=== PATIENT | female | born 1940 | race Caucasian/White ===

== ENCOUNTER 2016-08-12 11:37 | Inpatient (IN) | payer MEDICARE ==
[2016-08-12] MEDS ORDERED: SODIUM CHLORIDE 0.9% 1,000 ML IV STA ×2 (11:52→13:10)
--- NOTE | 2016-08-12 12:14 | ED ---
General Adult HPI - General Stated complaint: Upper Abd pain Time Seen by Provider: 08/12/16 11:52 Source: patient, RN notes reviewed Mode of arrival: EMS Limitations: no limitations - History of Present Illness Initial comments: 76-year-old female presents to the emergency department with a chief complaint of epigastric discomfort. Patient developed this epigastric discomfort this morning. Patient states it hurts she touches the upper part of her belly. Patient states that she took her and asked that medicine because she was on the past that this was her acid reflux but it did not help. Patient states that she then developed some left arm heaviness. Patient states during this time she did have an episode of slurred speech but that has since resolved. Patient states that she hasn't had a fever or chills. Patient states when she is having epigastric pain she has some nausea there has not been any sweating. Patient states that she was concerned due to the pain that the fact that her typical medications and help in this new left arm heaviness so she thought that she should be evaluated. Patient denies any back pain with this. Patient states she hasn't had a fever chills she denies any diarrhea. Patient denies any actual vomiting.Patient denies any recent fever, chills, shortness of breath , chest pain, back pain, vomiting, numbness or tingling, dysuria or hematuria, constipation or diarrhea, headaches or visual changes, or any other current symptoms. - Related Data Home Medications Medication Instructions Recorded Confirmed Enalapril [Vasotec] 20 mg PO BID 11/18/13 08/12/16 Simvastatin [Zocor] 40 mg PO HS 11/18/13 08/12/16 glyBURIDE/METFORMIN HCL 2 tab PO BID 11/18/13 08/12/16 [Glucovance 5-500 mg Tablet] traMADol HCl [Ultram] 50 mg PO TID PRN 11/18/13 08/12/16 Cholecalciferol [Vitamin D3] 4,000 unit PO SA 08/12/16 08/12/16 Gabapentin [Neurontin] 100 mg PO HS 08/12/16 08/12/16 Insulin Glargine [Lantus] 42 unit SQ HS 08/12/16 08/12/16 Isosorbide Mononitrate ER [Imdur] 30 mg PO DAILY 08/12/16 08/12/16 LORazepam [Ativan] 0.5 mg PO DAILY PRN 08/12/16 08/12/16 Nitrofurantoin Macrocrystal 50 mg PO HS 08/12/16 08/12/16 [Macrodantin] Pantoprazole [Protonix] 40 mg PO DAILY 08/12/16 08/12/16 amLODIPine [Norvasc] 5 mg PO DAILY 08/12/16 08/12/16 Allergies Allergy/AdvReac Type Severity Reaction Status Date / Time latex Allergy Rash/Hives Verified 08/12/16 12:08 Review of Systems ROS Statement: Those systems with pertinent positive or pertinent negative responses have been documented in the HPI. ROS Other: All systems not noted in ROS Statement are negative. Past Medical History Past Medical History: Diabetes Mellitus, Hypertension Additional Past Medical History / Comment(s): high cholesterol History of Any Multi-Drug Resistant Organisms: None Reported Past Surgical History: Cholecystectomy, Tonsillectomy, Tubal Ligation Past Psychological History: Anxiety, Depression Smoking Status: Former smoker Past Alcohol Use History: None Reported Past Drug Use History: None Reported General Exam - General Exam Comments Initial Comments: General: The patient is awake and alert, in no distress, and does not appear acutely ill. Eye: Pupils are equal, round and reactive to light, extra-ocular movements are intact; there is normal conjunctiva bilaterally. No signs of icterus. Ears, nose, mouth and throat: There are moist mucous membranes and no oral lesions. Neck: The neck is supple, there is no tenderness. Cardiovascular: There is a regular rate and rhythm. No murmur, rub or gallop is appreciated. Respiratory: Lungs are clear to auscultation, respirations are non-labored, breath sounds are equal. No wheezes, stridor, rales, or rhonchi. Gastrointestinal: Soft, non-distended, epigastric tender abdomen without masses or organomegaly noted. There is no rebound or guarding present. No CVA tenderness. Bowel sounds are unremarkable. Back: There is no tenderness to palpation in the midline. There is no obvious deformity. No rashes noted. Musculoskeletal: Normal ROM, no tenderness, There is no pedal edema. There is no calf tenderness or swelling. Sensation intact. Pulses equal bilaterally 2+. Neurological: CN II-XII intact, There are no obvious motor or sensory deficits. Coordination appears grossly intact. Speech is normal. Skin: Skin is warm and dry and no rashes or lesions are noted. Psychiatric: Cooperative, appropriate mood & affect, normal judgment. Limitations: no limitations Course Vital Signs 08/12/16 08/12/16 08/12/16 11:52 12:05 13:02 Temperature 97.3 F L 98.8 F 99.3 F Pulse Rate 67 68 76 Respiratory 18 24 20 Rate Blood Pressure 157/91 176/77 168/81 O2 Sat by Pulse 99 98 98 Oximetry EKG Findings - EKG Comments: EKG Findings:: Normal sinus rhythm, T-wave inversion in V3 V4 V5 and V6, ventricular rate 64, LA interval 154 Medical Decision Making - Medical Decision Making 76-year-old female presents to the emergency department with a chief complaint of epigastric abdominal pain. As the patient does appear to have acute pancreatitis along with a mild acute kidney injury. Similar patient for IV hydration. At this time this is discussed with patient who is in agreement the plan. All questions have been answered. They will admit the patient. - Lab Data Result diagrams: 08/12/16 11:52 08/12/16 11:52 Lab Results 08/12/16 08/12/16 08/12/16 Range/Units 11:52 11:52 11:52 WBC 9.9 (3.8-10.6) k/uL RBC 5.73 H (3.80-5.40) m/uL Hgb 11.9 (11.4-16.0) gm/dL Hct 38.5 (34.0-46.0) % MCV 67.2 L (80.0-100.0) fL MCH 20.8 L (25.0-35.0) pg MCHC 30.9 L (31.0-37.0) g/dL RDW 14.8 (11.5-15.5) % Plt Count 223 (150-450) k/uL Neutrophils % 60 % Lymphocytes % 30 % Monocytes % 4 % Eosinophils % 3 % Basophils % 1 % Neutrophils # 5.9 (1.3-7.7) k/uL Lymphocytes # 2.9 (1.0-4.8) k/uL Monocytes # 0.4 (0-1.0) k/uL Eosinophils # 0.3 (0-0.7) k/uL Basophils # 0.1 (0-0.2) k/uL Hypochromasia Slight Microcytosis Marked PT (9.0-12.0) sec INR (<1.1) APTT (22.0-30.0) sec Sodium 136 L (137-145) mmol/L Potassium 5.1 (3.5-5.1) mmol/L Chloride 101 (98-107) mmol/L Carbon Dioxide 19 L (22-30) mmol/L Anion Gap 16 mmol/L BUN 20 H (7-17) mg/dL Creatinine 1.24 H (0.52-1.04) mg/dL Est GFR (MDRD) Af Amer 51 (>60 ml/min/1.73 sqM) Est GFR (MDRD) Non-Af 42 (>60 ml/min/1.73 sqM) Glucose 228 H (74-99) mg/dL Calcium 10.0 (8.4-10.2) mg/dL Magnesium 1.3 L (1.6-2.3) mg/dL Total Bilirubin 0.7 (0.2-1.3) mg/dL AST 32 (14-36) U/L ALT 31 (9-52) U/L Alkaline Phosphatase 102 (38-126) U/L Total Creatine Kinase 73 (30-135) U/L CK-MB (CK-2) 1.3 (0.0-2.4) ng/mL CK-MB (CK-2) Rel Index 1.8 Troponin I 0.014 (0.000-0.034) ng/mL Total Protein 7.8 (6.3-8.2) g/dL Albumin 4.2 (3.5-5.0) g/dL Amylase 222 H (30-110) U/L Lipase 2767 H (23-300) U/L Urine Color Urine Appearance (Clear) Urine pH (5.0-8.0) Ur Specific [place] (1.001-1.035) Urine Protein (Negative) Urine Glucose (UA) (Negative) Urine Ketones (Negative) Urine Blood (Negative) Urine Nitrate (Negative) Urine Bilirubin (Negative) Urine Urobilinogen (<2.0) mg/dL Ur Leukocyte Esterase (Negative) 08/12/16 08/12/16 Range/Units 11:52 12:40 WBC (3.8-10.6) k/uL RBC (3.80-5.40) m/uL Hgb (11.4-16.0) gm/dL Hct (34.0-46.0) % MCV (80.0-100.0) fL MCH (25.0-35.0) pg MCHC (31.0-37.0) g/dL RDW (11.5-15.5) % Plt Count (150-450) k/uL Neutrophils % % Lymphocytes % % Monocytes % % Eosinophils % % Basophils % % Neutrophils # (1.3-7.7) k/uL Lymphocytes # (1.0-4.8) k/uL Monocytes # (0-1.0) k/uL Eosinophils # (0-0.7) k/uL Basophils # (0-0.2) k/uL Hypochromasia Microcytosis PT 11.8 (9.0-12.0) sec INR 1.2 (<1.1) APTT 21.9 L (22.0-30.0) sec Sodium (137-145) mmol/L Potassium (3.5-5.1) mmol/L Chloride (98-107) mmol/L Carbon Dioxide (22-30) mmol/L Anion Gap mmol/L BUN (7-17) mg/dL Creatinine (0.52-1.04) mg/dL Est GFR (MDRD) Af Amer (>60 ml/min/1.73 sqM) Est GFR (MDRD) Non-Af (>60 ml/min/1.73 sqM) Glucose (74-99) mg/dL Calcium (8.4-10.2) mg/dL Magnesium (1.6-2.3) mg/dL Total Bilirubin (0.2-1.3) mg/dL AST (14-36) U/L ALT (9-52) U/L Alkaline Phosphatase (38-126) U/L Total Creatine Kinase (30-135) U/L CK-MB (CK-2) (0.0-2.4) ng/mL CK-MB (CK-2) Rel Index Troponin I (0.000-0.034) ng/mL Total Protein (6.3-8.2) g/dL Albumin (3.5-5.0) g/dL Amylase (30-110) U/L Lipase (23-300) U/L Urine Color Yellow Urine Appearance Clear (Clear) Urine pH 6.0 (5.0-8.0) Ur Specific [place] 1.012 (1.001-1.035) Urine Protein Trace H (Negative) Urine Glucose (UA) Trace H (Negative) Urine Ketones Negative (Negative) Urine Blood Negative (Negative) Urine Nitrate Negative (Negative) Urine Bilirubin Negative (Negative) Urine Urobilinogen <2.0 (<2.0) mg/dL Ur Leukocyte Esterase Negative (Negative) - Radiology Data Radiology results: report reviewed, image reviewed Disposition Clinical Impression: Hyponatremia, MARISOL (acute kidney injury), Acute pancreatitis Disposition: ADMITTED IP TO THIS [facility] Condition: Stable Referrals: Carlos Hall MD [Primary Care Provider] - 1-2 days Time of Disposition: 13:13 Decision Date: 08/12/16 Decision Time: 13:13
[2016-08-12 12:19] LABS: Basophils # (A) 0.1 k/uL (0-0.2); Basophils % (A) 1 %; CH 21.1; CHCM 31.7; Eosinophils # (A) 0.3 k/uL (0-0.7); Eosinophils % (A) 3 %; HCT 38.5 % (34.0-46.0); HDW 3.08; HGB 11.9 gm/dL (11.4-16.0); Hypochromasia Slight; Luc # (Auto) 0.25; Luc % (Auto) 3; Lymphocytes # (A) 2.9 k/uL (1.0-4.8); Lymphocytes % (A) 30 %; MCH 20.8 pg (25.0-35.0); MCHC 30.9 g/dL (31.0-37.0); MCV 67.2 fL (80.0-100.0); Mean Platelet Volume 7.6; Microcytosis Marked; Monocytes # (A) 0.4 k/uL (0-1.0); Monocytes % (A) 4 %; Neutrophils # (A) 5.9 k/uL (1.3-7.7); Neutrophils % (A) 60 %; RBC 5.73 m/uL (3.80-5.40); RDW 14.8 % (11.5-15.5); WBC 9.9 k/uL (3.8-10.6); WBC (Perox) 9.87
--- NOTE | 2016-08-12 12:31 | CT ---
EXAMINATION TYPE: CT brain wo con DATE OF EXAM: 08/12/2016 12:25 PM COMPARISON: NONE HISTORY: 76-year-old female with pain and complains of episode of slurred speech earlier today. TECHNIQUE: Examination was done in axial plane without intravenous contrast. Coronal and sagittal reconstructio ns performed. CT DLP: 578.9 mGycm Automated exposure control for dose reduction was used. FINDINGS: There is no evidence of acute intracranial hemorrhage, acute ischemic changes, mass, mass-effect, or extra-axial fluid collection. There is no effacement of cerebral sulci or basal subarachnoid cister ns. There is no hydrocephalus. There is no midline shift. Hurst-white matter distinction is preserv ed. There is mild to moderate generalized supratentorial volume loss with moderate confluent white matter hypodensities in both cerebral hemispheres. Paranasal sinuses and mastoid air cells are well pneumatized. Orbits and globes are intact. IMPRESSION: No acute intracranial abnormality seen. Mild to moderate atrophy and moderate confluent changes of ch ronic small vessel ischemic disease.
[2016-08-12 12:34] LABS: INR 1.2 (<1.1); Prothrombin Time 11.8 sec (9.0-12.0)
[2016-08-12 12:36] LABS: Partial Thromboplastin Time 21.9 sec (22.0-30.0)
[2016-08-12 12:45] LABS: Magnesium 1.3 mg/dL (1.6-2.3); Potassium 5.1 mmol/L (3.5-5.1); Total Bilirubin 0.7 mg/dL (0.2-1.3); Total Protein 7.8 g/dL (6.3-8.2)
--- NOTE | 2016-08-12 12:47 | XR ---
EXAMINATION TYPE: XR chest 2V DATE OF EXAM: 08/12/2016 12:32 PM COMPARISON: 08/05/2012 HISTORY: 76-year-old female with chest pain and chest pressure TECHNIQUE: Frontal and lateral views FINDINGS: Heart is upper limits of normal in size with mild elongation of the thoracic aorta. Mild interstitial prominence and some stable scarring at the left base. No pleural effusion. IMPRESSION: Borderline heart size and mild interstitial prominence; correlate to exclude mild CHF. Otherwise, no acute process seen.
[2016-08-12 12:58] LABS: Appearance,Urine Clear (Clear); Bilirubin,Urine Negative (Negative); Glucose,Urine (UA) Trace (Negative); Ketones,Urine Negative (Negative); Leukocyte Esterase,Urine Negative (Negative); Nitrite,Urine Negative (Negative); Protein,Urine Trace (Negative); Specific Gravity,Urine 1.012 (1.001-1.035); UA Billing (MACRO vs. MICRO) CHEM; Urobilinogen,Urine <2.0 mg/dL (<2.0)
[2016-08-12 12:59] LABS: Creatine Kinase MB 1.3 ng/mL (0.0-2.4); Troponin I 0.014 ng/mL (0.000-0.034)
[2016-08-12] MEDS ORDERED: NALOXONE 0.4 MG/ML 1 ML VIAL IV PRN (13:19)
[2016-08-12] MEDS ORDERED: ACETAMINOPHEN TAB 325 MG TAB PO PRN (13:19)
[2016-08-12] MEDS ORDERED: ONDANSETRON 4 MG/2 ML VIAL IVP PRN (13:19)
[2016-08-12] MEDS ORDERED: HYDROcodone/APAP 5-325MG 1 EACH TAB PO PRN (13:19)
[2016-08-12] MEDS ORDERED: LORazepam 0.5 MG TAB PO PRN (13:20)
[2016-08-12] MEDS: SODIUM CHLORIDE 0.9% 1,000 ML IV SCH (14:51)
[2016-08-12] MEDS: HYDROmorphone 1 MG/ML 1 ML SYRINGE IV PRN (15:00)
[2016-08-12 16:22] LABS: Glucose,Whole Blood 160 mg/dL (75-99)
[2016-08-12] MEDS ORDERED: RX INFO: IV CONTRAST WAS GIVEN 1 EACH MISC MISCELLANE PRN (16:42)
[2016-08-12] MEDS ORDERED: IOHEXOL 350 MG/ML 25 ML BOTTLE (ORAL USE) PO PRN (16:42)
[2016-08-12] MEDS: INSULIN LISPRO (humaLOG) 300 UNIT/3 ML VIAL SQ SCH ×2 (16:55→20:59)
[2016-08-12] MEDS ORDERED: glipiZIDE 10 MG TAB PO SCH (17:30)
--- NOTE | 2016-08-12 18:01 | CT ---
EXAMINATION TYPE: CT abdomen wo con DATE OF EXAM: 08/12/2016 5:42 PM COMPARISON: 04/01/2013 HISTORY: Patient complains of epigastric pain. CT DLP: 666 mGycm Automated exposure control for dose reduction was used. TECHNIQUE: Helical acquisition of images was performed from the lung bases through the top of iliac crest to include entire abdomen. CONTRAST: Performed with Oral Contrast and without IV contrast. FINDINGS: The heart is enlarged. There is no pleural effusion. There is no pericardial effusion. Abdominal aort a is atheromatous. There are clips from cholecystectomy. Liver shows no focal defect. Spleen appears normal. There is no evidence of a pancreatic mass. There is no adrenal mass. Kidneys have normal size and contour. There is no hydronephrosis. There is no retroperitoneal adenopathy. I see no intestinal wall thickening. There is no sign of a bowel obstruction. There is no ascites. There is spurring in the lumbar spine. IMPRESSION: CARDIOMEGALY. ATHEROSCLEROTIC VASCULAR DISEASE. SPONDYLOTIC CHANGES IN THE LUMBAR SPINE. NO SIGN OF A CUTE ABDOMEN AND PELVIS. MINIMAL SCARRING OR SUBSEGMENTAL ATELECTASIS AT THE LUNG BASES. THERE IS PRO BABLY A SMALL HIATAL HERNIA. There is no adverse change compared to old CT scan.
[2016-08-12 19:41] LABS: Hemoglobin A1C 9.7 % (4.2-6.1)
[2016-08-12 19:47] LABS: Creatine Kinase MB 1.4 ng/mL (0.0-2.4); Troponin I 0.019 ng/mL (0.000-0.034)
[2016-08-12 20:55] LABS: Glucose,Whole Blood 140 mg/dL (75-99)
[2016-08-12] MEDS: traMADol 50 MG TAB PO PRN (20:57)
[2016-08-12] MEDS: TEMAZEPAM 15 MG CAP PO PRN (20:58)
[2016-08-12] MEDS: ATORVASTATIN 20 MG TAB PO SCH (20:58)
[2016-08-12] MEDS: GABAPENTIN 100 MG CAP PO SCH (20:58)
[2016-08-12] MEDS: HEPARIN SODIUM,PORCINE 5,000 UNIT/ML 1 ML VIAL SQ SCH (20:59)
[2016-08-12] MEDS: INSULIN GLARGINE 100 UNIT/ML 10 ML VIAL SQ SCH (20:59)
[2016-08-12] MEDS ORDERED: NITROFURANTOIN MACROCRYSTAL 50 MG CAP PO SCH (21:00)
[2016-08-12] MEDS: LISINOPRIL 20 MG TAB PO SCH (21:00)
--- NOTE | 2016-08-12 22:37 | HP ---
DATE OF ADMISSION: CHIEF COMPLAINT: Abdominal pain. HISTORY OF PRESENT ILLNESS: This 76-year-old woman with a past history of diabetes, GERD, hypertension, hyperlipidemia, history of vasospastic angina, history of sinus problems, history of cholecystectomy, tonsillectomy, anxiety, depression, being followed by Dr. Carlos Hall in the outpatient setting, was complaining of epigastric pain since this morning. The abdomen is painful to touch, according to her. The patient had some nausea, too. Patient thought that it was acid reflux, and she came to [facility] and was admitted for further evaluation and treatment. Some left arm heaviness also was noted. There is no history of any fever, rigor, or chills. No history of any headache, loss of consciousness, seizures. The patient came to [facility] and was found to have amylase of 222 and lipase 276, indicative of acute pancreatitis. The patient had a cholecystectomy previously. PAST MEDICAL HISTORY: 1. History of diabetes mellitus. 2. History of GERD. 3. Hypertension. 4. Hyperlipidemia. 5. History of cholecystectomy. 6. History of tonsillectomy. 7. Atrial fibrillation. 8. Anxiety. 9. Depression. Home medications are: 1. Macrodantin 50 mg p.o. at bedtime. 2. Vitamin D3 4000 p.o. Thursday. 3. Protonix 40 mg daily. 4. Imdur 30 mg p.o. daily. 5. Ultram 50 mg t.i.d. p.r.n. 6. Norvasc 5 mg p.o. daily. 7. Glucovance 5/500 two tablets p.o. b.i.d. 8. Vasotec 20 mg p.o. b.i.d. 9. Zocor 40 mg at bedtime. 10. Neurontin 300 mg p.o. at bedtime. 11. Ativan 0.5 mg daily p.r.n. 12. Lantus 42 units subcutaneously at bedtime. ALLERGIES: LATEX. FAMILY HISTORY: History of cancer in the family. SOCIAL HISTORY: Previous history of smoking. No current smoking or alcohol intake. REVIEW OF SYSTEMS: ENT: No diminished hearing. No diminished vision. CARDIOVASCULAR: No angina, palpitations. RESPIRATORY: No cough, hemoptysis. GI: As mentioned earlier. : No dysuria. NERVOUS SYSTEM: No numbness or weakness. ALLERGY/IMMUNOLOGY: No asthma, hayfever. MUSCULOSKELETAL: As mentioned earlier. HEMATOLOGY/ONCOLOGY: No history of anemia. ENDOCRINE: Diabetes mellitus. CONSTITUTIONAL: As mentioned earlier. DERMATOLOGY: Negative. RHEUMATOLOGY: Negative. PSYCHIATRY: As mentioned earlier. PHYSICAL EXAMINATION: Patient is alert and oriented x3. Pulse 68, blood pressure 150/84, respiration 20, temperature 97.8, pulse ox 98% on 3 L. HEENT: Conjunctivae normal. Oral mucosa moist. NECK: No jugular venous distention. No carotid bruit. No lymph node enlargement. CARDIOVASCULAR SYSTEM: S1, S2 normal. No S3. No S4. RESPIRATORY: Breath sounds diminished at the bases. No rhonchi. No crackles. ABDOMEN: Soft, obese. Mild diffuse tenderness in the epigastrium. No guarding. No rigidity. No mass palpable. No hepatosplenomegaly. No ascites. Bowel sounds present. LEGS: No edema. No swelling. NERVOUS SYSTEM: Higher functions as mentioned earlier. Moves all 4 limbs. No focal motor or sensory deficit. Cranial nerves 2-12 grossly intact LYMPHATICS: No lymph node palpable in neck, axillae or groin. SKIN: No ulcer, rash, bleeding. LABS: WBC 9.3, hemoglobin 11.9. INR 1.2. Sodium 136. Creatinine is 1.24. Glucose is 228. Magnesium is 1.3. Amylase and lipase noted. ASSESSMENT: 1. Abdominal pain with acute pancreatitis. 2. History of cholecystectomy. 3. Increased creatinine with possible mild acute renal failure, prerenal, secondary to dehydration. 4. Diabetes mellitus, type 2. 5. Hypomagnesemia. 6. Hyponatremia. 7. Obesity; body mass index 34.1. 8. Microcytosis. 9. Gastroesophageal reflux disease. 10. Hypertension. 11. Hyperlipidemia. 12. History of vasospastic angina. 13. History of degenerative joint disease. 14. History of urinary tract infections. 15. History of anxiety, depression not otherwise specified. 16. Remote history of nicotine dependence. 17. FULL CODE. RECOMMENDATIONS AND DISCUSSION: In this 76-year-old woman who presented with multiple complex medical issues, we will monitor the patient closely, continue the current medications, continue with symptomatic treatment. I would recommend IV fluids. Will hold the oral antihyper medications at this time. Otherwise, continue to monitor. Accu-Cheks before meals and at bedtime and scale. Resume the home medications. Medication reconciliation done. Pain medications. Guarded prognosis because of multiple complex medical issues. Further recommendations to follow. A copy of this dictation is being forwarded to Dr. Hall, who is the primary physician. HUMBERTO
[2016-08-13] MEDS: SODIUM CHLORIDE 0.9% 1,000 ML IV SCH ×3 (00:07→20:56)
[2016-08-13 00:53] LABS: Creatine Kinase MB 1.1 ng/mL (0.0-2.4); Troponin I 0.02 ng/mL (0.000-0.034)
[2016-08-13] MEDS: HYDROmorphone 1 MG/ML 1 ML SYRINGE IVP PRN ×3 (04:41→18:18)
[2016-08-13 08:01] LABS: Glucose,Whole Blood 169 mg/dL (75-99)
[2016-08-13] MEDS: INSULIN LISPRO (humaLOG) 300 UNIT/3 ML VIAL SQ SCH ×4 (08:36→20:40)
[2016-08-13 08:53] LABS: Basophils % (A) 0 %; CH 20.2; CHCM 29.2; Eosinophils # (A) 0.3 k/uL (0-0.7); Eosinophils % (A) 4 %; HCT 37.9 % (34.0-46.0); HDW 2.86; HGB 11.2 gm/dL (11.4-16.0); Hypochromasia Marked; Luc # (Auto) 0.19; Luc % (Auto) 3; Lymphocytes # (A) 2.6 k/uL (1.0-4.8); Lymphocytes % (A) 38 %; MCH 20.5 pg (25.0-35.0); MCHC 29.5 g/dL (31.0-37.0); MCV 69.6 fL (80.0-100.0); Mean Platelet Volume 6.2; Microcytosis Moderate; Monocytes # (A) 0.3 k/uL (0-1.0); Monocytes % (A) 5 %; Neutrophils # (A) 3.3 k/uL (1.3-7.7); Neutrophils % (A) 50 %; RBC 5.44 m/uL (3.80-5.40); RDW 14.3 % (11.5-15.5); WBC 6.7 k/uL (3.8-10.6); WBC (Perox) 7.15
[2016-08-13] MEDS ORDERED: PANTOPRAZOLE 40 MG TABLET PO SCH (09:00)
[2016-08-13 09:18] LABS: Calcium 9.2 mg/dL (8.4-10.2); Total Bilirubin 0.7 mg/dL (0.2-1.3)
[2016-08-13 09:21] LABS: Creatine Kinase 51 U/L (30-135)
[2016-08-13 09:33] LABS: Troponin I <0.012 ng/mL (0.000-0.034)
[2016-08-13] MEDS: ISOSORBIDE MONONITRATE ER 30 MG TAB.ER.24H PO SCH (10:07)
[2016-08-13] MEDS: amLODIPine 5 MG TAB PO SCH (10:07)
[2016-08-13] MEDS: HEPARIN SODIUM,PORCINE 5,000 UNIT/ML 1 ML VIAL SQ SCH ×2 (10:07→20:39)
[2016-08-13] MEDS: LISINOPRIL 20 MG TAB PO SCH ×2 (10:07→20:38)
[2016-08-13 11:19] VITALS: BMI 34.0
[2016-08-13 12:08] LABS: Glucose,Whole Blood 148 mg/dL (75-99)
[2016-08-13] MEDS: PANTOPRAZOLE 40 MG/10 ML VIAL IVP SCH ×2 (13:46→20:39)
[2016-08-13 17:28] LABS: Glucose,Whole Blood 156 mg/dL (75-99)
[2016-08-13] MEDS: TIMOLOL 0.5% OPHTH DROPS 5 ML BTL BOTH EYES SCH (18:06)
[2016-08-13] MEDS: HYDROmorphone 1 MG/ML 1 ML SYRINGE IV PRN (18:17)
[2016-08-13] MEDS: ATORVASTATIN 20 MG TAB PO SCH (20:38)
[2016-08-13] MEDS: GABAPENTIN 100 MG CAP PO SCH (20:38)
[2016-08-13] MEDS: INSULIN GLARGINE 100 UNIT/ML 10 ML VIAL SQ SCH (20:39)
[2016-08-13] MEDS: ALPRAZolam 0.25 MG TAB PO PRN (20:42)
[2016-08-13] MEDS: TEMAZEPAM 15 MG CAP PO PRN (20:42)
[2016-08-13 21:00] LABS: Glucose,Whole Blood 314 mg/dL (75-99)
[2016-08-13 21:00] LABS: Glucose,Whole Blood 236 mg/dL (75-99)
--- NOTE | 2016-08-13 21:46 | PN ---
DATE OF SERVICE: 08/13/2016 This 76-year-old woman who was admitted with abdominal pain with acute pancreatitis also had a history of cholecystectomy previously. No chest pain or palpitations. No fever. amylase and lipase. Still has some abdominal pain. The CT scan of the abdomen showed atherosclerotic changes but no significant abnormalities of the pancreas. Hiatal hernia was also noted. On exam, alert and oriented x3. Pulse 70, blood pressure 135/77, respiration 20, temperature 98.7, pulse ox 96% on room air. HEENT: Conjunctivae normal. NECK: No jugular venous distention. CARDIOVASCULAR SYSTEM: S1, S2 muffled. RESPIRATORY SYSTEM: Breath sounds diminished at the bases. A few scattered rhonchi. No crackles. ABDOMEN: Soft. Mild diffuse discomfort. No guarding. No rigidity. No mass palpable. LEGS: No edema. No swelling. NERVOUS SYSTEM: Higher functions as mentioned earlier. Moves all 4 limbs. No focal motor or sensory deficit. LYMPHATICS: No lymph node palpable in neck, axillae or groin. SKIN: No ulcer, rash, bleeding. LABS AT THIS TIME: Hemoglobin is 11.2. Otherwise, glucose is 182. Creatinine 1.14. Amylase 139. Lipase is 1026. ASSESSMENT: 1. Abdominal pain with acute pancreatitis. 2. History of cholecystectomy. 3. Increased creatinine with possible mild acute renal failure, prerenal secondary to dehydration. 4. Diabetes mellitus, type 2. 5. Hypomagnesemia. 6. Hyponatremia. 7. Obesity with a body mass index of 34.1. 8. Microcytosis. 9. History of gastroesophageal reflux disease. 10. Hypertension, essential. 11. Hyperlipidemia. 12. History of vasospastic angina. 13. History of degenerative joint disease. 14. History of urinary tract infection. 15. History of anxiety and depression not otherwise specified. 16. Remote history of nicotine dependence. 17. FULL CODE. RECOMMENDATIONS AND DISCUSSION: In this 76-year-old woman who presented with multiple complex medical issues, we will monitor the patient closely, continue the current medication, continue symptomatic treatment. I will initiate the diet. Closely monitor. Will also obtain a gastroenterology consultation. Otherwise, guarded prognosis because of multiple complex medical issues. Further recommendations to follow. See orders for further details. MTDD
[2016-08-14 07:40] LABS: Glucose,Whole Blood 110 mg/dL (75-99)
[2016-08-14] MEDS: INSULIN LISPRO (humaLOG) 300 UNIT/3 ML VIAL SQ SCH ×4 (08:03→21:31)
[2016-08-14] MEDS: amLODIPine 5 MG TAB PO SCH (08:08)
[2016-08-14] MEDS: ISOSORBIDE MONONITRATE ER 30 MG TAB.ER.24H PO SCH (08:08)
[2016-08-14] MEDS: PANTOPRAZOLE 40 MG/10 ML VIAL IVP SCH ×2 (08:08→21:22)
[2016-08-14] MEDS: LISINOPRIL 20 MG TAB PO SCH (08:08)
[2016-08-14] MEDS: TIMOLOL 0.5% OPHTH DROPS 5 ML BTL BOTH EYES SCH (08:08)
[2016-08-14] MEDS: HEPARIN SODIUM,PORCINE 5,000 UNIT/ML 1 ML VIAL SQ SCH ×2 (08:08→21:31)
[2016-08-14] MEDS: SODIUM CHLORIDE 0.9% 1,000 ML IV SCH ×3 (08:08→21:08)
[2016-08-14 09:37] LABS: Basophils % (A) 0 %; CH 20.5; CHCM 30.2; Eosinophils # (A) 0.3 k/uL (0-0.7); Eosinophils % (A) 4 %; HCT 34.2 % (34.0-46.0); HDW 2.97; HGB 10.3 gm/dL (11.4-16.0); Hypochromasia Marked; Luc # (Auto) 0.15; Luc % (Auto) 2; Lymphocytes # (A) 2.2 k/uL (1.0-4.8); Lymphocytes % (A) 35 %; MCH 20.7 pg (25.0-35.0); MCHC 30.1 g/dL (31.0-37.0); MCV 68.6 fL (80.0-100.0); Mean Platelet Volume 6.9; Microcytosis Marked; Monocytes # (A) 0.4 k/uL (0-1.0); Monocytes % (A) 6 %; Neutrophils # (A) 3.4 k/uL (1.3-7.7); Neutrophils % (A) 53 %; RBC 4.99 m/uL (3.80-5.40); RDW 14.6 % (11.5-15.5); WBC 6.5 k/uL (3.8-10.6); WBC (Perox) 7.04
[2016-08-14 09:52] LABS: ALT 27 U/L (9-52); AST 37 U/L (14-36); Alkaline Phosphatase 66 U/L (38-126); Amylase 88 U/L (30-110); Anion Gap 12 mmol/L; Blood Urea Nitrogen 12 mg/dL (7-17); Calcium 8.7 mg/dL (8.4-10.2); Carbon Dioxide 20 mmol/L (22-30); Chloride 107 mmol/L (98-107); Glucose 189 mg/dL (74-99); Non-African American GFR(MDRD) 50 (>60 ml/min/1.73 sqM); Potassium 4.5 mmol/L (3.5-5.1); Sodium 139 mmol/L (137-145); Total Bilirubin 0.7 mg/dL (0.2-1.3); Total Protein 6.3 g/dL (6.3-8.2)
--- NOTE | 2016-08-14 11:00 | P.CONS ---
History of Present Illness - Reason for Consult Consult date: 08/14/16 Pancreatitis Requesting physician: Rubén Moreno - History of Present Illness 76-year-old female patient Dr. Hall with a past medical history of acalculus cholecystectomy, chronic kidney disease, diabetes mellitus, GERD, hypertension, hyperlipidemia, anxiety, depression. Patient presents with severe midepigastric abdominal pain elevated BUN/creatinine. Abdominal pain started Thursday with elevated admission pancreatic enzymes consistent with acute pancreatitis. Lipase 1026. Amylase 139. LFTs within normal limits. Triglycerides 199. Calcium 9.2. No history of pancreatitis. No history of fever, chills, hematemesis, hematochezia, melena, peptic ulcer disease, alcoholism, or known pancreatic disorders. She was in [place] 6 months ago and was evaluated for midepigastric pain at that time she was taking NSAIDs for arthritic discomfort. She was prescribed a PPI therapy without EGD. She discontinued NSAIDs 3 months ago per recommendation of her shop tailor for concern of worsening kidney function. No history of EGD. Presently she feels better. Lipase improved 425. Amylase 88. Hemoglobin 11.9 admission currently 10.3. MCV 68. Platelet 216. She is tolerating clear liquid diet. CT abdomen reported no focal liver defect. Spleen appeared normal with no evidence of pancreatic mass. Review of Systems Constitutional: Denies fever, chills, sweats, weight gain, or loss. HEENT: Negative for migraines, blurred vision or loss, earaches, drainage, tinnitus, oral mucosal lesions, dysphagia, or odynophagia. CARDIAC: Hyperlipidemia. Hypertension. Negative for chest pain, arrhythmias, or palpitation. RESPIRATORY: Negative for shortness of breath, hemoptysis, cough, or sputum production. GI: See HPI for pertinent findings. : Negative for hematuria, urgency, frequency, polyuria, or dysuria. GYNc: Denies possibility of . Negative vaginal discharge. MUSCULOSKELETAL: Negative for muscle aches, swelling, arthritis, and arthralgias. NEUROLOGIC: Negative for stroke or TIA. ENDOCRINE: Diabetes mellitus.. SKIN: Negative for rash or itching. 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 History of Any Multi-Drug Resistant Organisms: None Reported Past Surgical History: Cholecystectomy, Tonsillectomy, Tubal Ligation Additional Past Surgical History / Comment(s): 10/2009 cardiac cath-normal, bilateral cataract removal, colonoscopy. Past Anesthesia/Blood Transfusion Reactions: No Reported Reaction Additional Past Anesthesia/Blood Transfusion Reaction / Comm: Pt has clausterphobia. Past Psychological History: Anxiety, Depression Additional Psychological History / Comment(s): Pt resides alone. She is independent. Smoking Status: Former smoker Past Alcohol Use History: Rare Additional Past Alcohol Use History / Comment(s): Pt states she started smoking in 1955 and quit in 1988. Past Drug Use History: None Reported - Past Family History Father Family Medical History: Cancer Additional Family Medical History / Comment(s): Father at the age of 81 yrs of lung cancer. He was a smoker. Mother Family Medical History: Cancer Additional Family Medical History / Comment(s): Mother had cervical cancer. She at the age of 53 from her lupus. Medications and Allergies Home Medications Medication Instructions Recorded Confirmed Type Enalapril [Vasotec] 20 mg PO BID 11/18/13 08/12/16 History Simvastatin [Zocor] 40 mg PO HS 11/18/13 08/12/16 History glyBURIDE/METFORMIN HCL 2 tab PO BID 11/18/13 08/12/16 History [Glucovance 5-500 mg Tablet] traMADol HCl [Ultram] 50 mg PO TID PRN 11/18/13 08/12/16 History Cholecalciferol [Vitamin D3] 4,000 unit PO SA 08/12/16 08/12/16 History Gabapentin [Neurontin] 100 mg PO 08/12/16 08/12/16 History Insulin Glargine [Lantus] 42 unit SQ HS 08/12/16 08/12/16 History Isosorbide Mononitrate ER [Imdur] 30 mg PO DAILY 08/12/16 08/12/16 History LORazepam [Ativan] 0.5 mg PO DAILY PRN 08/12/16 08/12/16 History Nitrofurantoin Macrocrystal 50 mg PO HS 08/12/16 08/12/16 History [Macrodantin] Pantoprazole [Protonix] 40 mg PO DAILY 08/12/16 08/12/16 History amLODIPine [Norvasc] 5 mg PO DAILY 08/12/16 08/12/16 History Allergies Allergy/AdvReac Type Severity Reaction Status Date / Time latex Allergy Rash/Hives Verified 08/12/16 12:08 Physical Exam Vitals: Vital Signs Temp Pulse Resp BP BP Pulse Ox 08/14/16 07:00 97.7 F 63 20 152/70 96 08/13/16 23:00 98.7 F 65 18 130/63 94 L 08/13/16 15:00 98.5 F 72 20 129/62 95 Intake and Output 08/13/16 08/14/16 08/14/16 22:59 06:59 14:59 Intake Total 480 Balance 480 Intake: Oral 480 Other: # Voids 2 2 General appearance: The patient is alert, oriented, in no acute distress. HET: Head is normocephalic and atraumatic. Pupils are equal and reactive. Oropharynx is clear without lesions. Neck: Supple without lymphadenopathy. Trachea midline. Heart: S1 S2. Regular rate and rhythm. Lungs: No crackles or wheezes are heard. Abdomen: Soft, mild midepigastric tenderness, nondistended with bowel sounds. No peritoneal signs. No palpable organomegaly or masses. Extremities: Normal skin color and turgor. No cyanosis, rash, ulceration, clubbing, or edema. Radial and pedal pulses are 2/4 bilaterally. Neurological: No focal deficits. Strength and sensation are grossly intact. Results CBC & Chem 7: 08/14/16 08:49 08/14/16 08:49 Labs: Abnormal Lab Results - Last 24 Hours (Table) 08/13/16 08/13/16 08/13/16 Range/Units 11:48 17:22 20:10 Hgb (11.4-16.0) gm/dL MCV (80.0-100.0) fL MCH (25.0-35.0) pg MCHC (31.0-37.0) g/dL Carbon Dioxide (22-30) mmol/L Creatinine (0.52-1.04) mg/dL Glucose (74-99) mg/dL POC Glucose (mg/dL) 148 H 156 H 314 H (75-99) mg/dL AST (14-36) U/L Albumin (3.5-5.0) g/dL Lipase (23-300) U/L 08/13/16 08/14/16 08/14/16 Range/Units 20:12 07:12 08:49 Hgb 10.3 L (11.4-16.0) gm/dL MCV 68.6 L (80.0-100.0) fL MCH 20.7 L (25.0-35.0) pg MCHC 30.1 L (31.0-37.0) g/dL Carbon Dioxide (22-30) mmol/L Creatinine (0.52-1.04) mg/dL Glucose (74-99) mg/dL POC Glucose (mg/dL) 236 H 110 H (75-99) mg/dL AST (14-36) U/L Albumin (3.5-5.0) g/dL Lipase (23-300) U/L 08/14/16 Range/Units 08:49 Hgb (11.4-16.0) gm/dL MCV (80.0-100.0) fL MCH (25.0-35.0) pg MCHC (31.0-37.0) g/dL Carbon Dioxide 20 L (22-30) mmol/L Creatinine 1.06 H (0.52-1.04) mg/dL Glucose 189 H (74-99) mg/dL POC Glucose (mg/dL) (75-99) mg/dL AST 37 H (14-36) U/L Albumin 3.2 L (3.5-5.0) g/dL Lipase 425 H (23-300) U/L CT scan - abdomen: report reviewed (Reviewed by Dr. Ballesteros) Assessment and Plan (1) Acute pancreatitis Narrative/Plan: 76-year-old female presents with first episode of acute pancreatitis with normal liver function test possible autoimmune possible idiopathic. Peptic ulcer disease cannot be entirely excluded with history of epigastric pain for 6 months duration with remote NSAID usage without improvement using PPI therapy. Status: Acute (2) Diabetes mellitus Status: Chronic Plan: 1. Advance diet as tolerated. Nothing by mouth after midnight. 2. Will proceed with EGD evaluation tomorrow to rule out peptic ulcer disease and evaluation of persistent epigastric pain of 6 months duration. 3. Continue GI prophylaxis. No aspirin or NSAIDs. 4. Will obtain MONIQUE screen and IgG subclass 4 serology. The mule rider has discussed the risks, benefits and alternative therapies for the above-mentioned procedure and for both sedation/analgesia as well as necessary blood product administration, if indicated, as they pertain to this patient. The patient has indicated understanding and acceptance of the risks and procedures discussed. Thank you for this kind referral and the opportunity to participate in the care of your patient. This consultation was discussed with Dr. Ballesteros. The impression and plan of care have been directed as dictated.
[2016-08-14 12:32] LABS: Glucose,Whole Blood 140 mg/dL (75-99)
[2016-08-14] MEDS: HYDROmorphone 1 MG/ML 1 ML SYRINGE IVP PRN ×3 (12:37→23:05)
--- NOTE | 2016-08-14 14:33 | PN ---
Patient is admitted secondary to pancreatitis and patient has a possibility of idiopathic pancreatitis. ( ) testing was by ordered by Gastroenterology. Patient is going for upper GI endoscopy. Patient has hiatal hernia and acid reflux symptoms at this point of time. Will advance the diet today and patient will go for upper GI endoscopy tomorrow. Possibility of discharge tomorrow if she is able to tolerate diet well. Lipase has come down as symptoms of pancreatitis did improve significantly. REVIEW OF SYSTEMS: GASTROINTESTINAL: As described in HPI. CARDIOVASCULAR: No chest pain, no orthopnea, no PND, no palpitations. PULMONARY: Denied any shortness of breath. No cough or hemoptysis. NEUROLOGIC: No headaches, no weakness, no numbness. Medications were reviewed. On physical exam, vital signs, temperature 97.7, pulse of 63, respiratory rate of 20, blood pressure 152/70. Saturating at 96% on room air. ABDOMINAL EXAMINATION: Very minimal epigastric abdominal tenderness was appreciated. GENERAL: The patient is alert and oriented x3, not in any acute distress. Well developed, well nourished. HEENT: Pupils are round and equally reacting to light. EOMI. No scleral icterus. No conjunctival pallor. Normocephalic, atraumatic. No pharyngeal erythema. No thyromegaly. CARDIOVASCULAR: S1 and S2 present. No murmurs, rubs, or gallops. PULMONARY: Chest is clear to auscultation, no wheezing or crackles. MUSCULOSKELETAL: No joint swelling or deformity. EXTREMITIES: No cyanosis, clubbing, or pedal edema. NEUROLOGICAL: Gross neurological examination did not reveal any focal deficits. SKIN: No rashes. LABORATORY DATA: CBC, CMP are abnormal for mildly elevated creatinine of 1.06 which improved. BUN improved. ASSESSMENT AND PLAN: 1. Acute pancreatitis, idiopathic in nature. 2. Gastritis with hiatal hernia. 3. Acute renal failure, prerenal azotemia, which improved. 4. Type 2 diabetes mellitus. 5. Hypomagnesemia. 6. Obesity. 7. Hypertension. 8. Hyperlipidemia. 9. Depression. PLAN: Continue to advance the diet, n.p.o. today. Continue with upper GI endoscopy tomorrow. Continue with IV fluids. Possibility of discharge tomorrow.
[2016-08-14] MEDS: DOCUSATE 100 MG CAP PO SCH ×2 (14:59→21:18)
[2016-08-14] MEDS: ALPRAZolam 0.25 MG TAB PO PRN (16:14)
[2016-08-14] MEDS ORDERED: metFORMIN 500 MG TAB PO SCH (17:30)
[2016-08-14 17:32] LABS: Glucose,Whole Blood 155 mg/dL (75-99)
[2016-08-14] MEDS ORDERED: LACTATED RINGERS 1,000 ML IV SCH (19:45)
[2016-08-14] MEDS: HYDROmorphone 1 MG/ML 1 ML SYRINGE IV PRN (20:00)
[2016-08-14] MEDS: GABAPENTIN 100 MG CAP PO SCH (21:18)
[2016-08-14] MEDS: ATORVASTATIN 20 MG TAB PO SCH (21:18)
[2016-08-14 21:22] LABS: Glucose,Whole Blood 152 mg/dL (75-99)
[2016-08-14] MEDS: TEMAZEPAM 15 MG CAP PO PRN (21:32)
[2016-08-14] MEDS: INSULIN GLARGINE 100 UNIT/ML 10 ML VIAL SQ SCH (21:35)
[2016-08-15 04:49] LABS: ANA w/Reflex to Titer POSITIVE (NEGATIVE)
[2016-08-15] MEDS: SODIUM CHLORIDE 0.9% 1,000 ML IV SCH (06:42)
[2016-08-15 08:00] LABS: Glucose,Whole Blood 75 mg/dL (75-99)
[2016-08-15 08:19] VITALS: PULSE 64; RESP 19
[2016-08-15] MEDS ORDERED: PROPOFOL 10 MG/ML 20 ML VIAL IV ONE (08:21)
[2016-08-15] MEDS ORDERED: IV FLUID CONTINUATION 1,000 ML IV ONE (08:23)
--- NOTE | 2016-08-15 08:36 | P.PCN ---
Date of Procedure: 08/15/16 Procedure(s) Performed: BRIEF HISTORY: Patient is a 76-year-old, pleasant, white female, admitted to the hospital with epigastric pain and acute pancreatitis. The patient has been on NSAIDs and has been having intermittent epigastric pain for the last 6 months duration and hence possibly peptic ulcer disease is being considered as a possible etiology of steatohepatitis and hence she is scheduled for an upper endoscopy to evaluate further. PROCEDURE PERFORMED: Esophagogastroduodenoscopy with biopsy. PREOPERATIVE DIAGNOSIS: Acute pancreatitis rule out peptic ulcer disease. IV sedation per anesthesia. PROCEDURE: After informed consent was obtained, the patient was brought into the endoscopy unit. IV conscious sedation was administered by Anesthesia under continuous monitoring. Initially the Olympus GIF-140 video endoscope was inserted into the mouth. Esophagus intubated without any difficulty. It was gradually advanced into the stomach and duodenum and carefully examined. The bulb and the second part of the duodenum appeared normal. The scope at this time was withdrawn to the stomach, adequately insufflated with air, and upon careful examination, mucosa of the antrum, had scattered erosions and biopsies were done from this area. The body, cardia and the fundus appeared normal. The scope was then withdrawn into the esophagus. The GE junction was located at 40 cm from the incisors. There was circumferential erythema and one superficial erosion at the GE junction consistent with LA grade A reflux esophagitis. Rest of the esophagus appeared normal and the patient tolerated the procedure well. IMPRESSION: 1. Scattered antral erosions. 2. LA grade A reflux esophagitis. RECOMMENDATIONS: The findings of this examination were discussed with the patient as well as a family. She was advised to follow with the biopsy results. She will continue with H2 blockers and follow antireflux measures.
[2016-08-15] MEDS ORDERED: LISINOPRIL 20 MG TAB PO SCH (09:00)
[2016-08-15] MEDS: TIMOLOL 0.5% OPHTH DROPS 5 ML BTL BOTH EYES SCH (09:30)
[2016-08-15] MEDS: amLODIPine 5 MG TAB PO SCH (09:31)
[2016-08-15] MEDS: ISOSORBIDE MONONITRATE ER 30 MG TAB.ER.24H PO SCH (09:31)
[2016-08-15] MEDS: DOCUSATE 100 MG CAP PO SCH (09:31)
[2016-08-15] MEDS: INSULIN LISPRO (humaLOG) 300 UNIT/3 ML VIAL SQ SCH ×3 (09:32→17:59)
[2016-08-15] MEDS: HEPARIN SODIUM,PORCINE 5,000 UNIT/ML 1 ML VIAL SQ SCH (09:32)
[2016-08-15] MEDS: PANTOPRAZOLE 40 MG/10 ML VIAL IVP SCH (09:32)
[2016-08-15 10:04] LABS: Basophils % (A) 1 %; CH 20.6; CHCM 30.5; Eosinophils # (A) 0.3 k/uL (0-0.7); Eosinophils % (A) 4 %; HCT 35.7 % (34.0-46.0); HDW 2.99; Hypochromasia Marked; Luc # (Auto) 0.19; Luc % (Auto) 3; Lymphocytes # (A) 2.6 k/uL (1.0-4.8); Lymphocytes % (A) 36 %; MCHC 30.8 g/dL (31.0-37.0); MCV 68.2 fL (80.0-100.0); Mean Platelet Volume 6.7; Microcytosis Marked; Monocytes # (A) 0.4 k/uL (0-1.0); Monocytes % (A) 6 %; Neutrophils # (A) 3.8 k/uL (1.3-7.7); Neutrophils % (A) 52 %; RBC 5.23 m/uL (3.80-5.40); RDW 14.7 % (11.5-15.5); WBC 7.3 k/uL (3.8-10.6); WBC (Perox) 7.87
[2016-08-15 10:17] LABS: Potassium 3.8 mmol/L (3.5-5.1); Total Bilirubin 0.7 mg/dL (0.2-1.3); Total Protein 6.7 g/dL (6.3-8.2)
[2016-08-15 12:18] LABS: Glucose,Whole Blood 191 mg/dL (75-99)
[2016-08-15 14:51] LABS: IgG Subclass 3 42.6 mg/dL (11.0-85.0); IgG Subclass 4 21.2 mg/dL (3.0-175.0)
[2016-08-15] MEDS: traMADol 50 MG TAB PO PRN (15:54)
[2016-08-15 16:05] VITALS: BP 167/73; TEMP 99.4
[2016-08-15 17:38] LABS: Glucose,Whole Blood 208 mg/dL (75-99)
--- NOTE | 2016-08-15 19:44 | DS ---
DATE OF ADMISSION: 08/12/2016 DATE OF DISCHARGE: 08/15/2016 Patient is admitted secondary to pancreatitis, idiopathic pancreatitis. Patient is being discharged today, I am cutting down her Enalapril and increasing her amlodipine and patient is also found to have severe esophagitis on upper GI endoscopy. Patient is clinically doing well. Will be discharged today. Will be discharged in stable medical condition to home. Patient will follow with Dr. Plasencia on August 28, at 12:00 p.m.; Dr. Carlos Hall on 19 of August and patient will continue her diabetic, cardiac and low fat diet. Activity as tolerated. Spent greater than 35 minutes in total discharge process. Patient was seen and examined on the day of discharge. Vital signs stable. PHYSICAL EXAMINATION: GENERAL: The patient is alert and oriented x3, not in any acute distress. Well developed, well nourished. HEENT: Pupils are round and equally reacting to light. EOMI. No scleral icterus. No conjunctival pallor. Normocephalic, atraumatic. No pharyngeal erythema. No thyromegaly. CARDIOVASCULAR: S1 and S2 present. No murmurs, rubs, or gallops. PULMONARY: Chest is clear to auscultation, no wheezing or crackles. ABDOMEN: Soft, nontender, nondistended, normoactive bowel sounds. No palpable organomegaly. MUSCULOSKELETAL: No joint swelling or deformity. EXTREMITIES: No cyanosis, clubbing, or pedal edema. NEUROLOGICAL: Gross neurological examination did not reveal any focal deficits. SKIN: No rashes. FINAL DIAGNOSIS(ES): 1. Acute pancreatitis idiopathic in nature. 2. Moderate to severe esophagitis, gastritis and hiatal hernia. 3. Acute renal failure, prerenal azotemia, which improved. 4. Type 2 diabetes mellitus. 5. Obesity. 6. Hypertension. 7. Hyperlipidemia. 8. Depression. Please refer to my depart summary for further list of discharge medications.
[2016-08-16] MEDS ORDERED: CHOLECALCIFEROL 1,000 UNIT TAB PO SCH (12:00)
== END 2016-08-15 18:11 | disposition home or self-care (01) | DRG 439 ==
LOC: EC 11:37 → 4MS4W 14:04
PROVIDERS: ADMIT Internal Medicine; ATTEND Internal Medicine
PROC: 0DB68ZX Excision of Stomach, Via Natural or Artificial Opening Endoscopic, Diagnostic (ICD-10-PCS; principal; 2016-08-15 11:50)
DX: K85.90 Acute pancreatitis without necrosis or infection, unspecified (principal); N17.9 Acute kidney failure, unspecified; E86.0 Dehydration; E83.42 Hypomagnesemia; E11.9 Type 2 diabetes mellitus without complications; E87.1 Hypo-osmolality and hyponatremia; K29.70 Gastritis, unspecified, without bleeding; K44.9 Diaphragmatic hernia without obstruction or gangrene; I10 Essential (primary) hypertension; R71.8 Other abnormality of red blood cells; M47.819 Spondylosis without myelopathy or radiculopathy, site unspecified; F40.240 Claustrophobia; E78.5 Hyperlipidemia, unspecified; F41.9 Anxiety disorder, unspecified; E78.00 Pure hypercholesterolemia, unspecified; K21.0 Gastro-esophageal reflux disease with esophagitis; F32.9 Major depressive disorder, single episode, unspecified; Z90.49 Acquired absence of other specified parts of digestive tract; Z87.440 Personal history of urinary (tract) infections; Z87.891 Personal history of nicotine dependence; Z79.4 Long term (current) use of insulin; Z80.49 Family history of malignant neoplasm of other genital organs; Z80.1 Family history of malignant neoplasm of trachea, bronchus and lung; Z91.040 Latex allergy status; Z79.2 Long term (current) use of antibiotics; Z79.1 Long term (current) use of non-steroidal anti-inflammatories (NSAID); Z79.891 Long term (current) use of opiate analgesic; Z79.899 Other long term (current) drug therapy; Z98.42 Cataract extraction status, left eye; Z98.41 Cataract extraction status, right eye; Z98.51 Tubal ligation status; Z71.3 Dietary counseling and surveillance; Z86.79 Personal history of other diseases of the circulatory system; Z83.2 Family history of diseases of the blood and blood-forming organs and certain disorders involving the immune mechanism
CPT/HCPCS: 36415; 43239; 70450; 71020; 74150; 80053; 80061; 81003; 82150; 82550; 82553; 82787; 83036; 83690; 83735; 83880; 84484; 85025; 85610; 85730; 86038; 86039; 88305; 88342; 93005; 96360; 99285

== ENCOUNTER 2016-09-01 08:16 | Inpatient (IN) | payer MEDICARE ==
[2016-09-01] MEDS ORDERED: HYDROmorphone 1 MG/ML 1 ML SYRINGE IVP STA ×2 (09:00→10:42)
[2016-09-01] MEDS ORDERED: SODIUM CHLORIDE 0.9% 500 ML IV STA (09:00)
[2016-09-01] MEDS ORDERED: SODIUM CHLORIDE 0.9% 1,000 ML IV STA (09:00)
[2016-09-01] MEDS ORDERED: ONDANSETRON 4 MG/2 ML VIAL IVP STA (09:00)
--- NOTE | 2016-09-01 09:03 | ED ---
General Adult HPI <AxelMaurilio styles - Last Filed: 09/01/16 10:55> - General Source: patient, RN notes reviewed Mode of arrival: ambulatory Limitations: no limitations <Eugenio Rangel - Last Filed: 09/01/16 10:56> - General Chief complaint: Abdominal Pain Stated complaint: pancreatitis Time Seen by Provider: 09/01/16 08:49 - History of Present Illness Initial comments: Patient 76-year-old female, with a significant past medical history for hypertension, who presents emergency room today with a chief complaint of increased abdominal pain that started yesterday. She does admit to pain located in epigastric area. Currently rates it a 03/01. Denies any radiation. Does admit to some back ache yesterday. States his symptoms are consistent with pancreatitis that she was diagnosed with a few weeks ago. Patient denies any other complaints associated symptoms. Patient admits to history of cholecystectomy. States she has not been drinker. Patient denies any recent fever, chills, shortness of breath, chest pain, nausea or vomiting, numbness or tingling, dysuria or hematuria, constipation or diarrhea, headaches or visual changes, or any other complaints. (Eugenio Rangel) - Related Data Home Medications Medication Instructions Recorded Confirmed Simvastatin [Zocor] 40 mg PO HS 11/18/13 09/01/16 glyBURIDE/METFORMIN HCL 2 tab PO BID 11/18/13 09/01/16 [Glucovance 5-500 mg Tablet] traMADol HCl [Ultram] 50 mg PO BID PRN 11/18/13 09/01/16 Cholecalciferol [Vitamin D3] 5,000 unit PO SA 08/12/16 09/01/16 Gabapentin [Neurontin] 100 mg PO HS 08/12/16 09/01/16 Insulin Glargine [Lantus] 42 unit SQ HS 08/12/16 09/01/16 Isosorbide Mononitrate ER [Imdur] 30 mg PO DAILY 08/12/16 09/01/16 LORazepam [Ativan] 0.5 mg PO HS PRN 08/12/16 09/01/16 Nitrofurantoin Macrocrystal 50 mg PO HS 08/12/16 09/01/16 [Macrodantin] Pantoprazole [Protonix] 40 mg PO DAILY 08/12/16 09/01/16 Enalapril [Vasotec] 20 mg PO BID 09/01/16 09/01/16 Insulin Aspart [NovoLOG] 5 unit SQ W/BRKFST 09/01/16 09/01/16 Insulin Aspart [NovoLOG] 7 unit SQ W/SUPPER 09/01/16 09/01/16 Timolol [Betimol 0.5% Ophth Soln] 1 drop BOTH EYES DAILY 09/01/16 09/01/16 Triamterene-Hctz 37.5-25Mg 1 cap PO DAILY 09/01/16 09/01/16 [Dyazide 37.5-25 Capsule] amLODIPine [Norvasc] 5 mg PO DAILY 09/01/16 09/01/16 Allergies Allergy/AdvReac Type Severity Reaction Status Date / Time latex Allergy Rash/Hives Verified 09/01/16 09:03 Review of Systems ROS Other: All systems not noted in ROS Statement are negative. <Maurilio Wright - Last Filed: 09/01/16 10:55> ROS Other: All systems not noted in ROS Statement are negative. <Eugenio Rangel - Last Filed: 09/01/16 10:56> ROS Statement: Those systems with pertinent positive or pertinent negative responses have been documented in the HPI. 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 History of Any Multi-Drug Resistant Organisms: None Reported Past Surgical History: Cholecystectomy, Tonsillectomy, Tubal Ligation Additional Past Surgical History / Comment(s): 10/2009 cardiac cath-normal, bilateral cataract removal, colonoscopy. Past Anesthesia/Blood Transfusion Reactions: No Reported Reaction Additional Past Anesthesia/Blood Transfusion Reaction / Comment(s): Pt has clausterphobia. Past Psychological History: Anxiety, Depression Additional Psychological History / Comment(s): Pt resides alone. She is independent. Smoking Status: Former smoker Past Alcohol Use History: Rare Additional Past Alcohol Use History / Comment(s): Pt states she started smoking in 1956 and quit in 1988. Past Drug Use History: None Reported - Past Family History Father Family Medical History: Cancer Additional Family Medical History / Comment(s): Father at the age of 81 yrs of lung cancer. He was a smoker. Mother Family Medical History: Cancer Additional Family Medical History / Comment(s): Mother had cervical cancer. She at the age of 53 from her lupus. <Eugenio Rangel - Last Filed: 09/01/16 10:56> General Exam <Maurilio Wright - Last Filed: 09/01/16 10:55> Limitations: no limitations <Eugenio Rangel - Last Filed: 09/01/16 10:56> - General Exam Comments Initial Comments: General: The patient is awake and alert, in no distress, and does not appear acutely ill. Eye: Pupils are equal, round and reactive to light, extra-ocular movements are intact. No nystagmus. There is normal conjunctiva bilaterally. No signs of icterus. Ears, nose, mouth and throat: There are moist mucous membranes and no oral lesions. Neck: The neck is supple, there is no tenderness or JVD. Cardiovascular: There is a regular rate and rhythm. No murmur, rub or gallop is appreciated. Respiratory: Lungs are clear to auscultation, respirations are non-labored, breath sounds are equal. No wheezes, stridor, rales, or rhonchi. Gastrointestinal: Normal appearance of the abdomen. Normal bowel sounds. Abdomen soft on palpation. Patient does have mild tenderness in both the right and left upper quadrants. Mild tenderness epigastric. No rebound tenderness. No guarding. No CVA tenderness. Musculoskeletal: Normal ROM, no tenderness. Strength 5/5. Sensation intact. Pulses equal bilaterally 2+. Neurological: A&O x 3. CN II-XII intact, There are no obvious motor or sensory deficits. Coordination appears grossly intact. Speech is normal. Skin: Skin is warm and dry and no rashes or lesions are noted. Psychiatric: Cooperative, appropriate mood & affect, normal judgment. (Eugenio Rangel) EKG Findings - EKG Comments: EKG Findings:: EKG performed at 0907: A 12-lead EKG was performed and interpreted by me as showing the following: Rate is 72, and rhythm is normal sinus. There are normal QRS complexes and normal R-wave progression. ST segments have no elevation or depression, and NE segments appear normal. <Eugenio Rangel - Last Filed: 09/01/16 10:56> Medical Decision Making - Lab Data Result diagrams: 09/01/16 09:27 09/01/16 09:27 <Maurilio Wright - Last Filed: 09/01/16 10:55> - Lab Data Result diagrams: 09/01/16 09:27 09/01/16 09:27 <Eugenio Rangel - Last Filed: 09/01/16 10:56> - Medical Decision Making The patient was seen and examined. All diagnostics were reviewed. The case is discussed with the PA and I agree with findings as documented. Case is also discussed with Dr. Mccarthy and he is agreeable to admission. (Maurilio Wright) Patient's labs reviewed and does show evidence for elevated lipase. Patient's BUN and creatinine mildly elevated. Discussed with attending Dr Wright. Results were discussed with the patient. Patient be admitted as she still having increased abdominal pain. Patient aware the plan states understanding and is in agreement. (Eugenio Rangel) - Lab Data Lab Results 09/01/16 09/01/16 09/01/16 Range/Units 09:27 09:27 09:27 WBC 11.2 H (3.8-10.6) k/uL RBC 5.96 H (3.80-5.40) m/uL Hgb 12.0 (11.4-16.0) gm/dL Hct 41.1 (34.0-46.0) % MCV 69.0 L (80.0-100.0) fL MCH 20.2 L (25.0-35.0) pg MCHC 29.2 L (31.0-37.0) g/dL RDW 14.6 (11.5-15.5) % Plt Count 263 (150-450) k/uL Neutrophils % 57 % Lymphocytes % 31 % Monocytes % 5 % Eosinophils % 4 % Basophils % 1 % Neutrophils # 6.4 (1.3-7.7) k/uL Lymphocytes # 3.4 (1.0-4.8) k/uL Monocytes # 0.6 (0-1.0) k/uL Eosinophils # 0.4 (0-0.7) k/uL Basophils # 0.1 (0-0.2) k/uL Hypochromasia Marked Microcytosis Marked PT (9.0-12.0) sec INR (<1.1) APTT (22.0-30.0) sec Sodium 140 (137-145) mmol/L Potassium 4.7 (3.5-5.1) mmol/L Chloride 106 (98-107) mmol/L Carbon Dioxide 16 L (22-30) mmol/L Anion Gap 18 mmol/L BUN 43 H (7-17) mg/dL Creatinine 1.72 H (0.52-1.04) mg/dL Est GFR (MDRD) Af Amer 35 (>60 ml/min/1.73 sqM) Est GFR (MDRD) Non-Af 29 (>60 ml/min/1.73 sqM) Glucose 199 H (74-99) mg/dL Calcium 10.1 (8.4-10.2) mg/dL Total Bilirubin 0.6 (0.2-1.3) mg/dL AST 32 (14-36) U/L ALT 29 (9-52) U/L Alkaline Phosphatase 106 (38-126) U/L Total Creatine Kinase 54 (30-135) U/L CK-MB (CK-2) 2.0 (0.0-2.4) ng/mL CK-MB (CK-2) Rel Index 3.7 Troponin I <0.012 (0.000-0.034) ng/mL Total Protein 8.2 (6.3-8.2) g/dL Albumin 4.5 (3.5-5.0) g/dL Amylase 143 H (30-110) U/L Lipase 854 H (23-300) U/L Urine Color Urine Appearance (Clear) Urine pH (5.0-8.0) Ur Specific [place] (1.001-1.035) Urine Protein (Negative) Urine Glucose (UA) (Negative) Urine Ketones (Negative) Urine Blood (Negative) Urine Nitrate (Negative) Urine Bilirubin (Negative) Urine Urobilinogen (<2.0) mg/dL Ur Leukocyte Esterase (Negative) Urine WBC (0-5) /hpf Ur Squamous Epith Cells (0-4) /hpf Hyaline Casts (0-2) /lpf Urine Mucus (None) /hpf 09/01/16 09/01/16 Range/Units 09:27 09:35 WBC (3.8-10.6) k/uL RBC (3.80-5.40) m/uL Hgb (11.4-16.0) gm/dL Hct (34.0-46.0) % MCV (80.0-100.0) fL MCH (25.0-35.0) pg MCHC (31.0-37.0) g/dL RDW (11.5-15.5) % Plt Count (150-450) k/uL Neutrophils % % Lymphocytes % % Monocytes % % Eosinophils % % Basophils % % Neutrophils # (1.3-7.7) k/uL Lymphocytes # (1.0-4.8) k/uL Monocytes # (0-1.0) k/uL Eosinophils # (0-0.7) k/uL Basophils # (0-0.2) k/uL Hypochromasia Microcytosis PT 11.5 (9.0-12.0) sec INR 1.2 (<1.1) APTT 25.1 (22.0-30.0) sec Sodium (137-145) mmol/L Potassium (3.5-5.1) mmol/L Chloride (98-107) mmol/L Carbon Dioxide (22-30) mmol/L Anion Gap mmol/L BUN (7-17) mg/dL Creatinine (0.52-1.04) mg/dL Est GFR (MDRD) Af Amer (>60 ml/min/1.73 sqM) Est GFR (MDRD) Non-Af (>60 ml/min/1.73 sqM) Glucose (74-99) mg/dL Calcium (8.4-10.2) mg/dL Total Bilirubin (0.2-1.3) mg/dL AST (14-36) U/L ALT (9-52) U/L Alkaline Phosphatase (38-126) U/L Total Creatine Kinase (30-135) U/L CK-MB (CK-2) (0.0-2.4) ng/mL CK-MB (CK-2) Rel Index Troponin I (0.000-0.034) ng/mL Total Protein (6.3-8.2) g/dL Albumin (3.5-5.0) g/dL Amylase (30-110) U/L Lipase (23-300) U/L Urine Color Yellow Urine Appearance Clear (Clear) Urine pH 5.0 (5.0-8.0) Ur Specific [place] 1.016 (1.001-1.035) Urine Protein 1+ H (Negative) Urine Glucose (UA) Negative (Negative) Urine Ketones Negative (Negative) Urine Blood Negative (Negative) Urine Nitrate Negative (Negative) Urine Bilirubin Negative (Negative) Urine Urobilinogen <2.0 (<2.0) mg/dL Ur Leukocyte Esterase Negative (Negative) Urine WBC <1 (0-5) /hpf Ur Squamous Epith Cells 2 (0-4) /hpf Hyaline Casts 5 H (0-2) /lpf Urine Mucus Rare H (None) /hpf Disposition <Maurilio Wright - Last Filed: 09/01/16 10:55> Time of Disposition: 10:40 <Eugenio Rangel - Last Filed: 09/01/16 10:56> Clinical Impression: Acute pancreatitis, Acute renal injury Disposition: ADMITTED IP TO THIS HOSP Condition: Stable Referrals: Carlos Hall MD [Primary Care Provider] - 1-2 days
[2016-09-01 09:43] LABS: Basophils # (A) 0.1 k/uL (0-0.2); Basophils % (A) 1 %; CH 20.4; CHCM 29.8; Eosinophils # (A) 0.4 k/uL (0-0.7); Eosinophils % (A) 4 %; HCT 41.1 % (34.0-46.0); HDW 2.97; Hypochromasia Marked; Luc # (Auto) 0.31; Luc % (Auto) 3; Lymphocytes # (A) 3.4 k/uL (1.0-4.8); Lymphocytes % (A) 31 %; MCH 20.2 pg (25.0-35.0); MCHC 29.2 g/dL (31.0-37.0); Mean Platelet Volume 6.4; Microcytosis Marked; Monocytes # (A) 0.6 k/uL (0-1.0); Monocytes % (A) 5 %; Neutrophils # (A) 6.4 k/uL (1.3-7.7); Neutrophils % (A) 57 %; RBC 5.96 m/uL (3.80-5.40); RDW 14.6 % (11.5-15.5); WBC 11.2 k/uL (3.8-10.6); WBC (Perox) 11.19
--- NOTE | 2016-09-01 09:44 | XR ---
EXAMINATION TYPE: XR KUB DATE OF EXAM: 09/01/2016 9:40 AM COMPARISON: NONE HISTORY: Abdominal pain TECHNIQUE: One view abdominal series FINDINGS: The osseous structures are intact. The bowel gas pattern is nonspecific. Scoliotic curvature of the spine with degenerative change seen. Postsurgical change right upper quadrant. Arthropathy of the hip s. IMPRESSION: 1. Nonspecific abdomen.
[2016-09-01 09:50] LABS: INR 1.2 (<1.1); Partial Thromboplastin Time 25.1 sec (22.0-30.0); Prothrombin Time 11.5 sec (9.0-12.0)
[2016-09-01 09:52] LABS: Appearance,Urine Clear (Clear); Bilirubin,Urine Negative (Negative); Glucose,Urine (UA) Negative (Negative); Ketones,Urine Negative (Negative); Leukocyte Esterase,Urine Negative (Negative); Mucus,Urine Rare /hpf; Nitrite,Urine Negative (Negative); Particle Count 7391; Protein,Urine 1+ (Negative); Specific Gravity,Urine 1.016 (1.001-1.035); Squamous Epithelial Cell,Urine 2 /hpf (0-4); UA Billing (MACRO vs. MICRO) MICRO; Urobilinogen,Urine <2.0 mg/dL (<2.0); WBC,Urine <1 /hpf (0-5)
[2016-09-01 09:57] LABS: Calcium 10.1 mg/dL (8.4-10.2); Potassium 4.7 mmol/L (3.5-5.1); Total Bilirubin 0.6 mg/dL (0.2-1.3); Total Protein 8.2 g/dL (6.3-8.2)
[2016-09-01 10:08] LABS: Creatine Kinase 54 U/L (30-135)
[2016-09-01 10:20] LABS: Troponin I <0.012 ng/mL (0.000-0.034)
[2016-09-01] MEDS ORDERED: HYDROcodone/APAP 5-325MG 1 EACH TAB PO PRN (10:54)
[2016-09-01] MEDS ORDERED: ONDANSETRON 4 MG/2 ML VIAL IVP PRN (10:54)
[2016-09-01] MEDS ORDERED: ACETAMINOPHEN TAB 325 MG TAB PO PRN (10:54)
[2016-09-01] MEDS ORDERED: SODIUM CHLORIDE 0.9% 1,000 ML IV ONE (10:54)
[2016-09-01] MEDS ORDERED: HYDROmorphone 1 MG/ML 1 ML SYRINGE IV PRN (10:54)
[2016-09-01] MEDS ORDERED: NALOXONE 0.4 MG/ML 1 ML VIAL IV PRN (10:54)
[2016-09-01] MEDS ORDERED: traMADol 50 MG TAB PO PRN (10:54)
[2016-09-01 15:40] LABS: Glucose,Whole Blood 109 mg/dL (75-99)
[2016-09-01] MEDS ORDERED: LORazepam 0.5 MG TAB PO PRN (17:04)
--- NOTE | 2016-09-01 17:30 | XR ---
EXAMINATION TYPE: XR chest 1V portable DATE OF EXAM: 09/01/2016 5:25 PM CLINICAL HISTORY: Pneumonia TECHNIQUE: Single AP portable frontal upright view of the chest is obtained. COMPARISON: Prior chest x-ray August 12, 2016 FINDINGS: The cardiac silhouette size is more prominent and enlarged with new central vascular conge stion. No large pleural effusion or pneumothorax is seen. The osseous structures are intact. IMPRESSION: Suspect CHF exacerbation as there is cardiomegaly with new mild to moderate central vascu lar congestion felt present. Clinical correlation advised.
[2016-09-01] MEDS: HYDROmorphone 1 MG/ML 1 ML SYRINGE IVP PRN (19:56)
[2016-09-01] MEDS: GABAPENTIN 100 MG CAP PO SCH (19:58)
[2016-09-01] MEDS: LISINOPRIL 20 MG TAB PO SCH (19:58)
[2016-09-01] MEDS: HEPARIN SODIUM,PORCINE 5,000 UNIT/ML 1 ML VIAL SQ SCH (19:59)
[2016-09-01] MEDS: TEMAZEPAM 15 MG CAP PO PRN (19:59)
[2016-09-01] MEDS: PANTOPRAZOLE 40 MG/10 ML VIAL IVP SCH (20:02)
[2016-09-01 20:30] LABS: Glucose,Whole Blood 112 mg/dL (75-99)
--- NOTE | 2016-09-02 06:44 | HP ---
DATE OF ADMISSION: CHIEF COMPLAINT: Epigastric pain. HISTORY OF PRESENT ILLNESS: This 76-year-old woman with a past medical history of diabetes mellitus, GERD, hypertension, hyperlipidemia, DJD, history of cholecystectomy, cardiac catheterization, anxiety and depression who is being followed by Dr. Hall in the outpatient setting. The patient was recently admitted to [facility] with features of pancreatitis and abdominal pain, which is thought to be idiopathic in nature. Patient was treated symptomatically. Patient improved significantly. CAT scan did not show any acute abnormalities at that time. The patient had history of cholecystitis. The patient went home. The patient was eating well and going by the dietary recommendations, but, however, last night the patient had abdominal pain again in the epigastric area and because of severe pain and pain was about 9 out of 10 in intensity and the patient came to [facility] and admitted for further evaluation and treatment. The amylase and lipase were elevated, found the amylase was 143 and lipase was 854. Recurrence of pancreatitis suspected. There is no history of any fever, rigors or chills. No history of headache, loss of consciousness or seizures. Also, creatinine was found to be 1.7, which is elevation for the baseline, which indicated acute renal failure as well. There is no history of any fever, rigors or chills at this time. PAST MEDICAL HISTORY: History of recent pancreatitis , history of diabetes mellitus, GERD, hypertension, hyperlipidemia, DJD, history of cholecystectomy, cardiac catheterization, anxiety, depression. The patient also had severe reflux esophagitis on the EGD done previously. Medications prior to admission include: 1. Ultram 50 mg b.i.d. p.r.n. 2. Glucovance 2 tablets p.o. b.i.d. 3. Norvasc 5 mg p.o. daily. 4. Dyazide 37.5/25 mg p.o. daily. 5. Timolol 0.5 one drop both eyes daily. 6. Zocor 40 mg q.h.s. 7. Protonix 40 mg p.o. daily. 8. Macrodantin 50 mg p.o. q.h.s. 9. Ativan 0.5 mg q.h.s. 10. Imdur ER 30 mg p.o. daily. 11. Lantus 42 units subcu q.h.s. 12. NovoLog 7 units subcu with supper, 5 units with breakfast. 13. Neurontin 100 mg p.o. q.h.s. 14. Vasotec 20 mg p.o. b.i.d. 15. Vitamin D3, 5000 p.o. Thursday. ALLERGIES: LATEX. FAMILY HISTORY: History of cancer in the family, lung cancer, because of smoking in father. SOCIAL HISTORY: History of occasional alcohol and previous history of smoking. REVIEW OF SYSTEMS: ENT: No diminished hearing or diminished vision. CARDIOVASCULAR: No angina or palpitations. RESPIRATORY: No cough. GI: As mentioned earlier. : No dysuria. NERVOUS SYSTEM: No numbness or weakness. ALLERGY/IMMUNOLOGY: No asthma or hayfever. MUSCULOSKELETAL: As mentioned earlier. HEMATOLOGY/ONCOLOGY: No history of anemia. ENDOCRINE: As mentioned earlier, diabetes mellitus. CONSTITUTIONAL: As mentioned earlier. DERMATOLOGY: Negative. RHEUMATOLOGY: Negative. PSYCHIATRY: As mentioned earlier. PHYSICAL EXAMINATION: The patient is alert and oriented x3. Pulse 74, blood pressure 147/76, respirations 16, temperature 97.5, pulse ox 98% on room air. HEENT: Conjunctivae normal. Oral mucosa moist. NECK: No jugular venous distention. No lymph node enlargement. No thyroid enlargement or carotid bruit. CARDIOVASCULAR: S1 and S2, normal. No S3, no S4. No murmur or rub. RESPIRATORY: Breath sounds diminished at the bases. No rhonchi, no crackles. No bronchial breath sounds and no sounds. ABDOMEN: Soft, obese. Mild diffuse tenderness in the epigastrium up to the umbilicus present. No guarding, no rigidity, no mass palpable. No ascites. Bowel sounds present. LEGS: No edema, no swelling. NERVOUS SYSTEM: Higher function as mentioned earlier. Moves all 4 limbs. No focal motor or sensory deficits. LYMPHATICS: No lymphadenopathy of neck, axillae or groin. SKIN: No ulcers, rashes or bleeding. JOINTS: No active deforming arthropathy. LABS: WBC 11.2, hemoglobin 12, MCV 69. Creatinine is 1.72. Glucose 199. Amylase and lipase as noted. ASSESSMENT: 1. Abdominal pain with acute recurrent pancreatitis. 2. Acute renal failure with acute on chronic renal failure with chronic kidney disease, stage III. 3. Increased WBC. 4. Microcytosis. 5. Diabetes mellitus type 2. 6. Gastroesophageal reflux disease. 7. Hypertension. 8. Hyperlipidemia. 9. History of degenerative joint disease. 10. History of significant reflux esophagitis. 11. History of pancreatitis. 12. History of hiatal hernia. 13. Possible vasospastic angina history. 14. History of sinus problems. 15. History of degenerative joint disease and back pain. 16. History of recurrent urinary tract infection. 17. History of cardiac catheterization normal in 2009. 18. History of cataracts. 19. Anxiety, depression, not otherwise specified. 20. Remote history nicotine dependence. 21. FULL CODE. 22. Obesity with body mass index of 33.6. RECOMMENDATIONS AND DISCUSSION: This 76-year-old woman who presented with multiple complex medical issues, we will monitor the patient closely. I would recommend clear liquids and advance if tolerated and I would also recommend to resume the home medications. Monitor closely. Also recommend a limited ultrasound focusing on the pancreas. We will continue with proton pump inhibitors. Gastroenterology evaluation also will be sought for continued followup. Otherwise, repeat labs also will be arranged. The prognosis is guarded because of multiple complex medical issues. Discussed with the patient and understands. Further recommendations to follow. A copy of dictation forwarded to Dr. Hall who is the primary physician. We also recommend DVT prophylaxis, pain medications and incentive spirometry also. X-ray has been requested. See orders for further details. MTDD
[2016-09-02 07:02] LABS: Basophils % (A) 1 %; CH 20.2; CHCM 29.3; Eosinophils # (A) 0.3 k/uL (0-0.7); Eosinophils % (A) 5 %; HCT 35.8 % (34.0-46.0); HGB 10.6 gm/dL (11.4-16.0); Hypochromasia Marked; Luc # (Auto) 0.21; Luc % (Auto) 3; Lymphocytes # (A) 2.8 k/uL (1.0-4.8); Lymphocytes % (A) 41 %; MCH 20.5 pg (25.0-35.0); MCHC 29.5 g/dL (31.0-37.0); MCV 69.6 fL (80.0-100.0); Mean Platelet Volume 6.2; Microcytosis Moderate; Monocytes # (A) 0.4 k/uL (0-1.0); Monocytes % (A) 6 %; Neutrophils # (A) 3.1 k/uL (1.3-7.7); Neutrophils % (A) 45 %; RBC 5.14 m/uL (3.80-5.40); RDW 14.5 % (11.5-15.5); WBC 6.8 k/uL (3.8-10.6); WBC (Perox) 7.04
[2016-09-02 07:06] LABS: Glucose,Whole Blood 81 mg/dL (75-99)
[2016-09-02 07:07] LABS: Calcium 9.2 mg/dL (8.4-10.2); Potassium 5.1 mmol/L (3.5-5.1); Total Bilirubin 0.6 mg/dL (0.2-1.3); Total Protein 6.6 g/dL (6.3-8.2)
[2016-09-02] MEDS ORDERED: PANTOPRAZOLE 40 MG TABLET PO SCH (09:00)
[2016-09-02] MEDS: ISOSORBIDE MONONITRATE ER 30 MG TAB.ER.24H PO SCH (09:25)
[2016-09-02] MEDS: TRIAMTERENE-HCTZ 37.5-25MG 1 EACH CAP PO SCH (09:25)
[2016-09-02] MEDS: LISINOPRIL 20 MG TAB PO SCH ×2 (09:25→19:58)
[2016-09-02] MEDS: amLODIPine 5 MG TAB PO SCH (09:25)
[2016-09-02] MEDS: HEPARIN SODIUM,PORCINE 5,000 UNIT/ML 1 ML VIAL SQ SCH ×2 (09:26→19:59)
[2016-09-02] MEDS: TIMOLOL 0.5% OPHTH DROPS 5 ML BTL BOTH EYES SCH (09:26)
[2016-09-02] MEDS: PANTOPRAZOLE 40 MG/10 ML VIAL IVP SCH ×2 (09:26→19:59)
[2016-09-02] MEDS: HYDROmorphone 1 MG/ML 1 ML SYRINGE IVP PRN ×2 (09:27→19:59)
[2016-09-02 09:38] VITALS: BMI 33.6
--- NOTE | 2016-09-02 10:26 | P.CONS ---
History of Present Illness - Reason for Consult Consult date: 09/02/16 Pancreatitis Requesting physician: Rubén Moreno - History of Present Illness 76-year-old female patient Dr. Hall with a past medical history of acalculus cholecystectomy, chronic kidney disease, diabetes mellitus, GERD, hypertension, hyperlipidemia, anxiety, depression. Patient presents with severe midepigastric abdominal pain 2 days. She was recently hospitalized last month for acute pancreatitis with Lipase 1026. Amylase 139. LFTs within normal limits. Triglycerides 199. Calcium 9.2. Lipase on this admission is 854 currently 372. Amylase 143. LFTs within normal limits. She underwent EGD evaluation during last hospitalization to rule out peptic ulcer disease with findings of scattered antral erosions with LA grade a reflux esophagitis. IgG subclass 4 within normal limits. MONIQUE screen positive titer 1:160 homogenous nucleolar. Denies fever, chills, hematemesis, hematochezia, melena, peptic ulcer disease, alcoholism, or known pancreatic disorders. 08/12/2016 CT abdomen reported no focal liver defect. Spleen appeared normal with no evidence of pancreatic mass. Abdominal ultrasound this morning is pending. Review of Systems Constitutional: Denies fever, chills, sweats, weight gain, or loss. HEENT: Negative for migraines, blurred vision or loss, earaches, drainage, tinnitus, oral mucosal lesions, dysphagia, or odynophagia. CARDIAC: Hyperlipidemia. Hypertension. Negative for chest pain, arrhythmias, or palpitation. RESPIRATORY: Negative for shortness of breath, hemoptysis, cough, or sputum production. GI: See HPI for pertinent findings. : Negative for hematuria, urgency, frequency, polyuria, or dysuria. GYNc: Denies possibility of . Negative vaginal discharge. MUSCULOSKELETAL: Negative for muscle aches, swelling, arthritis, and arthralgias. NEUROLOGIC: Negative for stroke or TIA. ENDOCRINE: Diabetes mellitus.. SKIN: Negative for rash or itching. PSYCHIATRIC: depression and anxiety All systems: negative (See HPI) Past Medical History Past Medical History: Diabetes Mellitus, GERD/Reflux, Hyperlipidemia, Hypertension, Osteoarthritis (OA) Additional Past Medical History / Comment(s): Pt recently admitted 08/12/16 with idiopathic pancreatitis, esophagitis, gastritis, hiatal hernia. 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 History of Any Multi-Drug Resistant Organisms: None Reported Past Surgical History: Cholecystectomy, Heart Catheterization, Tonsillectomy, Tubal Ligation Additional Past Surgical History / Comment(s): EGD with bx 08/15/16, 10/2009 cardiac cath-normal, bilateral cataract removal, colonoscopy. Past Anesthesia/Blood Transfusion Reactions: No Reported Reaction Additional Past Anesthesia/Blood Transfusion Reaction / Comm: Pt has clausterphobia. Past Psychological History: Anxiety, Depression Additional Psychological History / Comment(s): Pt resides alone. She is independent. Smoking Status: Former smoker Past Alcohol Use History: Rare Additional Past Alcohol Use History / Comment(s): Pt states she started smoking in 1955 and quit in 1988. Past Drug Use History: None Reported - Past Family History Father Family Medical History: Cancer Additional Family Medical History / Comment(s): Father at the age of 81 yrs of lung cancer. He was a smoker. Mother Family Medical History: Cancer Additional Family Medical History / Comment(s): Mother had cervical cancer. She at the age of 53 from her lupus. Medications and Allergies Home Medications Medication Instructions Recorded Confirmed Type Simvastatin [Zocor] 40 mg PO HS 11/18/13 09/01/16 History glyBURIDE/METFORMIN HCL 2 tab PO BID 11/18/13 09/01/16 History [Glucovance 5-500 mg Tablet] traMADol HCl [Ultram] 50 mg PO BID PRN 11/18/13 09/01/16 History Cholecalciferol [Vitamin D3] 5,000 unit PO SA 08/12/16 09/01/16 History Gabapentin [Neurontin] 100 mg PO HS 08/12/16 09/01/16 History Insulin Glargine [Lantus] 42 unit SQ HS 08/12/16 09/01/16 History Isosorbide Mononitrate ER [Imdur] 30 mg PO DAILY 08/12/16 09/01/16 History LORazepam [Ativan] 0.5 mg PO HS PRN 08/12/16 09/01/16 History Nitrofurantoin Macrocrystal 50 mg PO HS 08/12/16 09/01/16 History [Macrodantin] Pantoprazole [Protonix] 40 mg PO DAILY 08/12/16 09/01/16 History Enalapril [Vasotec] 20 mg PO BID 09/01/16 09/01/16 History Insulin Aspart [NovoLOG] 5 unit SQ W/BRKFST 09/01/16 09/01/16 History Insulin Aspart [NovoLOG] 7 unit SQ W/SUPPER 09/01/16 09/01/16 History Timolol [Betimol 0.5% Ophth Soln] 1 drop BOTH EYES DAILY 09/01/16 09/01/16 History Triamterene-Hctz 37.5-25Mg 1 cap PO DAILY 09/01/16 09/01/16 History [Dyazide 37.5-25 Capsule] amLODIPine [Norvasc] 5 mg PO DAILY 09/01/16 09/01/16 History Allergies Allergy/AdvReac Type Severity Reaction Status Date / Time latex Allergy Rash/Hives Verified 09/01/16 09:03 Physical Exam Vitals: Vital Signs Temp Pulse Pulse Resp BP BP Pulse Ox 09/02/16 07:57 97.5 F L 62 18 154/67 95 09/02/16 04:00 97.7 F 65 16 117/64 97 09/02/16 03:52 16 09/01/16 23:37 16 09/01/16 20:00 16 09/01/16 19:44 97.7 F 65 16 160/70 97 09/01/16 14:51 97.5 F L 74 16 147/76 98 09/01/16 14:17 98.1 F 75 16 106/56 99 Intake and Output 09/01/16 09/02/16 09/02/16 22:59 06:59 14:59 Intake Total 433 Balance 433 Intake: Oral 433 Other: Voiding Method Toilet Toilet # Voids 2 2 Weight 83.4 kg 83.4 kg Patient Weight 09/03/16 06:59 Weight 83.4 kg General appearance: The patient is alert, oriented, in no acute distress. HET: Head is normocephalic and atraumatic. Pupils are equal and reactive. Oropharynx is clear without lesions. Neck: Supple without lymphadenopathy. Trachea midline. Heart: S1 S2. Regular rate and rhythm. Lungs: No crackles or wheezes are heard. Abdomen: Soft, mild midepigastric tenderness, nondistended with bowel sounds. No peritoneal signs. No palpable organomegaly or masses. Extremities: Normal skin color and turgor. No cyanosis, rash, ulceration, clubbing, or edema. Radial and pedal pulses are 2/4 bilaterally. Neurological: No focal deficits. Strength and sensation are grossly intact. Results CBC & Chem 7: 09/02/16 06:32 09/02/16 06:32 Labs: Abnormal Lab Results - Last 24 Hours (Table) 09/01/16 09/01/16 09/02/16 Range/Units 15:39 20:27 06:32 Hgb 10.6 L (11.4-16.0) gm/dL MCV 69.6 L (80.0-100.0) fL MCH 20.5 L (25.0-35.0) pg MCHC 29.5 L (31.0-37.0) g/dL Chloride (98-107) mmol/L Carbon Dioxide (22-30) mmol/L BUN (7-17) mg/dL Creatinine (0.52-1.04) mg/dL POC Glucose (mg/dL) 109 H 112 H (75-99) mg/dL Triglycerides (<150) mg/dL HDL Cholesterol (40-60) mg/dL Lipase (23-300) U/L 09/02/16 Range/Units 06:32 Hgb (11.4-16.0) gm/dL MCV (80.0-100.0) fL MCH (25.0-35.0) pg MCHC (31.0-37.0) g/dL Chloride 110 H (98-107) mmol/L Carbon Dioxide 21 L (22-30) mmol/L BUN 30 H (7-17) mg/dL Creatinine 1.37 H (0.52-1.04) mg/dL POC Glucose (mg/dL) (75-99) mg/dL Triglycerides 198 H (<150) mg/dL HDL Cholesterol 32 L (40-60) mg/dL Lipase 372 H (23-300) U/L US - abdomen: pending Assessment and Plan (1) Acute pancreatitis Narrative/Plan: Etiology of acute pancreatitis is unclear. This is her second episode in 1 month. Possible autoimmune hepatitis. Status: Acute (2) Positive MONIQUE (antinuclear antibody) Status: Acute (3) Diabetes mellitus Status: Chronic Plan: 1. Patient feels better today and her pancreatic enzymes have improved. Will advance to low-fat diabetic diet. 2. Outpatient MRI/MRCP/EUS advised. Patient is claustrophobic and is requesting open MRI if indicated. 3. Abdominal ultrasound completed; report pending. We'll follow with you. Return to GI office in 1 week for reevaluation and discussion of outpatient workup of recurrent pancreatitis. 4. Supportive measures. IV hydration. Thank you for this kind referral and the opportunity to participate in the care of your patient. This consultation was discussed with Dr. Davis. The impression and plan of care have been directed as dictated.
--- NOTE | 2016-09-02 10:37 | US ---
EXAMINATION TYPE: US abdomen limited DATE OF EXAM: 09/02/2016 8:27 AM COMPARISON: CT abdomen dated 12 August 2016 CLINICAL HISTORY: pancreatitis. EXAM MEASUREMENTS: Liver Length: 15.7 cm Gallbladder Wall: Surgically absent cm CBD: 0.3 cm cm Right Kidney: 11.6 x 4.9 x 4.4 cm cm Pancreas: wnl tail partially obscured by bowel gas Liver: Echotexture is heterogeneous Gallbladder: Surgically absent Evidence for sonographic Polo's sign: no, entire abdomen tender CBD: wnl Right Kidney: There is no hydronephrosis. There is no ascites. IMPRESSION: There may be underlying hepatocellular disease, fatty infiltration of the liver. Limitations as described.
[2016-09-02 12:08] LABS: Glucose,Whole Blood 96 mg/dL (75-99)
--- NOTE | 2016-09-02 16:53 | PN ---
DATE OF SERVICE: 09/02/2016 This 76-year-old woman who was admitted with recurrent pancreatitis is being closely monitored. Gastroenterology is following the patient closely and recommended either ERCP or open MRI because of the patient's claustrophobia and MRCP. On exam, alert and oriented x3. Pulse is 62, blood pressure 115/55, respiration 18, temperature 97.9, pulse ox 94% on room air. HEENT: Conjunctivae normal. Oral mucosa moist. NECK: No jugular venous distention. No carotid bruit. No lymph node enlargement. CARDIOVASCULAR: S1, S2 muffled. No S3. No S4. RESPIRATORY SYSTEM: Breath sounds diminished at the bases. No rhonchi. No crackles. ABDOMEN: Soft, nontender. No mass palpable. LEGS: No edema. No swelling. NERVOUS SYSTEM: Higher functions as mentioned earlier. Moves all 4 limbs. No focal motor or sensory deficit. LYMPHATICS: No lymph node palpable in neck, axillae or groin. SKIN: No ulcer, rash, bleeding. Labs at this time show WBC 10.6 and creatinine 1.37. ASSESSMENT: 1. Abdominal pain with acute recurrent pancreatitis 2. Acute on chronic renal failure with chronic kidney disease, stage III. 3. Increased white count. 4. Microcytosis. 5. Diabetes mellitus, type 2. 6. Gastroesophageal reflux disease. 7. Hypertension. 8. Hyperlipidemia. 9. History of degenerative joint disease. 10. History of significant reflux esophagitis. 11. History of pancreatitis. 12. History of hiatal hernia. 13. History of vasospastic angina history. 14. History of sinus problems. 15. History of degenerative joint disease and back pain. 16. History of recurrent urinary tract infection. 17. History of cardiac catheterization which was normal in 2009. 18. History of cataracts. 19. Anxiety and depression not otherwise specified. 20. Remote history of nicotine dependence. 21. Obesity with body mass index of 33.6. 22. Rule out underlying hepatocellular disease. 23. FULL CODE. RECOMMENDATIONS AND DISCUSSION: In this 76-year-old woman who presented with multiple complex medical issues, we will monitor the patient closely, continue the current medication, continue with symptomatic treatment. Otherwise, repeat labs. The amylase and lipase are improving at this time. Ultrasound abdomen which I reviewed just now showed underlying hepatocellular disease. Otherwise, prognosis guarded. Further recommendations to follow.
[2016-09-02 17:30] LABS: Glucose,Whole Blood 137 mg/dL (75-99)
[2016-09-02] MEDS: TEMAZEPAM 15 MG CAP PO PRN (19:59)
[2016-09-02 20:35] LABS: Glucose,Whole Blood 208 mg/dL (75-99)
[2016-09-02] MEDS: GABAPENTIN 100 MG CAP PO SCH (20:52)
[2016-09-03 06:48] LABS: Glucose,Whole Blood 149 mg/dL (75-99)
[2016-09-03 07:45] VITALS: BP 150/70; PULSE 65; RESP 18; TEMP 97.9
[2016-09-03 07:49] LABS: Calcium 10.1 mg/dL (8.4-10.2); Potassium 5.4 mmol/L (3.5-5.1); Total Bilirubin 0.6 mg/dL (0.2-1.3); Total Protein 7.1 g/dL (6.3-8.2)
[2016-09-03 08:05] LABS: Basophils # (A) 0.1 k/uL (0-0.2); Basophils % (A) 1 %; CH 20.3; CHCM 29.4; Eosinophils # (A) 0.3 k/uL (0-0.7); Eosinophils % (A) 4 %; HCT 38.6 % (34.0-46.0); HDW 2.86; HGB 11.4 gm/dL (11.4-16.0); Hypochromasia Marked; Luc # (Auto) 0.25; Luc % (Auto) 3; Lymphocytes # (A) 3.7 k/uL (1.0-4.8); Lymphocytes % (A) 47 %; MCH 20.6 pg (25.0-35.0); MCHC 29.7 g/dL (31.0-37.0); MCV 69.6 fL (80.0-100.0); Mean Platelet Volume 6.8; Microcytosis Moderate; Monocytes # (A) 0.5 k/uL (0-1.0); Monocytes % (A) 6 %; Neutrophils # (A) 3.1 k/uL (1.3-7.7); Neutrophils % (A) 40 %; RBC 5.55 m/uL (3.80-5.40); RDW 14.4 % (11.5-15.5); WBC 7.8 k/uL (3.8-10.6); WBC (Perox) 7.99
[2016-09-03] MEDS: TRIAMTERENE-HCTZ 37.5-25MG 1 EACH CAP PO SCH (09:31)
[2016-09-03] MEDS: LISINOPRIL 20 MG TAB PO SCH (09:31)
[2016-09-03] MEDS: HEPARIN SODIUM,PORCINE 5,000 UNIT/ML 1 ML VIAL SQ SCH (09:31)
[2016-09-03] MEDS: PANTOPRAZOLE 40 MG/10 ML VIAL IVP SCH (09:31)
[2016-09-03] MEDS: amLODIPine 5 MG TAB PO SCH (09:31)
[2016-09-03] MEDS: ISOSORBIDE MONONITRATE ER 30 MG TAB.ER.24H PO SCH (09:31)
[2016-09-03] MEDS: TIMOLOL 0.5% OPHTH DROPS 5 ML BTL BOTH EYES SCH (10:54)
--- NOTE | 2016-09-03 10:56 | P.PN ---
Subjective Principal diagnosis: recurrent pancreatitis Admitted with recurrent pancreatitis unclear etiology. Tolerating low-fat diet. Abdominal pain improved. Afebrile. Lipase 500. Objective - Vital Signs Vital signs: Vital Signs Temp 97.9 F 09/03/16 07:44 Pulse 65 09/03/16 07:44 Resp 18 09/03/16 07:44 BP 150/70 09/03/16 07:44 Pulse Ox 96 09/03/16 07:44 Intake & Output 09/02/16 09/03/16 09/03/16 18:59 06:59 18:59 Intake Total 240 Balance 240 Intake: Oral 240 Other: Voiding Method Toilet - Exam General appearance: The patient is alert, oriented, in no acute distress. HET: Head is normocephalic and atraumatic. Pupils are equal and reactive. Oropharynx is clear without lesions. Neck: Supple without lymphadenopathy. Trachea midline. Heart: S1 S2. Regular rate and rhythm. Lungs: No crackles or wheezes are heard. Abdomen: Soft, very mild midepigastric upper abdomen discomfort, nondistended with bowel sounds. No peritoneal signs. No palpable organomegaly or masses. Extremities: Normal skin color and turgor. No cyanosis, rash, ulceration, clubbing, or edema. Radial and pedal pulses are 2/4 bilaterally. Neurological: No focal deficits. Strength and sensation are grossly intact. - Labs CBC & Chem 7: 09/03/16 06:55 09/03/16 06:55 Assessment and Plan (1) Acute pancreatitis Narrative/Plan: Etiology of acute pancreatitis is unclear. This is her second episode in 1 month. Possible autoimmune hepatitis. Status: Acute (2) Positive MONIQUE (antinuclear antibody) Status: Acute (3) Diabetes mellitus Status: Chronic Plan: 1. Dr. Davis requested patient to follow-up in office in 1 week for reevaluation and discussion of outpatient workup of pancreatitis at tertiary care center; EUS/open MRI secondary to claustrophobia. 2. Agreeable for discharge today. Assessment and plan a care discussed with Dr. Davis.
[2016-09-03 11:55] LABS: Glucose,Whole Blood 152 mg/dL (75-99)
[2016-09-03] MEDS ORDERED: PANTOPRAZOLE 40 MG TABLET PO SCH (17:30)
--- NOTE | 2016-09-04 07:58 | DS ---
DATE OF ADMISSION: 09/03/2016 DATE OF DISCHARGE: 09/03/2016 DATE OF SERVICE: 09/03/2016 FINAL DIAGNOSES: 1. Abdominal pain with acute recurrent pancreatitis. 2. Acute on chronic renal failure with chronic kidney disease, stage III. 3. Increased WBC. 4. Microcytosis. 5. Diabetes mellitus type 2. 6. Gastroesophageal reflux disease. 7. Hypertension. 8. Hyperlipidemia. 9. History of degenerative joint disease. 10. History of significant reflux esophagitis. 11. History of pancreatitis. 12. History of hiatal hernia. 13. History of vasospastic angina history. 14. History of sinus problems. 15. History of degenerative joint disease and back pain. 16. History of recurrent urinary tract infection. 17. History of cardiac catheterization, which was normal in 2009. 18. History of cataracts. 19. Anxiety, depression, not otherwise specified. 20. Remote history of nicotine dependence. 21. Obesity with body mass index of 33.6. 22. Rule out underlying hepatocellular disease. 23. FULL CODE. DISCHARGE DISPOSITION: The patient will be discharged in stable condition with guarded prognosis Discharge cleared by Gastroenterology. HISTORY OF PRESENT ILLNESS: This 76-year-old woman with a past medical history of multiple medical problems being followed by Dr. Hall in the outpatient setting admitted with abdominal pain, recurrent pancreatitis. The patient was treated symptomatically. Patient improved significantly. Creatinine was 1.51 exam. The amylase is normal at 95. Lipase is 500. Dr. Davis saw the recommended MRI. Open MRI will be done and subsequent to that ERCP planned accordingly. On exam, vitals are stable. CARDIOVASCULAR: S1 and S2, muffled. ABDOMEN: Soft. NERVOUS SYSTEM: No focal deficits. DISCHARGE ADVICE: 1. Diet is cardiac. 2. Follow up with Dr. Hall in 2 to 3 days. 3. Follow up with Dr. Davis as recommended. 4. Open MRI is being arranged by Gastroenterology. MEDICATIONS: 1. Vitamin D3, 5000 daily. 2. Neurontin 100 mg q.h.s. 3. Temperance 5 mg q.4 p.r.n. 4. NovoLog 5 units with breakfast and NovoLog 7 units to supper. 5. Lantus 42 units subcu q.h.s. 6. Imdur ER 30 mg p.o. daily. 7. Ativan 0.5 mg q.h.s. p.r.n. 8. Zestril 40 mg p.o. b.i.d. 9. Protonix 40 mg b.i.d. 10. Zocor 40 mg q.h.s. 11. Timolol one drop both eyes. 12. Triamterene, Dyazide, 1 capsule daily. 13. Norvasc 5 mg p.o. daily. 14. Ultram 50 mg p.o. b.i.d. Once again, the patient will be discharged in stable condition with guarded prognosis.
== END 2016-09-03 13:45 | disposition home or self-care (01) | DRG 439 ==
LOC: EC 08:16 → 3OBS 10:55 → OBSVTOIN 09-03 08:12
PROVIDERS: ADMIT Internal Medicine; ATTEND Internal Medicine
DX: K85.90 Acute pancreatitis without necrosis or infection, unspecified (principal); N17.9 Acute kidney failure, unspecified; E11.22 Type 2 diabetes mellitus with diabetic chronic kidney disease; N18.3 Chronic kidney disease, stage 3 (moderate); K86.1 Other chronic pancreatitis; I12.9 Hypertensive chronic kidney disease with stage 1 through stage 4 chronic kidney disease, or unspecified chronic kidney disease; K21.0 Gastro-esophageal reflux disease with esophagitis; F32.9 Major depressive disorder, single episode, unspecified; E78.5 Hyperlipidemia, unspecified; F40.240 Claustrophobia; F41.9 Anxiety disorder, unspecified; E66.9 Obesity, unspecified; Z68.33 Body mass index [BMI] 33.0-33.9, adult; K21.9 Gastro-esophageal reflux disease without esophagitis; M19.90 Unspecified osteoarthritis, unspecified site; K44.9 Diaphragmatic hernia without obstruction or gangrene; Z87.891 Personal history of nicotine dependence; Z87.440 Personal history of urinary (tract) infections; Z79.4 Long term (current) use of insulin; Z79.899 Other long term (current) drug therapy
CPT/HCPCS: 36415; 71010; 74000; 76705; 80053; 80061; 81001; 82150; 82550; 82553; 83690; 84484; 85025; 85610; 85730; 93005; 96361; 96372; 96374; 96375; 96376; 99285

== ENCOUNTER → 2017-03-24 | Outpatient (CLI) | payer MEDICARE ==
--- NOTE | 2017-03-26 07:07 | MM ---
Reason for exam: screening (asymptomatic). Last mammogram was performed 1 year and 1 month ago. History: Patient is postmenopausal. Benign US left guided VAD of the left breast, August 17, 2009. Took estrogen for 10 years beginning at age 54. Physical Findings: A clinical breast exam by your physician is recommended on an annual basis and results should be correlated with mammographic findings. MG 3D Screening Mammo W/Cad Bilateral CC and MLO view(s) were taken. Prior study comparison: February 28, 2016, bilateral MG 3d screening mammo w/cad. November 06, 2014, bilateral MG screening mammo w CAD. October 24, 2013, bilateral MG screening mammo w CAD. There are scattered fibroglandular densities. Previous mammotome biopsy within the left breast. No significant changes when compared with prior studies. ASSESSMENT: Negative, BI-RAD 1 RECOMMENDATION: Routine screening mammogram of both breasts in 1 year.
== END | disposition home or self-care (01) ==
LOC: RADMAMWWP 12:54
PROVIDERS: ATTEND Obstetrics & Gynecology
DX: Z12.31 Encounter for screening mammogram for malignant neoplasm of breast (principal)
CPT/HCPCS: 77063; G0202

== ENCOUNTER → 2017-04-08 | Outpatient (CLI) | payer MEDICARE ==
--- NOTE | 2017-04-08 14:38 | MR ---
EXAMINATION TYPE: MR lumbar spine wo/w con DATE OF EXAM: 04/08/2017 COMPARISON: NONE HISTORY: lumbar radiculopathy CONTRAST: 8.5 mL intravenous Gadavist. TECHNIQUE: Multiplanar, multisequence images of the lumbar spine were acquired. FINDINGS: Cord terminates at the L1 level. Diffuse loss of disc hydration is present. L5-S1: Mild subligamentous disc herniation is present with anterior thecal sac flattening. No spinal canal stenosis present. Neural foramen are patent. There is right facet hypertrophy. Some granulation tissue may be along the left foraminal or cysts. Correlate for prior instrumentation. No obvious yan inectomy is evident. L4-L5: No significant disc bulge or disc herniation. No spinal canal stenosis. No foraminal stenosi s. Facet hypertrophy with posterior lateral thecal sac compression is present.. L3-L4: No significant disc bulge or disc herniation. No spinal canal stenosis. No foraminal stenosi s. Facet hypertrophy is present with posterior lateral thecal sac compression. Ligamentum flavum lax ity is present, greater on the left. No lateral canal stenosis is present. L2-L3: No significant disc bulge or disc herniation. No spinal canal stenosis. No foraminal stenosi s. L1-L2: Mild disc bulging is anterior thecal sac flattening. No AP spinal canal stenosis present. Neur al foramen are patent. T12-L1: No significant disc bulge or disc herniation. No spinal canal stenosis. No foraminal stenos is. No abnormal enhancement. IMPRESSION: 1. Small central subligamentous disc herniation may be present overlying the anterior spinal canal fl attening. 2. Facet hypertrophy L4-L5 S1 has some posterior lateral thecal sac. 3. Disc bulging L1-2 anterior sac flattening.
== END | disposition home or self-care (01) ==
LOC: RADMRIMAIN 13:36
PROVIDERS: ATTEND Psychiatry & Neurology Neurology
DX: M51.16 Intervertebral disc disorders with radiculopathy, lumbar region (principal); M46.97 Unspecified inflammatory spondylopathy, lumbosacral region
CPT/HCPCS: 72158; A9581

== ENCOUNTER 2018-03-06 19:05 | Emergency (ER) | payer MEDICARE ==
[2018-03-06 19:12] VITALS: RESP 16; TEMP 98.8
[2018-03-06] MEDS ORDERED: HYDROcodone/APAP 5-325MG 1 EACH TAB PO STA ×2 (19:45→23:05)
--- NOTE | 2018-03-06 19:55 | ED ---
General Adult HPI - General Chief complaint: Extremity Injury, Upper Stated complaint: RT arm injury Time Seen by Provider: 03/06/18 19:34 Source: patient Mode of arrival: EMS Limitations: no limitations - History of Present Illness Initial comments: Patient is a 78-year-old female who presents with a chief complaint of a mechanical fall at home around 5:30 this afternoon. The patient states that she was watering her lawn and lost her balance when she went to turn the water off. Patient states that she has pain in her right shoulder. She denies loss of consciousness and can recall the entire event. Patient states that she was able to get herself off and go into her kitchen to sit down. Patient denies any other injury. She denies any other symptoms including dizziness, lightheadedness, chest pain, shortness of breath. She states her tetanus is up- to-date. - Related Data Home Medications Medication Instructions Recorded Confirmed Simvastatin [Zocor] 40 mg PO HS 11/18/13 09/01/16 traMADol HCl [Ultram] 50 mg PO BID PRN 11/18/13 09/01/16 Cholecalciferol [Vitamin D3] 5,000 unit PO SA 08/12/16 09/01/16 Gabapentin [Neurontin] 100 mg PO HS 08/12/16 09/01/16 Insulin Glargine [Lantus] 42 unit SQ HS 08/12/16 09/01/16 Isosorbide Mononitrate ER [Imdur] 30 mg PO DAILY 08/12/16 09/01/16 LORazepam [Ativan] 0.5 mg PO HS PRN 08/12/16 09/01/16 Insulin Aspart [NovoLOG 5 unit SQ W/BRKFST 09/01/16 09/01/16 (formulary)] Insulin Aspart [NovoLOG 7 unit SQ W/SUPPER 09/01/16 09/01/16 (formulary)] Timolol [Betimol 0.5% Ophth Soln] 1 drop BOTH EYES DAILY 09/01/16 09/01/16 Triamterene-Hctz 37.5-25Mg 1 cap PO DAILY 09/01/16 09/01/16 [Dyazide 37.5-25 Capsule] amLODIPine [Norvasc] 5 mg PO DAILY 09/01/16 09/01/16 Previous Rx's Medication Instructions Recorded HYDROcodone/APAP 5-325MG [Court[place] 1 each PO Q4HR PRN #20 tab 09/03/16 5-325] Lisinopril [Zestril] 40 mg PO BID #120 tab 09/03/16 Pantoprazole [Protonix] 40 mg PO AC-BID #60 tablet. 09/03/16 HYDROcodone/APAP 5-325MG [[place] 1 - 2 tab PO Q6HR PRN 3 Days #24 03/06/18 5-325] tab Allergies Allergy/AdvReac Type Severity Reaction Status Date / Time latex Allergy Rash/Hives Verified 09/01/16 09:03 Review of Systems ROS Statement: Those systems with pertinent positive or pertinent negative responses have been documented in the HPI. ROS Other: All systems not noted in ROS Statement are negative. Musculoskeletal: Reports: arthralgia Past Medical History Past Medical History: Diabetes Mellitus, GERD/Reflux, Hyperlipidemia, Hypertension, Osteoarthritis (OA) Additional Past Medical History / Comment(s): Pt recently admitted 08/12/16 with idiopathic pancreatitis, esophagitis, gastritis, hiatal hernia. 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 History of Any Multi-Drug Resistant Organisms: None Reported Past Surgical History: Cholecystectomy, Heart Catheterization, Tonsillectomy, Tubal Ligation Additional Past Surgical History / Comment(s): EGD with bx 08/15/16, 10/2009 cardiac cath-normal, bilateral cataract removal, colonoscopy. Past Anesthesia/Blood Transfusion Reactions: No Reported Reaction Additional Past Anesthesia/Blood Transfusion Reaction / Comment(s): Pt has clausterphobia. Past Psychological History: Anxiety, Depression Smoking Status: Former smoker Past Alcohol Use History: Rare Past Drug Use History: None Reported - Past Family History Father Family Medical History: Cancer Additional Family Medical History / Comment(s): Father at the age of 81 yrs of lung cancer. He was a smoker. Mother Family Medical History: Cancer Additional Family Medical History / Comment(s): Mother had cervical cancer. She at the age of 53 from her lupus. General Exam Limitations: no limitations General appearance: alert, in no apparent distress Head exam: Present: atraumatic, normocephalic Eye exam: Present: normal appearance ENT exam: Present: normal exam Neck exam: Present: normal inspection. Absent: tenderness Respiratory exam: Present: normal lung sounds bilaterally. Absent: respiratory distress, wheezes Cardiovascular Exam: Present: regular rate, normal rhythm GI/Abdominal exam: Present: soft. Absent: distended, tenderness Rectal exam: Present: deferred Extremities exam: Present: tenderness (tenderness to palpation of the lateral right soulder. no gross deformity noted, however exam limited 2/2 body habitus. ), normal capillary refill. Absent: full ROM, joint swelling Back exam: Present: normal inspection Neurological exam: Present: alert, oriented X3 Psychiatric exam: Present: normal affect, normal mood Skin exam: Present: warm, dry, intact Course Vital Signs 03/06/18 03/06/18 03/06/18 19:06 20:57 22:24 Temperature 98.8 F Pulse Rate 68 70 69 Respiratory 16 16 16 Rate Blood Pressure 150/69 162/74 137/72 O2 Sat by Pulse 99 99 97 Oximetry Medical Decision Making - Medical Decision Making Patient presents with a chief complaint mechanical fall and right shoulder pain. On initial evaluation, vital signs are stable, patient is no acute distress. Patient received 100 g of fentanyl en route and was given a dose of Courtland in the emergency department. Examination of the upper extremities shows 2 + bilateral pulses, strength and sensation are intact in the radial, ulnar, and median nerve distribution. Patient has tenderness to the right shoulder however there is no gross deformity. Patient refusing c-collar, she will be sent for computed tomography scan of the head and neck without contrast. X- rays of the shoulder, humerus, and elbow will be obtained of the right arm. 10:33 PM X-rays show a fracture of the right humeral neck that is comminuted and displaced. This case was discussed with Dr. Aguilar who states that the patient is appropriate to place an arm sling and discharged with close follow- up to Dr. Polo on Thursday. Patient given a dose of Courtland prior to leaving the emergency department. She was written a prescription for Courtland for pain control. I had a very lengthy discussion with the patient and her daughter regarding the limited use of her right arm and any safety concerns at home. The patient and her daughter state that they're able to take care of the patient at home and we'll get her to follow-up on Thursday. Opiate start talking form was filled out and I discussed the nature of the medication. Patient verbalizes understanding. All questions are answered to the best of my ability at this time, patient stable for discharge. CT scans of the head and neck show no acute process. Disposition Clinical Impression: Fracture of anatomical neck of humerus Disposition: HOME SELF-CARE Condition: Good Instructions: Arm Fracture in Adults (ED) Prescriptions: HYDROcodone/APAP 5-325MG [Courtland 5-325] 1 - 2 tab PO Q6HR PRN 3 Days #24 tab PRN Reason: Pain Is patient prescribed a controlled substance at d/c from ED?: Yes If prescribed controlled substance>3 days was MAPS reviewed?: Prescribed <3 Days Referrals: Carlos Hall MD [Primary Care Provider] - 1-2 days
--- NOTE | 2018-03-06 20:30 | XR ---
EXAMINATION TYPE: XR shoulder complete RT DATE OF EXAM: 03/06/2018 COMPARISON: NONE HISTORY: Pain after a fall TECHNIQUE: 3 views FINDINGS: There is impacted comminuted humeral neck fracture. There is displacement 1.5 cm. There is no dislocation. There is deformity of the clavicle consistent with old healed fracture. IMPRESSION: Acute impacted comminuted humeral neck fracture.
--- NOTE | 2018-03-06 20:31 | XR ---
EXAMINATION TYPE: XR elbow complete RT DATE OF EXAM: 03/06/2018 COMPARISON: NONE HISTORY: Pain after a fall TECHNIQUE: 3 views FINDINGS: There is some spurring on the olecranon process of the ulna. I see no fracture nor dislocat ion. IMPRESSION: Olecranon process spur formation. No definite fracture seen.
--- NOTE | 2018-03-06 20:32 | XR ---
EXAMINATION TYPE: XR humerus RT DATE OF EXAM: 03/06/2018 COMPARISON: NONE HISTORY: Pain after a fall TECHNIQUE: 2 views FINDINGS: There is impacted comminuted humeral neck fracture. There is no dislocation. IMPRESSION: Acute mildly displaced impacted humeral neck fracture.
--- NOTE | 2018-03-06 21:54 | CT ---
EXAMINATION TYPE: CT brain mylene douglass DATE OF EXAM: 03/06/2018 COMPARISON: CT brain 08/12/2016 HISTORY: Headache. Neck pain. Fall. CT DLP: 1568.4 mGycm Automated exposure control for dose reduction was used. TECHNIQUE: CT scan of the head and cervical spine are performed without contrast. FINDINGS: There is cerebral cortical atrophy. There is no mass effect nor midline shift. There is n o sign of intracranial hemorrhage. There is mild hypodensity in the periventricular white matter. The calvarium is intact. There is some right frontal scalp soft tissue swelling. Cervical vertebra have normal alignment. There are hypertrophic large anterior bridging osteophytes f rom C3 to C7. The facet joints are intact. Skull base is intact. IMPRESSION: Cerebral atrophy and chronic small vessel ischemia. No change compared to old exam. There is right frontal scalp soft tissue swelling. Spondylotic changes with large hypertrophic anterior bridging osteophyte formation. No fracture.
[2018-03-06 22:24] VITALS: BP 137/72; PULSE 69
== END 2018-03-06 23:13 | disposition home or self-care (01) ==
LOC: EC 19:05
DX: S42.291A Other displaced fracture of upper end of right humerus, initial encounter for closed fracture (principal); E11.9 Type 2 diabetes mellitus without complications; E78.5 Hyperlipidemia, unspecified; I10 Essential (primary) hypertension; M19.90 Unspecified osteoarthritis, unspecified site; Z95.818 Presence of other cardiac implants and grafts; Z87.891 Personal history of nicotine dependence; Z79.4 Long term (current) use of insulin; Z79.899 Other long term (current) drug therapy; Z91.040 Latex allergy status; Z53.29 Procedure and treatment not carried out because of patient's decision for other reasons; W19.XXXA Unspecified fall, initial encounter; Y93.89 Activity, other specified; Y92.009 Unspecified place in unspecified non-institutional (private) residence as the place of occurrence of the external cause
CPT/HCPCS: 70450; 72125; 99284

== ENCOUNTER 2018-12-06 16:31 | Inpatient (IN) | payer MEDICARE ==
[2018-12-06 17:47] LABS: Basophils % (A) 0 %; Eosinophils # (A) 0.2 k/uL (0-0.7); Eosinophils % (A) 2 %; HCT 40.1 % (34.0-46.0); HGB 12.2 gm/dL (11.4-16.0); Hypochromasia Marked; Lymphocytes # (A) 3.6 k/uL (1.0-4.8); Lymphocytes % (A) 30 %; MCH 19.8 pg (25.0-35.0); MCHC 30.5 g/dL (31.0-37.0); MCV 64.8 fL (80.0-100.0); Mean Platelet Volume 6.7; Microcytosis Marked; Monocytes # (A) 0.7 k/uL (0-1.0); Monocytes % (A) 6 %; Neutrophils # (A) 7.4 k/uL (1.3-7.7); Neutrophils % (A) 61 %; Platelet Count 336 k/uL (150-450); RBC 6.18 m/uL (3.80-5.40); RDW 14.8 % (11.5-15.5)
[2018-12-06 17:50] LABS: Appearance,Urine Clear (Clear); Bacteria,Urine Many /hpf; Bilirubin,Urine Negative (Negative); Blood,Urine Negative (Negative); Color,Urine Yellow; Glucose,Urine (UA) Trace (Negative); Hyaline Casts,Urine 1 /lpf (0-2); Ketones,Urine Negative (Negative); Leukocyte Esterase,Urine Moderate (Negative); Mucus,Urine Rare /hpf; Nitrite,Urine Negative (Negative); PH, Urine 5.5 (5.0-8.0); Protein,Urine Negative (Negative); RBC,Urine 1 /hpf (0-5); Specific Gravity,Urine 1.017 (1.001-1.035); Squamous Epithelial Cell,Urine 4 /hpf (0-4); Urobilinogen,Urine <2.0 mg/dL (<2.0); WBC,Urine 8 /hpf (0-5)
--- NOTE | 2018-12-06 18:11 | XR ---
EXAMINATION TYPE: XR chest 2V DATE OF EXAM: 12/06/2018 COMPARISON: 09/01/2016 HISTORY: Low blood pressure. Dysrhythmia TECHNIQUE: Frontal and lateral views of the chest are obtained. FINDINGS: There is no heart failure nor confluent pneumonic infiltrate. There is some linear density left lower lobe. The other lung alford are fairly clear. There are chest leads. Bony thorax is intac t. IMPRESSION: Minimal scarring or subsegmental atelectasis in the left lower lobe is mostly cleared co mpared to old exam. No heart failure. There is improved inspiration.
[2018-12-06 18:13] LABS: INR 1.1 (<1.2); Partial Thromboplastin Time 23.7 sec (22.0-30.0); Prothrombin Time 11.2 sec (9.0-12.0)
[2018-12-06 18:59] LABS: Albumin 3.9 g/dL (3.5-5.0); Calcium 9.7 mg/dL (8.4-10.2); Magnesium 1.7 mg/dL (1.6-2.3); Total Bilirubin 0.4 mg/dL (0.2-1.3); Total Protein 7.2 g/dL (6.3-8.2)
[2018-12-06] MEDS ORDERED: HEPARIN SODIUM,PORCINE 5,000 UNIT/ML 1 ML VIAL IV ONE (18:59)
[2018-12-06] MEDS ORDERED: HEPARIN SODIUM,PORCINE 5,000 UNIT/ML 1 ML VIAL IV PRN (18:59)
[2018-12-06] MEDS ORDERED: HEPARIN SOD,PORK IN 0.45% NACL 25,000 UNIT in 0.45% NACL 1 250ML.BAG IV SCH (19:00)
--- NOTE | 2018-12-06 19:02 | ED ---
General Adult HPI - General Source: patient, EMS Mode of arrival: EMS Limitations: no limitations <Charis Mejía - Last Filed: 12/06/18 19:37> <Kumar Wheat - Last Filed: 12/06/18 20:20> - General Chief complaint: Recheck/Abnormal Lab/Rx Stated complaint: Recheck Time Seen by Provider: 12/06/18 16:57 - History of Present Illness Initial comments: 78-year-old female patient presents to the emergency department today requesting assistance with placement in an [facility] facility or apartment. Patient states that she lives at home alone, states that her home is too much for her to handle, states she is very depressed and wishes she would . Patient denies any active suicidal ideation. States she would never kill herself, she just wishes she would . Patient states that she does feel well overall. Denies any current physical symptoms or concerns. Patient denies any recent rash, fever, chills, shortness breath, chest pain, abdominal pain, nausea, vomiting, diarrhea, constipation, back pain, numbness, tingling, dizziness, weakness, hematuria, dysuria, urinary urgency, urinary frequency, headache, visual changes, or any other complaints. (Charis Mejía) - Related Data Home Medications Medication Instructions Recorded Confirmed Simvastatin [Zocor] 40 mg PO DAILY 11/18/13 12/06/18 LORazepam [Ativan] 0.5 mg PO HS PRN 08/12/16 12/06/18 Timolol [Betimol 0.5% Ophth Soln] 1 drop BOTH EYES DAILY 09/01/16 12/06/18 Triamterene-Hctz 37.5-25Mg 1 cap PO DAILY 09/01/16 12/06/18 [Dyazide 37.5-25 Capsule] Cyanocobalamin (Vitamin B-12) 1,000 mcg PO DAILY 12/06/18 12/06/18 [Vitamin B-12] Enalapril Maleate [Vasotec] 20 mg PO BID 12/06/18 12/06/18 Gabapentin [Neurontin] 300 mg PO TID 12/06/18 12/06/18 Insulin NPH Hum/Reg Insulin Hm 30 unit SQ HS 12/06/18 12/06/18 [NovoLIN 70-30 100 UNIT/ML VIAL] Insulin NPH Hum/Reg Insulin Hm 35 unit SQ QAM 12/06/18 12/06/18 [NovoLIN 70-30 100 UNIT/ML VIAL] Magnesium 200 mg PO DAILY 12/06/18 12/06/18 Pantoprazole [Protonix] 40 mg PO BID 12/06/18 12/06/18 Pioglitazone HCl [Actos] 15 mg PO DAILY 12/06/18 12/06/18 Sertraline HCl [Zoloft] 50 mg PO DAILY 12/06/18 12/06/18 Spironolactone 25 mg PO DAILY 12/06/18 12/06/18 Allergies Allergy/AdvReac Type Severity Reaction Status Date / Time latex Allergy Rash/Hives Verified 12/06/18 17:06 Review of Systems ROS Other: All systems not noted in ROS Statement are negative. <Charis Mejía - Last Filed: 12/06/18 19:37> ROS Other: All systems not noted in ROS Statement are negative. <Kumar Wheat - Last Filed: 12/06/18 20:20> ROS Statement: Those systems with pertinent positive or pertinent negative responses have been documented in the HPI. Past Medical History Past Medical History: Diabetes Mellitus, GERD/Reflux, Hyperlipidemia, Hypertension, Osteoarthritis (OA) Additional Past Medical History / Comment(s): Pt recently admitted 08/12/16 with idiopathic pancreatitis, esophagitis, gastritis, hiatal hernia. 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 History of Any Multi-Drug Resistant Organisms: None Reported Past Surgical History: Cholecystectomy, Heart Catheterization, Tonsillectomy, Tubal Ligation Additional Past Surgical History / Comment(s): EGD with bx 08/15/16, 10/2009 cardiac cath-normal, bilateral cataract removal, colonoscopy. Past Anesthesia/Blood Transfusion Reactions: No Reported Reaction Additional Past Anesthesia/Blood Transfusion Reaction / Comment(s): Pt has c lausterphobia. Past Psychological History: Anxiety, Depression Smoking Status: Former smoker Past Alcohol Use History: Rare Past Drug Use History: None Reported - Past Family History Father Family Medical History: Cancer Additional Family Medical History / Comment(s): Father at the age of 81 yrs of lung cancer. He was a smoker. Mother Family Medical History: Cancer Additional Family Medical History / Comment(s): Mother had cervical cancer. She at the age of 53 from her lupus. <Charis Mejía - Last Filed: 12/06/18 19:37> General Exam Limitations: no limitations General appearance: alert, in no apparent distress, other (Physical well- developed, well-nourished elderly female patient in no acute distress. Vital signs upon presentation are temperature 98.4F, pulse 94, respirations 18, blood pressure 118/100, pulse ox 96% on room air.) Eye exam: Present: normal appearance, PERRL, EOMI. Absent: scleral icterus, conjunctival injection, periorbital swelling ENT exam: Present: normal exam, normal oropharynx, mucous membranes moist Respiratory exam: Present: normal lung sounds bilaterally. Absent: respiratory distress, wheezes, rales, rhonchi, stridor Cardiovascular Exam: Present: tachycardia, irregular rhythm, normal heart sounds. Absent: systolic murmur, diastolic murmur, rubs, gallop, clicks GI/Abdominal exam: Present: soft, normal bowel sounds. Absent: distended, tenderness, guarding, rebound, rigid Neurological exam: Present: alert, oriented X3, CN II-XII intact Psychiatric exam: Present: normal affect, normal mood Skin exam: Present: warm, dry, intact, normal color. Absent: rash <Charis Mejía - Last Filed: 12/06/18 19:37> Course Vital Signs 12/06/18 12/06/18 16:48 18:47 Temperature 98.4 F Pulse Rate 94 115 H Respiratory 18 16 Rate Blood Pressure 118/100 117/81 O2 Sat by Pulse 96 96 Oximetry EKG Findings - EKG Comments: EKG Findings:: EKG obtained at 1641 shows atrial fibrillation with a ventricular rate of 83, QRS duration 74, QT 346, QTC 406. No evidence of ST elevation or depression. <Charis Mejía - Last Filed: 12/06/18 19:37> Medical Decision Making - Lab Data Result diagrams: 12/06/18 17:40 12/06/18 18:38 - Radiology Data Radiology results: report reviewed, image reviewed <Charis Mejía - Last Filed: 12/06/18 19:37> - Lab Data Result diagrams: 12/06/18 17:40 12/06/18 18:38 <Kumar Wheat - Last Filed: 12/06/18 20:20> - Medical Decision Making 78-year-old female patient presented to the emergency department today for evaluation of depression and hopelessness. Physical examination was relatively unremarkable. Patient was noted to have elevated heart rate upon arrival, EKG was performed and showed atrial fibrillation with a normal ventricular rate. On the cardiac nurse practitioner patient did have evidence for rapid ventricular response with heart rates between 110 and 120. Labs reviewed and did reveal elevated white blood cell count at 12.0, potassium 6.0, BUN 56, creatinine 1.74. Review of previous medical records and EKGs revealed that patient's atrial fibrillation is new onset. We did start IV heparin and Cardizem. Patient does admit to being depressed and hopeless, she denies any active suicidal ideation. We will consult cardiology for further evaluation of the nature of fibrillation. We will consult psychiatry and also social work. I did discuss findings, results, plan with the patient, she is agreeable. (Charis Mejía) Patient reevaluated by myself, Dr. Wheat. Patient resting comfortably in bed. Patient has new onset atrial fibrillation, rate is currently 105. Patient and family is updated on results and plan. Some physician group has been paged, covering for admission for Dr. Burgos. I did reexamine and reevaluate patient. This includes diagnostic interpretation and treatment plan. Case was discussed with Dr. combs, who will admit. (Kumar Wheat) - Lab Data Lab Results 12/06/18 12/06/18 12/06/18 Range/Units 17:40 17:40 17:40 WBC 12.0 H (3.8-10.6) k/uL RBC 6.18 H (3.80-5.40) m/uL Hgb 12.2 (11.4-16.0) gm/dL Hct 40.1 (34.0-46.0) % MCV 64.8 L (80.0-100.0) fL MCH 19.8 L (25.0-35.0) pg MCHC 30.5 L (31.0-37.0) g/dL RDW 14.8 (11.5-15.5) % Plt Count 336 (150-450) k/uL Neutrophils % 61 % Lymphocytes % 30 % Monocytes % 6 % Eosinophils % 2 % Basophils % 0 % Neutrophils # 7.4 (1.3-7.7) k/uL Lymphocytes # 3.6 (1.0-4.8) k/uL Monocytes # 0.7 (0-1.0) k/uL Eosinophils # 0.2 (0-0.7) k/uL Basophils # 0.0 (0-0.2) k/uL Hypochromasia Marked Microcytosis Marked PT 11.2 (9.0-12.0) sec INR 1.1 (<1.2) APTT 23.7 (22.0-30.0) sec Sodium Not Reportable Potassium Not Reportable Chloride Not Reportable Carbon Dioxide Not Reportable Anion Gap Not Reportable BUN Not Reportable Creatinine Not Reportable Est GFR (CKD-EPI)AfAm Not Reportable Est GFR (CKD-EPI)NonAf Not Reportable Glucose Not Reportable Calcium Not Reportable Magnesium Not Reportable Total Bilirubin Not Reportable AST Not Reportable ALT Not Reportable Alkaline Phosphatase Not Reportable Troponin I (0.000-0.034) ng/mL Total Protein Not Reportable Albumin Not Reportable TSH 0.023 L (0.465-4.680) mIU/L Urine Color Urine Appearance (Clear) Urine pH (5.0-8.0) Ur Specific [place] (1.001-1.035) Urine Protein (Negative) Urine Glucose (UA) (Negative) Urine Ketones (Negative) Urine Blood (Negative) Urine Nitrite (Negative) Urine Bilirubin (Negative) Urine Urobilinogen (<2.0) mg/dL Ur Leukocyte Esterase (Negative) Urine RBC (0-5) /hpf Urine WBC (0-5) /hpf Ur Squamous Epith Cells (0-4) /hpf Urine Bacteria (None) /hpf Hyaline Casts (0-2) /lpf Urine Mucus (None) /hpf 12/06/18 12/06/18 12/06/18 Range/Units 17:40 18:38 Unknown WBC (3.8-10.6) k/uL RBC (3.80-5.40) m/uL Hgb (11.4-16.0) gm/dL Hct (34.0-46.0) % MCV (80.0-100.0) fL MCH (25.0-35.0) pg MCHC (31.0-37.0) g/dL RDW (11.5-15.5) % Plt Count (150-450) k/uL Neutrophils % % Lymphocytes % % Monocytes % % Eosinophils % % Basophils % % Neutrophils # (1.3-7.7) k/uL Lymphocytes # (1.0-4.8) k/uL Monocytes # (0-1.0) k/uL Eosinophils # (0-0.7) k/uL Basophils # (0-0.2) k/uL Hypochromasia Microcytosis PT (9.0-12.0) sec INR (<1.2) APTT (22.0-30.0) sec Sodium 137 Potassium 6.0 H Chloride 106 Carbon Dioxide 19 L Anion Gap 12 BUN 56 H Creatinine 1.74 H Est GFR (CKD-EPI)AfAm 32 Est GFR (CKD-EPI)NonAf 28 Glucose 75 Calcium 9.7 Magnesium 1.7 Total Bilirubin 0.4 AST 24 ALT 15 Alkaline Phosphatase 121 Troponin I 0.014 (0.000-0.034) ng/mL Total Protein 7.2 Albumin 3.9 TSH (0.465-4.680) mIU/L Urine Color Yellow Urine Appearance Clear (Clear) Urine pH 5.5 (5.0-8.0) Ur Specific [place] 1.017 (1.001-1.035) Urine Protein Negative (Negative) Urine Glucose (UA) Trace H (Negative) Urine Ketones Negative (Negative) Urine Blood Negative (Negative) Urine Nitrite Negative (Negative) Urine Bilirubin Negative (Negative) Urine Urobilinogen <2.0 (<2.0) mg/dL Ur Leukocyte Esterase Moderate H (Negative) Urine RBC 1 (0-5) /hpf Urine WBC 8 H (0-5) /hpf Ur Squamous Epith Cells 4 (0-4) /hpf Urine Bacteria Many H (None) /hpf Hyaline Casts 1 (0-2) /lpf Urine Mucus Rare H (None) /hpf - Radiology Data Two-view x-ray of the chest is obtained. Report was reviewed in its entirety. Impression by Dr. Heredia shows minimal scarring or subsegmental atelectasis in the left lower lobe is mostly cleared compared to old exam. No heart failu re, there is improved inspection. (Charis Mejía) Disposition Decision to Admit Reason: Admit from [facility] Decision Date: 12/06/18 Decision Time: 19:38 <Charis Mejía - Last Filed: 12/06/18 19:37> <Kumar Wheat - Last Filed: 12/06/18 20:20> Clinical Impression: New onset a-fib, Depression, Hyperkalemia Disposition: ADMITTED IP TO THIS [facility] Condition: Serious Referrals: Carlos Hall MD [Primary Care Provider] - 1-2 days
[2018-12-06] MEDS ORDERED: LORazepam 2 MG/ML INJ IV STA (19:32)
[2018-12-06] MEDS ORDERED: NALOXONE 0.4 MG/ML 1 ML VIAL IV PRN (19:33)
[2018-12-06] MEDS ORDERED: SODIUM POLYSTYRENE SULFONATE 15 GM/60 ML BOTTLE PO STA (19:36)
[2018-12-06] MEDS ORDERED: CALCIUM CHLORIDE 100 MG/ML 10 ML SYRINGE IVP STA (19:36)
[2018-12-06] MEDS: SODIUM CHLORIDE 0.9% 1,000 ML IV SCH (19:57)
[2018-12-06] MEDS: DILTIAZEM 125 MG in SODIUM CHLORIDE 0.9% 100 ML IV SCH (20:14)
[2018-12-06] MEDS ORDERED: LISINOPRIL 20 MG TAB PO SCH (21:00)
[2018-12-06] MEDS ORDERED: INSULN ASP PRT/INSULIN ASPART 100 UNIT/ML 10 ML VIAL SQ SCH (21:00)
[2018-12-06] MEDS ORDERED: DEXTROSE 50% SYRINGE 50 ML IVP STA (21:08)
[2018-12-06] MEDS ORDERED: INSULIN REGULAR 100 UNIT/ML VIAL IV ONE (21:08)
[2018-12-06] MEDS ORDERED: SODIUM BICARB 8.4% 50 ML SYR (1 MEQ/ML) IV STA (21:08)
[2018-12-06 22:09] VITALS: BMI 33.9
[2018-12-06 22:19] LABS: Glucose,Whole Blood 39 mg/dL (75-99)
[2018-12-06] MEDS: INSULIN ASPART (NovoLOG) 100 UNIT/ML VIAL SQ SCH (22:21)
[2018-12-06] MEDS: PANTOPRAZOLE 40 MG TABLET PO SCH (22:31)
[2018-12-06] MEDS: GABAPENTIN 300 MG CAP PO SCH (22:31)
[2018-12-06 22:46] LABS: Glucose,Whole Blood 171 mg/dL (75-99)
[2018-12-06] MEDS: LORazepam 0.5 MG TAB PO PRN (22:59)
--- NOTE | 2018-12-07 00:07 | P.HPIM ---
History of Present Illness H&P Date: 12/06/18 The patient is a 78 yo F with a PMH of DM and HTN who presents to the ED w/ complaints of fatigue and inability to care for herself over the past 1-2 months. The patient reports that she doesn't feel quite like herself over this time frame. She notes feeling tired far more frequently and states that since she lives by herself, she feels she isn't able to manage. She continues to ambulate with a walker though with more difficulty recently. She also reported multiple episodes of hypoglycemia at home, w/ it being 43 earlier today upon arrival of the EMS. She notes no prior history of Afib and denied chest pain, SOB, fever, or chills. Also denied cough, abdominal pain, nausea, vomiting, or sick contacts. She underwent an extensive evaluation in the ED and was noted to have Afib w/ RVR, w/ CXR showing some chronic changes. Laboratory evaluation revealed a K of 6.0, BUN 56, Cr 1.74, WBC 12, and Hgb 12.2, and glucose 75. She was started on a cardizem infusion and is being admitted to the medicine service for further management. Review of Systems Pertinent positives and negatives as discussed in HPI, a complete review of systems was performed and all other systems are negative. Past Medical History Past Medical History: Diabetes Mellitus, GERD/Reflux, Hyperlipidemia, Hypertension, Osteoarthritis (OA) Additional Past Medical History / Comment(s): 08/12/16 with idiopathic pancreatitis, esophagitis, gastritis, hiatal hernia. 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 History of Any Multi-Drug Resistant Organisms: None Reported Past Surgical History: Cholecystectomy, Heart Catheterization, Tonsillectomy, Tubal Ligation Additional Past Surgical History / Comment(s): EGD with bx 08/15/16, 10/2009 cardiac cath-normal, bilateral cataract removal, colonoscopy. Past Anesthesia/Blood Transfusion Reactions: No Reported Reaction Additional Past Anesthesia/Blood Transfusion Reaction / Comment(s): Pt has cl austerphobia. Past Psychological History: Anxiety, Depression Additional Psychological History / Comment(s): Pt resides alone. She is independent. Smoking Status: Former smoker Past Alcohol Use History: Rare Additional Past Alcohol Use History / Comment(s): Pt states she started smoking in 1956 and quit in 1988. Past Drug Use History: None Reported - Past Family History Father Family Medical History: Cancer Additional Family Medical History / Comment(s): Father at the age of 81 yrs of lung cancer. He was a smoker. Mother Family Medical History: Cancer Additional Family Medical History / Comment(s): Mother had cervical cancer. She at the age of 53 from her lupus. Medications and Allergies Home Medications Medication Instructions Recorded Confirmed Type Simvastatin [Zocor] 40 mg PO DAILY 11/18/13 12/06/18 History LORazepam [Ativan] 0.5 mg PO HS PRN 08/12/16 12/06/18 History Timolol [Betimol 0.5% Ophth Soln] 1 drop BOTH EYES DAILY 09/01/16 12/06/18 History Triamterene-Hctz 37.5-25Mg 1 cap PO DAILY 09/01/16 12/06/18 History [Dyazide 37.5-25 Capsule] Cyanocobalamin (Vitamin B-12) 1,000 mcg PO DAILY 12/06/18 12/06/18 History [Vitamin B-12] Enalapril Maleate [Vasotec] 20 mg PO BID 12/06/18 12/06/18 History Gabapentin [Neurontin] 300 mg PO TID 12/06/18 12/06/18 History Insulin NPH Hum/Reg Insulin Hm 30 unit SQ HS 12/06/18 12/06/18 History [NovoLIN 70-30 100 UNIT/ML VIAL] Insulin NPH Hum/Reg Insulin Hm 35 unit SQ QAM 12/06/18 12/06/18 History [NovoLIN 70-30 100 UNIT/ML VIAL] Magnesium 200 mg PO DAILY 12/06/18 12/06/18 History Pantoprazole [Protonix] 40 mg PO BID 12/06/18 12/06/18 History Pioglitazone HCl [Actos] 15 mg PO DAILY 12/06/18 12/06/18 History Sertraline HCl [Zoloft] 50 mg PO DAILY 12/06/18 12/06/18 History Spironolactone 25 mg PO DAILY 12/06/18 12/06/18 History Allergies Allergy/AdvReac Type Severity Reaction Status Date / Time latex Allergy Rash/Hives Verified 12/06/18 17:06 Physical Exam Vitals: Vital Signs Temp Pulse Pulse Resp BP BP Pulse Ox 12/06/18 23:37 103 H 16 12/06/18 23:34 97.9 F 103 H 16 94/58 95 12/06/18 21:54 97.4 F L 111 H 18 119/69 98 12/06/18 20:30 101 H 10 L 105/52 97 12/06/18 20:00 112 H 30 H 103/91 97 12/06/18 19:30 131 H 12 134/81 12/06/18 19:00 105 H 17 117/81 91 L 12/06/18 18:47 115 H 16 117/81 96 12/06/18 17:30 99 37 H 127/91 12/06/18 17:00 98 18 117/82 12/06/18 16:48 98.4 F 94 18 118/100 96 12/06/18 16:38 29 H 84 L Intake and Output 12/06/18 12/06/18 12/07/18 14:59 22:59 06:59 Intake Total 3.167 Balance 3.167 Intake: Intake, IV Titration 3.167 Amount Diltiazem 125 mg In 3.167 Sodium Chloride 0.9% 100 ml @ 5 MG/HR 5 mls/hr IV .Q24H [facility] Rx#:[id number] Other: Voiding Method Bedside Commode Weight 81.647 kg General: non toxic, no distress, appears at stated age, obese Derm: no unusual rashes/lesions no unusual ecchymoses, warm, dry Head: atraumatic, normocephalic, symmetric Eyes: EOMI, no lid lag, anicteric sclera, pupils equal round reactive to light ENT: Nose and ears atraumatic, no thrush, no pharyngeal erythema Neck: No thyromegaly, no cervical lymphadenopathy, trachea midline, supple Mouth: no lip lesion, mucus membranes moist Cardiovascular: S1S2 irregularly irregular, no murmur, positive posterior tibial pulse bilateral, no edema, capillary refill less than 2 seconds Lungs: CTA bilateral, no rhonchi, no rales , no accessory muscle use Abdominal: soft, nontender to palpation, no guarding, no appreciable organomegaly, normal bowel sounds Ext: no gross muscle atrophy, muscle strength 5 out of 5 in all 4 extremities grossly, no contractures, Neuro: CN II-XI grossly intact, light touch intact all 4 extremities, finger to nose within normal limits, Psych: Alert, oriented, appropriate affect Results CBC & Chem 7: 12/06/18 17:40 12/06/18 18:38 Labs: Abnormal Lab Results - Last 24 Hours (Table) 12/06/18 12/06/18 12/06/18 Range/Units 17:40 17:40 18:38 WBC 12.0 H (3.8-10.6) k/uL RBC 6.18 H (3.80-5.40) m/uL MCV 64.8 L (80.0-100.0) fL MCH 19.8 L (25.0-35.0) pg MCHC 30.5 L (31.0-37.0) g/dL Potassium 6.0 H (3.5-5.1) mmol/L Carbon Dioxide 19 L (22-30) mmol/L BUN 56 H (7-17) mg/dL Creatinine 1.74 H (0.52-1.04) mg/dL POC Glucose (mg/dL) (75-99) mg/dL TSH 0.023 L (0.465-4.680) mIU/L Free T4 (0.78-2.19) ng/dL Urine Glucose (UA) (Negative) Ur Leukocyte Esterase (Negative) Urine WBC (0-5) /hpf Urine Bacteria (None) /hpf Urine Mucus (None) /hpf 12/06/18 12/06/18 12/06/18 Range/Units 18:38 22:18 22:35 WBC (3.8-10.6) k/uL RBC (3.80-5.40) m/uL MCV (80.0-100.0) fL MCH (25.0-35.0) pg MCHC (31.0-37.0) g/dL Potassium (3.5-5.1) mmol/L Carbon Dioxide (22-30) mmol/L BUN (7-17) mg/dL Creatinine (0.52-1.04) mg/dL POC Glucose (mg/dL) 39 L 171 H (75-99) mg/dL TSH (0.465-4.680) mIU/L Free T4 3.43 H (0.78-2.19) ng/dL Urine Glucose (UA) (Negative) Ur Leukocyte Esterase (Negative) Urine WBC (0-5) /hpf Urine Bacteria (None) /hpf Urine Mucus (None) /hpf 12/06/18 Range/Units Unknown WBC (3.8-10.6) k/uL RBC (3.80-5.40) m/uL MCV (80.0-100.0) fL MCH (25.0-35.0) pg MCHC (31.0-37.0) g/dL Potassium (3.5-5.1) mmol/L Carbon Dioxide (22-30) mmol/L BUN (7-17) mg/dL Creatinine (0.52-1.04) mg/dL POC Glucose (mg/dL) (75-99) mg/dL TSH (0.465-4.680) mIU/L Free T4 (0.78-2.19) ng/dL Urine Glucose (UA) Trace H (Negative) Ur Leukocyte Esterase Moderate H (Negative) Urine WBC 8 H (0-5) /hpf Urine Bacteria Many H (None) /hpf Urine Mucus Rare H (None) /hpf Thrombosis Risk Factor Assmnt - Choose All That Apply Any of the Below Risk Factors Present?: Yes Each Factor Represents 1 point: Obesity (BMI >25) Each Risk Factor Represents 3 Points: Age 75 years or older Other congenital or acquired thrombophilia - If yes, enter type in comment: No Thrombosis Risk Factor Assessment Total Risk Factor Score: 4 Thrombosis Risk Factor Assessment Level: Moderate Risk Assessment and Plan Plan: Newly diagnosed Afib w/ RVR in setting of hyperthyroidism -C/w Cardizem infusion -Will start Lopressor 50 mg bid. DC home antihypertensives -Cardiac monitoring -C/w Heparin infusion -F/u Echocardiogram. Switch to possible NOAC following Echo. Hyperthyroidism -Check TSH receptor abs -Obtain Thyroid scan. Will consider starting Methimazole vs PTU following scan Hyperkalemia -Will hold Spironolactone and Triamterene-HCTZ -Received Kayexalate in ED. Hold off in Insulin IVP due to hypoglycemia -Monitor for now -C/w Cardiac monitoring DM w/ hypoglycemia -Will decrease home insulin doses to 50% -C/w blood glucose monitoring and sliding scale Leukocytosis -No clear signs of infection -Monitor for now CKD, stable -Monitor for now DVT prophylaxis -Heparin infusion The patient is admitted with an anticipated greater than 2 midnight stay for evaluation of afib w/ rvr. CODE STATUS: Full Code Discussed with: Patient Anticipated discharge date: 12/09/[address]: Home A total of 50 minutes was spent on the care of this complex patient more than 50% of the time was spent in counseling and care coordination.
[2018-12-07 02:19] LABS: Glucose,Whole Blood 72 mg/dL (75-99)
[2018-12-07] MEDS ORDERED: CALCIUM GLUCONATE 2 GM in SODIUM CHLORIDE 0.9% 100 ML IVPB ONE (02:21)
[2018-12-07] MEDS ORDERED: SODIUM POLYSTYRENE SULFONATE 15 GM/60 ML BOTTLE PO STA (02:22)
[2018-12-07] MEDS ORDERED: DEXTROSE 50% SYRINGE 50 ML IVP ONE (05:42)
[2018-12-07 05:51] LABS: Glucose,Whole Blood 37 mg/dL (75-99)
[2018-12-07 06:02] LABS: Glucose,Whole Blood 182 mg/dL (75-99)
[2018-12-07] MEDS: INSULIN ASPART (NovoLOG) 100 UNIT/ML VIAL SQ SCH ×5 (06:12→21:45)
[2018-12-07] MEDS: PANTOPRAZOLE 40 MG TABLET PO SCH ×2 (06:26→18:09)
[2018-12-07 06:35] LABS: Glucose,Whole Blood 149 mg/dL (75-99)
[2018-12-07 07:21] LABS: Basophils % (A) 0 %; Eosinophils # (A) 0.2 k/uL (0-0.7); Eosinophils % (A) 2 %; HCT 38.3 % (34.0-46.0); HGB 11.2 gm/dL (11.4-16.0); Hypochromasia Marked; Lymphocytes # (A) 3.2 k/uL (1.0-4.8); Lymphocytes % (A) 32 %; MCH 19.3 pg (25.0-35.0); MCHC 29.3 g/dL (31.0-37.0); MCV 65.9 fL (80.0-100.0); Mean Platelet Volume 6.9; Microcytosis Marked; Monocytes # (A) 0.6 k/uL (0-1.0); Monocytes % (A) 6 %; Neutrophils # (A) 5.9 k/uL (1.3-7.7); Neutrophils % (A) 59 %; Platelet Count 337 k/uL (150-450); RBC 5.81 m/uL (3.80-5.40); RDW 14.7 % (11.5-15.5); WBC 10.1 k/uL (3.8-10.6)
[2018-12-07 08:16] LABS: Albumin 3.6 g/dL (3.5-5.0); Calcium 10.5 mg/dL (8.4-10.2); Potassium 5.2 mmol/L (3.5-5.1); Total Bilirubin 0.5 mg/dL (0.2-1.3); Total Protein 6.8 g/dL (6.3-8.2)
[2018-12-07] MEDS ORDERED: SPIRONOLACTONE 25 MG TAB PO SCH (09:00)
[2018-12-07] MEDS ORDERED: INSULN ASP PRT/INSULIN ASPART 100 UNIT/ML 10 ML VIAL SQ SCH ×3 (09:00→21:00)
[2018-12-07] MEDS ORDERED: CYANOCOBALAMIN 500 MCG TAB PO SCH (09:00)
[2018-12-07] MEDS ORDERED: SERTRALINE 50 MG TAB PO SCH (09:00)
[2018-12-07] MEDS ORDERED: MAGNESIUM OXIDE 400 MG TAB PO SCH (09:00)
[2018-12-07] MEDS ORDERED: PIOGLITAZONE 15 MG TAB PO SCH (09:00)
[2018-12-07] MEDS ORDERED: TRIAMTERENE-HCTZ 37.5-25MG 1 EACH CAP PO SCH (09:00)
[2018-12-07] MEDS: DILTIAZEM 125 MG in SODIUM CHLORIDE 0.9% 100 ML IV SCH (10:03)
[2018-12-07] MEDS: METOPROLOL TARTRATE 50 MG TAB PO SCH ×2 (10:05→19:47)
[2018-12-07] MEDS: ATORVASTATIN 20 MG TAB PO SCH (10:05)
[2018-12-07] MEDS: GABAPENTIN 300 MG CAP PO SCH ×3 (10:05→21:44)
--- NOTE | 2018-12-07 10:09 | P.CRDCN ---
History of Present Illness Consult date: 12/07/18 Requesting physician: Aldo Parrish Consult reason: atrial fibrillation Chief complaint: Fatigue History of present illness: This is a 78-year-old female with history of hypertension, diabetes, hyperlipidemia, prior history of smoking, rare EtOH, who presents to the hospital with symptoms of fatigue and inability to care for herself at home. According to the patient, over the past couple of months she's noticed herself to be extremely lonely, she is having a hard time walking, feels as though she is in able to take care of herself. She primarily came to the hospital for the se reasons in hopes to find placement. An EKG was performed on arrival here which showed atrial fibrillation for this reason a cardiology consultation has been requested. According to the patient, she denies having any history of irregular heartbeat in the past. She does state though that she's been having low blood sugars occasionally at home. Chest x-ray on arrival here showed minimal scarring or subsegmental atelectasis in the left lower lobe. EKG showed atrial fibrillation with a controlled ventricular response. Blood pressure 130/50 heart rate in the 80s to 90s, afebrile, 99% on room air. White blood cell count 12.0 on admission, 10.1 this morning, hemoglobin 11.2, platelet count 337. Sodium 137, potassium 6.0, BUN 56 and creatinine 1.7 on admission, this morning sodium 139, potassium 6.0, BUN 51 and creatinine 1.8. TSH level 0.023, free T4 3.43, troponin 0.014. At the time of her examination this morning, patient is quite talkative, she did get teary at the end of our conversation, she is still quite depressed and really wants to get some help regarding her home situation. Past Medical History Past Medical History: Diabetes Mellitus, GERD/Reflux, Hyperlipidemia, Hypertension, Osteoarthritis (OA) Additional Past Medical History / Comment(s): 08/12/16 with idiopathic pancreatitis, esophagitis, gastritis, hiatal hernia. 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 History of Any Multi-Drug Resistant Organisms: None Reported Past Surgical History: Cholecystectomy, Heart Catheterization, Tonsillectomy, Tubal Ligation Additional Past Surgical History / Comment(s): EGD with bx 08/15/16, 10/2009 cardiac cath-normal, bilateral cataract removal, colonoscopy. Past Anesthesia/Blood Transfusion Reactions: No Reported Reaction Additional Past Anesthesia/Blood Transfusion Reaction / Comment(s): Pt has clausterphobia. Past Psychological History: Anxiety, Depression Additional Psychological History / Comment(s): Pt resides alone. She is independent. Smoking Status: Former smoker Past Alcohol Use History: Rare Additional Past Alcohol Use History / Comment(s): Pt states she started smoking in 1955 and quit in 1988. Past Drug Use History: None Reported - Past Family History Father Family Medical History: Cancer Additional Family Medical History / Comment(s): Father at the age of 81 yrs of lung cancer. He was a smoker. Mother Family Medical History: Cancer Additional Family Medical History / Comment(s): Mother had cervical cancer. She at the age of 53 from her lupus. Medications and Allergies Home Medications Medication Instructions Recorded Confirmed Type Simvastatin [Zocor] 40 mg PO DAILY 11/18/13 12/06/18 History LORazepam [Ativan] 0.5 mg PO HS PRN 08/12/16 12/06/18 History Timolol [Betimol 0.5% Ophth Soln] 1 drop BOTH EYES DAILY 09/01/16 12/06/18 History Triamterene-Hctz 37.5-25Mg 1 cap PO DAILY 09/01/16 12/06/18 History [Dyazide 37.5-25 Capsule] Cyanocobalamin (Vitamin B-12) 1,000 mcg PO DAILY 12/06/18 12/06/18 History [Vitamin B-12] Enalapril Maleate [Vasotec] 20 mg PO BID 12/06/18 12/06/18 History Gabapentin [Neurontin] 300 mg PO TID 12/06/18 12/06/18 History Insulin NPH Hum/Reg Insulin Hm 30 unit SQ HS 12/06/18 12/06/18 History [NovoLIN 70-30 100 UNIT/ML VIAL] Insulin NPH Hum/Reg Insulin Hm 35 unit SQ QAM 12/06/18 12/06/18 History [NovoLIN 70-30 100 UNIT/ML VIAL] Magnesium 200 mg PO DAILY 12/06/18 12/06/18 History Pantoprazole [Protonix] 40 mg PO BID 12/06/18 12/06/18 History Pioglitazone HCl [Actos] 15 mg PO DAILY 12/06/18 12/06/18 History Sertraline HCl [Zoloft] 50 mg PO DAILY 12/06/18 12/06/18 History Spironolactone 25 mg PO DAILY 12/06/18 12/06/18 History Allergies Allergy/AdvReac Type Severity Reaction Status Date / Time latex Allergy Rash/Hives Verified 12/06/18 17:06 Physical Exam Vitals: Vital Signs Temp Pulse Pulse Resp BP BP Pulse Ox 12/07/18 08:30 98.3 F 94 16 101/48 99 12/07/18 03:59 87 16 12/07/18 03:36 98.0 F 87 16 137/52 99 12/06/18 23:37 103 H 16 12/06/18 23:34 97.9 F 103 H 16 94/58 95 12/06/18 21:54 97.4 F L 111 H 18 119/69 98 12/06/18 20:30 101 H 10 L 105/52 97 12/06/18 20:00 112 H 30 H 103/91 97 12/06/18 19:30 131 H 12 134/81 12/06/18 19:00 105 H 17 117/81 91 L 12/06/18 18:47 115 H 16 117/81 96 12/06/18 17:30 99 37 H 127/91 12/06/18 17:00 98 18 117/82 12/06/18 16:48 98.4 F 94 18 118/100 96 12/06/18 16:38 29 H 84 L Intake and Output 12/06/18 12/07/18 12/07/18 22:59 06:59 14:59 Intake Total 3.167 57.155 Output Total 300 Balance 3.167 -242.845 Intake: Intake, IV Titration 3.167 57.155 Amount Diltiazem 125 mg In 3.167 Sodium Chloride 0.9% 100 ml @ 5 MG/HR 5 mls/hr IV .Q24H [facility] Rx#:[id number] Heparin Sod,Pork in 0.45% 57.155 NaCl 25,000 unit In 0.45 % NaCl 1 250ml.bag @ 12 UNITS/KG/HR 9.798 mls/hr IV .Q24H [facility] Rx#: [id number] Output: Urine 300 Other: Voiding Method Bedside Commode # Voids 1 Weight 81.647 kg 77.4 kg PHYSICAL EXAMINATION: GENERAL: 78-year-old female in no acute distress at the time of my examination HEENT: Head is atraumatic, normocephalic. Pupils equal, round. Sclera anicteric. Conjunctiva are clear. Mucous membranes of the mouth are moist. Neck is supple. There is no elevated jugular venous pressure.No carotid bruit is heard. HEART EXAMINATION: Heart S1, S2 irregularly irregular, systolic murmur is heard. CHEST EXAMINATION: Lungs are clear to auscultation and precussion. No chest wall tenderness is noted on palpation or with deep breathing. ABDOMEN: Soft, nontender. Bowel sounds are heard. No organomegaly noted. EXTREMITIES: 2+ peripheral pulses with no evidence of peripheral edema and no calf tenderness noted. NEUROLOGIC patient is awake, alert and oriented 3 . . Results 12/07/18 06:16 12/07/18 06:16 Cardiac Enzymes 12/06/18 12/06/18 12/06/18 Range/Units 17:40 17:40 18:38 AST Not Reportable 24 Troponin I 0.014 (0.000-0.034) ng/mL 12/07/18 Range/Units 06:16 AST 31 Troponin I (0.000-0.034) ng/mL Coagulation 12/06/18 12/07/1818 Range/Units 17:40 00:50 06:16 PT 11.2 (9.0-12.0) sec APTT 23.7 66.3 H 67.9 H (22.0-30.0) sec CBC 12/06/18 12/07/18 Range/Units 17:40 06:16 WBC 12.0 H 10.1 (3.8-10.6) k/uL RBC 6.18 H 5.81 H (3.80-5.40) m/uL Hgb 12.2 11.2 L (11.4-16.0) gm/dL Hct 40.1 38.3 (34.0-46.0) % Plt Count 336 337 (150-450) k/uL Comprehensive Metabolic Panel 12/06/18 12/06/1818 Range/Units 17:40 18:38 00:50 Sodium Not Reportable 137 Potassium Not Reportable 6.0 H 6.0 H Chloride Not Reportable 106 Carbon Dioxide Not Reportable 19 L BUN Not Reportable 56 H Creatinine Not Reportable 1.74 H Glucose Not Reportable 75 Calcium Not Reportable 9.7 AST Not Reportable 24 ALT Not Reportable 15 Alkaline Phosphatase Not Reportable 121 Total Protein Not Reportable 7.2 Albumin Not Reportable 3.9 12/07/18 Range/Units 06:16 Sodium 139 Potassium 5.2 H Chloride 105 Carbon Dioxide 23 BUN 51 H Creatinine 1.80 H Glucose 151 H Calcium 10.5 H AST 31 ALT 22 Alkaline Phosphatase 111 Total Protein 6.8 Albumin 3.6 Current Medications Generic Name Dose Route Start Last Admin Trade Name Freq PRN Reason Stop Dose Admin Atorvastatin Calcium 20 mg 12/07/18 09:00 Lipitor PO DAILY [facility] Gabapentin 300 mg 12/06/18 22:00 12/06/18 22:31 Neurontin PO 300 mg TID [facility] Administration Heparin Sodium (Porcine) 0 unit 12/06/18 18:59 Heparin IV PER PROTOCOL PRN Low PTT Protocol Heparin Sodium/Sodium Chloride 250 mls @ 9.798 mls/hr 12/06/18 19:00 12/07/18 01:51 25,000 unit/ Sodium Chloride IV 12 units/kg/hr .Q24H [facility] 9.798 mls/hr Titration Protocol 12 UNITS/KG/HR Diltiazem HCl 125 mg/ Sodium 125 mls @ 5 mls/hr 12/06/18 19:45 12/06/18 20:52 Chloride IV 10 mg/hr .Q24H [facility] 10 mls/hr Infusion 5 MG/HR Sodium Chloride 1,000 mls @ 20 mls/hr 12/06/18 19:45 12/06/18 19:57 Saline 0.9% IV 20 mls/hr .Q24H [facility] Administration Insulin Aspart 0 unit 12/06/18 21:00 12/07/18 06:12 Novolog SQ Not Given ACHS [facility] Protocol Lorazepam 0.5 mg 12/06/18 19:32 12/06/18 22:59 Ativan PO 0.5 mg HS PRN Administration Anxiety Metoprolol Tartrate 50 mg 12/07/18 09:00 Lopressor PO BID [facility] Naloxone HCl 0.2 mg 12/06/18 19:33 Narcan IV Q2M PRN Opioid Reversal Pantoprazole Sodium 40 mg 12/06/18 21:00 12/07/18 06:26 Protonix PO 40 mg AC-BID [facility] Administration Sertraline HCl 50 mg 12/07/18 09:00 Zoloft PO DAILY [facility] Timolol Maleate 1 drops 12/07/18 09:00 Timoptic BOTH EYES DAILY [facility] Intake and Output 12/06/18 12/07/18 12/07/18 22:59 06:59 14:59 Intake Total 3.167 57.155 Output Total 300 Balance 3.167 -242.845 Intake: Intake, IV Titration 3.167 57.155 Amount Diltiazem 125 mg In 3.167 Sodium Chloride 0.9% 100 ml @ 5 MG/HR 5 mls/hr IV .Q24H [facility] Rx#:[id number] Heparin Sod,Pork in 0.45% 57.155 NaCl 25,000 unit In 0.45 % NaCl 1 250ml.bag @ 12 UNITS/KG/HR 9.798 mls/hr IV .Q24H [facility] Rx#: [id number] Output: Urine 300 Other: Voiding Method Bedside Commode # Voids 1 Weight 81.647 kg 77.4 kg 12/07/18 06:16 12/07/18 06:16 EKG Interpretations (text) EKG shows atrial fibrillation with a fairly controlled ventricular response Assessment and Plan Plan: Assessment and plan #1 atrial fibrillation with controlled ventricular response, appears to be of new onset for the patient #2 hypertension #3 diabetes #4 hyperlipidemia #5 depression #6 hyperthyroidism, TSH 0.023. Free T4 3.43 #7 hyperkalemia #8 acute on chronic renal insufficiency Plan We will obtain an echocardiogram with Doppler study, patient was on Vasotec and Aldactone at home which are currently on hold because of the hyperkalemia and abnormal renal function. We will discontinue the IV Cardizem and start the patient on Eliquis checking to see regarding coverage. Continue metoprolol 50 mg one tablet by mouth twice a day. DNP note has been reviewed, I agree with a documented findings and plan of care. Patient was seen and examined.
--- NOTE | 2018-12-07 10:34 | ECHOF ---
Referral Reason:Afib MEASUREMENTS -------- HEIGHT: 157.5 cm WEIGHT: 77.1 kg BP: 137/52 IVSd: 0.9 cm (0.6 - 1.1) LVIDd: 4.3 cm (3.9 - 5.3) LVPWd: 0.9 cm (0.6 - 1.1) IVSs: 1.2 cm LVIDs: 2.7 cm LVPWs: 1.2 cm Ao Diam: 3.2 cm (2.0 - 3.7) AV Cusp: 3.2 cm (1.5 - 2.6) LA Diam: 1.8 cm (2.7 - 3.8) MV EXCURSION: 21.866 mm (> 18.000) MV EF SLOPE: 105 mm/s (70 - 150) EPSS: 0.5 cm FINDINGS -------- Atrial fibrillation. This was a technically adequate study. The left ventricular size is normal. There is normal global left ventricular contractility. Overa ll left ventricular systolic function is normal with, an EF between 55 - 60 %. The right ventricle is normal in size. The left atrium is normal in size. The right atrial size is normal. There is mild aortic valve sclerosis. Mild mitral annular calcification present. Mild mitral regurgitation is present. The tricuspid valve appears structurally normal. Mild tricuspid regurgitation present. There is n o evidence of pulmonary hypertension. The right ventricular systolic pressure, as measured by Doppl er, is {RVSP}. There is no pulmonic regurgitation present. Echo free space may represent effusion or a pericardial fat pad. CONCLUSIONS -------- 1. Atrial fibrillation. 2. This was a technically adequate study. 3. The left ventricular size is normal. 4. There is normal global left ventricular contractility. 5. Overall left ventricular systolic function is normal with, an EF between 55 - 60 %. 6. The left atrium is normal in size. 7. There is mild aortic valve sclerosis. 8. Mild mitral annular calcification present. 9. Mild mitral regurgitation is present. 10. The tricuspid valve appears structurally normal. 11. Mild tricuspid regurgitation present. 12. There is no evidence of pulmonary hypertension. 13. There is no pulmonic regurgitation present. 14. Echo free space may represent effusion or a pericardial fat pad. SWITCH MAKER: SEUN EleanT
[2018-12-07 11:37] LABS: Glucose,Whole Blood 122 mg/dL (75-99)
[2018-12-07] MEDS: APIXABAN 5 MG TAB PO SCH ×2 (12:18→19:47)
[2018-12-07] MEDS: TIMOLOL 0.5% OPHTH DROPS 5 ML BTL BOTH EYES SCH (12:18)
--- NOTE | 2018-12-07 13:33 | P.NPCON ---
History of Present Illness - Reason for Consult acute renal failure, chronic renal failure - History of Present Illness Reason for consultation: Acute kidney injury on chronic kidney disease History of present illness: Patient is a 78-year-old female seen in renal consultation for acute kidney injury on chronic kidney disease. Patient has chronic kidney disease stage III with baseline creatinine near 1.5 secondary to diabetic kidney disease. Patient presented to the hospital for generalized weakness. Patient states she is unable to live alone at home and feels somewhat depressed. She wishes to live in a senior assisting facility. She has been voiding. No hematuria or dysuria. Denies use of nonsteroidals. No vomiting or diarrhea. Patient's potassium level was 6 on admission. In her home medications abdomen which was taking Dyazide, enalapril as well as Aldactone. All of these have been discontinued. Hyperkalemia was medically treated. It was 5.2 this morning. She denies chest pain or shortness of breath. No edema. Vital signs are stable. General: The patient appeared well nourished and normally developed. HEENT: Head exam is unremarkable. Neck is without jugular venous distension. LUNGS: Lungs are clear to auscultation and percussion. Breath sounds decreased. HEART: Rate and Rhythm are regular. First and second heart sounds normal. No murmurs, rubs or gallops. ABDOMEN: Abdominal exam reveals normal bowel sounds. Non-tender and non- distended. No evidence of peritonitis. EXTREMITITES: No clubbing, cyanosis, or edema. Past Medical History Past Medical History: Diabetes Mellitus, GERD/Reflux, Hyperlipidemia, Hypertension, Osteoarthritis (OA) Additional Past Medical History / Comment(s): 08/12/16 with idiopathic pancreatitis, esophagitis, gastritis, hiatal hernia. 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 History of Any Multi-Drug Resistant Organisms: None Reported Past Surgical History: Cholecystectomy, Heart Catheterization, Tonsillectomy, Tubal Ligation Additional Past Surgical History / Comment(s): EGD with bx 08/15/16, 10/2009 cardiac cath-normal, bilateral cataract removal, colonoscopy. Past Anesthesia/Blood Transfusion Reactions: No Reported Reaction Additional Past Anesthesia/Blood Transfusion Reaction / Comment(s): Pt has clausterphobia. Past Psychological History: Anxiety, Depression Additional Psychological History / Comment(s): Pt resides alone. She is independent. Smoking Status: Former smoker Past Alcohol Use History: Rare Additional Past Alcohol Use History / Comment(s): Pt states she started smoking in 1956 and quit in 1988. Past Drug Use History: None Reported - Past Family History Father Family Medical History: Cancer Additional Family Medical History / Comment(s): Father at the age of 81 yrs of lung cancer. He was a smoker. Mother Family Medical History: Cancer Additional Family Medical History / Comment(s): Mother had cervical cancer. She at the age of 53 from her lupus. Medications and Allergies Home Medications Medication Instructions Recorded Confirmed Type Simvastatin [Zocor] 40 mg PO DAILY 11/18/13 12/06/18 History LORazepam [Ativan] 0.5 mg PO HS PRN 08/12/16 12/06/18 History Timolol [Betimol 0.5% Ophth Soln] 1 drop BOTH EYES DAILY 09/01/16 12/06/18 History Triamterene-Hctz 37.5-25Mg 1 cap PO DAILY 09/01/16 12/06/18 History [Dyazide 37.5-25 Capsule] Cyanocobalamin (Vitamin B-12) 1,000 mcg PO DAILY 12/06/18 12/06/18 History [Vitamin B-12] Enalapril Maleate [Vasotec] 20 mg PO BID 12/06/18 12/06/18 History Gabapentin [Neurontin] 300 mg PO TID 12/06/18 12/06/18 History Insulin NPH Hum/Reg Insulin Hm 30 unit SQ HS 12/06/18 12/06/18 History [NovoLIN 70-30 100 UNIT/ML VIAL] Insulin NPH Hum/Reg Insulin Hm 35 unit SQ QAM 12/06/18 12/06/18 History [NovoLIN 70-30 100 UNIT/ML VIAL] Magnesium 200 mg PO DAILY 12/06/18 12/06/18 History Pantoprazole [Protonix] 40 mg PO BID 12/06/18 12/06/18 History Pioglitazone HCl [Actos] 15 mg PO DAILY 12/06/18 12/06/18 History Sertraline HCl [Zoloft] 50 mg PO DAILY 12/06/18 12/06/18 History Spironolactone 25 mg PO DAILY 12/06/18 12/06/18 History Allergies Allergy/AdvReac Type Severity Reaction Status Date / Time latex Allergy Rash/Hives Verified 12/06/18 17:06 Physical Exam Vitals: Vital Signs Temp Pulse Pulse Resp BP BP Pulse Ox 12/07/18 08:30 98.3 F 94 16 101/48 99 12/07/18 03:59 87 16 12/07/18 03:36 98.0 F 87 16 137/52 99 12/06/18 23:37 103 H 16 12/06/18 23:34 97.9 F 103 H 16 94/58 95 12/06/18 21:54 97.4 F L 111 H 18 119/69 98 12/06/18 20:30 101 H 10 L 105/52 97 12/06/18 20:00 112 H 30 H 103/91 97 12/06/18 19:30 131 H 12 134/81 12/06/18 19:00 105 H 17 117/81 91 L 12/06/18 18:47 115 H 16 117/81 96 12/06/18 17:30 99 37 H 127/91 12/06/18 17:00 98 18 117/82 12/06/18 16:48 98.4 F 94 18 118/100 96 12/06/18 16:38 29 H 84 L Intake and Output 12/06/18 12/07/18 12/07/18 22:59 06:59 14:59 Intake Total 3.167 57.155 121.833 Output Total 300 Balance 3.167 -242.845 121.833 Intake: Intake, IV Titration 3.167 57.155 121.833 Amount Diltiazem 125 mg In 3.167 121.833 Sodium Chloride 0.9% 100 ml @ 5 MG/HR 5 mls/hr IV .Q24H [facility] Rx#:[id number] Heparin Sod,Pork in 0.45% 57.155 NaCl 25,000 unit In 0.45 % NaCl 1 250ml.bag @ 12 UNITS/KG/HR 9.798 mls/hr IV .Q24H [facility] Rx#: [id number] Output: Urine 300 Other: Voiding Method Bedside Commode # Voids 1 Weight 81.647 kg 77.4 kg Results - Lab Results Most recent lab results Calcium 10.5 mg/dL (8.4-10.2) H 12/07/18 06:16 Magnesium 1.7 mg/dL (1.6-2.3) 12/06/18 18:38 12/07/18 06:16 12/07/18 06:16 Assessment and Plan Plan: Assessment: 1. Acute kidney injury mostly prerenal secondary to diuretics. Creatinine 1.8 today. 2. Chronic kidney disease stage III secondary to diabetic kidney disease. Baseline creatinine near 1.5. 3. Hyperkalemia secondary to acute kidney injury and further worsened with the use of Dyazide, enalapril and Aldactone. Better. 4. Metabolic acidosis secondary to acute kidney injury. Better. 5. Hypercalcemia. This can be from Dyazide as well as volume depletion. Patient was also taking vitamin D at home which is currently held. 6. Insulin-dependent diabetes mellitus. 7. A. fib with RVR. Status post Cardizem drip. Maintained on beta romario and anticoagulation. Cardiology following. 8. Hyperthyroidism. Thyroid scan pending. Plan: Hold off on diuretics. Repeat potassium level this evening. Check serum and urine immunofixation. Follow-up echocardiogram. Thank you for the consultation. I will continue to follow the patient with you during her hospital stay.
[2018-12-07 14:55] LABS: Hemoglobin A1C 8.4 % (4.0-6.0)
--- NOTE | 2018-12-07 15:59 | P.CN ---
Psychiatric Consult - . Consult date: 12/07/18 Consult:: 12/07/18 15:42 Identification: Patient is a 78-year-old female who presented to the emergency room reporting fatigue and being unable to care for her ADLs Reason for Consult: Depression History of Present Illness: Patient's chart was reviewed and the patient was seen and interviewed in her room no family members were present. Patient states that she lives alone with her dog in a [address] on [address] and states that over the last 3-4 months she has felt increasingly depressed and unable to take care of the home or herself. She states that she is been sleeping too much during the day, her appetite has been poor and her blood sugars have been poorly controlled. She states that she's not been cooking for herself has no appetite and has not been caring for her ADLs as well as she was in the past. She states that she's been feeling overwhelmed by caring for the house and has not had any energy or had any motivation to take care of things. She states that she stopped driving to visit her extended family about a year ago because driving 2 hours to visit them was too far. She states that she didn't have her grandsons visit from [place] because she felt that she couldn't take care of people visiting her. She reports that she has lived on her own since her 's in 2006 and moved into her current home in 2008 that they had built for his parents who had lived there beginning in 1969. She states that she was doing well up until about 4 months ago when she began to feel overwhelmed by the house, tired and just unable to care for things. She states that she was placed on Zoloft by her primary care physician 1 year ago because she felt depressed then but states that she was still taking care of things but was beginning to feel more isolated and lonely. Patient states that she has 1 daughter who lives nearby but that her other 2 daughters both live in [place]. Her stepdaughter with whom she is also close lives in [place]. Patient states that she hasn't been driving herself as much, hasn't been getting dressed if she doesn't need to go out and doesn't care about her personal appearance. She reports no current suicidal thoughts here she states that she feels she needs to move into some other living situation. Patient does not endorse a history of prior depressive episodes, manic episodes, psychotic symptoms or anxiety symptoms or OCD symptoms. She has no history of prior suicide attempts. Patient states that she was very active used to drive to [place] to visit her brothers, used to fly out of town to visit her daughters and stepdaughter in [place] and in [place], would drive to visit friends but has done none of this for the last year. Past Psychiatric History: Patient has no history of inpatient psychiatric admissions and was placed on Zoloft by her primary care physician 1 year ago otherwise she has no treatment history Past Medical/Surgical History: Patient has a history of diabetes, GERD, hyperlipidemia, hypertension, osteoarthritis and a recent diagnosis of atrial fibrillation and elevated TSH. Patient is status post cholecystectomy and tubal ligation. Family History: Patient states that one of her brothers is treated for depression, there is no history of substance abuse or alcohol use in the family and no completed suicides Social History: Patient was born and raised in [place] and her parents are both she is the oldest of 7 and has 6 brothers. Patient completed high school and attended college for one year. She was at the age of 16 and this marriage lasted for 5 years and she had her 3 daughters during this marriage. She states she was at 20 and raise the 3 girls by herself. 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 She states that her built a home for hi s parents, the one in which she currently is living and they've lived there in the and both within a year of her 's in 2006. They had planned to move into this home after he retired, he was diagnosed with lung cancer and within 2 weeks in 2006. She states that she moved into the house and sold their home in [place] in 2008. Patient lives with her dog, the house is all on one floor and she has one close friend. Patient denies any abuse history. Substance Use History: Patient denies any alcohol or substance abuse history currently or in the past Legal History: Patient denies any legal history Mental status: Appearance/Attitude: Patient is an a hospital gown, lying in a bed in no acute distress and makes good eye contact and is cooperative Behavior: Patient does not exhibit any psychomotor agitation or retardation. Speech/Language: Patient's speech is spontaneous and normal volume and rhythm and she is coherent Thought Process: Patient is goal-directed there is no evidence of loose association or flight of ideas Thought Content: Patient denies any auditory or visual hallucinations no delusions or paranoid ideation or elicited. Patient discusses the fact that over the last 3-4 months she's been increasingly depressed with a decrease in her appetite, sleeping during the day, not cooking for herself having a decreased interest in doing things and feeling overwhelmed with caring for her home. Patient states that she's been staying at home has not been driving or going out. Patient states that she has lost interest in caring for her activities of daily living. Suicidal/Homicidal Ideation: Patient denies any current suicidal or homicidal ideation Sensorium/Cognition: Patient is alert and oriented to person, place, and time and her recent and remote memory are grossly intact Mood/Affect: Patient's mood is depressed and her affect is appropriate to her mood Insight/Judgment: Patient's insight and judgment are intact Assessment: Patient presents with an onset of depression over the last year that has increased in the last 3-4 months where the patient has been feeling increasingly tired, with a lack of energy or interest to do things and also decrease in her appetite and feeling overwhelmed by caring for her ADLs. Patient states that she's not been cooking for herself not been able to clean as well and not cared about her personal appearance. She states that she's been feeling tired, has stopped driving to visit extended family members and has been feeling increasingly lonely. Patient has no history of prior treatment for dep ression, does not endorse any manic symptoms, anxiety symptoms or psychotic symptoms. Patient on this admission was discovered to have a decreased TSH with possible hyperthyroidism and atrial fibrillation. Patient was started on Zoloft 50 mg by her primary care physician a year ago. Patient discussed her plans to sell her home and move into a group home facility or into assisted living. Diagnosis: Major depressive disorder, single episode, moderate severity Plan: Patient does not require inpatient admission, I discussed with the patient increasing her Zoloft to 75 mg daily to see if this would assist in treating her depressive symptoms. Is unclear to me if some of her physical complaints may be due to her new onset of atrial fibrillation and/or possible hyperthyroidism. Patient has become increasingly overwhelmed over the last 3-4 months and has not been able to care for her ADLs as well as she was in the past as well as not controlling her blood sugar as well and states that she's not been eating or cooking for herself as she did in the past and has been more withdrawn. Patient and I discussed her plans to go to a rehab facility after release from the hospital and then to consider moving into a group home apartment or an assisted living her daughter who lives locally is assisting the patient and is planning the patient is agreeable with this. She discussed selling her home. Patient should continue on the Zoloft 75 mg while she is here in the hospital and when she is released from the hospital he can continue to be adjusted if so needed. I will sign off the case please contact me if there are any further questions or concerns. I spoke with social work regarding this case the fact that the patient is agreeable with the above plan.
[2018-12-07 16:48] LABS: Glucose,Whole Blood 147 mg/dL (75-99)
--- NOTE | 2018-12-07 18:53 | P.PN ---
Subjective Progress Note Date: 12/07/18 Patient seen and examined at bedside, flat affect emotional teary when talking about her new diagnosis of A. fib and hyperthyroidism. Consult placed for psychiatric evaluation. Patient continued on Cardizem, a.m. potassium 5.2, creatinine 1.8, A1c 8.4. Objective - Vital Signs Vital signs: Vital Signs Temp 98.3 F 12/07/18 08:30 Pulse 85 12/07/18 12:20 Resp 18 12/07/18 12:20 BP 101/51 12/07/18 12:20 Pulse Ox 97 12/07/18 12:20 Intake & Output 12/06/18 12/07/18 12/07/18 18:59 06:59 18:59 Intake Total 60.322 361.833 Output Total 300 400 Balance -239.678 -38.167 Weight 81.647 kg 77.4 kg Intake: Intake, IV Titration 60.322 121.833 Amount Diltiazem 125 mg In 3.167 121.833 Sodium Chloride 0.9% 100 ml @ 5 MG/HR 5 mls/hr IV .Q24H [facility] Rx#:[id number] Heparin Sod,Pork in 0.45% 57.155 NaCl 25,000 unit In 0.45 % NaCl 1 250ml.bag @ 12 UNITS/KG/HR 9.798 mls/hr IV .Q24H [facility] Rx#: [id number] Oral 240 Output: Urine 300 400 Other: Voiding Method Bedside Commode Bedside Commode # Voids 1 - Exam Constitutional: No acute distress, conversant, pleasant Eyes: Anicteric sclerae, moist conjunctiva, no lid-lag, PERRLA ENMT: NC/AT,Oropharynx clear, no erythema, exudates Neck:Supple, FROM, no masses, or JVD, No carotid bruits; No thyromegaly Lungs: Clear to auscultation, Clear to percussion, Normal respiratory effort, no accessory muscle use Cardiovascular: Heart regular in rate and rhythm, No murmurs, gallops, or rubs no peripheral edema Abdominal: Soft Nontender, nom distended, no guarding, no rebound or rigidity, Normoactive bowel sounds No hepatomegaly, No splenomegaly, No palpable mass No abdominal wall hernia noted Skin: Normal temperature, tone, texture, turgor, No induration No subcutaneous nodules, No rash, lesions, No ulcers Extremities:No digital cyanosis No clubbing, Pedal pulses intact and symmetrical Radial pulses intact and symmetrical Normal gait and station, No calf tenderness Psychiatric: Alert and oriented to person, place and time, Appropriate affect Intact judgement Neuro: Muscles Strength 5/5 in all 4 extremities, Sensation to light touch grossly present throughout, Cranial nerves II-XII grossly intact. No focal sensory deficits - Labs CBC & Chem 7: 12/07/18 06:16 12/07/18 17:16 Labs: Abnormal Lab Results - Last 24 Hours (Table) 12/06/18 12/06/18 12/06/18 Range/Units 18:38 18:38 22:18 RBC (3.80-5.40) m/uL Hgb (11.4-16.0) gm/dL MCV (80.0-100.0) fL MCH (25.0-35.0) pg MCHC (31.0-37.0) g/dL APTT (22.0-30.0) sec Potassium 6.0 H (3.5-5.1) mmol/L Carbon Dioxide 19 L (22-30) mmol/L BUN 56 H (7-17) mg/dL Creatinine 1.74 H (0.52-1.04) mg/dL Glucose (74-99) mg/dL POC Glucose (mg/dL) 39 L (75-99) mg/dL Hemoglobin A1c (4.0-6.0) % Calcium (8.4-10.2) mg/dL TSH (0.465-4.680) mIU/L Free T4 3.43 H (0.78-2.19) ng/dL 12/06/18 12/07/18 12/07/18 Range/Units 22:35 00:50 00:50 RBC (3.80-5.40) m/uL Hgb (11.4-16.0) gm/dL MCV (80.0-100.0) fL MCH (25.0-35.0) pg MCHC (31.0-37.0) g/dL APTT 66.3 H (22.0-30.0) sec Potassium 6.0 H (3.5-5.1) mmol/L Carbon Dioxide (22-30) mmol/L BUN (7-17) mg/dL Creatinine (0.52-1.04) mg/dL Glucose (74-99) mg/dL POC Glucose (mg/dL) 171 H (75-99) mg/dL Hemoglobin A1c (4.0-6.0) % Calcium (8.4-10.2) mg/dL TSH (0.465-4.680) mIU/L Free T4 (0.78-2.19) ng/dL 12/07/18 12/07/18 12/07/18 Range/Units 02:07 05:40 06:00 RBC (3.80-5.40) m/uL Hgb (11.4-16.0) gm/dL MCV (80.0-100.0) fL MCH (25.0-35.0) pg MCHC (31.0-37.0) g/dL APTT (22.0-30.0) sec Potassium (3.5-5.1) mmol/L Carbon Dioxide (22-30) mmol/L BUN (7-17) mg/dL Creatinine (0.52-1.04) mg/dL Glucose (74-99) mg/dL POC Glucose (mg/dL) 72 L 37 L 182 H (75-99) mg/dL Hemoglobin A1c (4.0-6.0) % Calcium (8.4-10.2) mg/dL TSH (0.465-4.680) mIU/L Free T4 (0.78-2.19) ng/dL 12/07/18 12/07/18 12/07/18 Range/Units 06:16 06:16 06:16 RBC 5.81 H (3.80-5.40) m/uL Hgb 11.2 L (11.4-16.0) gm/dL MCV 65.9 L (80.0-100.0) fL MCH 19.3 L (25.0-35.0) pg MCHC 29.3 L (31.0-37.0) g/dL APTT (22.0-30.0) sec Potassium 5.2 H (3.5-5.1) mmol/L Carbon Dioxide (22-30) mmol/L BUN 51 H (7-17) mg/dL Creatinine 1.80 H (0.52-1.04) mg/dL Glucose 151 H (74-99) mg/dL POC Glucose (mg/dL) (75-99) mg/dL Hemoglobin A1c 8.4 H (4.0-6.0) % Calcium 10.5 H (8.4-10.2) mg/dL TSH (0.465-4.680) mIU/L Free T4 (0.78-2.19) ng/dL 12/07/18 12/07/18 12/07/18 Range/Units 06:16 06:16 06:34 RBC (3.80-5.40) m/uL Hgb (11.4-16.0) gm/dL MCV (80.0-100.0) fL MCH (25.0-35.0) pg MCHC (31.0-37.0) g/dL APTT 67.9 H (22.0-30.0) sec Potassium (3.5-5.1) mmol/L Carbon Dioxide (22-30) mmol/L BUN (7-17) mg/dL Creatinine (0.52-1.04) mg/dL Glucose (74-99) mg/dL POC Glucose (mg/dL) 149 H (75-99) mg/dL Hemoglobin A1c (4.0-6.0) % Calcium (8.4-10.2) mg/dL TSH <0.015 L (0.465-4.680) mIU/L Free T4 (0.78-2.19) ng/dL 12/07/18 12/07/18 12/07/18 Range/Units 11:35 16:47 17:16 RBC (3.80-5.40) m/uL Hgb (11.4-16.0) gm/dL MCV (80.0-100.0) fL MCH (25.0-35.0) pg MCHC (31.0-37.0) g/dL APTT (22.0-30.0) sec Potassium 5.2 H (3.5-5.1) mmol/L Carbon Dioxide (22-30) mmol/L BUN (7-17) mg/dL Creatinine (0.52-1.04) mg/dL Glucose (74-99) mg/dL POC Glucose (mg/dL) 122 H 147 H (75-99) mg/dL Hemoglobin A1c (4.0-6.0) % Calcium (8.4-10.2) mg/dL TSH (0.465-4.680) mIU/L Free T4 (0.78-2.19) ng/dL Microbiology - Last 24 Hours (Table) 12/07/18 03:30 Urine Culture - Preliminary Urine,Voided Assessment and Plan (1) Hyperthyroidism Narrative/Plan: * TSH .023 FT4 3.43 * NM thyroid uptake scan unable to be performed until next week due to the patient taking vitamins and supplements * Initiated methimazole 5 mg by mouth daily Current Visit: Yes Status: Acute Code(s): E05.90 - THYROTOXICOSIS, UNSP WITHOUT THYROTOXIC CRISIS OR STORM SNOMED Code(s): 25564201 (2) Depression Narrative/Plan: * Patient seen by psychiatry recommending titration up of Zoloft to 75 mg by mouth daily Current Visit: Yes Status: Acute Code(s): F32.9 - MAJOR DEPRESSIVE DISORDER, SINGLE EPISODE, UNSPECIFIED SNOMED Code(s): 62881470 (3) New onset a-fib Narrative/Plan: * Previously initiated on Cardizem drip, now transitioning to oral beta romario with metoprolol * Echocardiogram ejection fraction 55-60% Current Visit: Yes Status: Acute Code(s): I48.91 - UNSPECIFIED ATRIAL FIBRILLATION SNOMED Code(s): 20926037 (4) MARISOL (acute kidney injury) Narrative/Plan: * Secondary to overdiuresis creatinine 1.8 today * Appreciate nephrology consult recommendations Current Visit: No Status: Acute Code(s): N17.9 - ACUTE KIDNEY FAILURE, UNSPECIFIED SNOMED Code(s): 28407587
[2018-12-07] MEDS: SODIUM CHLORIDE 0.9% 1,000 ML IV SCH (19:45)
[2018-12-07 21:19] LABS: Glucose,Whole Blood 182 mg/dL (75-99)
--- NOTE | 2018-12-07 22:00 | US ---
EXAMINATION TYPE: US thyroid st tissue head/neck DATE OF EXAM: 12/07/2018 COMPARISON: NONE CLINICAL HISTORY: Hyperthyroidism. Hyperthyroidism per order. GLAND SIZE: Right Lobe: 4.7 x 2.1 x 2.3 cm Overall Parenchyma: Heterogeneous. Very indistinct borders. Left Lobe: 5.1 x 1.3 x 2.1 cm Overall Parenchyma: Heterogeneous. Isthmus Thickness: 0.34 cm NODULES RIGHT: # of nodules measured on right: 0 LEFT: # of nodules measured on left: 0 ISTHMUS: # of nodules measured in the isthmus: 0 *Limited due to indistinct borders and heterogeneous thyroid texture. IMPRESSION: Heterogeneous thyroid gland. No discrete or dominant mass seen.
[2018-12-07] MEDS: LORazepam 0.5 MG TAB PO PRN (22:40)
[2018-12-08 06:29] LABS: Glucose,Whole Blood 113 mg/dL (75-99)
[2018-12-08] MEDS: INSULIN ASPART (NovoLOG) 100 UNIT/ML VIAL SQ SCH ×2 (06:31→14:02)
[2018-12-08] MEDS: PANTOPRAZOLE 40 MG TABLET PO SCH (06:31)
[2018-12-08 07:11] LABS: Basophils # (A) 0.1 k/uL (0-0.2); Basophils % (A) 1 %; Eosinophils # (A) 0.3 k/uL (0-0.7); Eosinophils % (A) 3 %; HCT 32.9 % (34.0-46.0); Hypochromasia Marked; Lymphocytes # (A) 4.3 k/uL (1.0-4.8); Lymphocytes % (A) 43 %; MCH 19.9 pg (25.0-35.0); MCHC 30.3 g/dL (31.0-37.0); MCV 65.7 fL (80.0-100.0); Mean Platelet Volume 6.9; Microcytosis Marked; Monocytes # (A) 0.6 k/uL (0-1.0); Monocytes % (A) 6 %; Neutrophils # (A) 4.6 k/uL (1.3-7.7); Neutrophils % (A) 45 %; Platelet Count 284 k/uL (150-450); RDW 14.4 % (11.5-15.5); WBC 10.1 k/uL (3.8-10.6)
[2018-12-08 07:25] LABS: Calcium 8.7 mg/dL (8.4-10.2); Magnesium 1.4 mg/dL (1.6-2.3); Potassium 4.4 mmol/L (3.5-5.1)
[2018-12-08] MEDS ORDERED: SERTRALINE 50 MG TAB PO SCH (09:00)
[2018-12-08] MEDS ORDERED: METHIMAZOLE 5 MG TAB PO SCH (09:00)
[2018-12-08] MEDS: GABAPENTIN 300 MG CAP PO SCH (09:19)
[2018-12-08] MEDS: TIMOLOL 0.5% OPHTH DROPS 5 ML BTL BOTH EYES SCH (09:19)
[2018-12-08] MEDS: METOPROLOL TARTRATE 50 MG TAB PO SCH (09:19)
[2018-12-08] MEDS: APIXABAN 5 MG TAB PO SCH (09:19)
[2018-12-08] MEDS: ATORVASTATIN 20 MG TAB PO SCH (09:19)
[2018-12-08 09:34] VITALS: RESP 18
[2018-12-08] MEDS: MAGNESIUM SULFATE-D5W PMX 1 GM in DEXTROSE/WATER 1 100ML.BAG IVPB SCH ×3 (10:38→14:06)
--- NOTE | 2018-12-08 10:41 | P.PN ---
Subjective Patient is seen in follow-up for acute kidney injury on chronic kidney disease. Patient has chronic kidney disease stage III. Baseline creatinine near 1.5 secondary to diabetic kidney disease. Renal function is relatively stable today. Creatinine 1.86. Oral intake is good. Good urine output. No vomiting or diarrhea. Heart rate is controlled. She is on Lopressor as well as anticoagulation. Vital signs are stable. General: The patient appeared well nourished and normally developed. HEENT: Head exam is unremarkable. Neck is without jugular venous distension. LUNGS: Lungs are clear to auscultation and percussion. Breath sounds decreased. HEART: Rate and Rhythm are regular. First and second heart sounds normal. No murmurs, rubs or gallops. ABDOMEN: Abdominal exam reveals normal bowel sounds. Non-tender and non- distended. No evidence of peritonitis. EXTREMITITES: No clubbing, cyanosis, or edema. Objective - Vital Signs Vital signs: Vital Signs Temp 98.0 F 12/08/18 03:36 Pulse 60 12/08/18 08:00 Resp 18 12/08/18 08:00 BP 144/65 12/08/18 08:00 Pulse Ox 98 12/08/18 08:00 Intake & Output 12/07/18 12/08/18 12/08/18 18:59 06:59 18:59 Intake Total 361.833 100 Output Total 400 Balance -38.167 100 Intake: Intake, IV Titration 121.833 Amount Diltiazem 125 mg In 121.833 Sodium Chloride 0.9% 100 ml @ 5 MG/HR 5 mls/hr IV .Q24H [facility] Rx#:[id number] Oral 240 100 Output: Urine 400 Other: Voiding Method Bedside Commode Bedside Commode Bedside Commode # Voids 1 1 - Labs CBC & Chem 7: 12/08/18 06:17 12/08/18 06:17 Labs: Abnormal Lab Results - Last 24 Hours (Table) 12/07/18 12/07/18 12/07/18 Range/Units 06:16 06:16 11:35 Hgb (11.4-16.0) gm/dL Hct (34.0-46.0) % MCV (80.0-100.0) fL MCH (25.0-35.0) pg MCHC (31.0-37.0) g/dL Potassium (3.5-5.1) mmol/L Carbon Dioxide (22-30) mmol/L BUN (7-17) mg/dL Creatinine (0.52-1.04) mg/dL Glucose (74-99) mg/dL POC Glucose (mg/dL) 122 H (75-99) mg/dL Hemoglobin A1c 8.4 H (4.0-6.0) % Magnesium (1.6-2.3) mg/dL TSH <0.015 L (0.465-4.680) mIU/L 12/07/18 12/07/18 12/07/18 Range/Units 16:47 17:16 21:16 Hgb (11.4-16.0) gm/dL Hct (34.0-46.0) % MCV (80.0-100.0) fL MCH (25.0-35.0) pg MCHC (31.0-37.0) g/dL Potassium 5.2 H (3.5-5.1) mmol/L Carbon Dioxide (22-30) mmol/L BUN (7-17) mg/dL Creatinine (0.52-1.04) mg/dL Glucose (74-99) mg/dL POC Glucose (mg/dL) 147 H 182 H (75-99) mg/dL Hemoglobin A1c (4.0-6.0) % Magnesium (1.6-2.3) mg/dL TSH (0.465-4.680) mIU/L 12/08/18 12/08/18 12/08/18 Range/Units 06:17 06:17 06:27 Hgb 10.0 L (11.4-16.0) gm/dL Hct 32.9 L (34.0-46.0) % MCV 65.7 L (80.0-100.0) fL MCH 19.9 L (25.0-35.0) pg MCHC 30.3 L (31.0-37.0) g/dL Potassium (3.5-5.1) mmol/L Carbon Dioxide 21 L (22-30) mmol/L BUN 55 H (7-17) mg/dL Creatinine 1.86 H (0.52-1.04) mg/dL Glucose 103 H (74-99) mg/dL POC Glucose (mg/dL) 113 H (75-99) mg/dL Hemoglobin A1c (4.0-6.0) % Magnesium 1.4 L (1.6-2.3) mg/dL TSH (0.465-4.680) mIU/L Microbiology - Last 24 Hours (Table) 12/07/18 03:30 Urine Culture - Preliminary Urine,Voided Assessment and Plan Plan: Assessment: 1. Acute kidney injury mostly prerenal secondary to diuretics and hemodynamic instability. Creatinine 1.86 today. No proteinuria on UA. 2. Chronic kidney disease stage III secondary to diabetic kidney disease. Baseline creatinine near 1.5. 3. Hyperkalemia secondary to acute kidney injury and further worsened with the use of Dyazide, enalapril and Aldactone. Better. 4. Metabolic acidosis secondary to acute kidney injury. 5. Hypercalcemia. This can be from Dyazide as well as volume depletion. Patient was also taking vitamin D at home which is currently held. Resolved. 6. Insulin-dependent diabetes mellitus. 7. A. fib with RVR. Status post Cardizem drip. Maintained on beta romario and anticoagulation. Cardiology following. 8. Hyperthyroidism. Ultrasound of the neck revealed heterogeneous thyroid gland with no obvious masses. 9. Hypomagnesemia secondary to diuretics and poor oral intake. Plan: Continue to hold diuretics and WENDI inhibitor. Replace magnesium. 3 g IV today. Add oral sodium bicarbonate. Follow-up immunofixation studies.
[2018-12-08] MEDS ORDERED: SODIUM BICARBONATE TAB 650 MG TAB PO SCH (10:45)
[2018-12-08 11:39] LABS: Glucose,Whole Blood 153 mg/dL (75-99)
[2018-12-08 11:57] VITALS: BP 120/57; PULSE 62; TEMP 97.5
--- NOTE | 2018-12-08 14:08 | P.DS ---
Providers Date of admission: 12/06/18 20:12 Expected date of discharge: 12/08/18 Attending physician: Aldo Parrish MD Consults: 12/06/18 19:34 Consult Physician Routine Consulting Provider: [facility] Consult Reason/Comments: New onset afib Do you want consulting provider notified?: Yes 12/06/18 19:35 Consult Physician Routine Consulting Provider: Eduardo Molina Consult Reason/Comments: Depression Do you want consulting provider notified?: Yes Primary care physician: Carlos Hall - Discharge Diagnosis(es) (1) New onset a-fib Current Visit: Yes Status: Acute (2) Hyperthyroidism Current Visit: Yes Status: Acute (3) MARISOL (acute kidney injury) Current Visit: No Status: Acute (4) Depression Current Visit: Yes Status: Acute (5) Hyperkalemia Current Visit: Yes Status: Acute (6) Hypomagnesemia Current Visit: Yes Status: Acute Hospital Course: The patient is a 78 yo F with a PMH of DM and HTN who was admitted for new onset A. fib with RVR after presenting with chief complaint of increasing fatigue and weakness. She was initiated on Cardizem drip and started on Lopressor along with heparin infusion for anticoagulation. Echocardiogram showed ejection fraction of 55-60% the patient was noted to have hyperthyroidism as her TSH was 0.0-3 and free T4 was 3.43. she was started on methimazole, nuclear medicine uptake scan unable to be performed secondary to patient being on vitamins, thyroid ultrasound showed heterogenous thyroid with no discrete or dominant masses seen patient was transitioned to Elquis for anticoagulation. . The patient is also noted to have mild acute kidney injury with hyperkalemia is secondary to overdiuresis. Dyazide lisinopril and spironolactone were held, she was given Kayexalate to correct her hyperkalemia and her magnesium was also replaced. The patient was seen by psychiatry Due to her worsening depression and her home dose of Zoloft was titrated up to 75 mg PO daily. The patient subsequently discharged home in stable condition with home health services for physical therapy and instructed to follow-up with her PCP Dr. Hall 12/14/18 at 2 PM. This discharge process took approximately 35 minutes focus exam Cardiovascular: Regular rate and rhythm no murmurs or gallops Patient Condition at Discharge: Good Plan - Discharge Summary Discharge Rx Participant: No New Discharge Prescriptions: New Apixaban [Eliquis] 5 mg PO BID #60 tab Metoprolol Tartrate [Lopressor] 50 mg PO BID #60 tab Methimazole [Tapazole] 5 mg PO DAILY #30 tab Sertraline [Zoloft] 75 mg PO DAILY #30 tab Continue Simvastatin [Zocor] 40 mg PO DAILY LORazepam [Ativan] 0.5 mg PO HS PRN PRN Reason: Anxiety Timolol [Betimol 0.5% Ophth Soln] 1 drop BOTH EYES DAILY Insulin NPH Hum/Reg Insulin Hm [NovoLIN 70-30 100 UNIT/ML VIAL] 35 unit SQ QAM Magnesium 200 mg PO DAILY Cyanocobalamin (Vitamin B-12) [Vitamin B-12] 1,000 mcg PO DAILY Pioglitazone HCl [Actos] 15 mg PO DAILY Pantoprazole [Protonix] 40 mg PO BID Sertraline HCl [Zoloft] 50 mg PO DAILY Gabapentin [Neurontin] 300 mg PO TID Insulin NPH Hum/Reg Insulin Hm [NovoLIN 70-30 100 UNIT/ML VIAL] 30 unit SQ HS Discontinued Triamterene-Hctz 37.5-25Mg [Dyazide 37.5-25 Capsule] 1 cap PO DAILY Enalapril Maleate [Vasotec] 20 mg PO BID Spironolactone 25 mg PO DAILY Discharge Medication List Simvastatin [Zocor] 40 mg PO DAILY 11/18/13 [History] LORazepam [Ativan] 0.5 mg PO HS PRN 08/12/16 [History] Timolol [Betimol 0.5% Ophth Soln] 1 drop BOTH EYES DAILY 09/01/16 [History] Cyanocobalamin (Vitamin B-12) [Vitamin B-12] 1,000 mcg PO DAILY 12/06/18 [History] Gabapentin [Neurontin] 300 mg PO TID 12/06/18 [History] Insulin NPH Hum/Reg Insulin Hm [NovoLIN 70-30 100 UNIT/ML VIAL] 30 unit SQ HS 12/06/18 [History] Insulin NPH Hum/Reg Insulin Hm [NovoLIN 70-30 100 UNIT/ML VIAL] 35 unit SQ QAM 12/06/18 [History] Magnesium 200 mg PO DAILY 12/06/18 [History] Pantoprazole [Protonix] 40 mg PO BID 12/06/18 [History] Pioglitazone HCl [Actos] 15 mg PO DAILY 12/06/18 [History] Sertraline HCl [Zoloft] 50 mg PO DAILY 12/06/18 [History] Apixaban [Eliquis] 5 mg PO BID #60 tab 12/08/18 [Rx] Methimazole [Tapazole] 5 mg PO DAILY #30 tab 12/08/18 [Rx] Metoprolol Tartrate [Lopressor] 50 mg PO BID #60 tab 12/08/18 [Rx] Sertraline [Zoloft] 75 mg PO DAILY #30 tab 12/08/18 [Rx] Follow up Appointment(s)/Referral(s): [facility] [Provider Group] - 1 Week [facility], [NON-STAFF] - [facility], [NON-STAFF] - As Needed Carlos Hall MD [Primary Care Provider] - 12/13/18 2:00 pm Patient Instructions/Handouts: A-fib (Atrial Fibrillation) (DC), Heart Healthy Diet (DC), Depression (DC), Safe Use of Anticoagulants (DC) Activity/Diet/Wound Care/Special Instructions: 1. Eliquis copay is $47/month. Physical prescription is in the front of the patient's chart. 2. Pt will need Nuclear Med test thyroid image with uptake-reason hyper thyroidism. Please stay off Magnesium & B12 supplements along with avoiding all vitamin/mineral supplements, kelp, seaweed, fish, shellfish, cabbage & turnips for one week prior to test. Test can be scheduled starting on Thursday the . Thyroid prep sheet placed in chart. Discharge Disposition: HOME WITH HOME HEALTH SERVICES
--- NOTE | 2018-12-08 15:40 | P.PN ---
Subjective Progress Note Date: 12/08/18 This is a 78-year-old female with history of hypertension, diabetes, hyperlipidemia, prior history of smoking, rare EtOH, who presents to the hospital with symptoms of fatigue and inability to care for herself at home. According to the patient, over the past couple of months she's noticed herself to be extremely lonely, she is having a hard time walking, feels as though she is in able to take care of herself. She primarily came to the hospital for these reasons in hopes to find placement. An EKG was performed on arrival here which showed atrial fibrillation for this reason a cardiology consultation has been requested. According to the patient, she denies having any history of irregular heartbeat in the past. She does state though that she's been having low blood sugars occasionally at home. Chest x-ray on arrival here showed minimal scarring or subsegmental atelectasis in the left lower lobe. EKG showed atrial fibrillation with a controlled ventricular response. Blood pressure 130/50 heart rate in the 80s to 90s, afebrile, 99% on room air. White blood cell count 12.0 on admission, 10.1 this morning, hemoglobin 11.2, platelet count 337. Sodium 137, potassium 6.0, BUN 56 and creatinine 1.7 on admission, this morning sodium 139, potassium 6.0, BUN 51 and creatinine 1.8. TSH level 0.023, free T4 3.43, troponin 0.014. At the time of her examination this morning, arabella ent is quite talkative, she did get teary at the end of our conversation, she is still quite depressed and really wants to get some help regarding her home situation. 12/08/2018 Patient was seen and examined this morning, continues to be in atrial fibrillation with controlled ventricular response. She is quite eager today to be discharged home. Blood pressure 120/60 with a heart rate in the 60s today. Echocardiogram with Doppler study was performed which revealed an ejection fraction of 55-60%. Patient is currently on Eliquis for anticoagulation. Objective - Vital Signs Vital signs: Vital Signs Temp 97.5 F L 12/08/18 11:55 Pulse 62 12/08/18 11:55 Resp 18 12/08/18 11:55 BP 120/57 12/08/18 11:55 Pulse Ox 99 12/08/18 11:55 Intake & Output 12/07/18 12/08/18 12/08/18 18:59 06:59 18:59 Intake Total 361.833 100 360 Output Total 400 Balance -38.167 100 360 Intake: Intake, IV Titration 121.833 Amount Diltiazem 125 mg In 121.833 Sodium Chloride 0.9% 100 ml @ 5 MG/HR 5 mls/hr IV .Q24H [facility] Rx#:[id number] Oral 240 100 360 Output: Urine 400 Other: Voiding Method Bedside Commode Bedside Commode Bedside Commode # Voids 1 1 - Exam PHYSICAL EXAMINATION: GENERAL: 78-year-old female in no acute distress at the time of my examination HEENT: Head is atraumatic, normocephalic. Pupils equal, round. Sclera anicteric. Conjunctiva are clear. Mucous membranes of the mouth are moist. Neck is supple. There is no elevated jugular venous pressure.No carotid bruit is heard. HEART EXAMINATION: Heart S1, S2 irregularly irregular, systolic murmur is heard. CHEST EXAMINATION: Lungs are clear to auscultation and precussion. No chest wall tenderness is noted on palpation or with deep breathing. ABDOMEN: Soft, nontender. Bowel sounds are heard. No organomegaly noted. EXTREMITIES: 2+ peripheral pulses with no evidence of peripheral edema and no calf tenderness noted. NEUROLOGIC patient is awake, alert and oriented 3 . - Labs CBC & Chem 7: 12/08/18 06:17 12/08/18 06:17 Labs: Abnormal Lab Results - Last 24 Hours (Table) 12/07/18 12/07/18 12/07/18 Range/Units 16:47 17:16 21:16 Hgb (11.4-16.0) gm/dL Hct (34.0-46.0) % MCV (80.0-100.0) fL MCH (25.0-35.0) pg MCHC (31.0-37.0) g/dL Potassium 5.2 H (3.5-5.1) mmol/L Carbon Dioxide (22-30) mmol/L BUN (7-17) mg/dL Creatinine (0.52-1.04) mg/dL Glucose (74-99) mg/dL POC Glucose (mg/dL) 147 H 182 H (75-99) mg/dL Magnesium (1.6-2.3) mg/dL 12/08/18 12/08/18 12/08/18 Range/Units 06:17 06:17 06:27 Hgb 10.0 L (11.4-16.0) gm/dL Hct 32.9 L (34.0-46.0) % MCV 65.7 L (80.0-100.0) fL MCH 19.9 L (25.0-35.0) pg MCHC 30.3 L (31.0-37.0) g/dL Potassium (3.5-5.1) mmol/L Carbon Dioxide 21 L (22-30) mmol/L BUN 55 H (7-17) mg/dL Creatinine 1.86 H (0.52-1.04) mg/dL Glucose 103 H (74-99) mg/dL POC Glucose (mg/dL) 113 H (75-99) mg/dL Magnesium 1.4 L (1.6-2.3) mg/dL 12/08/18 Range/Units 11:37 Hgb (11.4-16.0) gm/dL Hct (34.0-46.0) % MCV (80.0-100.0) fL MCH (25.0-35.0) pg MCHC (31.0-37.0) g/dL Potassium (3.5-5.1) mmol/L Carbon Dioxide (22-30) mmol/L BUN (7-17) mg/dL Creatinine (0.52-1.04) mg/dL Glucose (74-99) mg/dL POC Glucose (mg/dL) 153 H (75-99) mg/dL Magnesium (1.6-2.3) mg/dL Microbiology - Last 24 Hours (Table) 12/07/18 03:30 Urine Culture - Final Urine,Voided Assessment and Plan Plan: Assessment and plan #1 atrial fibrillation with controlled ventricular response, appears to be of new onset for the patient #2 hypertension #3 diabetes #4 hyperlipidemia #5 depression #6 hyperthyroidism, TSH 0.023. Free T4 3.43 #7 hyperkalemia #8 acute on chronic renal insufficiency Plan from cardiology's perspective, patient may be able to be discharged home today. We'll make her a follow-up appointment in the office post discharge. DNP note has been reviewed, I agree with a documented findings and plan of care. Patient was seen and examined.
== END 2018-12-08 16:33 | disposition home health service (06) | DRG 308 ==
LOC: EC 16:31 → 3SCARD 20:12
PROVIDERS: ADMIT Family Medicine; ATTEND Family Medicine
DX: I48.91 Unspecified atrial fibrillation (principal); E05.91 Thyrotoxicosis, unspecified with thyrotoxic crisis or storm; E87.2 Acidosis; N17.9 Acute kidney failure, unspecified; D72.829 Elevated white blood cell count, unspecified; E11.22 Type 2 diabetes mellitus with diabetic chronic kidney disease; E11.649 Type 2 diabetes mellitus with hypoglycemia without coma; E78.5 Hyperlipidemia, unspecified; E83.42 Hypomagnesemia; E83.52 Hypercalcemia; E86.9 Volume depletion, unspecified; E87.5 Hyperkalemia; F17.200 Nicotine dependence, unspecified, uncomplicated; F32.9 Major depressive disorder, single episode, unspecified; F41.9 Anxiety disorder, unspecified; I12.9 Hypertensive chronic kidney disease with stage 1 through stage 4 chronic kidney disease, or unspecified chronic kidney disease; K21.9 Gastro-esophageal reflux disease without esophagitis; N18.3 Chronic kidney disease, stage 3 (moderate); T50.2X5A Adverse effect of carbonic-anhydrase inhibitors, benzothiadiazides and other diuretics, initial encounter; Z79.01 Long term (current) use of anticoagulants; Z79.4 Long term (current) use of insulin; Z79.899 Other long term (current) drug therapy; Z80.1 Family history of malignant neoplasm of trachea, bronchus and lung; Z80.49 Family history of malignant neoplasm of other genital organs
CPT/HCPCS: 36415; 71046; 76536; 80048; 80053; 81001; 83036; 83735; 84132; 84439; 84443; 84445; 84484; 85025; 85610; 85730; 86334; 86376; 87086; 93005; 93306; 96365; 96375; 96376; 99285

== ENCOUNTER 2018-12-31 09:59 | Inpatient (IN) | payer MEDICARE ==
[2018-12-31] MEDS ORDERED: ATROPINE SULFATE 0.1 MG/ML 10ML SYRINGE IV STA ×2 (10:08→10:17)
[2018-12-31] MEDS ORDERED: SODIUM CHLORIDE 0.9% 500 ML 500 ML IV STA (10:11)
[2018-12-31] MEDS ORDERED: SODIUM CHLORIDE 0.9% 1,000 ML IV STA (10:11)
--- NOTE | 2018-12-31 10:11 | ED ---
SOB HPI - General Chief Complaint: Shortness of Breath Stated Complaint: TANIA Time Seen by Provider: 12/31/18 10:00 Source: patient, EMS, RN notes reviewed Mode of arrival: EMS Limitations: no limitations - History of Present Illness Initial Comments: This is a 78-year-old female presents by EMS with complaints of not feeling well for past 4 days she's had shortness of breath some exertional dyspnea. She states she was seen by her oil producer recently and told that she everything looked good. She currently being treated for urinary tract infection. She called EMS today because of dyspnea. She was noted have a blood pressure of between 90-100 is talking and heart rate between 30 and 40. Be sinus bradycardia. Intermittent episodes of chest pain also. No reported fevers chills nausea vomiting sweats no peripheral edema. MD Complaint: shortness of breath - Related Data Home Medications Medication Instructions Recorded Confirmed Simvastatin [Zocor] 40 mg PO DAILY 11/18/13 12/31/18 LORazepam [Ativan] 0.5 mg PO HS PRN 08/12/16 12/31/18 Timolol [Betimol 0.5% Ophth Soln] 1 drop BOTH EYES DAILY 09/01/16 12/31/18 Insulin NPH Hum/Reg Insulin Hm 24 unit SQ HS 12/06/18 12/31/18 [NovoLIN 70-30 100 UNIT/ML VIAL] Insulin NPH Hum/Reg Insulin Hm 35 unit SQ QAM 12/06/18 12/31/18 [NovoLIN 70-30 100 UNIT/ML VIAL] Magnesium 200 mg PO DAILY 12/06/18 12/31/18 Pantoprazole [Protonix] 40 mg PO BID 12/06/18 12/31/18 Pioglitazone HCl [Actos] 15 mg PO DAILY 12/06/18 12/31/18 Previous Rx's Medication Instructions Recorded Apixaban [Eliquis] 5 mg PO BID #60 tab 12/08/18 Methimazole [Tapazole] 5 mg PO DAILY #30 tab 12/08/18 Metoprolol Tartrate [Lopressor] 50 mg PO BID #60 tab 12/08/18 Allergies Allergy/AdvReac Type Severity Reaction Status Date / Time latex Allergy Rash/Hives Verified 12/31/18 10:42 Review of Systems ROS Statement: Those systems with pertinent positive or pertinent negative responses have been documented in the HPI. ROS Other: All systems not noted in ROS Statement are negative. Past Medical History Past Medical History: Diabetes Mellitus, GERD/Reflux, Hyperlipidemia, Hypertension, Osteoarthritis (OA) Additional Past Medical History / Comment(s): 08/12/16 with idiopathic pancreatitis, esophagitis, gastritis, hiatal hernia. 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 History of Any Multi-Drug Resistant Organisms: None Reported Past Surgical History: Cholecystectomy, Heart Catheterization, Tonsillectomy, Tubal Ligation Additional Past Surgical History / Comment(s): EGD with bx 08/15/16, 10/2009 cardiac cath-normal, bilateral cataract removal, colonoscopy. Past Anesthesia/Blood Transfusion Reactions: No Reported Reaction Additional Past Anesthesia/Blood Transfusion Reaction / Comment(s): Pt has clausterphobia. Past Psychological History: Anxiety, Depression Smoking Status: Former smoker Past Alcohol Use History: Rare Past Drug Use History: None Reported - Past Family History Father Family Medical History: Cancer Additional Family Medical History / Comment(s): Father at the age of 81 yrs of lung cancer. He was a smoker. Mother Family Medical History: Cancer Additional Family Medical History / Comment(s): Mother had cervical cancer. She at the age of 53 from her lupus. General Exam - General Exam Comments Initial Comments: This is a well-developed well-nourished awake alert oriented 3 female Limitations: no limitations General appearance: alert, in no apparent distress Head exam: Present: atraumatic, normocephalic, normal inspection Eye exam: Present: normal appearance, PERRL, EOMI. Absent: scleral icterus, conjunctival injection, periorbital swelling ENT exam: Present: mucous membranes dry Neck exam: Present: normal inspection. Absent: tenderness, meningismus, lymphadenopathy Respiratory exam: Present: decreased breath sounds. Absent: respiratory distress, wheezes, rales, rhonchi, stridor Cardiovascular Exam: Present: normal rhythm, bradycardia, normal heart sounds. Absent: systolic murmur, diastolic murmur, rubs, gallop, clicks GI/Abdominal exam: Present: soft, normal bowel sounds. Absent: distended, tenderness, guarding, rebound, rigid Extremities exam: Present: normal inspection, full ROM, normal capillary refill. Absent: tenderness, pedal edema, joint swelling, calf tenderness Back exam: Present: normal inspection Neurological exam: Present: alert, oriented X3, CN II-XII intact Psychiatric exam: Present: normal affect, normal mood Skin exam: Present: warm, dry, intact, normal color. Absent: rash Course Vital Signs 12/31/18 10:01 Temperature 98.8 F Pulse Rate 43 L Respiratory 16 Rate Blood Pressure 121/89 O2 Sat by Pulse 97 Oximetry - Reevaluation(s) Reevaluation #1: 12/31/18 12:05 Patient did not get much response to atropine. Patient's heart rate was in the low 40s. She is awake alert. Medical Decision Making - Medical Decision Making I did reevaluate patient several occasions she maintains her blood pressure in spite of bradycardia. She does demonstrate evidence of CHF. I did discuss the case with Dr. Beal. Patient will be admitted with cardiology consultation. He did come see the patient in emergency department. - Lab Data Result diagrams: 12/31/18 10:10 12/31/18 10:10 Lab Results 12/31/18 12/31/18 12/31/18 Range/Units 10:10 10:10 10:10 WBC 8.5 (3.8-10.6) k/uL RBC 4.93 (3.80-5.40) m/uL Hgb 9.7 L (11.4-16.0) gm/dL Hct 32.3 L (34.0-46.0) % MCV 65.5 L (80.0-100.0) fL MCH 19.7 L (25.0-35.0) pg MCHC 30.1 L (31.0-37.0) g/dL RDW 17.8 H (11.5-15.5) % Plt Count 280 (150-450) k/uL Neutrophils % 56 % Lymphocytes % 33 % Monocytes % 7 % Eosinophils % 3 % Basophils % 0 % Neutrophils # 4.7 (1.3-7.7) k/uL Lymphocytes # 2.8 (1.0-4.8) k/uL Monocytes # 0.6 (0-1.0) k/uL Eosinophils # 0.2 (0-0.7) k/uL Basophils # 0.0 (0-0.2) k/uL Hypochromasia Moderate Poikilocytosis Slight Anisocytosis Slight Microcytosis Marked PT (9.0-12.0) sec INR (<1.2) APTT (22.0-30.0) sec Sodium 138 (137-145) mmol/L Potassium 5.2 H (3.5-5.1) mmol/L Chloride 109 H (98-107) mmol/L Carbon Dioxide 19 L (22-30) mmol/L Anion Gap 10 mmol/L BUN 53 H (7-17) mg/dL Creatinine 1.98 H (0.52-1.04) mg/dL Est GFR (CKD-EPI)AfAm 27 (>60 ml/min/1.73 sqM) Est GFR (CKD-EPI)NonAf 24 (>60 ml/min/1.73 sqM) Glucose 68 L (74-99) mg/dL Calcium 9.2 (8.4-10.2) mg/dL Magnesium 1.7 (1.6-2.3) mg/dL Total Bilirubin 0.7 (0.2-1.3) mg/dL AST 24 (14-36) U/L ALT 20 (9-52) U/L Alkaline Phosphatase 75 (38-126) U/L Creatine Kinase 49 (30-135) U/L Troponin I (0.000-0.034) ng/mL NT-Pro-B Natriuret Pep 8920 pg/mL Total Protein 6.5 (6.3-8.2) g/dL Albumin 3.6 (3.5-5.0) g/dL 12/31/18 12/31/18 Range/Units 10:10 10:10 WBC (3.8-10.6) k/uL RBC (3.80-5.40) m/uL Hgb (11.4-16.0) gm/dL Hct (34.0-46.0) % MCV (80.0-100.0) fL MCH (25.0-35.0) pg MCHC (31.0-37.0) g/dL RDW (11.5-15.5) % Plt Count (150-450) k/uL Neutrophils % % Lymphocytes % % Monocytes % % Eosinophils % % Basophils % % Neutrophils # (1.3-7.7) k/uL Lymphocytes # (1.0-4.8) k/uL Monocytes # (0-1.0) k/uL Eosinophils # (0-0.7) k/uL Basophils # (0-0.2) k/uL Hypochromasia Poikilocytosis Anisocytosis Microcytosis PT 13.9 H (9.0-12.0) sec INR 1.4 H (<1.2) APTT 28.1 (22.0-30.0) sec Sodium (137-145) mmol/L Potassium (3.5-5.1) mmol/L Chloride (98-107) mmol/L Carbon Dioxide (22-30) mmol/L Anion Gap mmol/L BUN (7-17) mg/dL Creatinine (0.52-1.04) mg/dL Est GFR (CKD-EPI)AfAm (>60 ml/min/1.73 sqM) Est GFR (CKD-EPI)NonAf (>60 ml/min/1.73 sqM) Glucose (74-99) mg/dL Calcium (8.4-10.2) mg/dL Magnesium (1.6-2.3) mg/dL Total Bilirubin (0.2-1.3) mg/dL AST (14-36) U/L ALT (9-52) U/L Alkaline Phosphatase (38-126) U/L Creatine Kinase (30-135) U/L Troponin I 0.023 (0.000-0.034) ng/mL NT-Pro-B Natriuret Pep pg/mL Total Protein (6.3-8.2) g/dL Albumin (3.5-5.0) g/dL - EKG Data -: EKG Interpreted by Me (Sinus bradycardia with sinus arrhythmia the rate was 38. Interval 162 QRS ) - Radiology Data Radiology results: report reviewed (I did review the imaging and report evidence of congestive heart failure with interstitial R is the corresponding.), image reviewed Critical Care Time Critical Care Time: Yes Critical Care Time: 37 minutes of critical care time which includes initial presentation with history physical labs x-rays multiple reevaluation patient response to therapy review of old charting was available discussed with the beta physician admission orders neck mentation the above Disposition Clinical Impression: Systolic congestive heart failure, Bradycardia, Hypotensive episode, Chronic renal failure syndrome Disposition: ADMITTED IP TO THIS HOSP Condition: Fair Referrals: Carlos Hall MD [Primary Care Provider] - 1-2 days
[2018-12-31 10:22] LABS: Anisocytosis Slight; Basophils % (A) 0 %; Eosinophils # (A) 0.2 k/uL (0-0.7); Eosinophils % (A) 3 %; HCT 32.3 % (34.0-46.0); HGB 9.7 gm/dL (11.4-16.0); Hypochromasia Moderate; Lymphocytes # (A) 2.8 k/uL (1.0-4.8); Lymphocytes % (A) 33 %; MCH 19.7 pg (25.0-35.0); MCHC 30.1 g/dL (31.0-37.0); MCV 65.5 fL (80.0-100.0); Mean Platelet Volume 6.9; Microcytosis Marked; Monocytes # (A) 0.6 k/uL (0-1.0); Monocytes % (A) 7 %; Neutrophils # (A) 4.7 k/uL (1.3-7.7); Neutrophils % (A) 56 %; Platelet Count 280 k/uL (150-450); Poikilocytosis Slight; RBC 4.93 m/uL (3.80-5.40); RDW 17.8 % (11.5-15.5); WBC 8.5 k/uL (3.8-10.6)
[2018-12-31 10:32] LABS: Albumin 3.6 g/dL (3.5-5.0); Calcium 9.2 mg/dL (8.4-10.2); Magnesium 1.7 mg/dL (1.6-2.3); Potassium 5.2 mmol/L (3.5-5.1); Total Bilirubin 0.7 mg/dL (0.2-1.3); Total Protein 6.5 g/dL (6.3-8.2)
[2018-12-31 10:33] LABS: INR 1.4 (<1.2); Partial Thromboplastin Time 28.1 sec (22.0-30.0); Prothrombin Time 13.9 sec (9.0-12.0)
--- NOTE | 2018-12-31 10:46 | XR ---
EXAMINATION TYPE: XR chest 2V DATE OF EXAM: 12/31/2018 COMPARISON: 12/06/2018 TECHNIQUE: PA and lateral views submitted. HISTORY: Difficulty breathing FINDINGS: Heart is enlarged and is a diffuse interstitial pattern with bilateral consolidation and pleural effu linnette. Chronic deformity right clavicle. Arthropathy of the shoulders. No pneumothorax. Hypertrophic a nd degenerative change of the spine. IMPRESSION: 1. Diffuse pleural-parenchymal changes most typical of CHF. Correlate clinically to exclude underlyin g pneumonia.
[2018-12-31] MEDS ORDERED: FUROSEMIDE 10 MG/ML 4 ML VIAL IV STA (11:23)
[2018-12-31 13:44] LABS: Glucose,Whole Blood 60 mg/dL (75-99)
--- NOTE | 2018-12-31 14:06 | P.HPIM ---
History of Present Illness H&P Date: 12/31/18 Chief Complaint: Shortness of breath This is a 78-year-old white female admitted to hospital with shortness of breath. Patient has not been feeling well for the past 4 days. She has been short of breath for the past months but her symptoms got worse in the past few days. She denies chest pain, no subjective fever no chills no abdominal pain no nausea no vomiting. She reports some dizziness but no loss of consciousness. She denies hematuria or dysuria but reports being treated with Cipro then Bactrim for an acute UTI. Review of Systems 10 systems reviewed pertinent positive and negative findings as in HPI. No chest pain no abdominal pain Past Medical History Past Medical History: Diabetes Mellitus, GERD/Reflux, Hyperlipidemia, Hypertension, Osteoarthritis (OA) Additional Past Medical History / Comment(s): 08/12/16 with idiopathic pancreatitis, esophagitis, gastritis, hiatal hernia. 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 History of Any Multi-Drug Resistant Organisms: None Reported Past Surgical History: Cholecystectomy, Heart Catheterization, Tonsillectomy, Tubal Ligation Additional Past Surgical History / Comment(s): EGD with bx 08/15/16, 10/2009 cardiac cath-normal, bilateral cataract removal, colonoscopy. Past Anesthesia/Blood Transfusion Reactions: No Reported Reaction Additional Past Anesthesia/Blood Transfusion Reaction / Comment(s): Pt has clausterphobia. Past Psychological History: Anxiety, Depression Smoking Status: Former smoker Past Alcohol Use History: Rare Past Drug Use History: None Reported - Past Family History Father Family Medical History: Cancer Additional Family Medical History / Comment(s): Father at the age of 81 yrs of lung cancer. He was a smoker. Mother Family Medical History: Cancer Additional Family Medical History / Comment(s): Mother had cervical cancer. She at the age of 53 from her lupus. Medications and Allergies Home Medications Medication Instructions Recorded Confirmed Type Simvastatin [Zocor] 40 mg PO DAILY 11/18/13 12/31/18 History LORazepam [Ativan] 0.5 mg PO HS PRN 08/12/16 12/31/18 History Timolol [Betimol 0.5% Ophth Soln] 1 drop BOTH EYES DAILY 09/01/16 12/31/18 History Insulin NPH Hum/Reg Insulin Hm 24 unit SQ HS 12/06/18 12/31/18 History [NovoLIN 70-30 100 UNIT/ML VIAL] Insulin NPH Hum/Reg Insulin Hm 35 unit SQ QAM 12/06/18 12/31/18 History [NovoLIN 70-30 100 UNIT/ML VIAL] Magnesium 200 mg PO DAILY 12/06/18 12/31/18 History Pantoprazole [Protonix] 40 mg PO BID 12/06/18 12/31/18 History Pioglitazone HCl [Actos] 15 mg PO DAILY 12/06/18 12/31/18 History Apixaban [Eliquis] 5 mg PO BID #60 tab 12/08/18 12/31/18 Rx Methimazole [Tapazole] 5 mg PO DAILY #30 tab 12/08/18 12/31/18 Rx Metoprolol Tartrate [Lopressor] 50 mg PO BID #60 tab 12/08/18 12/31/18 Rx Allergies Allergy/AdvReac Type Severity Reaction Status Date / Time latex Allergy Rash/Hives Verified 12/31/18 10:42 Physical Exam Vitals: Vital Signs Temp Pulse Resp BP Pulse Ox 12/31/18 12:39 43 L 16 119/51 96 12/31/18 10:01 98.8 F 43 L 16 121/89 97 Intake and Output 12/30/18 12/31/18 12/31/18 22:59 06:59 14:59 Other: Weight 79.379 kg Constitutional: Mild distress secondary to shortness of breath Eyes: Anicteric sclerae, PERRLA ENMT: NC/AT Neck:Supple, FROM, no masses, or JVD Lungs: Decreased breath sounds bilateral basilar crackles, no wheezing Cardiovascular: Heart regular in rate and rhythm, No murmurs, gallops, or rubs no peripheral edema Abdominal: Soft Nontender, nom distended, no guarding, no rebound or rigidity, Normoactive bowel sounds No palpable mass Skin: Normal temperature, tone, texture, turgor, No induration No subcutaneous nodules, No rash, lesions, No ulcers Extremities:No digital cyanosis No clubbing, Pedal pulses intact and symmetrical Radial pulses intact and symmetrical Normal gait and station, No calf tenderness Psychiatric: Alert and oriented to person, place and time, Appropriate affect Intact judgement Neuro: Muscles Strength 5/5 in all 4 extremities, Sensation to light touch grossly present throughout, Cranial nerves II-XII grossly intact. No focal sensory deficits Results CBC & Chem 7: 12/31/18 10:10 12/31/18 10:10 Labs: Abnormal Lab Results - Last 24 Hours (Table) 12/31/18 12/31/18 12/31/18 Range/Units 10:10 10:10 10:10 Hgb 9.7 L (11.4-16.0) gm/dL Hct 32.3 L (34.0-46.0) % MCV 65.5 L (80.0-100.0) fL MCH 19.7 L (25.0-35.0) pg MCHC 30.1 L (31.0-37.0) g/dL RDW 17.8 H (11.5-15.5) % PT 13.9 H (9.0-12.0) sec INR 1.4 H (<1.2) Potassium 5.2 H (3.5-5.1) mmol/L Chloride 109 H (98-107) mmol/L Carbon Dioxide 19 L (22-30) mmol/L BUN 53 H (7-17) mg/dL Creatinine 1.98 H (0.52-1.04) mg/dL Glucose 68 L (74-99) mg/dL POC Glucose (mg/dL) (75-99) mg/dL 12/31/18 Range/Units 13:41 Hgb (11.4-16.0) gm/dL Hct (34.0-46.0) % MCV (80.0-100.0) fL MCH (25.0-35.0) pg MCHC (31.0-37.0) g/dL RDW (11.5-15.5) % PT (9.0-12.0) sec INR (<1.2) Potassium (3.5-5.1) mmol/L Chloride (98-107) mmol/L Carbon Dioxide (22-30) mmol/L BUN (7-17) mg/dL Creatinine (0.52-1.04) mg/dL Glucose (74-99) mg/dL POC Glucose (mg/dL) 60 L (75-99) mg/dL Assessment and Plan Plan: 1. Acute on chronic congestive heart failure, diastolic: Ejection fraction 55- 60%: Start Lasix 40 mg IV twice a day, monitor urine output and serum creatinine, cardiology consultation. Continue on telemetry 2. Acute kidney injury: Serum creatinine 1.9 likely associated with decreased perfusion in the setting of congestive heart failure, continue with IV diuretics and monitor serum creatinine, avoid nephrotoxins. Nephrology consultation 3. COPD exacerbation: Oxygen and bronchodilators as indicated 4. Chronic atrial fibrillation with bradycardia: Hold metoprolol, cardiology consultation, check cardiac enzymes, continue eliquis 5. Diabetes type 2 with hyperglycemia, place on insulin sliding scale 6. Anxiety: Continue Ativan as needed 7. History of hypothyroidism: Continue methimazole 8. GERD without esophagitis: Continue PPI DVT prophylaxis: eliquis
[2018-12-31] MEDS: INSULIN ASPART (NovoLOG) 100 UNIT/ML VIAL SQ SCH ×3 (14:10→21:26)
[2018-12-31 16:29] LABS: Glucose,Whole Blood 99 mg/dL (75-99)
[2018-12-31] MEDS: PANTOPRAZOLE 40 MG TABLET PO SCH (17:24)
[2018-12-31 21:00] LABS: Glucose,Whole Blood 163 mg/dL (75-99)
[2018-12-31] MEDS: INSULN ASP PRT/INSULIN ASPART 100 UNIT/ML 10 ML VIAL SQ SCH (21:26)
[2018-12-31] MEDS: APIXABAN 5 MG TAB PO SCH (21:27)
[2018-12-31] MEDS: FUROSEMIDE 10 MG/ML 4 ML VIAL IV SCH (21:27)
[2018-12-31] MEDS: LORazepam 0.5 MG TAB PO PRN (21:27)
[2018-12-31] MEDS: METOPROLOL TARTRATE 50 MG TAB PO SCH (21:28)
[2019-01-01 06:27] LABS: Anisocytosis Slight; Basophils # (A) 0.1 k/uL (0-0.2); Basophils % (A) 1 %; Eosinophils # (A) 0.3 k/uL (0-0.7); Eosinophils % (A) 4 %; HCT 32.5 % (34.0-46.0); HGB 9.6 gm/dL (11.4-16.0); Hypochromasia Marked; Lymphocytes # (A) 2.6 k/uL (1.0-4.8); Lymphocytes % (A) 32 %; MCH 20.1 pg (25.0-35.0); MCHC 29.4 g/dL (31.0-37.0); MCV 68.2 fL (80.0-100.0); Mean Platelet Volume 6.9; Microcytosis Marked; Monocytes # (A) 0.5 k/uL (0-1.0); Monocytes % (A) 7 %; Neutrophils # (A) 4.6 k/uL (1.3-7.7); Neutrophils % (A) 55 %; Platelet Count 251 k/uL (150-450); RBC 4.77 m/uL (3.80-5.40); RDW 17.8 % (11.5-15.5); WBC 8.2 k/uL (3.8-10.6)
[2019-01-01 06:53] LABS: Glucose,Whole Blood 77 mg/dL (75-99)
[2019-01-01] MEDS: PANTOPRAZOLE 40 MG TABLET PO SCH ×2 (06:56→17:26)
[2019-01-01] MEDS: INSULIN ASPART (NovoLOG) 100 UNIT/ML VIAL SQ SCH ×4 (06:56→21:14)
[2019-01-01 06:57] LABS: Albumin 3.5 g/dL (3.5-5.0); Calcium 9.6 mg/dL (8.4-10.2); Potassium 5.3 mmol/L (3.5-5.1); Total Bilirubin 0.7 mg/dL (0.2-1.3); Total Protein 6.4 g/dL (6.3-8.2)
[2019-01-01] MEDS ORDERED: PIOGLITAZONE 15 MG TAB PO SCH (09:00)
[2019-01-01] MEDS: FUROSEMIDE 10 MG/ML 4 ML VIAL IV SCH (09:10)
[2019-01-01] MEDS: MAGNESIUM OXIDE 400 MG TAB PO SCH (09:10)
[2019-01-01] MEDS: METOPROLOL TARTRATE 50 MG TAB PO SCH (09:10)
[2019-01-01] MEDS: APIXABAN 5 MG TAB PO SCH ×2 (09:10→21:14)
[2019-01-01] MEDS: METHIMAZOLE 5 MG TAB PO SCH (09:10)
[2019-01-01] MEDS: INSULN ASP PRT/INSULIN ASPART 100 UNIT/ML 10 ML VIAL SQ SCH ×3 (09:10→21:14)
[2019-01-01] MEDS: ATORVASTATIN 20 MG TAB PO SCH (09:11)
[2019-01-01] MEDS: TIMOLOL 0.5% OPHTH DROPS 5 ML BTL BOTH EYES SCH (09:11)
[2019-01-01 09:18] LABS: Glucose,Whole Blood 236 mg/dL (75-99)
--- NOTE | 2019-01-01 10:19 | P.CRDCN ---
History of Present Illness Consult date: 01/01/19 Reason for Consult (text): Bradycardia Consult reason: congestive heart failure History of present illness: This is a 78-year-old female patient of Dr. Amato with history of hypertension, diabetes, hyperlipidemia, prior history of smoking, rare EtOH. Patient gives history of seen Dr. Davies on Thursday or of last week. He plans for a stress test to be done in January. Patient came into [facility] due to palpitations. She may have some chest pain on the left sternal border low sternal area that she thought was related to gastroesophageal reflux disease. She does complain of shortness of breath with any activity and with talking although she can talk in full sentences. Patient was brought into the [facility] emergency center by EMS. Patient denies that her shortness of breath is improved she has diuresed well overnight. She states she has had lower extremity edema but none is noted this time. Overnight, surveillance system monitor was bradycardia in the 40s and 50s. Patient verbalizes anxiety regarding getting up to the commode to urinate secondary to use of Lasix. The patient appears very anxious EKG reveals sinus bradycardia at rate of 38. Echocardiogram in November revealed EF of 55-60%, mild mitral regurgitation. Laboratory studies: WBC 8.5, hemoglobin 9.7, platelet count 280. Sodium 1:30, potassium 5.2, chloride 109, CO2 19 BUN 53 and creatinine 1.98, initial blood sugar 68. Troponin 0.023, 0.021, 0.018. Review Of Systems: Constitutional: No fever, no chills, no night sweats. No weight change. No weakness, fatigue or lethargy. No daytime sleepiness. EENT: No headache. No blurred vision or double vision, no loss of vision. No loss of Hearing, no ringing in the ears, no dizziness. No nasal drainage or congestion. No epistaxis. No sore throat. Lungs: Reports shortness of breath, reports cough, reports sputum production. Reports wheezing. Cardiovascular: Reports chest pain, reports lower extremity edema. Reports pal pitations. Reports lightheadedness or dizziness. No syncopal episodes. Abdominal: No abdominal pain. No nausea, vomiting. No diarrhea. No constipation. No bloody or tarry stools.. No loss of appetite. Genitourinary: No dysuria, increased frequency, urgency. No urinary retention. Musculoskeletal: No myalgias. No muscle weakness, no gait dysfunction, no frequent falls. No back pain. No neck pain. Integumentary: No wounds, no lesions. No rash or pruritus. No unusual bruising. No change in hair or nails. Neurologic: No aphasia. No facial droop. No change in mentation. No head injury. No headache. No paralysis. No paresthesia. Psychiatric: No depression. Reports anxiety. No mood swings. Endocrine: No abnormal blood sugars. No weight change. No excessive sweating or thirst. No cold intolerance. No weight change. Gen: This is a 78-year-old female. Patient appears to be very anxious. HEENT: Head is atraumatic, normocephalic. Pupils equal, round. Sclerae is anic teric. NECK: Supple. No JVD. No lymphadenopathy. No thyromegaly. LUNGS: Scattered expiratory wheeze tachypnea No intercostal retractions. HEART: S1-S2 regular, systolic murmur. Bradycardic. ABDOMEN: Soft. Bowel sounds are present. No masses. No tenderness. EXTREMITIES: No pedal edema. No calf tenderness. Dorsalis pedis 1+ bilaterally NEUROLOGICAL: Patient is awake, alert and oriented x3. Cranial nerves 2 through 12 are grossly intact. Assessment: Symptomatic bradycardia possibly related to hyperkalemia and beta romario Acute kidney injury COPD exacerbation Hypertension Diabetes mellitus type 2 presented with hypo-glycemia Hyperlipidemia Paroxysmal atrial fibrillation Plan: Discontinue Lasix 40 mg IV every 12 hour Discontinue Lopressor 50 mg twice daily Continue eliquis 5 mg twice daily, Lipitor 20 g daily Obtain 2-D echocardiogram and Doppler study to assess cardiac structure and function check TSH, free T4 Continue cardiac monitoring Thank you kindly for this consultation. Further recommendations to follow based on clinical course. Nurse practitioner note has been reviewed, I agree with documented findings and plan of care. Patient was seen and examined. Past Medical History Past Medical History: Atrial Fibrillation, Diabetes Mellitus, Eye Disorder, GERD/Reflux, Hyperlipidemia, Hypertension, Osteoarthritis (OA), Renal Disease, Thyroid Disorder Additional Past Medical History / Comment(s): Pt admitted on 12/06/18 with new onset afib/hyperthyroidism/MARISOL/hyperkalemia/hypomagnesemia/echo was 55-60%. Other hx: 2/21/17 with idiopathic pancreatitis, esophagitis, gastritis, hiatal hernia, IDDM type II, CKD stage III, possible vasospastic angina, sinus problems, arthritis in back, chronic R shoulder pain since fall/fracture 1 year ago, prone to UTIs, bilateral glaucoma with surgery. History of Any Multi-Drug Resistant Organisms: None Reported Past Surgical History: Cholecystectomy, Heart Catheterization, Tonsillectomy, Tubal Ligation Additional Past Surgical History / Comment(s): EGD with bx 08/15/16, 10/2009 cardiac cath-normal, bilateral cataract removal, bilateral eye surgery for glaucoma, colonoscopy. Past Anesthesia/Blood Transfusion Reactions: No Reported Reaction Additional Past Anesthesia/Blood Transfusion Reaction / Comment(s): Pt has clausterphobia. Smoking Status: Former smoker - Past Family History Father Family Medical History: Cancer Additional Family Medical History / Comment(s): Father at the age of 81 yrs of lung cancer. He was a smoker. Mother Family Medical History: Cancer Additional Family Medical History / Comment(s): Mother had cervical cancer. She at the age of 53 from her lupus. Medications and Allergies Home Medications Medication Instructions Recorded Confirmed Type Simvastatin [Zocor] 40 mg PO DAILY 11/18/13 12/31/18 History LORazepam [Ativan] 0.5 mg PO HS PRN 08/12/16 12/31/18 History Timolol [Betimol 0.5% Ophth Soln] 1 drop BOTH EYES DAILY 09/01/16 12/31/18 History Insulin NPH Hum/Reg Insulin Hm 24 unit SQ HS 12/06/18 12/31/18 History [NovoLIN 70-30 100 UNIT/ML VIAL] Insulin NPH Hum/Reg Insulin Hm 35 unit SQ QAM 12/06/18 12/31/18 History [NovoLIN 70-30 100 UNIT/ML VIAL] Magnesium 200 mg PO DAILY 12/06/18 12/31/18 History Pantoprazole [Protonix] 40 mg PO BID 12/06/18 12/31/18 History Pioglitazone HCl [Actos] 15 mg PO DAILY 12/06/18 12/31/18 History Apixaban [Eliquis] 5 mg PO BID #60 tab 12/08/18 12/31/18 Rx Methimazole [Tapazole] 5 mg PO DAILY #30 tab 12/08/18 12/31/18 Rx Metoprolol Tartrate [Lopressor] 50 mg PO BID #60 tab 12/08/18 12/31/18 Rx Allergies Allergy/AdvReac Type Severity Reaction Status Date / Time latex Allergy Rash/Hives Verified 12/31/18 10:42 Physical Exam Vitals: Vital Signs Temp Pulse Pulse Resp BP BP Pulse Ox 01/01/19 07:53 97.9 F 51 L 18 94/54 95 01/01/19 04:20 97.8 F 50 L 20 157/72 94 L 01/01/19 00:10 98.2 F 56 L 20 144/60 95 12/31/18 19:56 98.4 F 49 L 18 120/54 96 12/31/18 16:00 98.0 F 43 L 18 130/60 98 12/31/18 15:00 45 L 20 116/99 96 12/31/18 12:39 43 L 16 119/51 96 12/31/18 10:01 98.8 F 43 L 16 121/89 97 Intake and Output 12/31/18 01/01/19 01/01/19 22:59 06:59 14:59 Intake Total 240 Output Total 100 Balance 140 Intake: Oral 240 Output: Urine 100 Other: Voiding Method Bedside Commode Bedside Commode # Voids 1 2 Weight 81.4 kg 79.3 kg Results 01/01/19 05:29 01/01/19 05:29 Cardiac Enzymes 12/31/18 12/31/18 12/31/18 Range/Units 10:10 10:10 16:10 AST 24 (14-36) U/L Troponin I 0.023 0.021 (0.000-0.034) ng/mL 01/01/19 01/01/19 Range/Units 00:05 05:29 AST 22 (14-36) U/L Troponin I 0.018 (0.000-0.034) ng/mL Coagulation 12/31/18 Range/Units 10:10 PT 13.9 H (9.0-12.0) sec APTT 28.1 (22.0-30.0) sec CBC 12/31/18 01/01/19 Range/Units 10:10 05:29 WBC 8.5 8.2 (3.8-10.6) k/uL RBC 4.93 4.77 (3.80-5.40) m/uL Hgb 9.7 L 9.6 L (11.4-16.0) gm/dL Hct 32.3 L 32.5 L (34.0-46.0) % Plt Count 280 251 (150-450) k/uL Comprehensive Metabolic Panel 12/31/18 01/01/19 Range/Units 10:10 05:29 Sodium 138 138 (137-145) mmol/L Potassium 5.2 H 5.3 H (3.5-5.1) mmol/L Chloride 109 H 107 (98-107) mmol/L Carbon Dioxide 19 L 21 L (22-30) mmol/L BUN 53 H 53 H (7-17) mg/dL Creatinine 1.98 H 2.26 H (0.52-1.04) mg/dL Glucose 68 L 68 L (74-99) mg/dL Calcium 9.2 9.6 (8.4-10.2) mg/dL AST 24 22 (14-36) U/L ALT 20 21 (9-52) U/L Alkaline Phosphatase 75 79 (38-126) U/L Total Protein 6.5 6.4 (6.3-8.2) g/dL Albumin 3.6 3.5 (3.5-5.0) g/dL Current Medications Generic Name Dose Route Start Last Admin Trade Name Freq PRN Reason Stop Dose Admin Apixaban 5 mg 12/31/18 21:00 01/01/19 09:10 Eliquis PO 5 mg BID ALBERT Administration Atorvastatin Calcium 20 mg 01/01/19 09:00 01/01/19 09:11 Lipitor PO 20 mg DAILY ALBERT Administration Furosemide 40 mg 12/31/18 21:00 01/01/19 09:10 Lasix IV 40 mg Q12H ALBERT Administration Insulin Aspart 0 unit 12/31/18 12:30 01/01/19 06:56 Novolog SQ Not Given [facility] Protocol Insulin Aspart 35 unit 01/01/19 07:30 01/01/19 09:22 Novolog Mix 70-30 Vial SQ 35 unit [id number] ALBERT Administration Insulin Aspart 24 unit 12/31/18 21:00 12/31/18 21:26 Novolog Mix 70-30 Vial SQ 24 unit HS ALBERT Administration Lorazepam 0.5 mg 12/31/18 12:15 12/31/18 21:27 Ativan PO 0.5 mg HS PRN Administration Anxiety Magnesium Oxide 200 mg 01/01/19 09:00 01/01/19 09:10 Mag-Ox PO 200 mg DAILY ALBERT Administration Methimazole 5 mg 01/01/19 09:00 01/01/19 09:10 Tapazole PO 5 mg DAILY ALBERT Administration Metoprolol Tartrate 50 mg 12/31/18 21:00 01/01/19 09:10 Lopressor PO 50 mg BID ALBERT Administration Pantoprazole Sodium 40 mg 12/31/18 17:30 01/01/19 06:56 Protonix PO 40 mg AC-BID ALBERT Administration Timolol Maleate 1 drops 01/01/19 09:00 01/01/19 09:11 Timoptic BOTH EYES 1 drops DAILY ALBERT Administration Intake and Output 12/31/18 01/01/19 01/01/19 22:59 06:59 14:59 Intake Total 240 Output Total 100 Balance 140 Intake: Oral 240 Output: Urine 100 Other: Voiding Method Bedside Commode Bedside Commode # Voids 1 2 Weight 81.4 kg 79.3 kg 01/01/19 05:29 01/01/19 05:29
--- NOTE | 2019-01-01 11:18 | P.PN ---
Subjective Progress Note Date: 01/01/19 Principal diagnosis: Bradycardia She feels okay, still short of breath, no chest pain no abdominal pain no nausea no vomiting or shortness of breath. Objective - Vital Signs Vital signs: Vital Signs Temp 97.9 F 01/01/19 07:53 Pulse 51 L 01/01/19 07:53 Resp 18 01/01/19 07:53 BP 94/54 01/01/19 07:53 Pulse Ox 95 01/01/19 07:53 Intake & Output 12/31/18 01/01/19 01/01/19 18:59 06:59 18:59 Intake Total 240 Output Total 100 Balance 140 Weight 81.4 kg 79.3 kg Intake: Oral 240 Output: Urine 100 Other: Voiding Method Bedside Commode # Voids 2 2 - Exam Constitutional: Mild distress secondary to shortness of breath Eyes: Anicteric sclerae, PERRLA ENMT: NC/AT Neck:Supple,no JVD Lungs: Decreased breath sounds no wheezing Cardiovascular: Heart regular in rate and rhythm, No murmurs, gallops, or rubs no peripheral edema Abdominal: Soft Nontender, nom distended, no guarding, no rebound or rigidity, Normoactive bowel sounds No palpable mass Skin: Normal temperature Extremities:No digital cyanosis No clubbing, Pedal pulses intact and symmetrical Radial pulses intact and symmetrical Normal gait and station, No calf tenderness Psychiatric: Alert and oriented to person, place and time, Appropriate affect Intact judgement Neuro: Muscles Strength 5/5 in all 4 extremities, Sensation to light touch grossly present throughout, Cranial nerves II-XII grossly intact. No focal senso ry deficits - Labs CBC & Chem 7: 01/01/19 05:29 01/01/19 05:29 Labs: Abnormal Lab Results - Last 24 Hours (Table) 12/31/18 12/31/18 01/01/19 Range/Units 13:41 20:57 05:29 Hgb 9.6 L (11.4-16.0) gm/dL Hct 32.5 L (34.0-46.0) % MCV 68.2 L (80.0-100.0) fL MCH 20.1 L (25.0-35.0) pg MCHC 29.4 L (31.0-37.0) g/dL RDW 17.8 H (11.5-15.5) % Potassium (3.5-5.1) mmol/L Carbon Dioxide (22-30) mmol/L BUN (7-17) mg/dL Creatinine (0.52-1.04) mg/dL Glucose (74-99) mg/dL POC Glucose (mg/dL) 60 L 163 H (75-99) mg/dL 01/01/19 01/01/19 Range/Units 05:29 09:15 Hgb (11.4-16.0) gm/dL Hct (34.0-46.0) % MCV (80.0-100.0) fL MCH (25.0-35.0) pg MCHC (31.0-37.0) g/dL RDW (11.5-15.5) % Potassium 5.3 H (3.5-5.1) mmol/L Carbon Dioxide 21 L (22-30) mmol/L BUN 53 H (7-17) mg/dL Creatinine 2.26 H (0.52-1.04) mg/dL Glucose 68 L (74-99) mg/dL POC Glucose (mg/dL) 236 H (75-99) mg/dL Assessment and Plan Plan: 1. Acute on chronic congestive heart failure, diastolic resolved : Ejection fraction 55-60%: cardiology consultation. hold Lasix 2. Acute kidney injury: Serum creatinine 1.9 likely associated with decreased perfusion monitor serum creatinine, avoid nephrotoxins. Nephrology consultation, hold diuretics. Serum creatinine up to 2.2 3. COPD exacerbation: Oxygen and bronchodilators as indicated 4. Chronic atrial fibrillation with bradycardia: Holding metoprolol, cardiology consultation, continue eliquis , monitor 5. Diabetes type 2 with hyperglycemia, on insulin sliding scale 6. Anxiety: Continue Ativan as needed 7. History of hypothyroidism: Continue methimazole 8. GERD without esophagitis: Continue PPI DVT prophylaxis: eliquis Disposition: Home likely Thursday
[2019-01-01 11:53] LABS: Glucose,Whole Blood 70 mg/dL (75-99)
[2019-01-01 12:41] VITALS: BMI 30.9
[2019-01-01 14:06] LABS: T4, Free (Free Thyroxine) 2.63 ng/dL (0.78-2.19)
--- NOTE | 2019-01-01 14:33 | P.NPCON ---
History of Present Illness - Reason for Consult Consult date: 01/01/19 acute renal failure - Chief Complaint Shortness of breath with acute kidney injury - History of Present Illness This is a 78-year-old female seen in consultation because of acute kidney injury likely from congestive heart failure, is also known to us with chronic kidney disease secondary diabetic nephropathy. She came in because of worsening shortness of breath. She was not on any Lasix ever supposedly. No fever chills she does have a cough with expectoration which is difficult and scanty and makes her throw up after a little while. Occasionally she does feel dizzy on standing up. No history of chest pain. No nausea vomiting diarrhea. Appetite is poor. She follows up with Dr. Locke for her chronic kidney disease. She was recently admitted and discharged 2 weeks ago. She is known with chronic kidney disease creatinine is 1.51 on 09/03/2018 and was slightly up at 1.74 on 12/06/2018. She came in with a creatinine of 2.26. She likely has diabetic nephropathy. She is known with diabetes. Past Medical History Past Medical History: Atrial Fibrillation, Diabetes Mellitus, Eye Disorder, GERD/Reflux, Hyperlipidemia, Hypertension, Osteoarthritis (OA), Renal Disease, Thyroid Disorder Additional Past Medical History / Comment(s): Pt admitted on 12/06/18 with new onset afib/hyperthyroidism/MARISOL/hyperkalemia/hypomagnesemia/echo was 55-60%. 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 History of Any Multi-Drug Resistant Organisms: None Reported Past Surgical History: Cholecystectomy, Heart Catheterization, Tonsillectomy, Tubal Ligation Additional Past Surgical History / Comment(s): EGD with bx 08/15/16, 10/2009 cardiac cath-normal, bilateral cataract removal, bilateral eye surgery for glaucoma, colonoscopy. Past Anesthesia/Blood Transfusion Reactions: No Reported Reaction Additional Past Anesthesia/Blood Transfusion Reaction / Comment(s): Pt has clausterphobia. Smoking Status: Former smoker - Past Family History Father Family Medical History: Cancer Additional Family Medical History / Comment(s): Father at the age of 81 yrs of lung cancer. He was a smoker. Mother Family Medical History: Cancer Additional Family Medical History / Comment(s): Mother had cervical cancer. She at the age of 53 from her lupus. Medications and Allergies Home Medications Medication Instructions Recorded Confirmed Type Simvastatin [Zocor] 40 mg PO DAILY 11/18/13 12/31/18 History LORazepam [Ativan] 0.5 mg PO HS PRN 08/12/16 12/31/18 History Timolol [Betimol 0.5% Ophth Soln] 1 drop BOTH EYES DAILY 09/01/16 12/31/18 History Insulin NPH Hum/Reg Insulin Hm 24 unit SQ HS 12/06/18 12/31/18 History [NovoLIN 70-30 100 UNIT/ML VIAL] Insulin NPH Hum/Reg Insulin Hm 35 unit SQ QAM 12/06/18 12/31/18 History [NovoLIN 70-30 100 UNIT/ML VIAL] Magnesium 200 mg PO DAILY 12/06/18 12/31/18 History Pantoprazole [Protonix] 40 mg PO BID 12/06/18 12/31/18 History Pioglitazone HCl [Actos] 15 mg PO DAILY 12/06/18 12/31/18 History Apixaban [Eliquis] 5 mg PO BID #60 tab 12/08/18 12/31/18 Rx Methimazole [Tapazole] 5 mg PO DAILY #30 tab 12/08/18 12/31/18 Rx Metoprolol Tartrate [Lopressor] 50 mg PO BID #60 tab 12/08/18 12/31/18 Rx Allergies Allergy/AdvReac Type Severity Reaction Status Date / Time latex Allergy Rash/Hives Verified 12/31/18 10:42 Physical Exam Vitals: Vital Signs Temp Pulse Pulse Resp BP BP Pulse Ox 01/01/19 11:27 97.7 F 44 L 18 112/58 97 01/01/19 07:53 97.9 F 51 L 18 94/54 95 01/01/19 04:20 97.8 F 50 L 20 157/72 94 L 01/01/19 00:10 98.2 F 56 L 20 144/60 95 12/31/18 19:56 98.4 F 49 L 18 120/54 96 12/31/18 16:00 98.0 F 43 L 18 130/60 98 12/31/18 15:00 45 L 20 116/99 96 Intake and Output 12/31/18 01/01/19 01/01/19 22:59 06:59 14:59 Intake Total 240 Output Total 100 Balance 140 Intake: Oral 240 Output: Urine 100 Other: Voiding Method Bedside Commode Bedside Commode # Voids 1 2 Weight 81.4 kg 79.3 kg 79.3 kg On examination she is comfortable in bed. Awake alert oriented 3. She is somewhat upset because of getting admitted recently discharge and readmitted HEENT exam no JVP neck is supple no facial asymmetry Lungs are significant for an occasional bilateral crackles at bases Heart sounds are unremarkable for any murmur rub gallop Abdomen soft nontender Extreme exam was minimal edema Neurologically awake alert oriented. Results - Lab Results Most recent lab results Calcium 9.6 mg/dL (8.4-10.2) 01/01/19 05:29 Magnesium 1.7 mg/dL (1.6-2.3) 12/31/18 10:10 01/01/19 05:29 01/01/19 05:29 Assessment and Plan Assessment: Impression 1. Acute kidney injury secondary to congestive heart failure. Creatinine went up to 2.26 2. Chronic kidney disease diabetic nephropathy creatinine baseline is approxi mately 1.5-1.7 or the last few months. A serum immunofixation result been negative on 12/07/2018 3. Hyperkalemia potassium is 5.2 and 5.3. This is associated with RTA4. 4. 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 This is due to diabetic nephropathy. 5. Congestive heart failure. 6. Anemia of chronic kidney disease hemoglobin is 9.6 Admission 1. Lasix IV 20 every 12. 2. Avoid hydration with IV fluids 3. Avoid nonsteroidals 4. Check iron saturation 5. Strict I's and os
[2019-01-01] MEDS: SODIUM BICARBONATE TAB 650 MG TAB PO SCH ×3 (15:16→21:21)
--- NOTE | 2019-01-01 16:29 | ECHOF ---
Referral Reason:EF eval MEASUREMENTS -------- HEIGHT: 160.0 cm WEIGHT: 78.9 kg BP: 112/58 IVSd: 1.6 cm (0.6 - 1.1) LVIDd: 3.6 cm (3.9 - 5.3) LVPWd: 1.8 cm (0.6 - 1.1) IVSs: 1.6 cm LVIDs: 2.7 cm LVPWs: 2.0 cm RVIDd: 3.3 cm (< 3.3) LAESV Index (A-L): 32.34 ml/m Ao Diam: 3.0 cm (2.0 - 3.7) LA Diam: 4.0 cm (2.7 - 3.8) AV Cusp: 1.5 cm (1.5 - 2.6) MV E Bora: 1.34 m/s MV DecT: 192 ms MV A Bora: 0.48 m/s MV E/A Ratio: 2.79 RAP: 20.00 mmHg RVSP: 78.65 mmHg FINDINGS -------- Resting bradycardia (HR<60bpm). This was a technically adequate study. The left ventricular size is normal. There is moderate concentric left ventricular hypertrophy. O verall left ventricular systolic function is low-normal with, an EF between 50 - 55 %. Restrictive LV filling pattern, consistent with elevated LA pressure 37.55. The right ventricle is mildly enlarged. LA is midly dilated 29-33ml/m2. The right atrial size is normal. Interatrial and interventricular septum intact. There is mild to moderate aortic valve sclerosis. There is no evidence of aortic stenosis. The mitral valve leaflets are mildly thickened. Moderate mitral annular calcification present. Mo derate mitral regurgitation is present. Moderate tricuspid regurgitation present. There is severe pulmonary hypertension. The right ventr icular systolic pressure, as measured by Doppler, is 78.65mmHg. There is no pulmonic regurgitation present. The aortic root size is normal. The inferior vena cava is dilated with no significant inspiratory collapse which is consistent estima pritesh right atrial pressure of >20 mmHg. There is no pericardial effusion. CONCLUSIONS -------- 1. Resting bradycardia (HR<60bpm). 2. This was a technically adequate study. 3. The left ventricular size is normal. 4. There is moderate concentric left ventricular hypertrophy. 5. Overall left ventricular systolic function is low-normal with, an EF between 50 - 55 %. 6. Restrictive LV filling pattern, consistent with elevated LA pressure 37.55. 7. The right ventricle is mildly enlarged. 8. LA is midly dilated 29-33ml/m2. 9. The right atrial size is normal. 10. Interatrial and interventricular septum intact. 11. There is mild to moderate aortic valve sclerosis. 12. There is no evidence of aortic stenosis. 13. The mitral valve leaflets are mildly thickened. 14. Moderate mitral annular calcification present. 15. Moderate mitral regurgitation is present. 16. Moderate tricuspid regurgitation present. 17. There is severe pulmonary hypertension. 18. The right ventricular systolic pressure, as measured by Doppler, is 78.65mmHg. 19. There is no pulmonic regurgitation present. 20. The aortic root size is normal. 21. The inferior vena cava is dilated with no significant inspiratory collapse which is consistent es timated right atrial pressure of >20 mmHg. 22. There is no pericardial effusion. RESERVATIONS AND TICKETING AGENT: Linda Crisostomo RDCS
[2019-01-01 16:48] LABS: Glucose,Whole Blood 66 mg/dL (75-99)
[2019-01-01 17:10] LABS: Glucose,Whole Blood 79 mg/dL (75-99)
[2019-01-01] MEDS ORDERED: HYDROcodone/APAP 5-325MG 1 EACH TAB PO PRN (18:56)
[2019-01-01 20:31] LABS: Glucose,Whole Blood 187 mg/dL (75-99)
[2019-01-01] MEDS ORDERED: FUROSEMIDE 10 MG/ML 2 ML VIAL IV SCH (21:00)
[2019-01-02 01:02] LABS: Glucose,Whole Blood 31 mg/dL (75-99)
[2019-01-02] MEDS ORDERED: DEXTROSE 10 % IN WATER 250 ML IV STA (01:06)
[2019-01-02 01:08] LABS: Glucose,Whole Blood 48 mg/dL (75-99)
[2019-01-02 01:24] LABS: Glucose,Whole Blood 78 mg/dL (75-99)
[2019-01-02] MEDS: INSULIN ASPART (NovoLOG) 100 UNIT/ML VIAL SQ SCH ×4 (06:53→20:49)
[2019-01-02 06:54] LABS: Glucose,Whole Blood 93 mg/dL (75-99)
[2019-01-02 06:54] LABS: Anisocytosis Slight; Basophils # (A) 0.1 k/uL (0-0.2); Basophils % (A) 1 %; Eosinophils # (A) 0.3 k/uL (0-0.7); Eosinophils % (A) 3 %; HGB 9.8 gm/dL (11.4-16.0); Hypochromasia Marked; Lymphocytes # (A) 3.2 k/uL (1.0-4.8); Lymphocytes % (A) 35 %; MCH 19.9 pg (25.0-35.0); MCHC 29.7 g/dL (31.0-37.0); Mean Platelet Volume 7.4; Microcytosis Marked; Monocytes # (A) 0.6 k/uL (0-1.0); Monocytes % (A) 7 %; Neutrophils # (A) 4.8 k/uL (1.3-7.7); Neutrophils % (A) 52 %; Platelet Count 280 k/uL (150-450); RBC 4.93 m/uL (3.80-5.40); RDW 17.2 % (11.5-15.5); WBC 9.2 k/uL (3.8-10.6)
[2019-01-02] MEDS: PANTOPRAZOLE 40 MG TABLET PO SCH ×2 (06:54→17:23)
[2019-01-02 07:11] LABS: Albumin 3.5 g/dL (3.5-5.0); Calcium 9.3 mg/dL (8.4-10.2); Potassium 5.4 mmol/L (3.5-5.1); Total Bilirubin 0.8 mg/dL (0.2-1.3); Total Protein 6.3 g/dL (6.3-8.2)
[2019-01-02] MEDS: INSULN ASP PRT/INSULIN ASPART 100 UNIT/ML 10 ML VIAL SQ SCH (07:20)
--- NOTE | 2019-01-02 07:31 | P.PN ---
Subjective Progress Note Date: 01/02/19 Principal diagnosis: This is a 78-year-old female seen in consultation because of acute kidney injury likely from congestive heart failure, is also known to us with chronic kidney disease secondary diabetic nephropathy. She came in because of worsening shortness of breath. She was not on any Lasix ever supposedly. No fever chills she does have a cough with expectoration which is difficult and scanty and makes her throw up after a little while. Occasionally she does feel dizzy on standing up. No history of chest pain. No nausea vomiting diarrhea. Appetite is poor. She follows up with Dr. Locke for her chronic kidney disease. She was recently admitted and discharged 2 weeks ago. She is known with chronic kidney disease creatinine is 1.51 on 09/03/2018 and was slightly up at 1.74 on 12/06/2018. She came in with a creatinine of 2.26. Since admission yesterday she was diuresed with Lasix. Urine output is documented at 2200 mL. Her creatinine though went up. She is complaining of feeling nauseated. He has not had a bowel movement in a few days. No chest pain shortness of breath she is on room air. She does have some mild symptoms of GERD and is on Protonix. She says she is going to the bathroom frequently. No dysuria. Objective - Vital Signs Vital signs: Vital Signs Temp 98.4 F 01/02/19 07:21 Pulse 57 L 01/02/19 07:21 Resp 20 01/02/19 07:21 BP 123/64 01/02/19 07:21 Pulse Ox 93 L 01/02/19 07:21 Intake & Output 01/01/19 01/02/19 01/02/19 18:59 06:59 18:59 Intake Total 360 Output Total 900 1300 Balance -540 -1300 Weight 79.3 kg 78.4 kg Intake: Oral 360 Output: Urine 900 1300 Other: Voiding Method Bedside Commode # Voids 1 On examination is awake alert oriented somewhat anxious. She does not want to go home because she was just readmitted. HEENT exam no JVP neck is supple no facial asymmetry Heart sounds are unremarkable for any murmur rub gallop she is in atrial fibrillation. Lungs are clear to auscultation fairly good air entry bilaterally A chest x-ray had shown significant findings suggestive congestive heart failure Abdomen soft nontender no masses felt Extreme exam was trace edema Neurologically awake alert oriented but anxious - Labs CBC & Chem 7: 01/02/19 05:47 01/02/19 05:47 Labs: Abnormal Lab Results - Last 24 Hours (Table) 01/01/19 01/01/19 01/01/19 Range/Units 05:29 09:15 11:52 Hgb (11.4-16.0) gm/dL Hct (34.0-46.0) % MCV (80.0-100.0) fL MCH (25.0-35.0) pg MCHC (31.0-37.0) g/dL RDW (11.5-15.5) % Potassium (3.5-5.1) mmol/L BUN (7-17) mg/dL Creatinine (0.52-1.04) mg/dL POC Glucose (mg/dL) 236 H 70 L (75-99) mg/dL TSH 0.021 L (0.465-4.680) mIU/L Free T4 2.63 H (0.78-2.19) ng/dL 01/01/19 01/01/19 01/02/19 Range/Units 16:47 20:28 00:51 Hgb (11.4-16.0) gm/dL Hct (34.0-46.0) % MCV (80.0-100.0) fL MCH (25.0-35.0) pg MCHC (31.0-37.0) g/dL RDW (11.5-15.5) % Potassium (3.5-5.1) mmol/L BUN (7-17) mg/dL Creatinine (0.52-1.04) mg/dL POC Glucose (mg/dL) 66 L 187 H 31 L (75-99) mg/dL TSH (0.465-4.680) mIU/L Free T4 (0.78-2.19) ng/dL 01/02/19 01/02/19 01/02/19 Range/Units 01:07 05:47 05:47 Hgb 9.8 L (11.4-16.0) gm/dL Hct 33.0 L (34.0-46.0) % MCV 67.0 L (80.0-100.0) fL MCH 19.9 L (25.0-35.0) pg MCHC 29.7 L (31.0-37.0) g/dL RDW 17.2 H (11.5-15.5) % Potassium 5.4 H (3.5-5.1) mmol/L BUN 57 H (7-17) mg/dL Creatinine 2.49 H (0.52-1.04) mg/dL POC Glucose (mg/dL) 48 L (75-99) mg/dL TSH (0.465-4.680) mIU/L Free T4 (0.78-2.19) ng/dL Assessment and Plan Assessment: Impression 1. Acute kidney injury secondary to congestive heart failure. Creatinine went up to 2.26, and further up to 2.49 with diuresis 2. Chronic kidney disease diabetic nephropathy creatinine baseline is approximately 1.5-1.7 or the last few months. A serum immunofixation result been negative on 12/07/2018 3. Hyperkalemia potassium is 5.2 and 5.3, and further to 5.4 this morning. This is associated with RTA4. 4. 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 Improved to bicarb of 25 this morning. This is due to diabetic nephropathy. 5. Congestive heart failure. Resolved. 6. Anemia of chronic kidney disease hemoglobin is 9.6, repeat hemoglobin is 9.8 Admission 1. Hold Lasix. 2. Check orthostatic changes. 3. Check bladder scan for any neurogenic bladder 4. Pending iron saturation 5. Strict I's and os. 6. Check urinalysis as her chest. Has shown significant changes and her creatinine has gone up. We will make sure there is no other explanation for acute kidney injury such as pulmonary renal syndrome
[2019-01-02] MEDS: MAGNESIUM OXIDE 400 MG TAB PO SCH (08:38)
[2019-01-02] MEDS: ATORVASTATIN 20 MG TAB PO SCH (08:38)
[2019-01-02] MEDS: TIMOLOL 0.5% OPHTH DROPS 5 ML BTL BOTH EYES SCH (08:38)
[2019-01-02] MEDS: APIXABAN 5 MG TAB PO SCH ×2 (08:38→20:43)
[2019-01-02] MEDS: METHIMAZOLE 5 MG TAB PO SCH (08:38)
[2019-01-02] MEDS: SODIUM BICARBONATE TAB 650 MG TAB PO SCH ×4 (08:38→20:43)
[2019-01-02 08:58] LABS: Appearance,Urine Cloudy (Clear); Bacteria,Urine Moderate /hpf; Bilirubin,Urine Negative (Negative); Blood,Urine Trace (Negative); Color,Urine Yellow; Glucose,Urine (UA) Negative (Negative); Ketones,Urine Negative (Negative); Leukocyte Esterase,Urine Large (Negative); Mucus,Urine Rare /hpf; Nitrite,Urine Negative (Negative); PH, Urine 6.5 (5.0-8.0); Protein,Urine Negative (Negative); RBC,Urine 5 /hpf (0-5); Specific Gravity,Urine 1.012 (1.001-1.035); Squamous Epithelial Cell,Urine 2 /hpf (0-4); Urobilinogen,Urine <2.0 mg/dL (<2.0); WBC,Urine 150 /hpf (0-5)
--- NOTE | 2019-01-02 10:23 | P.PN ---
Subjective Progress Note Date: 01/02/19 This is a 78-year-old female patient of Dr. Amato with history of hypertension, diabetes, hyperlipidemia, prior history of smoking, rare EtOH. Patient gives history of seen Dr. Davies on Thursday or of last week. He plans for a stress test to be done in January. Patient came into [facility] due to palpitations. She may have some chest pain on the left sternal border low sternal area that she thought was related to gastroesophageal reflux disease. She does complain of shortness of breath with any activity and with talking although she can talk in full sentences. Patient was brought into the [facility] emergency center by EMS. Patient denies that her shortness of breath is improved she has diuresed well overnight. She states she has had lower extremity edema but none is noted this time. Overnight, satellite project site monitor was bradycardia in the 40s and 50s. Patient verbalizes anxiety regarding getting up to the commode to urinate secondary to use of Lasix. The patient appears very anxious EKG reveals sinus bradycardia at rate of 38. Echocardiogram in November revealed EF of 55-60%, mild mitral regurgitation. Laboratory studies: WBC 8.5, hemoglobin 9.7, platelet count 280. Sodium 1:30, potassium 5.2, chloride 109, CO2 19 BUN 53 and creatinine 1.98, initial blood sugar 68. Troponin 0.023, 0.021, 0.018. 01/02: Patient states that she continues to have shortness of breath. She is complaining of chest pain that is between her breasts that goes through to her back. She is also complaining of right shoulder pain for which she is using ice pack. Lasix has been discontinued. satellite project site monitor has been a sinus bradycardia in the low 50s overnight. Orthostatic vital signs have been negative. Blood pressure 151/51 and amlodipine 5 mg daily will be started. Echocardiogram reveals EF 50-55% with moderate concentric left ventricular hypertrophy, mild to moderate aortic valve sclerosis, no aortic stenosis, moderate mitral regurgitation, moderate tricuspid regurgitation, severe pulmonary hypertension, right ventricular systolic pressure of 78.65 mmHg, no pulmonary regurgitation. Patient is followed by nephrology for acute kidney injury. TSH 0.0-1, free T4 2 0.63. BUN 57 creatinine 2.49 with potassium of 5.4. Hemoglobin 9.8. Gen: This is a 78-year-old female. Patient appears to be very anxious. HEENT: Head is atraumatic, normocephalic. Pupils equal, round. Sclerae is anicteric. NECK: Supple. No JVD. No lymphadenopathy. No thyromegaly. LUNGS: Poor inspiratory effort, clear to auscultation No intercostal retractions. HEART: S1-S2 regular, systolic murmur. Bradycardic. ABDOMEN: Soft. Bowel sounds are present. No masses. No tenderness. EXTREMITIES: Trace bilateral pedal edema. No calf tenderness. Dorsalis pedis 1+ bilaterally NEUROLOGICAL: Patient is awake, alert and oriented x3. Cranial nerves 2 through 12 are grossly intact. Assessment: Symptomatic bradycardia possibly related to hyperkalemia and beta romario Acute kidney injury COPD exacerbation Hypertension Diabetes mellitus type 2 presented with hypo-glycemia Hyperlipidemia Paroxysmal atrial fibrillation Plan: Discontinue Lasix Continue to hold Lopressor 50 mg twice daily Continue eliquis 5 mg twice daily, Lipitor 20 g daily Start amlodipine 5 mg daily. TSH, free T4 abnormal, primary to address. Continue cardiac monitoring Thank you kindly for this consultation. Further recommendations to follow based on clinical course. Nurse practitioner note has been reviewed, I agree with documented findings and plan of care. Patient was seen and examined. Objective - Vital Signs Vital signs: Vital Signs Temp 98.4 F 01/02/19 07:21 Pulse 61 01/02/19 08:34 Resp 20 01/02/19 07:21 BP 129/65 01/02/19 08:34 Pulse Ox 96 01/02/19 08:34 Intake & Output 01/01/19 01/02/19 01/02/19 18:59 06:59 18:59 Intake Total 360 240 Output Total 900 1300 Balance -540 -1300 240 Weight 79.3 kg 78.4 kg Intake: Oral 360 240 Output: Urine 900 1300 Other: Voiding Method Bedside Commode # Voids 1 - Labs CBC & Chem 7: 01/02/19 05:47 01/02/19 05:47 Labs: Abnormal Lab Results - Last 24 Hours (Table) 01/01/19 01/01/19 01/01/19 Range/Units 05:29 11:52 16:47 Hgb (11.4-16.0) gm/dL Hct (34.0-46.0) % MCV (80.0-100.0) fL MCH (25.0-35.0) pg MCHC (31.0-37.0) g/dL RDW (11.5-15.5) % Potassium (3.5-5.1) mmol/L BUN (7-17) mg/dL Creatinine (0.52-1.04) mg/dL POC Glucose (mg/dL) 70 L 66 L (75-99) mg/dL TSH 0.021 L (0.465-4.680) mIU/L Free T4 2.63 H (0.78-2.19) ng/dL Urine Appearance (Clear) Urine Blood (Negative) Ur Leukocyte Esterase (Negative) Urine WBC (0-5) /hpf Urine WBC Clumps (None) /hpf Urine Bacteria (None) /hpf Urine Mucus (None) /hpf 01/01/19 01/02/19 01/02/19 Range/Units 20:28 00:51 01:07 Hgb (11.4-16.0) gm/dL Hct (34.0-46.0) % MCV (80.0-100.0) fL MCH (25.0-35.0) pg MCHC (31.0-37.0) g/dL RDW (11.5-15.5) % Potassium (3.5-5.1) mmol/L BUN (7-17) mg/dL Creatinine (0.52-1.04) mg/dL POC Glucose (mg/dL) 187 H 31 L 48 L (75-99) mg/dL TSH (0.465-4.680) mIU/L Free T4 (0.78-2.19) ng/dL Urine Appearance (Clear) Urine Blood (Negative) Ur Leukocyte Esterase (Negative) Urine WBC (0-5) /hpf Urine WBC Clumps (None) /hpf Urine Bacteria (None) /hpf Urine Mucus (None) /hpf 01/02/19 01/02/19 01/02/19 Range/Units 05:47 05:47 07:47 Hgb 9.8 L (11.4-16.0) gm/dL Hct 33.0 L (34.0-46.0) % MCV 67.0 L (80.0-100.0) fL MCH 19.9 L (25.0-35.0) pg MCHC 29.7 L (31.0-37.0) g/dL RDW 17.2 H (11.5-15.5) % Potassium 5.4 H (3.5-5.1) mmol/L BUN 57 H (7-17) mg/dL Creatinine 2.49 H (0.52-1.04) mg/dL POC Glucose (mg/dL) (75-99) mg/dL TSH (0.465-4.680) mIU/L Free T4 (0.78-2.19) ng/dL Urine Appearance Cloudy H (Clear) Urine Blood Trace H (Negative) Ur Leukocyte Esterase Large H (Negative) Urine WBC 150 H (0-5) /hpf Urine WBC Clumps Few H (None) /hpf Urine Bacteria Moderate H (None) /hpf Urine Mucus Rare H (None) /hpf
[2019-01-02] MEDS: amLODIPine 5 MG TAB PO SCH (11:24)
--- NOTE | 2019-01-02 11:43 | P.PN ---
Subjective Principal diagnosis: Bradycardia Feels better today, no chest pain no abdominal pain no shortness of breath no nausea no vomiting. Objective - Vital Signs Vital signs: Vital Signs Temp 98.5 F 01/02/19 11:20 Pulse 52 L 01/02/19 11:20 Resp 20 01/02/19 11:20 BP 149/82 01/02/19 11:20 Pulse Ox 95 01/02/19 11:20 Intake & Output 01/01/19 01/02/19 01/02/19 18:59 06:59 18:59 Intake Total 360 240 Output Total 900 1300 500 Balance -540 -1300 -260 Weight 79.3 kg 78.4 kg Intake: Oral 360 240 Output: Urine 900 1300 500 Other: Voiding Method Bedside Commode # Voids 1 - Exam Constitutional: No distress Eyes: Anicteric sclerae, PERRLA ENMT: NC/AT Neck:Supple,no JVD Lungs: Decreased breath sounds no wheezing no crackles Cardiovascular: Heart regular in rate and rhythm, No murmurs, gallops, or rubs no peripheral edema Abdominal: Soft Nontender, nom distended, no guarding, no rebound or rigidity, Normoactive bowel sounds No palpable mass Skin: Normal temperature Extremities:No digital cyanosis No clubbing Psychiatric: Alert and oriented to person, place and time Neuro: Muscles Strength 5/5 in all 4 extremities, Sensation to light touch freida ssly present throughout, Cranial nerves II-XII grossly intact. No focal sensory deficits - Labs CBC & Chem 7: 01/02/19 05:47 01/02/19 05:47 Labs: Abnormal Lab Results - Last 24 Hours (Table) 01/01/19 01/01/19 01/01/19 Range/Units 05:29 11:52 16:47 Hgb (11.4-16.0) gm/dL Hct (34.0-46.0) % MCV (80.0-100.0) fL MCH (25.0-35.0) pg MCHC (31.0-37.0) g/dL RDW (11.5-15.5) % Potassium (3.5-5.1) mmol/L BUN (7-17) mg/dL Creatinine (0.52-1.04) mg/dL POC Glucose (mg/dL) 70 L 66 L (75-99) mg/dL TSH 0.021 L (0.465-4.680) mIU/L Free T4 2.63 H (0.78-2.19) ng/dL Urine Appearance (Clear) Urine Blood (Negative) Ur Leukocyte Esterase (Negative) Urine WBC (0-5) /hpf Urine WBC Clumps (None) /hpf Urine Bacteria (None) /hpf Urine Mucus (None) /hpf 01/01/19 01/02/19 01/02/19 Range/Units 20:28 00:51 01:07 Hgb (11.4-16.0) gm/dL Hct (34.0-46.0) % MCV (80.0-100.0) fL MCH (25.0-35.0) pg MCHC (31.0-37.0) g/dL RDW (11.5-15.5) % Potassium (3.5-5.1) mmol/L BUN (7-17) mg/dL Creatinine (0.52-1.04) mg/dL POC Glucose (mg/dL) 187 H 31 L 48 L (75-99) mg/dL TSH (0.465-4.680) mIU/L Free T4 (0.78-2.19) ng/dL Urine Appearance (Clear) Urine Blood (Negative) Ur Leukocyte Esterase (Negative) Urine WBC (0-5) /hpf Urine WBC Clumps (None) /hpf Urine Bacteria (None) /hpf Urine Mucus (None) /hpf 01/02/19 01/02/19 01/02/19 Range/Units 05:47 05:47 07:47 Hgb 9.8 L (11.4-16.0) gm/dL Hct 33.0 L (34.0-46.0) % MCV 67.0 L (80.0-100.0) fL MCH 19.9 L (25.0-35.0) pg MCHC 29.7 L (31.0-37.0) g/dL RDW 17.2 H (11.5-15.5) % Potassium 5.4 H (3.5-5.1) mmol/L BUN 57 H (7-17) mg/dL Creatinine 2.49 H (0.52-1.04) mg/dL POC Glucose (mg/dL) (75-99) mg/dL TSH (0.465-4.680) mIU/L Free T4 (0.78-2.19) ng/dL Urine Appearance Cloudy H (Clear) Urine Blood Trace H (Negative) Ur Leukocyte Esterase Large H (Negative) Urine WBC 150 H (0-5) /hpf Urine WBC Clumps Few H (None) /hpf Urine Bacteria Moderate H (None) /hpf Urine Mucus Rare H (None) /hpf Assessment and Plan Plan: 1. Acute on chronic congestive heart failure, diastolic resolved : Ejection fraction 55-60%: cardiology consultation appreciated . holding Lasix 2. Acute kidney injury: Serum creatinine 1.9 likely associated with decreased perfusion monitor serum creatinine, avoid nephrotoxins. Nephrology consultation appreciated , holding diuretics. Serum creatinine up to 2.2 now 2.4 3. COPD exacerbation: Oxygen and bronchodilators as indicated 4. Chronic atrial fibrillation with bradycardia: Holding metoprolol, cardiology consultation, continue eliquis , monitor , heart rate improving. 5. Diabetes type 2 with hyperglycemia, on insulin sliding scale 6. Anxiety: Continue Ativan as needed 7. History of hypothyroidism: Continue methimazole 8. GERD without esophagitis: Continue PPI DVT prophylaxis: eliquis Disposition: Home likely Thursday
[2019-01-02 12:15] LABS: Glucose,Whole Blood 137 mg/dL (75-99)
[2019-01-02 17:10] LABS: Glucose,Whole Blood 157 mg/dL (75-99)
[2019-01-02 20:13] LABS: Glucose,Whole Blood 223 mg/dL (75-99)
[2019-01-02] MEDS: LORazepam 0.5 MG TAB PO PRN (20:48)
[2019-01-03] MEDS: INSULN ASP PRT/INSULIN ASPART 100 UNIT/ML 10 ML VIAL SQ SCH ×2 (01:01→07:04)
[2019-01-03 04:41] LABS: Appearance,Urine Turbid (Clear); Bacteria,Urine Occasional /hpf; Bilirubin,Urine Negative (Negative); Blood,Urine Moderate (Negative); Color,Urine Yellow; Glucose,Urine (UA) Negative (Negative); Ketones,Urine Negative (Negative); Leukocyte Esterase,Urine Large (Negative); Nitrite,Urine Negative (Negative); Protein,Urine 1+ (Negative); RBC,Urine >182 /hpf (0-5); Specific Gravity,Urine 1.016 (1.001-1.035); Urobilinogen,Urine <2.0 mg/dL (<2.0)
[2019-01-03] MEDS: IPRATROPIUM-ALBUTEROL 3 ML NEB INHALATION PRN ×3 (06:06→11:27)
[2019-01-03 06:20] LABS: Glucose,Whole Blood 140 mg/dL (75-99)
[2019-01-03 06:41] LABS: Anisocytosis Slight; Basophils % (A) 0 %; Eosinophils # (A) 0.3 k/uL (0-0.7); Eosinophils % (A) 4 %; HCT 35.1 % (34.0-46.0); HGB 10.3 gm/dL (11.4-16.0); Hypochromasia Marked; Lymphocytes # (A) 3.5 k/uL (1.0-4.8); Lymphocytes % (A) 38 %; MCH 19.7 pg (25.0-35.0); MCHC 29.4 g/dL (31.0-37.0); MCV 67.1 fL (80.0-100.0); Mean Platelet Volume 6.7; Microcytosis Marked; Monocytes # (A) 0.8 k/uL (0-1.0); Monocytes % (A) 8 %; Neutrophils # (A) 4.3 k/uL (1.3-7.7); Neutrophils % (A) 47 %; Platelet Count 301 k/uL (150-450); Poikilocytosis Slight; RBC 5.23 m/uL (3.80-5.40); RDW 17.4 % (11.5-15.5); WBC 9.1 k/uL (3.8-10.6)
[2019-01-03 06:56] LABS: Albumin 3.6 g/dL (3.5-5.0); Calcium 9.4 mg/dL (8.4-10.2); Potassium 4.9 mmol/L (3.5-5.1); Total Bilirubin 0.9 mg/dL (0.2-1.3); Total Protein 6.5 g/dL (6.3-8.2)
[2019-01-03] MEDS: INSULIN ASPART (NovoLOG) 100 UNIT/ML VIAL SQ SCH ×4 (07:07→21:43)
[2019-01-03] MEDS: PANTOPRAZOLE 40 MG TABLET PO SCH ×2 (07:07→17:26)
[2019-01-03] MEDS: SODIUM BICARBONATE TAB 650 MG TAB PO SCH ×4 (08:57→21:42)
[2019-01-03] MEDS: TIMOLOL 0.5% OPHTH DROPS 5 ML BTL BOTH EYES SCH (08:57)
[2019-01-03] MEDS: APIXABAN 5 MG TAB PO SCH ×2 (08:57→21:42)
[2019-01-03] MEDS: METHIMAZOLE 5 MG TAB PO SCH (08:57)
[2019-01-03] MEDS: amLODIPine 5 MG TAB PO SCH (08:57)
[2019-01-03] MEDS: ATORVASTATIN 20 MG TAB PO SCH (08:57)
[2019-01-03] MEDS: MAGNESIUM OXIDE 400 MG TAB PO SCH (08:57)
[2019-01-03 09:54] LABS: Hemoglobin A1C 7.3 % (4.0-6.0)
[2019-01-03] MEDS ORDERED: HYDROcodone/APAP 10-325MG 1 EACH TAB PO PRN (10:46)
[2019-01-03] MEDS ORDERED: POLYETHYLENE GLYCOL 3350 17 GM POWD.PACK PO STA (10:47)
[2019-01-03] MEDS ORDERED: SULFAMETHOX-TMP 800-160MG 1 EACH TAB PO SCH (11:00)
[2019-01-03] MEDS: LORATADINE 10 MG TAB PO SCH (11:19)
[2019-01-03] MEDS: FLUTICASONE 50MCG/SPRAY NASAL 16GM EA NOSTRIL SCH (11:19)
[2019-01-03] MEDS: methylPREDNISolone 4 MG TAB TAPER PO SCH (11:20)
[2019-01-03 12:03] LABS: Glucose,Whole Blood 147 mg/dL (75-99)
--- NOTE | 2019-01-03 12:17 | PN ---
PROGRESS NOTE Patient is seen for followup for acute kidney injury. Patient's creatinine is currently improved from 2.49 yesterday to 1.95. She is not on any IV fluids on diuretics. The patient was initially volume overloaded. She does have CKD with baseline creatinine about 1.5-1.7 mg/dL. PHYSICAL EXAMINATION: On examination, blood pressure this morning 126/53. Patient is afebrile. Heart rate 66 per minute. Examination of the heart S1, S2. Examination of the lungs, bilateral breath sounds are heard. Abdomen is soft, nontender. Examination of the lower extremities shows trace edema bilaterally. TAX SPECIALIST exam grossly intact. LABS: Show hemoglobin 10.3, sodium 139, potassium 4.9, BUN 46, serum creatinine 1.95. ASSESSMENT: 1. Acute kidney injury secondary to congestive heart failure, currently improving. Currently patient is not on any diuretics. She denies any significant shortness of breath. 2. Chronic kidney disease from diabetic nephropathy. Baseline creatinine 1.5 to 1.7. 3. 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 4. Mild hyperkalemia, currently improved. This is associated with the RTA. PLAN: Continue to hold off on diuretics and IV fluids. Repeat labs in a.m. MMODL / IJN: [id number] /
[2019-01-03 13:20] LABS: Iron Saturation 6.67 (12.00-45.00)
--- NOTE | 2019-01-03 15:19 | P.PN ---
Subjective Progress Note Date: 01/03/19 This is a 78-year-old female patient of Dr. Amato with history of hypertension, diabetes, hyperlipidemia, prior history of smoking, rare EtOH. Patient gives history of seen Dr. Davies on Thursday or of last week. He plans for a stress test to be done in January. Patient came into [facility] due to palpitations. She may have some chest pain on the left sternal border low sternal area that she thought was related to gastroesophageal reflux disease. She does complain of shortness of breath with any activity and with talking although she can talk in full sentences. Patient was brought into the [facility] emergency center by EMS. Patient denies that her shortness of breath is improved she has diuresed well overnight. She states she has had lower extremity edema but none is noted this time. Patient was noted on the monitor to have significant bradycardia for which her beta romario had been placed on hold. She was seen and examined today, blood pressure 136/60 with a heart rate in the 60s. Patient stable overall, ambulating in the hallway on her own today without any difficulty. Objective - Vital Signs Vital signs: Vital Signs Temp 98.1 F 01/03/19 08:00 Pulse 68 01/03/19 11:37 Resp 18 01/03/19 11:18 BP 141/61 01/03/19 11:18 Pulse Ox 94 L 01/03/19 11:18 Intake & Output 01/02/19 01/03/19 01/03/19 18:59 06:59 18:59 Intake Total 240 622 480 Output Total 861 603 1563 Balance -510 122 -720 Weight 77.6 kg Intake: Intake, IV Titration 300 Amount Dextrose 10 % in Water 300 250 ml @ 999 mls/hr IV ONCE STA Rx#:[id number] Oral 240 322 480 Output: Urine 878 512 4268 Other: Voiding Method Toilet Bedside Commode Bedside Commode Incontinent Incontinent # Bowel Movements 1 - Exam HEENT: Head is atraumatic, normocephalic. Pupils equal, round. Sclerae is anicteric. NECK: Supple. No JVD. No lymphadenopathy. No thyromegaly. LUNGS: Scattered expiratory wheeze tachypnea No intercostal retractions. HEART: S1-S2 regular, systolic murmur. Bradycardic. ABDOMEN: Soft. Bowel sounds are present. No masses. No tenderness. EXTREMITIES: No pedal edema. No calf tenderness. Dorsalis pedis 1+ bilaterally NEUROLOGICAL: Patient is awake, alert and oriented x3. Cranial nerves 2 through 12 are grossly intact. - Labs CBC & Chem 7: 01/03/19 05:58 01/03/19 05:58 Labs: Abnormal Lab Results - Last 24 Hours (Table) 01/02/19 01/02/19 01/02/19 Range/Units 05:47 05:47 17:09 Hgb (11.4-16.0) gm/dL MCV (80.0-100.0) fL MCH (25.0-35.0) pg MCHC (31.0-37.0) g/dL RDW (11.5-15.5) % BUN (7-17) mg/dL Creatinine (0.52-1.04) mg/dL Glucose (74-99) mg/dL POC Glucose (mg/dL) 157 H (75-99) mg/dL Hemoglobin A1c 7.3 H (4.0-6.0) % Iron 20 L (50-170) ug/dL Iron Saturation 6.67 L (12.00-45.00) Urine Appearance (Clear) Urine Protein (Negative) Urine Blood (Negative) Ur Leukocyte Esterase (Negative) Urine RBC (0-5) /hpf Urine WBC (0-5) /hpf Urine WBC Clumps (None) /hpf Urine Bacteria (None) /hpf 01/02/19 01/03/19 01/03/19 Range/Units 20:09 03:35 05:58 Hgb 10.3 L (11.4-16.0) gm/dL MCV 67.1 L (80.0-100.0) fL MCH 19.7 L (25.0-35.0) pg MCHC 29.4 L (31.0-37.0) g/dL RDW 17.4 H (11.5-15.5) % BUN (7-17) mg/dL Creatinine (0.52-1.04) mg/dL Glucose (74-99) mg/dL POC Glucose (mg/dL) 223 H (75-99) mg/dL Hemoglobin A1c (4.0-6.0) % Iron (50-170) ug/dL Iron Saturation (12.00-45.00) Urine Appearance Turbid H (Clear) Urine Protein 1+ H (Negative) Urine Blood Moderate H (Negative) Ur Leukocyte Esterase Large H (Negative) Urine RBC >182 H (0-5) /hpf Urine WBC >182 H (0-5) /hpf Urine WBC Clumps Few H (None) /hpf Urine Bacteria Occasional H (None) /hpf 01/03/19 01/03/19 01/03/19 Range/Units 05:58 06:10 11:56 Hgb (11.4-16.0) gm/dL MCV (80.0-100.0) fL MCH (25.0-35.0) pg MCHC (31.0-37.0) g/dL RDW (11.5-15.5) % BUN 46 H (7-17) mg/dL Creatinine 1.95 H (0.52-1.04) mg/dL Glucose 137 H (74-99) mg/dL POC Glucose (mg/dL) 140 H 147 H (75-99) mg/dL Hemoglobin A1c (4.0-6.0) % Iron (50-170) ug/dL Iron Saturation (12.00-45.00) Urine Appearance (Clear) Urine Protein (Negative) Urine Blood (Negative) Ur Leukocyte Esterase (Negative) Urine RBC (0-5) /hpf Urine WBC (0-5) /hpf Urine WBC Clumps (None) /hpf Urine Bacteria (None) /hpf Microbiology - Last 24 Hours (Table) 01/03/19 03:35 Urine Culture - Preliminary Urine,Voided Assessment and Plan Plan: Assessment and plan: #1 Symptomatic bradycardia possibly related to hyperkalemia and beta romario #2 Acute kidney injury #3 COPD exacerbation #4 Hypertension #5 Diabetes mellitus type 2 presented with hypo-glycemia #6 Hyperlipidemia #7 Paroxysmal atrial fibrillation Plan From cardiology's perspective, patient may be able to be discharged home once cleared by primary. We'll make her a follow-up appointment with Dr. Amato in the office post discharge. DNP note has been reviewed, I agree with a documented findings and plan of care. Patient was seen and examined.
--- NOTE | 2019-01-03 15:33 | XR ---
EXAMINATION TYPE: XR chest 2V DATE OF EXAM: 01/03/2019 COMPARISON: Prior chest x-ray 12/31/2018 HISTORY: Dyspnea, shortness of breath TECHNIQUE: Frontal and lateral views of the chest are obtained. FINDINGS: Findings are similar to prior exam. No pneumothorax or pleural effusion. Right mid diaphys eal clavicular fracture shows bayonet apposition and healed appearance. Heart remains enlarged. Aorta is dense. IMPRESSION: Cardiomegaly. Patient is rotated. There may be some basilar atelectasis. Suspect some im provement in aeration.
[2019-01-03 16:58] LABS: Glucose,Whole Blood 262 mg/dL (75-99)
--- NOTE | 2019-01-03 18:36 | P.PN ---
Subjective Progress Note Date: 01/03/19 (delayed charting seen at 1000) Principal diagnosis: shortness of breath Patient is a 78-year-old female with a past medical history of atrial fibrillation, diabetes mellitus, hypertension, dyslipidemia, diabetes mellitus type 2, and chronic kidney disease stage III who presented to the emergency department with complaints of shortness of breath. In the emergency department she underwent an extensive evaluation. Her vital signs showed bradycardia on arrival with a pulse of 43. Initial laboratory analysis showed her chronic kidney disease at baseline, metabolic acidosis, and slight hyperkalemia with a potassium of 5.2. Her BNP was elevated at 8920. And chest x-ray showed diffuse pleural parenchymal changes consistent with CHF. She was started on diuresis and admitted for further treatment of her CHF. Cardiology was consulted and recommended continuation of her diuretic therapy. She underwent an echocardiogram which showed moderate concentric LVH with ejection fraction 50- 55%, and a restrictive LV filling pattern. There is also moderate mitral reg urgitation, moderate tricuspid regurgitation, and severe pulmonary hypertension with RVSP 78.65. She started developing an increase in her creatinine with her diuresis. Therefore her diuresis was held. Nephrology was consulted. She was noted to have a type IV RTA secondary to her diabetes and started on sodium bicarb. This corrected her acidosis. Patient seen and examined at bedside. She states she thinks she has a cold. She complains of cough and nasal congestion as well as nasal discharge. She also complains of severe back pain that is throughout her back. She requests to go to rehab. I explained her the process of having physical therapy evaluate her to determine her functional status prior to going to rehab. I also explained that should be discharged from the hospital tomorrow. Objective - Vital Signs Vital signs: Vital Signs Temp 98.1 F 01/03/19 08:00 Pulse 61 01/03/19 15:44 Resp 18 01/03/19 15:44 BP 138/58 01/03/19 15:44 Pulse Ox 94 L 01/03/19 15:44 Intake & Output 01/02/19 01/03/19 01/03/19 18:59 06:59 18:59 Intake Total 240 622 720 Output Total 530 279 0167 Balance -510 122 -480 Weight 77.6 kg Intake: Intake, IV Titration 300 Amount Dextrose 10 % in Water 300 250 ml @ 999 mls/hr IV ONCE STA Rx#:[id number] Oral 240 322 720 Output: Urine 594 871 7376 Other: Voiding Method Toilet Bedside Commode Bedside Commode Incontinent Incontinent # Bowel Movements 1 - Exam General: non toxic, mild distress due to pain, appears at stated age Derm: warm, dry Head: atraumatic, normocephalic, symmetric Eyes: EOMI, no lid lag, anicteric sclera Mouth: no lip lesion, mucus membranes moist Cardiovascular: S1S2 reg, no murmur, positive posterior tibial pulse bilateral, Lungs: CTA bilateral, no rhonchi, no rales , no accessory muscle use Abdominal: soft, nontender to palpation, no guarding, no appreciable organomegaly Ext: no gross muscle atrophy, no edema, no contractures Neuro: CN II-XI grossly intact, no focal neuro deficits, no pain to palpation over spinous process, no spinous process step-off noted. Psych: Alert, oriented, appropriate affect - Labs CBC & Chem 7: 01/03/19 05:58 01/03/19 05:58 Labs: Abnormal Lab Results - Last 24 Hours (Table) 01/02/19 01/02/19 01/02/19 Range/Units 05:47 05:47 20:09 Hgb (11.4-16.0) gm/dL MCV (80.0-100.0) fL MCH (25.0-35.0) pg MCHC (31.0-37.0) g/dL RDW (11.5-15.5) % BUN (7-17) mg/dL Creatinine (0.52-1.04) mg/dL Glucose (74-99) mg/dL POC Glucose (mg/dL) 223 H (75-99) mg/dL Hemoglobin A1c 7.3 H (4.0-6.0) % Iron 20 L (50-170) ug/dL Iron Saturation 6.67 L (12.00-45.00) Urine Appearance (Clear) Urine Protein (Negative) Urine Blood (Negative) Ur Leukocyte Esterase (Negative) Urine RBC (0-5) /hpf Urine WBC (0-5) /hpf Urine WBC Clumps (None) /hpf Urine Bacteria (None) /hpf 01/03/19 01/03/19 01/03/19 Range/Units 03:35 05:58 05:58 Hgb 10.3 L (11.4-16.0) gm/dL MCV 67.1 L (80.0-100.0) fL MCH 19.7 L (25.0-35.0) pg MCHC 29.4 L (31.0-37.0) g/dL RDW 17.4 H (11.5-15.5) % BUN 46 H (7-17) mg/dL Creatinine 1.95 H (0.52-1.04) mg/dL Glucose 137 H (74-99) mg/dL POC Glucose (mg/dL) (75-99) mg/dL Hemoglobin A1c (4.0-6.0) % Iron (50-170) ug/dL Iron Saturation (12.00-45.00) Urine Appearance Turbid H (Clear) Urine Protein 1+ H (Negative) Urine Blood Moderate H (Negative) Ur Leukocyte Esterase Large H (Negative) Urine RBC >182 H (0-5) /hpf Urine WBC >182 H (0-5) /hpf Urine WBC Clumps Few H (None) /hpf Urine Bacteria Occasional H (None) /hpf 01/03/19 01/03/19 01/03/19 Range/Units 06:10 11:56 16:55 Hgb (11.4-16.0) gm/dL MCV (80.0-100.0) fL MCH (25.0-35.0) pg MCHC (31.0-37.0) g/dL RDW (11.5-15.5) % BUN (7-17) mg/dL Creatinine (0.52-1.04) mg/dL Glucose (74-99) mg/dL POC Glucose (mg/dL) 140 H 147 H 262 H (75-99) mg/dL Hemoglobin A1c (4.0-6.0) % Iron (50-170) ug/dL Iron Saturation (12.00-45.00) Urine Appearance (Clear) Urine Protein (Negative) Urine Blood (Negative) Ur Leukocyte Esterase (Negative) Urine RBC (0-5) /hpf Urine WBC (0-5) /hpf Urine WBC Clumps (None) /hpf Urine Bacteria (None) /hpf Microbiology - Last 24 Hours (Table) 01/03/19 03:35 Urine Culture - Preliminary Urine,Voided Assessment and Plan Assessment: Acute exacerbation of CHF, diastolic and restrictive as well as severe pulmonary hypertension -Patient is currently euvolemic, no diuretic therapy necessary -No WENDI inhibitor secondary to her recent HPI -Beta romario on hold secondary to bradycardia on arrival - suspect due to flash pulm edema with severe pulm HTN Upper respiratory tract infection -Claritin -Flonase -Medrol Dosepak Acute kidney injury on chronic kidney disease stage III associated with type IV RTA -Continue sodium bicarb -Nephrology recommendations appreciated -Appears to have returned to baseline -Repeat renal function in a.m. -Continue outpatient follow-up with nephrology Hyperthyroidism -Diagnosed last admission, TSH is improving -Continue with methimazole -Outpatient follow-up with PCP and endocrinology Diabetes mellitus type 2 with hypoglycemia and hyper -Decrease 70/30 -Continue outpatient follow-up -A1c 7.3 -Continue to follow blood sugars Obesity with BMI 30.3 -Structured outpatient weight loss Chronic anemia, at baseline -CBC -Outpatient follow-up Atrial fibrillation with bradycardia -Continue to hold metoprolol -Telemetry -Cardiology recs -Eliquis Chronic: GERD Anxiety Hyperkalemia, resolved DVT prophylaxis: Abner Discussed with: Patient, nursing Anticipated discharge: in AM Anticipated discharge place: home with home health A total of 35 minutes was spent on the care of this complex patient more than 50% of the time was spent in counseling and care coordination.
[2019-01-03] MEDS ORDERED: INSULN ASP PRT/INSULIN ASPART 100 UNIT/ML 10 ML VIAL SQ SCH (21:00)
[2019-01-03 21:05] LABS: Glucose,Whole Blood 301 mg/dL (75-99)
[2019-01-03] MEDS: LORazepam 0.5 MG TAB PO PRN (21:42)
[2019-01-03] MEDS: SULFAMETHOX-TMP 400-80MG 1 EACH TAB PO SCH (22:25)
[2019-01-04 06:17] VITALS: BP 174/78; TEMP 97.9
[2019-01-04] MEDS ORDERED: INSULN ASP PRT/INSULIN ASPART 100 UNIT/ML 10 ML VIAL SQ SCH (07:30)
[2019-01-04 07:35] LABS: Glucose,Whole Blood 167 mg/dL (75-99)
[2019-01-04 08:15] VITALS: PULSE 71; RESP 20
[2019-01-04] MEDS: INSULIN ASPART (NovoLOG) 100 UNIT/ML VIAL SQ SCH (08:17)
[2019-01-04] MEDS: APIXABAN 5 MG TAB PO SCH (08:17)
[2019-01-04] MEDS: LORATADINE 10 MG TAB PO SCH (08:17)
[2019-01-04] MEDS: ATORVASTATIN 20 MG TAB PO SCH (08:17)
[2019-01-04] MEDS: MAGNESIUM OXIDE 400 MG TAB PO SCH (08:17)
[2019-01-04] MEDS: amLODIPine 5 MG TAB PO SCH (08:17)
[2019-01-04] MEDS: SODIUM BICARBONATE TAB 650 MG TAB PO SCH (08:17)
[2019-01-04] MEDS: PANTOPRAZOLE 40 MG TABLET PO SCH (08:17)
[2019-01-04] MEDS: methylPREDNISolone 4 MG TAB TAPER PO SCH (08:21)
[2019-01-04] MEDS: FLUTICASONE 50MCG/SPRAY NASAL 16GM EA NOSTRIL SCH (08:21)
[2019-01-04] MEDS: TIMOLOL 0.5% OPHTH DROPS 5 ML BTL BOTH EYES SCH (08:22)
[2019-01-04] MEDS: METHIMAZOLE 5 MG TAB PO SCH (08:22)
[2019-01-04] MEDS: SULFAMETHOX-TMP 400-80MG 1 EACH TAB PO SCH (08:22)
[2019-01-04] MEDS ORDERED: POLYETHYLENE GLYCOL 3350 17 GM POWD.PACK PO SCH (09:00)
--- NOTE | 2019-01-04 09:48 | P.DS ---
Providers Date of admission: 12/31/18 12:13 Expected date of discharge: 01/04/19 Attending physician: Daniel Beal MD Consults: 12/31/18 12:13 Consult Physician Routine Consulting Provider: María Amato Consult Reason/Comments: CHF, bradycardia Do you want consulting provider notified?: Yes 12/31/18 14:28 Consult Physician Routine Consulting Provider: Mikala Locke Consult Reason/Comments: kylee Do you want consulting provider notified?: Yes Primary care physician: [facility] Course: Discharge Diagnosis: Acute exacerbation of diastolic congestive heart failure with severe pulmonary hypertension Upper respiratory tract infection Acute kidney injury on chronic kidney disease stage III associated with type IV RTA E. coli urinary tract infection-reviewed patient's outpatient urine culture results which show resistance to both Levaquin and Bactrim she will therefore complete an additional 7 days of Vantin. Hyperthyroidism Diabetes mellitus type 2 with both hypo-and hyperglycemia Obesity with BMI 30.3 Chronic anemia Atrial fibrillation with bradycardia GERD Anxiety Hospital Course: Patient is a 78-year-old female with a past medical history of atrial fibrillation, diabetes mellitus, hypertension, dyslipidemia, diabetes mellitus type 2, and chronic kidney disease stage III who presented to the emergency department with complaints of shortness of breath. In the emergency department she underwent an extensive evaluation. Her vital signs showed bradycardia on arrival with a pulse of 43. Initial laboratory analysis showed her chronic kidney disease at baseline, metabolic acidosis, and slight hyperkalemia with a potassium of 5.2. Her BNP was elevated at 8920. And chest x-ray showed diffuse pleural parenchymal changes consistent with CHF. She was started on diuresis and admitted for further treatment of her CHF. Cardiology was consulted and recommended continuation of her diuretic therapy, and stopping her metoprolol due to bradycardia. She underwent an echocardiogram which showed moderate concentric LVH with ejection fraction 50-55%, and a restrictive LV filling pattern. There is also moderate mitral regurgitation, moderate tricuspid regurgitation, and severe pulmonary hypertension with RVSP 78.65. She started developing an increase in her creatinine with her diuresis. Therefore her diuresis was held. Nephrology was consulted. She was noted to have a type IV RTA secondary to her diabetes and started on sodium bicarb. This corrected her acidosis. Her renal function also improved. She was also noted to have hypoglycemic episodes during hospitalization receiving her home 70/30 dose. On further review patient states she is also been having hypoglycemic episodes at home. Her 7030 was therefore reduced to 10 units twice daily. She'll follow up with Dr. Simmons. She developed some upper respiratory type complaints and was started on Flonase, Claritin, and a Medrol Dosepak. She is determined stable for discharge. She will need follow-up for her hyperthyroidism that was diagnosed last hospital stay. She'll follow up with Dr. Hall in 1-2 days, Dr. Amato in 2 weeks, and Dr. Simmons in 1-2 weeks. She will also follow-up with nephro 1-2 weeks regarding her type IV RTA. She has plans to move to [facility] at the beginning of January. Of note patient had a urinary tract infection prior to hospitalization. Her urinalysis was repeated which showed continued infection. Her outpatient urine culture was reviewed. It is resistant to both Levaquin and Bactrim which she tried as an outpatient. She was prescribed Vantin for an additional 7 days. I do suggest that you repeat her urinalysis once her course of antibiotics has been completed. Patient seen and examined at bedside. No chest pain, still having a slight cough, breathing is much better, back pain is better, no nausea or vomiting. Vital signs reviewed and stable. General: non toxic, no distress, appears at stated age Derm: warm, dry Head: atraumatic, normocephalic, symmetric Eyes: EOMI, no lid lag, anicteric sclera Mouth: no lip lesion, mucus membranes moist Cardiovascular: S1S2 reg, no murmur, positive posterior tibial pulse bilateral, Lungs: CTA bilateral, no rhonchi, no rales , no accessory muscle use Abdominal: soft, nontender to palpation, no guarding, no appreciable organomegaly Ext: no gross muscle atrophy, no edema, no contractures Neuro: CN II-XI grossly intact, no focal neuro deficits Psych: Alert, oriented, appropriate affect A total of 35 minutes of time were spent preparing this complex discharge summary . Pertinent Studies: Echocardiogram-ejection fraction 50-55%, restrictive LV pattern, severe pulmonary hypertension with RVSP 78.65, moderate MR, moderate TR Patient Condition at Discharge: Stable Plan - Discharge Summary Discharge Rx Participant: No New Discharge Prescriptions: New Loratadine [Claritin] 10 mg PO DAILY tab Fluticasone Nasal Stewart [Flonase Nasal Stewart] 2 spray EA NOSTRIL DAILY spr methylPREDNISolone Dose Pack [Medrol Dose Pack] 24 mg PO DAILY #1 pack amLODIPine [Norvasc] 5 mg PO DAILY #30 tab Sodium Bicarbonate Tab 650 mg PO QID #120 tab Cefpodoxime Proxetil [Vantin] 200 mg PO Q12HR #14 tab Continue Simvastatin [Zocor] 40 mg PO DAILY LORazepam [Ativan] 0.5 mg PO HS PRN PRN Reason: Anxiety Timolol [Betimol 0.5% Ophth Soln] 1 drop BOTH EYES DAILY Magnesium 200 mg PO DAILY Pioglitazone HCl [Actos] 15 mg PO DAILY Pantoprazole [Protonix] 40 mg PO BID Apixaban [Eliquis] 5 mg PO BID #60 tab Methimazole [Tapazole] 5 mg PO DAILY #30 tab Changed Insulin NPH Hum/Reg Insulin Hm [NovoLIN 70-30 100 UNIT/ML VIAL] 10 unit SQ QAM #0 Insulin NPH Hum/Reg Insulin Hm [NovoLIN 70-30 100 UNIT/ML VIAL] 10 unit SQ HS #0 Discontinued Metoprolol Tartrate [Lopressor] 50 mg PO BID #60 tab Discharge Medication List Simvastatin [Zocor] 40 mg PO DAILY 11/18/13 [History] LORazepam [Ativan] 0.5 mg PO HS PRN 08/12/16 [History] Timolol [Betimol 0.5% Ophth Soln] 1 drop BOTH EYES DAILY 09/01/16 [History] Magnesium 200 mg PO DAILY 12/06/18 [History] Pantoprazole [Protonix] 40 mg PO BID 12/06/18 [History] Pioglitazone HCl [Actos] 15 mg PO DAILY 12/06/18 [History] Apixaban [Eliquis] 5 mg PO BID #60 tab 12/08/18 [Rx] Methimazole [Tapazole] 5 mg PO DAILY #30 tab 12/08/18 [Rx] Cefpodoxime Proxetil [Vantin] 200 mg PO Q12HR #14 tab 01/04/19 [Rx] Fluticasone Nasal Stewart [Flonase Nasal Stewart] 2 spray EA NOSTRIL DAILY spr 01/04/19 [Rx] Insulin NPH Hum/Reg Insulin Hm [NovoLIN 70-30 100 UNIT/ML VIAL] 10 unit SQ HS #0 01/04/19 [Rx] Insulin NPH Hum/Reg Insulin Hm [NovoLIN 70-30 100 UNIT/ML VIAL] 10 unit SQ QAM # 0 01/04/19 [Rx] Loratadine [Claritin] 10 mg PO DAILY tab 01/04/19 [Rx] Sodium Bicarbonate Tab 650 mg PO QID #120 tab 01/04/19 [Rx] amLODIPine [Norvasc] 5 mg PO DAILY #30 tab 01/04/19 [Rx] methylPREDNISolone Dose Pack [Medrol Dose Pack] 24 mg PO DAILY #1 pack 01/04/19 [Rx] Follow up Appointment(s)/Referral(s): Carlos Hall MD [Primary Care Provider] - 1-2 days
--- NOTE | 2019-01-04 10:49 | P.PN ---
Subjective Patient is seen in follow-up for acute kidney injury and chronic kidney disease. Renal function improved with creatinine at 1.95 as of yesterday. Oral intake is good. Denies chest pain or shortness of breath. Good urine output. Vital signs are stable. General: The patient appeared well nourished and normally developed. HEENT: Head exam is unremarkable. Neck is without jugular venous distension. LUNGS: Lungs are clear to auscultation and percussion. Breath sounds decreased. HEART: Rate and Rhythm are regular. First and second heart sounds normal. No murmurs, rubs or gallops. ABDOMEN: Abdominal exam reveals normal bowel sounds. Non-tender and non- distended. No evidence of peritonitis. EXTREMITITES: No clubbing, cyanosis, or edema. Objective - Vital Signs Vital signs: Vital Signs Temp 97.9 F 01/04/19 06:16 Pulse 71 01/04/19 08:15 Resp 20 01/04/19 08:15 BP 174/78 01/04/19 06:16 Pulse Ox 97 01/04/19 08:15 Intake & Output 01/03/19 01/04/19 01/04/19 18:59 06:59 18:59 Intake Total 720 300 Output Total 1200 Balance -480 300 Intake: Oral 720 300 Output: Urine 1200 Other: Voiding Method Bedside Commode Bedside Commode Incontinent Incontinent # Voids 2 # Bowel Movements 1 - Labs CBC & Chem 7: 01/03/19 05:58 01/03/19 05:58 Labs: Abnormal Lab Results - Last 24 Hours (Table) 01/02/19 01/03/19 01/03/19 Range/Units 05:47 11:56 16:55 POC Glucose (mg/dL) 147 H 262 H (75-99) mg/dL Iron 20 L (50-170) ug/dL Iron Saturation 6.67 L (12.00-45.00) 01/03/19 01/04/19 Range/Units 20:56 07:09 POC Glucose (mg/dL) 301 H 167 H (75-99) mg/dL Iron (50-170) ug/dL Iron Saturation (12.00-45.00) Microbiology - Last 24 Hours (Table) 01/03/19 03:35 Urine Culture - Preliminary Urine,Voided Assessment and Plan Plan: Assessment: 1. Acute kidney injury mostly prerenal secondary to cardiorenal syndrome. Creatinine down to 1.95 as of yesterday. 2. Chronic kidney disease stage III with baseline creatinine in the range of 1.5-1.7 secondary to diabetic kidney disease. 3. Metabolic acidosis secondary to type IV RTA from diabetes. Maintained on oral sodium bicarbonate. 4. Insulin-dependent diabetes mellitus. 5. Hypertension with chronic kidney disease. 6. Diastolic CHF with moderate mitral regurgitation, moderate tricuspid regurgitation and severe pulmonary hypertension. Currently compensated. Plan: Continue to hold off on diuretics at this time. Patient to monitor her weight closely at home. Follow-up outpatient in the next 1-2 weeks.
[2019-01-04 11:33] LABS: Glucose,Whole Blood 138 mg/dL (75-99)
== END 2019-01-04 11:57 | disposition home health service (06) | DRG 291 ==
LOC: EC 09:59 → 3SCARD 12:13 → 4MS4W 01-03 17:54 → 3SCARD 01-03 17:55 → 4MS4W 01-03 19:28
PROVIDERS: ADMIT Internal Medicine; ATTEND Internal Medicine
DX: I13.0 Hypertensive heart and chronic kidney disease with heart failure and stage 1 through stage 4 chronic kidney disease, or unspecified chronic kidney disease (principal); I50.33 Acute on chronic diastolic (congestive) heart failure; E87.2 Acidosis; J44.1 Chronic obstructive pulmonary disease with (acute) exacerbation; N17.9 Acute kidney failure, unspecified; N39.0 Urinary tract infection, site not specified; D63.1 Anemia in chronic kidney disease; E05.90 Thyrotoxicosis, unspecified without thyrotoxic crisis or storm; E11.22 Type 2 diabetes mellitus with diabetic chronic kidney disease; E11.649 Type 2 diabetes mellitus with hypoglycemia without coma; E11.65 Type 2 diabetes mellitus with hyperglycemia; E66.9 Obesity, unspecified; E78.5 Hyperlipidemia, unspecified; E87.5 Hyperkalemia; F32.9 Major depressive disorder, single episode, unspecified; F41.9 Anxiety disorder, unspecified; H40.9 Unspecified glaucoma; I08.1 Rheumatic disorders of both mitral and tricuspid valves; I27.20 Pulmonary hypertension, unspecified; I48.0 Paroxysmal atrial fibrillation; J06.9 Acute upper respiratory infection, unspecified; K21.9 Gastro-esophageal reflux disease without esophagitis; N18.3 Chronic kidney disease, stage 3 (moderate); N25.89 Other disorders resulting from impaired renal tubular function; B96.20 Unspecified Escherichia coli [E. coli] as the cause of diseases classified elsewhere; Z68.30 Body mass index [BMI] 30.0-30.9, adult; Z79.01 Long term (current) use of anticoagulants; Z79.4 Long term (current) use of insulin; Z79.899 Other long term (current) drug therapy; Z80.1 Family history of malignant neoplasm of trachea, bronchus and lung; Z80.49 Family history of malignant neoplasm of other genital organs; Z87.891 Personal history of nicotine dependence; Z83.2 Family history of diseases of the blood and blood-forming organs and certain disorders involving the immune mechanism; G89.29 Other chronic pain; M25.511 Pain in right shoulder; K44.9 Diaphragmatic hernia without obstruction or gangrene; Z90.49 Acquired absence of other specified parts of digestive tract; F40.240 Claustrophobia; Z16.23 Resistance to quinolones and fluoroquinolones; Z16.29 Resistance to other single specified antibiotic
CPT/HCPCS: 36415; 71046; 80053; 81001; 82550; 83036; 83540; 83550; 83735; 83880; 84439; 84443; 84484; 85025; 85610; 85730; 87077; 87086; 87186; 93005; 93306; 94640; 96361; 96374; 96375; 99291

== ENCOUNTER → 2019-03-07 | Outpatient (CLI) | payer MEDICARE ==
--- NOTE | 2019-03-09 09:02 | MM ---
Reason for exam: screening (asymptomatic). Last mammogram was performed 1 year and 11 months ago. History: Patient is postmenopausal. Benign US left guided VAD of the left breast, August 17, 2009. Took estrogen for 10 years beginning at age 54. Physical Findings: A clinical breast exam by your physician is recommended on an annual basis and results should be correlated with mammographic findings. MG 3D Screening Mammo W/Cad Bilateral CC and MLO view(s) were taken. Prior study comparison: March 24, 2017, bilateral MG 3d screening mammo w/cad. February 28, 2016, bilateral MG 3d screening mammo w/cad. There are scattered fibroglandular densities. Previous mammotome biopsy in the left breast. No significant changes when compared with prior studies. ASSESSMENT: Negative, BI-RAD 1 RECOMMENDATION: Routine screening mammogram of both breasts in 1 year.
== END | disposition home or self-care (01) ==
LOC: RADMAMWWP 14:50
PROVIDERS: ATTEND Obstetrics & Gynecology
DX: Z12.31 Encounter for screening mammogram for malignant neoplasm of breast (principal)
CPT/HCPCS: 77063; 77067

== ENCOUNTER 2019-03-13 14:08 | Inpatient (IN) | payer MEDICARE ==
[2019-03-13 14:28] LABS: Glucose,Whole Blood 251 mg/dL (75-99)
[2019-03-13] MEDS ORDERED: SODIUM CHLORIDE 0.9% 1,000 ML IV STA (14:42)
[2019-03-13] MEDS ORDERED: ATROPINE SULFATE 0.1 MG/ML 10ML SYRINGE IV STA (14:43)
--- NOTE | 2019-03-13 14:46 | ED ---
Syncope HPI - General Chief Complaint: Syncope Stated Complaint: Dizziness Time Seen by Provider: 03/13/19 14:12 Source: patient, EMS, RN notes reviewed, old records reviewed Mode of arrival: EMS - History of Present Illness Initial Comments: This is an 79-year-old female to the ER for evaluation. Patient is today for evaluation of syncopal event. Patient states she feels lightheaded and weak. She feels near syncopal currently here. Patient denies headache chest pain shor tness of breath or abdominal pain. A she does not believe she fully lost consciousness. Patient has history of heart disease atrial fibrillation. No recent change in medications MD Complaint: loss of consciousness, felt faint, almost passed out -: hour(s) Prodromal Symptoms: none -: second(s) Witnessed: yes - by bystander Injuries Sustained Associated with Event: None Current Symptoms: lightheaded, weakness History: previous syncopal episode Context: during exertion Treatments Prior to Arrival: none - Related Data Home Medications Medication Instructions Recorded Confirmed Simvastatin [Zocor] 40 mg PO DAILY 11/18/13 03/13/19 LORazepam [Ativan] 0.5 mg PO HS PRN 08/12/16 03/13/19 Timolol [Betimol 0.5% Ophth Soln] 1 drop BOTH EYES DAILY 09/01/16 03/13/19 Magnesium 200 mg PO DAILY 12/06/18 03/13/19 Pantoprazole [Protonix] 40 mg PO BID 12/06/18 03/13/19 Pioglitazone HCl [Actos] 15 mg PO DAILY 12/06/18 03/13/19 Diltiazem HCl [Diltiazem ER] 240 mg PO DAILY 03/13/19 03/13/19 Insulin NPH Hum/Reg Insulin Hm 10 unit SQ BID 03/13/19 03/13/19 [NovoLIN 70-30 100 UNIT/ML VIAL] Spironolactone 25 mg PO DAILY 03/13/19 03/13/19 Previous Rx's Medication Instructions Recorded Apixaban [Eliquis] 5 mg PO BID #60 tab 12/08/18 Methimazole [Tapazole] 5 mg PO DAILY #30 tab 12/08/18 Sodium Bicarbonate Tab 650 mg PO QID #120 tab 01/04/19 Allergies Allergy/AdvReac Type Severity Reaction Status Date / Time latex Allergy Rash/Hives Verified 03/13/19 14:15 Review of Systems ROS Statement: Those systems with pertinent positive or pertinent negative responses have been documented in the HPI. ROS Other: All systems not noted in ROS Statement are negative. Past Medical History Past Medical History: Atrial Fibrillation, Diabetes Mellitus, Eye Disorder, GERD/Reflux, Hyperlipidemia, Hypertension, Osteoarthritis (OA), Renal Disease, Thyroid Disorder Additional Past Medical History / Comment(s): Pt admitted on 12/06/18 with new onset afib/hyperthyroidism/MARISOL/hyperkalemia/hypomagnesemia/echo was 55-60%. 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 History of Any Multi-Drug Resistant Organisms: None Reported Past Surgical History: Cholecystectomy, Heart Catheterization, Tonsillectomy, Tubal Ligation Additional Past Surgical History / Comment(s): EGD with bx 08/15/16, 10/2009 cardiac cath-normal, bilateral cataract removal, bilateral eye surgery for glaucoma, colonoscopy. Past Anesthesia/Blood Transfusion Reactions: No Reported Reaction Additional Past Anesthesia/Blood Transfusion Reaction / Comment(s): Pt has clausterphobia. Past Psychological History: Anxiety, Depression Smoking Status: Former smoker Past Alcohol Use History: None Reported Past Drug Use History: None Reported - Past Family History Father Family Medical History: Cancer Additional Family Medical History / Comment(s): Father at the age of 81 yrs of lung cancer. He was a smoker. Mother Family Medical History: Cancer Additional Family Medical History / Comment(s): Mother had cervical cancer. She at the age of 53 from her lupus. General Exam General appearance: alert, in no apparent distress Head exam: Present: atraumatic, normocephalic, normal inspection Eye exam: Present: normal appearance, PERRL, EOMI. Absent: scleral icterus, conjunctival injection, periorbital swelling ENT exam: Present: normal exam, mucous membranes moist Neck exam: Present: normal inspection. Absent: tenderness, meningismus, lymphadenopathy Respiratory exam: Present: normal lung sounds bilaterally. Absent: respiratory distress, wheezes, rales, rhonchi, stridor Cardiovascular Exam: Present: bradycardia, normal heart sounds. Absent: systolic murmur, diastolic murmur, rubs, gallop, clicks GI/Abdominal exam: Present: soft, normal bowel sounds. Absent: distended, tenderness, guarding, rebound, rigid Extremities exam: Present: normal inspection, full ROM, normal capillary refill. Absent: tenderness, pedal edema, joint swelling, calf tenderness Back exam: Present: normal inspection Neurological exam: Present: alert, oriented X3, CN II-XII intact Psychiatric exam: Present: normal affect, normal mood Skin exam: Present: warm, dry, intact, normal color. Absent: rash Course Vital Signs 03/13/19 03/13/19 03/13/19 14:14 14:45 15:00 Temperature 97.7 F Pulse Rate 41 L 42 L 60 Respiratory 20 18 18 Rate Blood Pressure 122/54 124/72 122/62 O2 Sat by Pulse 98 95 97 Oximetry - Reevaluation(s) Reevaluation #1: 03/13/19 15:35 Medical record is reviewed does have history of A. fib does also have history of bradycardia Reevaluation #2: 03/13/19 15:35 Patient's bradycardia did respond to atropine from the low 40s to 60 Reevaluation #3: 03/13/19 15:35 Recurrent syncopal episode here in the ER - Consultations Consultation #1: Dulce Sargent EKG Findings - EKG Comments: EKG Findings:: EKG shows sinus bradycardia rate of 40, KS 140, QRS 86, QTc 397 Medical Decision Making - Medical Decision Making 79-year-old female the ER for evaluation history of heart disease, we'll hold all rate lowering Medications. Patient is to be admitted for syncopal event bradycardia or near syncopal event bradycardia. Patient has no complaints of pain. We'll treat elevated potassium - Lab Data Result diagrams: 03/13/19 14:29 03/13/19 14:29 Lab Results 03/13/19 03/13/19 03/13/19 Range/Units 14:26 14:29 14:29 WBC 12.8 H (3.8-10.6) k/uL RBC 6.78 H (3.80-5.40) m/uL Hgb 13.8 (11.4-16.0) gm/dL Hct 45.8 (34.0-46.0) % MCV 67.6 L (80.0-100.0) fL MCH 20.3 L (25.0-35.0) pg MCHC 30.1 L (31.0-37.0) g/dL RDW 17.3 H (11.5-15.5) % Plt Count 285 (150-450) k/uL Neutrophils % 62 % Lymphocytes % 29 % Monocytes % 5 % Eosinophils % 2 % Basophils % 1 % Neutrophils # 7.9 H (1.3-7.7) k/uL Lymphocytes # 3.7 (1.0-4.8) k/uL Monocytes # 0.7 (0-1.0) k/uL Eosinophils # 0.3 (0-0.7) k/uL Basophils # 0.1 (0-0.2) k/uL Hypochromasia Moderate Anisocytosis Slight Microcytosis Marked PT (9.0-12.0) sec INR (<1.2) APTT (22.0-30.0) sec Sodium 133 L (137-145) mmol/L Potassium 5.9 H (3.5-5.1) mmol/L Chloride 99 (98-107) mmol/L Carbon Dioxide 22 (22-30) mmol/L Anion Gap 12 mmol/L BUN 70 H (7-17) mg/dL Creatinine 1.67 H (0.52-1.04) mg/dL Est GFR (CKD-EPI)AfAm 33 (>60 ml/min/1.73 sqM) Est GFR (CKD-EPI)NonAf 29 (>60 ml/min/1.73 sqM) Glucose 277 H (74-99) mg/dL POC Glucose (mg/dL) 251 H (75-99) mg/dL POC Glu Dark Room Attendant ID Shannon Gutiérrez Plasma Lactic Acid Ronaldo (0.7-2.0) mmol/L Calcium 9.9 (8.4-10.2) mg/dL Phosphorus 4.3 (2.5-4.5) mg/dL Magnesium 1.5 L (1.6-2.3) mg/dL Total Bilirubin 1.0 (0.2-1.3) mg/dL AST 28 (14-36) U/L ALT 15 (9-52) U/L Alkaline Phosphatase 121 (38-126) U/L Creatine Kinase 29 L (30-135) U/L NT-Pro-B Natriuret Pep pg/mL Total Protein 7.9 (6.3-8.2) g/dL Albumin 4.3 (3.5-5.0) g/dL TSH 6.890 H (0.465-4.680) mIU/L 03/13/19 03/13/19 03/13/19 Range/Units 14:29 14:29 14:29 WBC (3.8-10.6) k/uL RBC (3.80-5.40) m/uL Hgb (11.4-16.0) gm/dL Hct (34.0-46.0) % MCV (80.0-100.0) fL MCH (25.0-35.0) pg MCHC (31.0-37.0) g/dL RDW (11.5-15.5) % Plt Count (150-450) k/uL Neutrophils % % Lymphocytes % % Monocytes % % Eosinophils % % Basophils % % Neutrophils # (1.3-7.7) k/uL Lymphocytes # (1.0-4.8) k/uL Monocytes # (0-1.0) k/uL Eosinophils # (0-0.7) k/uL Basophils # (0-0.2) k/uL Hypochromasia Anisocytosis Microcytosis PT 12.5 H (9.0-12.0) sec INR 1.2 H (<1.2) APTT 23.5 (22.0-30.0) sec Sodium (137-145) mmol/L Potassium (3.5-5.1) mmol/L Chloride (98-107) mmol/L Carbon Dioxide (22-30) mmol/L Anion Gap mmol/L BUN (7-17) mg/dL Creatinine (0.52-1.04) mg/dL Est GFR (CKD-EPI)AfAm (>60 ml/min/1.73 sqM) Est GFR (CKD-EPI)NonAf (>60 ml/min/1.73 sqM) Glucose (74-99) mg/dL POC Glucose (mg/dL) (75-99) mg/dL POC Glu Dark Room Attendant ID Plasma Lactic Acid Ronaldo 2.2 H* (0.7-2.0) mmol/L Calcium (8.4-10.2) mg/dL Phosphorus (2.5-4.5) mg/dL Magnesium (1.6-2.3) mg/dL Total Bilirubin (0.2-1.3) mg/dL AST (14-36) U/L ALT (9-52) U/L Alkaline Phosphatase (38-126) U/L Creatine Kinase (30-135) U/L NT-Pro-B Natriuret Pep 2180 pg/mL Total Protein (6.3-8.2) g/dL Albumin (3.5-5.0) g/dL TSH (0.465-4.680) mIU/L - Radiology Data Radiology results: report reviewed (Chest x-rays negative for acute disease), image reviewed Critical Care Time Critical Care Time: Yes Total Critical Care Time: 31 Disposition Clinical Impression: Bradycardia, Syncope Disposition: ADMITTED IP TO THIS [facility] Condition: Serious Is patient prescribed a controlled substance at d/c from ED?: No Referrals: Carlos Hall MD [Primary Care Provider] - 1-2 days
[2019-03-13 14:51] LABS: Anisocytosis Slight; Basophils # (A) 0.1 k/uL (0-0.2); Basophils % (A) 1 %; Eosinophils # (A) 0.3 k/uL (0-0.7); Eosinophils % (A) 2 %; HCT 45.8 % (34.0-46.0); HGB 13.8 gm/dL (11.4-16.0); Hypochromasia Moderate; Lymphocytes # (A) 3.7 k/uL (1.0-4.8); Lymphocytes % (A) 29 %; MCH 20.3 pg (25.0-35.0); MCHC 30.1 g/dL (31.0-37.0); MCV 67.6 fL (80.0-100.0); Mean Platelet Volume 6.6; Microcytosis Marked; Monocytes # (A) 0.7 k/uL (0-1.0); Monocytes % (A) 5 %; Neutrophils # (A) 7.9 k/uL (1.3-7.7); Neutrophils % (A) 62 %; Platelet Count 285 k/uL (150-450); RBC 6.78 m/uL (3.80-5.40); RDW 17.3 % (11.5-15.5); WBC 12.8 k/uL (3.8-10.6)
[2019-03-13 15:00] LABS: INR 1.2 (<1.2); Partial Thromboplastin Time 23.5 sec (22.0-30.0); Prothrombin Time 12.5 sec (9.0-12.0)
[2019-03-13 15:01] LABS: Albumin 4.3 g/dL (3.5-5.0); Calcium 9.9 mg/dL (8.4-10.2); Phosphorus 4.3 mg/dL (2.5-4.5); Total Protein 7.9 g/dL (6.3-8.2)
[2019-03-13 15:03] LABS: Magnesium 1.5 mg/dL (1.6-2.3); Potassium 5.9 mmol/L (3.5-5.1)
--- NOTE | 2019-03-13 15:07 | XR ---
EXAMINATION TYPE: XR chest 2V DATE OF EXAM: 03/13/2019 COMPARISON: 01/03/2019 HISTORY: Weakness short of breath TECHNIQUE: Frontal and lateral views of the chest are obtained. FINDINGS: Heart is enlarged. There is small linear density in the left midlung. There is no heart fa ilure. There are chest leads. Trachea is midline. There is no pleural effusion. IMPRESSION: Cardiomegaly. Subsegmental atelectasis in the left lower lobe. No heart failure. There i s clearing of the mild pulmonary congestion compared to old exam.
[2019-03-13] MEDS ORDERED: ASPIRIN 81 MG PO STA (15:30)
[2019-03-13] MEDS ORDERED: NITROGLYCERIN SL TABS 0.4 MG TAB SUBLINGUAL PRN (15:30)
[2019-03-13] MEDS ORDERED: SODIUM POLYSTYRENE SULFONATE 15 GM/60 ML BOTTLE PO STA (15:42)
[2019-03-13] MEDS ORDERED: DEXTROSE 50% SYRINGE 50 ML IVP STA (15:42)
[2019-03-13] MEDS ORDERED: INSULIN REGULAR 100 UNIT/ML VIAL IV ONE (15:42)
[2019-03-13] MEDS ORDERED: CALCIUM GLUCONATE 1 GM in SODIUM CHLORIDE 0.9% 100 ML IVPB ONE (15:42)
[2019-03-13] MEDS ORDERED: SODIUM BICARB 8.4% 50 ML SYR (1 MEQ/ML) IV STA (15:42)
[2019-03-13 15:47] LABS: Appearance,Urine Clear (Clear); Bacteria,Urine Few /hpf; Bilirubin,Urine Negative (Negative); Blood,Urine Negative (Negative); Color,Urine Light Yellow; Glucose,Urine (UA) Negative (Negative); Hyaline Casts,Urine 11 /lpf (0-2); Ketones,Urine Negative (Negative); Leukocyte Esterase,Urine Trace (Negative); Mucus,Urine Rare /hpf; Nitrite,Urine Negative (Negative); Protein,Urine Negative (Negative); RBC,Urine <1 /hpf (0-5); Specific Gravity,Urine 1.008 (1.001-1.035); Squamous Epithelial Cell,Urine <1 /hpf (0-4); Urobilinogen,Urine <2.0 mg/dL (<2.0); WBC,Urine 2 /hpf (0-5)
[2019-03-13] MEDS ORDERED: DEXTROSE 10 % IN WATER 250 ML IV ONE (16:00)
[2019-03-13] MEDS: SODIUM CHLORIDE 0.9% 1,000 ML IV SCH (16:52)
[2019-03-13] MEDS ORDERED: NALOXONE 0.4 MG/ML 1 ML VIAL IV PRN (16:55)
[2019-03-13] MEDS ORDERED: BISACODYL 5 MG TABLET.DR PO PRN (16:55)
[2019-03-13] MEDS ORDERED: ONDANSETRON 4 MG/2 ML VIAL IVP PRN (16:55)
[2019-03-13] MEDS ORDERED: ACETAMINOPHEN TAB 325 MG TAB PO PRN (16:55)
--- NOTE | 2019-03-13 17:07 | P.HPIM ---
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 She had been eating lunch at her independent living and started feeling faint and as though she would pass out. In the ER she underwent an extensive evaluation. On arrival her vital sig ns were within normal limits. Initial laboratory analysis showed an elevated white blood cell count 12.8, INR 1.2, sodium 133, potassium 5.9, creatinine 1.67. BNP was slightly elevated at 2180 however is lower than her normal, troponin was negative, TSH was 6.89. Initial urinalysis was negative. EKG demonstrated sinus bradycardia. She was found have a heart rate in the 40s and given 1 dose of atropine with increase of heart rate to the 60s. She was given treatment for her hyperkalemia with insulin, glucose, calcium gluconate, and kayexelate. She'll be admitted for further management of her presyncope and sinus bradycardia. Patient seen and examined at bedside in the emergency department. She appears very distraught. She feels. Confused about what medications to take and how to take them. She states she has been struggling with extreme fatigue over the last several months. She's been sleeping 12-15 hours a day. She reports that today she went down and ate lunch. She then became clammy, woozy, and felt as though she would pass out. She denies any true loss of consciousness. She states that when she left the hospital in December she was taking NovoLog 70/30 10 units in the morning and 10 at night. She then noted blood sugars in the 500s and called Dr. Simmons's office. She was told to take 40 units in the morning and 30 units at night. This was her first dose of 40 units prior to lunch. She has chronic shortness of breath with exertion which is unchanged. She reports that her appetite has been intact and she has been eating and drinking well. She does report that she is still having bowel movements daily although feels harder to have bowel movement. On her last admission in December 2018 she was found have sinus bradycardia at that point in time she was taken off of metoprolol and started on Norvasc. She reports following with cardiology and starting on diltiazem. She is unsure why this was changed. She does state she was having increased shortness of breath with exertion at that time. She is also unsure why she is on spironolactone. However she is able to tell me she was having some increased lower extremity edema, and logically that makes sense to have added spironolactone. She went that she is due to see Dr. Simmons March 30. She was seen very confused about her medications after they have all changed recently. She denies having home health care nurse come out. She would be interested in having a home health care nurse. She states she does have a living will or advanced directive. It Says not to proceed with things like CPR or intubation should there be no hope of recovery. At this point in time she would like to proceed with CPR or intubation for the short-term. If she was unable to come of the vent or regain significant function she would not want to be kept alive long-term on machines Review of Systems Pertinent positives and negatives as discussed in HPI, a complete review of systems was performed and all other systems are negative. Past Medical History Past Medical History: Atrial Fibrillation, Diabetes Mellitus, Eye Disorder, GERD/Reflux, Hyperlipidemia, Hypertension, Osteoarthritis (OA), Renal Disease, Thyroid Disorder Additional Past Medical History / Comment(s): afib/hyperthyroidism/echo was 55- 60%. Idiopathic pancreatitis, esophagitis, gastritis, hiatal hernia, IDDM type II, CKD stage III, possible vasospastic angina, sinus problems, arthritis in back, chronic R shoulder pain since fall/fracture, prone to UTIs, bilateral glaucoma with surgery. Severe pulmonary hypertension, hyperthyroidism. Type IV renal tubular acidosis. Chronic anemia. History of Any Multi-Drug Resistant Organisms: None Reported Past Surgical History: Cholecystectomy, Heart Catheterization, Tonsillectomy, Tubal Ligation Additional Past Surgical History / Comment(s): EGD with bx 08/15/16, 10/2009 cardiac cath-normal, bilateral cataract removal, bilateral eye surgery for glaucoma, colonoscopy. Past Anesthesia/Blood Transfusion Reactions: No Reported Reaction Additional Past Anesthesia/Blood Transfusion Reaction / Comment(s): Pt has clausterphobia. Past Psychological History: Anxiety, Depression Smoking Status: Former smoker Past Alcohol Use History: None Reported Past Drug Use History: None Reported Additional History: Lives at [facility]. Shee uses a cane or walker for long distances. - Past Family History Father Family Medical History: Cancer Additional Family Medical History / Comment(s): Father at the age of 81 yrs of lung cancer. He was a smoker. Mother Family Medical History: Cancer Additional Family Medical History / Comment(s): Mother had cervical cancer. She at the age of 53 from her lupus. Medications and Allergies Home Medications Medication Instructions Recorded Confirmed Type Simvastatin [Zocor] 40 mg PO DAILY 11/18/13 03/13/19 History LORazepam [Ativan] 0.5 mg PO HS PRN 08/12/16 03/13/19 History Timolol [Betimol 0.5% Ophth Soln] 1 drop BOTH EYES DAILY 09/01/16 03/13/19 History Magnesium 200 mg PO DAILY 12/06/18 03/13/19 History Pantoprazole [Protonix] 40 mg PO BID 12/06/18 03/13/19 History Pioglitazone HCl [Actos] 15 mg PO DAILY 12/06/18 03/13/19 History Methimazole [Tapazole] 5 mg PO DAILY #30 tab 12/08/18 03/13/19 Rx Sodium Bicarbonate Tab 650 mg PO QID #120 tab 01/04/19 03/13/19 Rx Diltiazem HCl [Diltiazem ER] 240 mg PO DAILY 03/13/19 03/13/19 History Furosemide [Lasix] 40 mg PO DAILY 03/13/19 03/13/19 History Insulin NPH Hum/Reg Insulin Hm 10 unit SQ BID 03/13/19 03/13/19 History [NovoLIN 70-30 100 UNIT/ML VIAL] Spironolactone 25 mg PO DAILY 03/13/19 03/13/19 History Warfarin [Coumadin] 2.5 mg PO HS 03/13/19 03/13/19 History Allergies Allergy/AdvReac Type Severity Reaction Status Date / Time latex Allergy Rash/Hives Verified 03/13/19 14:15 Physical Exam Osteopathic Statement: *. No significant issues noted on an osteopathic structural exam other than those noted in the History and Physical/Consult. Vitals: Vital Signs Temp Pulse Resp BP Pulse Ox 03/13/19 15:58 97.7 F 50 L 18 129/79 98 03/13/19 15:49 50 L 18 129/79 98 03/13/19 15:00 60 18 122/62 97 03/13/19 14:45 42 L 18 124/72 95 03/13/19 14:14 97.7 F 41 L 20 122/54 98 Intake and Output 03/13/19 03/13/19 03/13/19 06:59 14:59 22:59 Other: Weight 77.111 kg General: non toxic, no distress, appears older than stated age, Obese Derm: no unusual rashes/lesions no unusual ecchymoses, warm, dry Head: atraumatic, normocephalic, symmetric Eyes: EOMI, no lid lag, anicteric sclera, pupils equal round reactive to light ENT: Nose and ears atraumatic, no thrush, no pharyngeal erythema Neck: No thyromegaly, no cervical lymphadenopathy, trachea midline, supple Mouth: no lip lesion, mucus membranes moist Cardiovascular: S1S2 irreg, no murmur, positive posterior tibial pulse bilateral, trace edema, capillary refill less than 2 seconds Lungs: Decreased bilateral, no rhonchi, no rales , no accessory muscle use Abdominal: soft, nontender to palpation, no guarding, no appreciable organomegaly, normal bowel sounds Ext: no gross muscle atrophy, muscle strength 5 out of 5 in all 4 extremities grossly, no contractures, Neuro: CN II-XI grossly intact, light touch intact all 4 extremities, finger to nose within normal limits, Psych: Alert, oriented, appropriate affect Results CBC & Chem 7: 03/13/19 14:29 03/13/19 14:29 Labs: Abnormal Lab Results - Last 24 Hours (Table) 03/13/19 03/13/19 03/13/19 Range/Units 14:26 14:29 14:29 WBC 12.8 H (3.8-10.6) k/uL RBC 6.78 H (3.80-5.40) m/uL MCV 67.6 L (80.0-100.0) fL MCH 20.3 L (25.0-35.0) pg MCHC 30.1 L (31.0-37.0) g/dL RDW 17.3 H (11.5-15.5) % Neutrophils # 7.9 H (1.3-7.7) k/uL PT (9.0-12.0) sec INR (<1.2) Sodium 133 L (137-145) mmol/L Potassium 5.9 H (3.5-5.1) mmol/L BUN 70 H (7-17) mg/dL Creatinine 1.67 H (0.52-1.04) mg/dL Glucose 277 H (74-99) mg/dL POC Glucose (mg/dL) 251 H (75-99) mg/dL Plasma Lactic Acid Ronaldo (0.7-2.0) mmol/L Magnesium 1.5 L (1.6-2.3) mg/dL Creatine Kinase 29 L (30-135) U/L TSH 6.890 H (0.465-4.680) mIU/L Ur Leukocyte Esterase (Negative) Urine Bacteria (None) /hpf Hyaline Casts (0-2) /lpf Urine Mucus (None) /hpf 03/13/19 03/13/19 03/13/19 Range/Units 14:29 14:29 Unknown WBC (3.8-10.6) k/uL RBC (3.80-5.40) m/uL MCV (80.0-100.0) fL MCH (25.0-35.0) pg MCHC (31.0-37.0) g/dL RDW (11.5-15.5) % Neutrophils # (1.3-7.7) k/uL PT 12.5 H (9.0-12.0) sec INR 1.2 H (<1.2) Sodium (137-145) mmol/L Potassium (3.5-5.1) mmol/L BUN (7-17) mg/dL Creatinine (0.52-1.04) mg/dL Glucose (74-99) mg/dL POC Glucose (mg/dL) (75-99) mg/dL Plasma Lactic Acid Ronaldo 2.2 H* (0.7-2.0) mmol/L Magnesium (1.6-2.3) mg/dL Creatine Kinase (30-135) U/L TSH (0.465-4.680) mIU/L Ur Leukocyte Esterase Trace H (Negative) Urine Bacteria Few H (None) /hpf Hyaline Casts 11 H (0-2) /lpf Urine Mucus Rare H (None) /hpf Chest x-ray: report reviewed Thrombosis Risk Factor Assmnt - DVT/VTE Prophylaxis DVT/VTE Prophylaxis: Pharmacologic Prophylaxis ordered Assessment and Plan Assessment: Symptomatic bradycardia with hx of A fib - s/p atropine - follow tele - hold Diltiazem - cardio consult Sub therapeutic coumadin coagulopathy - coumadin 5 tonight - coumadin dosing per pharmacy Hyperkalemia, suspect medication induced on top of chronic kidney disease stage IV and type IV RTA -Hold spironolactone -In the emergency department received insulin, glucose, calcium, and Kayexalate -Repeat a 1999 -Consult nephrology -Gentle IV fluids -Continue with sodium bicarb Elevated lactic acid -Undetermined etiology Hypomagnesemia -Replace cautiously and recheck Leukocytosis, undetermined etiology -No signs of infection on chest x-ray or urinalysis -Repeat CBC in a.m., likely stress-induced DM 2 with hyperglycemia - BS at home had been in 500 then after lunch today 150 could have been symptomatic relative hypoglycemia - 70/30 10 units BID - SSI - Follow BS - Check A1c - Will need quick follow up with Dr. Simmons - hold actos Hyperthyroidism - TSH now high - hold methamizole - needs follow-up with Dr. Simmons Compensated diastolic CHF - continue Lasix , hold spironolactone - Not chronically on beta romario or WENDI inhibitor at this point in time will not start -Strict I's and O's -Daily weights Chronic: Severe pulmonary hypertension Esophagitis Chronic anemia Anxiety History of idiopathic pancreatitis The patient is admitted with an anticipated greater than 2 midnight stay for evaluation of pre-syncope and hyperkalemia. Surrogate decision-maker: Brother - Vinny CODE STATUS:Full, no extermination supervisor vent DVT prophylaxis: coumadin Discussed with: Patient, ed physician, nursing Anticipated discharge date: 2-[address]: home with home health A total of 65 minutes was spent on the care of this complex patient more than 50% of the time was spent in counseling and care coordination.
[2019-03-13 17:15] LABS: Glucose,Whole Blood 103 mg/dL (75-99)
[2019-03-13] MEDS: SODIUM BICARBONATE TAB 650 MG TAB PO SCH ×2 (17:29→20:33)
[2019-03-13] MEDS: INSULIN ASPART (NovoLOG) 100 UNIT/ML VIAL SQ SCH ×2 (17:29→20:33)
[2019-03-13] MEDS: PANTOPRAZOLE 40 MG TABLET PO SCH (17:29)
[2019-03-13] MEDS: LORazepam 0.5 MG TAB PO PRN (17:45)
[2019-03-13] MEDS ORDERED: WARFARIN 5 MG TAB PO ONE (18:00)
[2019-03-13 20:27] LABS: Glucose,Whole Blood 156 mg/dL (75-99)
[2019-03-13] MEDS: INSULN ASP PRT/INSULIN ASPART 100 UNIT/ML 10 ML VIAL SQ SCH (20:34)
[2019-03-13 21:26] LABS: Calcium 9.4 mg/dL (8.4-10.2); Potassium 4.7 mmol/L (3.5-5.1)
[2019-03-13] MEDS: MELATONIN 3 MG TABLET PO PRN (23:38)
[2019-03-14 03:06] LABS: INR 1.2 (<1.2); Prothrombin Time 12.6 sec (9.0-12.0)
[2019-03-14 03:10] LABS: Anisocytosis Slight; HGB 12.2 gm/dL (11.4-16.0); Hypochromasia Slight; MCH 20.8 pg (25.0-35.0); MCHC 31.2 g/dL (31.0-37.0); MCV 66.6 fL (80.0-100.0); Mean Platelet Volume 6.6; Microcytosis Marked; Platelet Count 224 k/uL (150-450); RBC 5.86 m/uL (3.80-5.40); RDW 17.4 % (11.5-15.5); WBC 11.4 k/uL (3.8-10.6)
[2019-03-14 04:17] LABS: Magnesium 1.5 mg/dL (1.6-2.3); Potassium 5.2 mmol/L (3.5-5.1)
[2019-03-14 06:41] LABS: Glucose,Whole Blood 122 mg/dL (75-99)
[2019-03-14] MEDS: INSULIN ASPART (NovoLOG) 100 UNIT/ML VIAL SQ SCH ×4 (06:53→21:02)
[2019-03-14] MEDS: PANTOPRAZOLE 40 MG TABLET PO SCH ×2 (06:54→18:15)
[2019-03-14] MEDS: MAGNESIUM OXIDE 400 MG TAB PO SCH (09:17)
[2019-03-14] MEDS: SODIUM BICARBONATE TAB 650 MG TAB PO SCH ×4 (09:17→21:02)
[2019-03-14] MEDS: ASPIRIN 325 MG TAB PO SCH (09:17)
[2019-03-14] MEDS: ATORVASTATIN 20 MG TAB PO SCH (09:17)
[2019-03-14] MEDS: FUROSEMIDE 40 MG TAB PO SCH (09:17)
[2019-03-14] MEDS: INSULN ASP PRT/INSULIN ASPART 100 UNIT/ML 10 ML VIAL SQ SCH ×2 (09:17→21:02)
[2019-03-14] MEDS: TIMOLOL 0.5% OPHTH DROPS 5 ML BTL BOTH EYES SCH (09:18)
--- NOTE | 2019-03-14 09:49 | P.CRDCN ---
History of Present Illness Consult date: 03/14/19 History of present illness: This is a 79-year-old female with history of of paroxysmal atrial fibrillation with episodes of bradycardia, hypothyroidism, and chronic kidney disease and also diabetes and diastolic CHF. Patient was on Cardizem for control of her atrial fibrillation. Apparently she was also getting diuretics including Aldactone. Patient is admitted to the hospital with an episode of dizziness and near syncope. In the emergency room patient was found to be bradycardic with heart rates in the 40s and sinus bradycardia. Patient was given atropine. She was also found to have high potassium with in the range of 5.9. Patient was given Kayoxalate and other measures to bring the potassium down. She is complaining of extreme tiredness. Her heart rate is in the 60s today and his blood pressure is stable. Denies any chest pain or shortness of breath. She wants to go home. Because of recurrent episodes of bradycardia and known atrial fibrillation with rapid ventricular response which is paroxysmal, patient is advised to have permanent pacemaker implantation. Patient is agreeable and we're planning to do the pacemaker tomorrow. Meanwhile we'll keep her off the Cardizem and also Aldactone and WENDI inhibitor . Continue with the Lasix, Lipi tor and aspirin. Her INR was only 1.2 on admission. She was supposed to be on Coumadin. We'll plan to put her on heparin and discontinue 4 hours prior to the procedure. In the long run, patient may be better being on Eliquis. Review of Systems As per the chart Past Medical History Past Medical History: Atrial Fibrillation, Diabetes Mellitus, Eye Disorder, GERD/Reflux, Hyperlipidemia, Hypertension, Osteoarthritis (OA), Renal Disease, Thyroid Disorder Additional Past Medical History / Comment(s): afib/hyperthyroidism/echo was 55- 60%. Idiopathic pancreatitis, esophagitis, gastritis, hiatal hernia, IDDM type II, CKD stage III, possible vasospastic angina, sinus problems, arthritis in back, chronic R shoulder pain since fall/fracture, prone to UTIs, bilateral glaucoma with surgery. Severe pulmonary hypertension, hyperthyroidism. Type IV renal tubular acidosis. Chronic anemia. History of Any Multi-Drug Resistant Organisms: None Reported Past Surgical History: Cholecystectomy, Heart Catheterization, Tonsillectomy, Tubal Ligation Additional Past Surgical History / Comment(s): EGD with bx 08/15/16, 10/2009 cardiac cath-normal, bilateral cataract removal, bilateral eye surgery for glaucoma, colonoscopy. Past Anesthesia/Blood Transfusion Reactions: No Reported Reaction Additional Past Anesthesia/Blood Transfusion Reaction / Comment(s): Pt has clausterphobia. Past Psychological History: Anxiety, Depression Smoking Status: Former smoker Past Alcohol Use History: None Reported Past Drug Use History: None Reported - Past Family History Father Family Medical History: Cancer Additional Family Medical History / Comment(s): Father at the age of 81 yrs of lung cancer. He was a smoker. Mother Family Medical History: Cancer Additional Family Medical History / Comment(s): Mother had cervical cancer. She at the age of 53 from her lupus. Medications and Allergies Home Medications Medication Instructions Recorded Confirmed Type Simvastatin [Zocor] 40 mg PO DAILY 11/18/13 03/13/19 History LORazepam [Ativan] 0.5 mg PO HS PRN 08/12/16 03/13/19 History Timolol [Betimol 0.5% Ophth Soln] 1 drop BOTH EYES DAILY 09/01/16 03/13/19 History Magnesium 200 mg PO DAILY 12/06/18 03/13/19 History Pantoprazole [Protonix] 40 mg PO BID 12/06/18 03/13/19 History Pioglitazone HCl [Actos] 15 mg PO DAILY 12/06/18 03/13/19 History Methimazole [Tapazole] 5 mg PO DAILY #30 tab 12/08/18 03/13/19 Rx Sodium Bicarbonate Tab 650 mg PO QID #120 tab 01/04/19 03/13/19 Rx Diltiazem HCl [Diltiazem ER] 240 mg PO DAILY 03/13/19 03/13/19 History Furosemide [Lasix] 40 mg PO DAILY 03/13/19 03/13/19 History Insulin NPH Hum/Reg Insulin Hm 10 unit SQ BID 03/13/19 03/13/19 History [NovoLIN 70-30 100 UNIT/ML VIAL] Spironolactone 25 mg PO DAILY 03/13/19 03/13/19 History Warfarin [Coumadin] 2.5 mg PO HS 03/13/19 03/13/19 History Allergies Allergy/AdvReac Type Severity Reaction Status Date / Time latex Allergy Rash/Hives Verified 03/13/19 14:15 Physical Exam Vitals: Vital Signs Temp Pulse Pulse Pulse Resp BP BP 03/14/19 04:00 98.4 F 61 17 140/65 03/14/19 00:00 97.7 F 61 62 16 141/91 03/13/19 20:00 98.1 F 64 62 17 123/67 03/13/19 18:05 97.6 F 46 L 18 138/63 03/13/19 18:03 47 L 18 03/13/19 18:02 03/13/19 16:33 97.6 F 50 L 20 03/13/19 15:58 97.7 F 50 L 18 129/79 03/13/19 15:49 50 L 18 129/79 03/13/19 15:00 60 18 122/62 03/13/19 14:45 42 L 18 124/72 03/13/19 14:14 97.7 F 41 L 20 122/54 Pulse Ox 03/14/19 04:00 98 03/14/19 00:00 96 03/13/19 20:00 93 L 03/13/19 18:05 98 03/13/19 18:03 03/13/19 18:02 98 03/13/19 16:33 100 03/13/19 15:58 98 03/13/19 15:49 98 03/13/19 15:00 97 03/13/19 14:45 95 03/13/19 14:14 98 Intake and Output 03/13/19 03/14/19 03/14/19 22:59 06:59 14:59 Intake Total 360 600 Balance 360 600 Intake: Intake, IV Titration 600 Amount Sodium Chloride 0.9% 1, 600 000 ml @ 75 mls/hr IV . [id number] [facility] Rx#:[id number] Oral 360 Other: Voiding Method Toilet Toilet # Voids 2 Weight 75.8 kg GENERAL EXAM: Patient is alert and oriented and doesn't appear to be in any acute distress HEENT: Normocephalic. Normal reaction of pupils, equal size, normal range of extraocular motion. No erythema or exudates in the throat. NECK: No masses, no nuchal rigidity. CHEST: No chest wall deformity. LUNGS: Equal air entry with no crackles or wheeze. HEART: S1 and S2 normal with no audible mumurs or gallops. Regular rhythm, femorals equal on both sides.. ABDOMEN: No hepatosplenomegaly, normal bowel sounds, no guarding or rigidity. SKIN: No rashes CENTRAL NERVOUS SYSTEM: No focal deficits. EXTREMITIES: No cyanosis, clubbing or edema. Results 03/14/19 02:40 03/14/19 02:40 Cardiac Enzymes 03/13/19 03/13/19 03/13/19 Range/Units 14:29 14:29 20:55 AST 28 (14-36) U/L Troponin I 0.012 <0.012 (0.000-0.034) ng/mL 03/14/19 Range/Units 02:40 AST (14-36) U/L Troponin I <0.012 (0.000-0.034) ng/mL Coagulation 03/13/19 03/14/19 Range/Units 14:29 02:40 PT 12.5 H 12.6 H (9.0-12.0) sec APTT 23.5 (22.0-30.0) sec Lipids 03/14/19 Range/Units 02:40 Triglycerides 262 H (<150) mg/dL Cholesterol 166 (<200) mg/dL HDL Cholesterol 43 (40-60) mg/dL CBC 03/13/19 03/14/19 Range/Units 14:29 02:40 WBC 12.8 H 11.4 H (3.8-10.6) k/uL RBC 6.78 H 5.86 H (3.80-5.40) m/uL Hgb 13.8 12.2 (11.4-16.0) gm/dL Hct 45.8 39.0 (34.0-46.0) % Plt Count 285 224 (150-450) k/uL Comprehensive Metabolic Panel 03/13/19 03/13/19 03/14/19 Range/Units 14:29 20:55 02:40 Sodium 133 L 136 L 136 L (137-145) mmol/L Potassium 5.9 H 4.7 5.2 H (3.5-5.1) mmol/L Chloride 99 99 101 (98-107) mmol/L Carbon Dioxide 22 25 26 (22-30) mmol/L BUN 70 H 63 H 62 H (7-17) mg/dL Creatinine 1.67 H 1.50 H 1.47 H (0.52-1.04) mg/dL Glucose 277 H 180 H 129 H (74-99) mg/dL Calcium 9.9 9.4 9.0 (8.4-10.2) mg/dL AST 28 (14-36) U/L ALT 15 (9-52) U/L Alkaline Phosphatase 121 (38-126) U/L Total Protein 7.9 (6.3-8.2) g/dL Albumin 4.3 (3.5-5.0) g/dL Current Medications Generic Name Dose Route Start Last Admin Trade Name Freq PRN Reason Stop Dose Admin Acetaminophen 650 mg 03/13/19 16:55 Tylenol Tab PO Q6HR PRN Mild Pain or Fever > 100.5 Aspirin 325 mg 03/14/19 09:00 03/14/19 09:17 Aspirin PO 325 mg DAILY [facility] Administration Atorvastatin Calcium 20 mg 03/14/19 09:00 03/14/19 09:17 Lipitor PO 20 mg DAILY [facility] Administration Bisacodyl 5 mg 03/13/19 16:55 Dulcolax PO DAILY PRN Constipation Furosemide 40 mg 03/14/19 09:00 03/14/19 09:17 Lasix PO 40 mg DAILY [facility] Administration Sodium Chloride 1,000 mls @ 75 mls/hr 03/13/19 15:30 03/13/19 16:52 Saline 0.9% IV Not Given .[id number] [facility] Insulin Aspart 0 unit 03/13/19 17:30 03/14/19 06:53 Novolog SQ Not Given ACHS [facility] Protocol Insulin Aspart 10 unit 03/13/19 21:00 03/14/19 09:17 Novolog Mix 70-30 Vial SQ 10 unit BID [facility] Administration Lorazepam 0.5 mg 03/13/19 17:04 03/13/19 17:45 Ativan PO 0.5 mg TID PRN Administration Anxiety Magnesium Oxide 200 mg 03/14/19 09:00 03/14/19 09:17 Mag-Ox PO 200 mg DAILY [facility] Administration Melatonin 3 mg 03/13/19 16:55 03/13/19 23:38 Melatonin PO 3 mg HS PRN Administration Insomnia Miscellaneous Information 1 each 03/13/19 17:03 Coumadin Per Pharmacy MISCELLANE DIRECTED PRN Per Protocol Naloxone HCl 0.2 mg 03/13/19 16:55 Narcan IV Q2M PRN Opioid Reversal Nitroglycerin 0.4 mg 03/13/19 15:30 Nitrostat SUBLINGUAL Q5M PRN Chest Pain Ondansetron HCl 4 mg 03/13/19 16:55 Zofran IVP Q8HR PRN Nausea And Vomiting Pantoprazole Sodium 40 mg 03/13/19 17:30 03/14/19 06:54 Protonix PO 40 mg AC-BID [facility] Administration Sodium Bicarbonate 650 mg 03/13/19 18:00 03/14/19 09:17 Sodium Bicarbonate Tab PO 650 mg QID [facility] Administration Timolol Maleate 1 drops 03/14/19 09:00 03/14/19 09:18 Timoptic BOTH EYES 1 drops DAILY [facility] Administration Warfarin Sodium 2.5 mg 03/14/19 18:00 Coumadin PO DAILY@1800 [facility] Intake and Output 03/13/19 03/14/19 03/14/19 22:59 06:59 14:59 Intake Total 360 600 Balance 360 600 Intake: Intake, IV Titration 600 Amount Sodium Chloride 0.9% 1, 600 000 ml @ 75 mls/hr IV . [id number] [facility] Rx#:[id number] Oral 360 Other: Voiding Method Toilet Toilet # Voids 2 Weight 75.8 kg 03/14/19 02:40 03/14/19 02:40 EKG Interpretations (text) Sinus bradycardia on admission Assessment and Plan (1) Sick sinus syndrome Current Visit: Yes Status: Acute Code(s): I49.5 - SICK SINUS SYNDROME SNO MED Code(s): 03669054 (2) Paroxysmal atrial fibrillation Current Visit: Yes Status: Acute Code(s): I48.0 - PAROXYSMAL ATRIAL FIBRILLATION SNOMED Code(s): 070020569 (3) Near syncope Current Visit: Yes Status: Acute Code(s): R55 - SYNCOPE AND COLLAPSE SN OMED Code(s): 123510694 (4) Chronic renal failure Current Visit: Yes Status: Acute Code(s): N18.9 - CHRONIC KIDNEY DISEASE, UNSPECIFIED SNOMED Code(s): 19786849 (5) Hyperthyroidism Current Visit: No Status: Acute Code(s): E05.90 - THYROTOXICOSIS, UNSP WITHOUT THYROTOXIC CRISIS OR STORM SNOMED Code(s): 41610403 Plan: This patient will benefit from permanent pacemaker implantation because of sick sinus syndrome and episodes of bradycardia and also paroxysmal atrial fibrillation. Patient is supposed to be on Coumadin but her INR is subtherapeutic. It is not clear if she is taking the medication regularly. Patient consented for permanent pacemaker implantation which was probably performed tomorrow. Further recommendation will depend upon the clinical course.
[2019-03-14] MEDS ORDERED: SODIUM CHLORIDE 0.9% 1,000 ML IV SCH (10:00)
--- NOTE | 2019-03-14 11:13 | P.PN ---
Subjective Progress Note Date: 03/14/19 Patient is seen and examined and follow-up, heart rate improved down the 60s. Magnesium 1.5 and potassium 5.2 INR 1.2 today Continue to monitor on telemetry Objective - Vital Signs Vital signs: Vital Signs Temp 98.4 F 03/14/19 04:00 Pulse 61 03/14/19 04:00 Resp 17 03/14/19 04:00 BP 140/65 03/14/19 04:00 Pulse Ox 98 03/14/19 04:00 Intake & Output 03/13/19 03/14/19 03/14/19 18:59 06:59 18:59 Intake Total 360 600 118 Balance 360 600 118 Weight 77.111 kg 75.8 kg Intake: Intake, IV Titration 600 Amount Sodium Chloride 0.9% 1, 600 000 ml @ 75 mls/hr IV . [id number] [facility] Rx#:[id number] Oral 360 118 Other: Voiding Method Toilet Toilet # Voids 1 2 - Exam Constitutional: No acute distress, conversant, pleasant Eyes: Anicteric sclerae, moist conjunctiva, no lid-lag, PERRLA ENMT: NC/AT,Oropharynx clear, no erythema, exudates Neck:Supple, FROM, no masses, or JVD, No carotid bruits; No thyromegaly Lungs: Clear to auscultation, Clear to percussion, Normal respiratory effort, no accessory muscle use Cardiovascular: Heart regular in rate and rhythm, No murmurs, gallops, or rubs no peripheral edema Abdominal: Soft Nontender, nom distended, no guarding, no rebound or rigidity, Normoactive bowel sounds No hepatomegaly, No splenomegaly, No palpable mass No abdominal wall hernia noted Skin: Normal temperature, tone, texture, turgor, No induration No subcutaneous nodules, No rash, lesions, No ulcers Extremities:No digital cyanosis No clubbing, Pedal pulses intact and symmetri marva Radial pulses intact and symmetrical Normal gait and station, No calf tenderness Psychiatric: Alert and oriented to person, place and time, Appropriate affect Intact judgement Neuro: Muscles Strength 5/5 in all 4 extremities, Sensation to light touch grossly present throughout, Cranial nerves II-XII grossly intact. No focal sensory deficits - Labs CBC & Chem 7: 03/14/19 02:40 03/14/19 02:40 Labs: Abnormal Lab Results - Last 24 Hours (Table) 03/13/19 03/13/19 03/13/19 Range/Units 14:26 14:29 14:29 WBC 12.8 H (3.8-10.6) k/uL RBC 6.78 H (3.80-5.40) m/uL MCV 67.6 L (80.0-100.0) fL MCH 20.3 L (25.0-35.0) pg MCHC 30.1 L (31.0-37.0) g/dL RDW 17.3 H (11.5-15.5) % Neutrophils # 7.9 H (1.3-7.7) k/uL PT (9.0-12.0) sec INR (<1.2) Sodium 133 L (137-145) mmol/L Potassium 5.9 H (3.5-5.1) mmol/L BUN 70 H (7-17) mg/dL Creatinine 1.67 H (0.52-1.04) mg/dL Glucose 277 H (74-99) mg/dL POC Glucose (mg/dL) 251 H (75-99) mg/dL Plasma Lactic Acid Ronaldo (0.7-2.0) mmol/L Magnesium 1.5 L (1.6-2.3) mg/dL Creatine Kinase 29 L (30-135) U/L Triglycerides (<150) mg/dL TSH 6.890 H (0.465-4.680) mIU/L Ur Leukocyte Esterase (Negative) Urine Bacteria (None) /hpf Hyaline Casts (0-2) /lpf Urine Mucus (None) /hpf 03/13/19 03/13/19 03/13/19 Range/Units 14:29 14:29 17:10 WBC (3.8-10.6) k/uL RBC (3.80-5.40) m/uL MCV (80.0-100.0) fL MCH (25.0-35.0) pg MCHC (31.0-37.0) g/dL RDW (11.5-15.5) % Neutrophils # (1.3-7.7) k/uL PT 12.5 H (9.0-12.0) sec INR 1.2 H (<1.2) Sodium (137-145) mmol/L Potassium (3.5-5.1) mmol/L BUN (7-17) mg/dL Creatinine (0.52-1.04) mg/dL Glucose (74-99) mg/dL POC Glucose (mg/dL) 103 H (75-99) mg/dL Plasma Lactic Acid Ronaldo 2.2 H* (0.7-2.0) mmol/L Magnesium (1.6-2.3) mg/dL Creatine Kinase (30-135) U/L Triglycerides (<150) mg/dL TSH (0.465-4.680) mIU/L Ur Leukocyte Esterase (Negative) Urine Bacteria (None) /hpf Hyaline Casts (0-2) /lpf Urine Mucus (None) /hpf 03/13/19 03/13/19 03/13/19 Range/Units 20:26 20:55 Unknown WBC (3.8-10.6) k/uL RBC (3.80-5.40) m/uL MCV (80.0-100.0) fL MCH (25.0-35.0) pg MCHC (31.0-37.0) g/dL RDW (11.5-15.5) % Neutrophils # (1.3-7.7) k/uL PT (9.0-12.0) sec INR (<1.2) Sodium 136 L (137-145) mmol/L Potassium (3.5-5.1) mmol/L BUN 63 H (7-17) mg/dL Creatinine 1.50 H (0.52-1.04) mg/dL Glucose 180 H (74-99) mg/dL POC Glucose (mg/dL) 156 H (75-99) mg/dL Plasma Lactic Acid Ronaldo (0.7-2.0) mmol/L Magnesium (1.6-2.3) mg/dL Creatine Kinase (30-135) U/L Triglycerides (<150) mg/dL TSH (0.465-4.680) mIU/L Ur Leukocyte Esterase Trace H (Negative) Urine Bacteria Few H (None) /hpf Hyaline Casts 11 H (0-2) /lpf Urine Mucus Rare H (None) /hpf 03/14/19 03/14/19 03/14/19 Range/Units 02:40 02:40 02:40 WBC 11.4 H (3.8-10.6) k/uL RBC 5.86 H (3.80-5.40) m/uL MCV 66.6 L (80.0-100.0) fL MCH 20.8 L (25.0-35.0) pg MCHC (31.0-37.0) g/dL RDW 17.4 H (11.5-15.5) % Neutrophils # (1.3-7.7) k/uL PT 12.6 H (9.0-12.0) sec INR 1.2 H (<1.2) Sodium 136 L (137-145) mmol/L Potassium 5.2 H (3.5-5.1) mmol/L BUN 62 H (7-17) mg/dL Creatinine 1.47 H (0.52-1.04) mg/dL Glucose 129 H (74-99) mg/dL POC Glucose (mg/dL) (75-99) mg/dL Plasma Lactic Acid Ronaldo (0.7-2.0) mmol/L Magnesium 1.5 L (1.6-2.3) mg/dL Creatine Kinase (30-135) U/L Triglycerides 262 H (<150) mg/dL TSH (0.465-4.680) mIU/L Ur Leukocyte Esterase (Negative) Urine Bacteria (None) /hpf Hyaline Casts (0-2) /lpf Urine Mucus (None) /hpf 03/14/19 Range/Units 06:40 WBC (3.8-10.6) k/uL RBC (3.80-5.40) m/uL MCV (80.0-100.0) fL MCH (25.0-35.0) pg MCHC (31.0-37.0) g/dL RDW (11.5-15.5) % Neutrophils # (1.3-7.7) k/uL PT (9.0-12.0) sec INR (<1.2) Sodium (137-145) mmol/L Potassium (3.5-5.1) mmol/L BUN (7-17) mg/dL Creatinine (0.52-1.04) mg/dL Glucose (74-99) mg/dL POC Glucose (mg/dL) 122 H (75-99) mg/dL Plasma Lactic Acid Ronaldo (0.7-2.0) mmol/L Magnesium (1.6-2.3) mg/dL Creatine Kinase (30-135) U/L Triglycerides (<150) mg/dL TSH (0.465-4.680) mIU/L Ur Leukocyte Esterase (Negative) Urine Bacteria (None) /hpf Hyaline Casts (0-2) /lpf Urine Mucus (None) /hpf Assessment and Plan (1) Sick sinus syndrome Narrative/Plan: * Cardiology consulted appreciated recommendations * Planning for implantable dual-chamber pacemaker placement tomorrow Current Visit: Yes Status: Acute Code(s): I49.5 - SICK SINUS SYNDROME SNOMED Code(s): 76102471 (2) Syncope Narrative/Plan: Secondary to sick sinus syndrome Current Visit: Yes Status: Resolved Code(s): R55 - SYNCOPE AND COLLAPSE SNOMED Code(s): 081364884 (3) Paroxysmal atrial fibrillation Narrative/Plan: * Beta romario held secondary to bradycardia/sick sinus syndrome * INR subtherapeutic * Pharmacy to dose Coumadin Current Visit: Yes Status: Acute Code(s): I48.0 - PAROXYSMAL ATRIAL FIBRILLATION SNOMED Code(s): 346593314 (4) Hyperkalemia Narrative/Plan: * Potassium 5.2 today * Nephrology following Current Visit: Yes Status: Acute Code(s): E87.5 - HYPERKALEMIA SNOMED Code(s): 66245168 (5) CKD (chronic kidney disease), stage IV Narrative/Plan: * Stable chronic kidney disease stage III with hyperkalemia * Nephrology consulted for further recommendations Current Visit: Yes Status: Acute Code(s): N18.4 - CHRONIC KIDNEY DISEASE, STAGE 4 (SEVERE) SNOMED Code(s): 889422786 (6) Hypomagnesemia Narrative/Plan: * Replace and recheck labs tomorrow Current Visit: Yes Status: Acute Code(s): E83.42 - HYPOMAGNESEMIA SNOMED Code(s): 269864472 Plan: Disposition * Anticipated discharge 2-3 days * Follow-up consultants recommendations * Continue to monitor closely
[2019-03-14] MEDS: SODIUM CHLORIDE 0.9% 1,000 ML IV SCH ×2 (11:42→18:12)
[2019-03-14 12:33] LABS: Glucose,Whole Blood 147 mg/dL (75-99)
[2019-03-14 12:37] LABS: Hemoglobin A1C 9.8 % (4.0-6.0)
[2019-03-14] MEDS: MAGNESIUM SULFATE-D5W PMX 1 GM in DEXTROSE/WATER 1 100ML.BAG IVPB SCH ×2 (13:01→18:11)
[2019-03-14 15:19] VITALS: BMI 30.5
--- NOTE | 2019-03-14 16:34 | CONS ---
CONSULTATION REASON FOR CONSULT: Renal failure. HISTORY OF PRESENT ILLNESS: The patient is an 79-year-old female with a history of chronic atrial fibrillation, CKD stage 3 secondary to diabetes. The patient also has diastolic heart failure with severe pulmonary hypertension. She was admitted to the hospital with complaints of feeling faint and almost passing out. The patient has been complaining of increased fatigue over the past few days. The patient was noted to have a serum creatinine of 1.67 on initial admission. It is now down to 1.47. Review of previous labs show serum creatinine of about 1.7-1.8 in November of 2018. Previous creatinine 1.3-1.5 in 2017. The patient has been taking sodium chloride tabs as outpatient. She was concerned about taking it 4 times a day. Currently she is maintained on oral Lasix. The patient had been on IV fluids, which is now decreased to about 50 mL an hour. Her potassium was 5.9 on initial admission, down to 5.2 today. PAST MEDICAL HISTORY: CKD stage 3, secondary to diabetic nephropathy, type 2 diabetes, hypertension, obesity, pulmonary hypertension, atrial fibrillation, diastolic heart failure, hiatal hernia. history of UTI, glaucoma, hypothyroidism, type 4 RTA, chronic anemia. PAST SURGICAL HISTORY: Cholecystectomy, cardiac catheterization, tonsillectomy, tubal ligation, EGD, cardiac cath, eye surgery for glaucoma, colonoscopy, cataract removal. SOCIAL HISTORY: Patient is a former smoker. No history of drug abuse or alcohol abuse. MEDICATIONS: Medications prior to admission included Zocor, Ativan, magnesium, Protonix, Actos, Tapazole, sodium bicarb, diltiazem, Lasix, insulin, spironolactone, Coumadin. ALLERGIES: INCLUDE LATEX, WHICH CAUSES RASH AND HIVES. REVIEW OF SYSTEMS: As per HPI. EXAMINATION: Patient is comfortable, awake, alert, oriented x3, not in any acute distress. Blood pressure is 166/71, heart rate 67 per minute. She is afebrile. Examination of the heart S1, S2. Examination of the lungs, bilateral breath sounds are heard. Abdomen is soft, obese, nontender. Examination of lower extremities shows no evidence of edema. CORONER exam grossly intact. LABS: Show sodium 136, potassium 5.2, chloride 101, BUN 62, serum creatinine 1.47, hemoglobin 12.2 g/dL. UA is quite unremarkable. ASSESSMENT: 1. Chronic kidney disease stage 3 secondary to diabetic nephropathy. However, current urinalysis does not show any evidence of proteinuria, and this may well be old nephrosclerosis. 2. Acute kidney injury, appears to be prerenal currently improved post hydration. 3. Hyperkalemia associated with acute kidney injury, now improved. The patient is advised to avoid constipation. I will decrease the sodium bicarbs tabs. Continue with oral Lasix for now. 4. Metabolic acidosis as an outpatient, maintained on oral sodium bicarb. 5. Type 4 RTA associated with hyperkalemia, maintained on Lasix and sodium bicarb currently off of Aldactone. 6. Bradycardia with history of atrial fibrillation, being followed by Cardiology. 7. Hypothyroidism, maintained on Tapazole. Follows with Endocrinology as outpatient. 8. History of diastolic heart failure. PLAN: Continue with oral Lasix. Decrease IV fluids further. If the patient is eating well, we can Hep-Lock the IV and maintain patient on low-potassium diet and can decrease sodium bicarb to 3 times a day. Thank you for this consultation. We will continue to follow the patient with you during her hospitalization. MMODL / IJN: [id number] /
[2019-03-14 17:32] LABS: Glucose,Whole Blood 286 mg/dL (75-99)
[2019-03-14] MEDS: WARFARIN 2.5 MG TAB PO SCH (18:12)
[2019-03-14 20:32] LABS: Glucose,Whole Blood 182 mg/dL (75-99)
[2019-03-14] MEDS: MELATONIN 3 MG TABLET PO PRN (22:12)
[2019-03-15 06:33] LABS: Glucose,Whole Blood 156 mg/dL (75-99)
[2019-03-15] MEDS: SODIUM CHLORIDE 0.9% 1,000 ML IV SCH ×3 (06:39→16:45)
[2019-03-15] MEDS: INSULIN ASPART (NovoLOG) 100 UNIT/ML VIAL SQ SCH ×4 (06:39→20:36)
[2019-03-15] MEDS: MAGNESIUM OXIDE 400 MG TAB PO SCH (06:43)
[2019-03-15] MEDS: ATORVASTATIN 20 MG TAB PO SCH (06:43)
[2019-03-15] MEDS: PANTOPRAZOLE 40 MG TABLET PO SCH ×2 (06:43→16:41)
[2019-03-15] MEDS: SODIUM BICARBONATE TAB 650 MG TAB PO SCH ×3 (06:44→20:37)
[2019-03-15] MEDS: ASPIRIN 325 MG TAB PO SCH (06:44)
[2019-03-15 06:50] LABS: INR 1.2 (<1.2); Prothrombin Time 12.7 sec (9.0-12.0)
[2019-03-15] MEDS ORDERED: ceFAZolin 1,000 MG in SODIUM CHLORIDE 0.9% IRRIGATIO 250 ML IRRIGATION ONE (08:00)
[2019-03-15] MEDS: INSULN ASP PRT/INSULIN ASPART 100 UNIT/ML 10 ML VIAL SQ SCH ×2 (08:13→20:36)
[2019-03-15 09:42] LABS: Calcium 9.5 mg/dL (8.4-10.2); Potassium 5.1 mmol/L (3.5-5.1)
--- NOTE | 2019-03-15 09:59 | P.PN ---
Subjective Progress Note Date: 03/15/19 Patient is seen and examined and follow-up, heart rate improved down the 60s. scheduled for pacemaker placement today. Objective - Vital Signs Vital signs: Vital Signs Temp 98.0 F 03/15/19 04:17 Pulse 57 L 03/15/19 08:00 Resp 16 03/15/19 08:00 BP 173/81 03/15/19 08:00 Pulse Ox 98 03/15/19 08:00 Intake & Output 03/14/19 03/15/19 03/15/19 18:59 06:59 18:59 Intake Total 1180 Output Total 820 Balance 1180 -820 Weight 75.8 kg 75.4 kg Intake: Intake, IV Titration 600 Amount Sodium Chloride 0.9% 1, 600 000 ml @ 75 mls/hr IV . [id number] ALBERT Rx#:[id number] Oral 580 Output: Urine 820 Other: Voiding Method Toilet # Voids 2 - Exam Constitutional: No acute distress, conversant, pleasant Eyes: Anicteric sclerae, moist conjunctiva, no lid-lag, PERRLA ENMT: NC/AT,Oropharynx clear, no erythema, exudates Neck:Supple, FROM, no masses, or JVD, No carotid bruits; No thyromegaly Lungs: Clear to auscultation, Clear to percussion, Normal respiratory effort, no accessory muscle use Cardiovascular: Heart regular in rate and rhythm, No murmurs, gallops, or rubs no peripheral edema Abdominal: Soft Nontender, nom distended, no guarding, no rebound or rigidity, Normoactive bowel sounds No hepatomegaly, No splenomegaly, No palpable mass No abdominal wall hernia noted Skin: Normal temperature, tone, texture, turgor, No induration No subcutaneous nodules, No rash, lesions, No ulcers Extremities:No digital cyanosis No clubbing, Pedal pulses intact and symmetrical Radial pulses intact and symmetrical Normal gait and station, No calf tenderness Psychiatric: Alert and oriented to person, place and time, Appropriate affect Intact judgement Neuro: Muscles Strength 5/5 in all 4 extremities, Sensation to light touch grossly present throughout, Cranial nerves II-XII grossly intact. No focal sensory deficits - Labs CBC & Chem 7: 03/14/19 02:40 03/15/19 05:08 Labs: Abnormal Lab Results - Last 24 Hours (Table) 03/14/19 03/14/19 03/14/19 Range/Units 02:40 12:31 17:31 PT (9.0-12.0) sec INR (<1.2) Sodium (137-145) mmol/L BUN (7-17) mg/dL Creatinine (0.52-1.04) mg/dL Glucose (74-99) mg/dL POC Glucose (mg/dL) 147 H 286 H (75-99) mg/dL Hemoglobin A1c 9.8 H (4.0-6.0) % 03/14/19 03/15/19 03/15/19 Range/Units 20:31 05:08 05:08 PT 12.7 H (9.0-12.0) sec INR 1.2 H (<1.2) Sodium 136 L (137-145) mmol/L BUN 60 H (7-17) mg/dL Creatinine 1.60 H (0.52-1.04) mg/dL Glucose 153 H (74-99) mg/dL POC Glucose (mg/dL) 182 H (75-99) mg/dL Hemoglobin A1c (4.0-6.0) % 03/15/19 Range/Units 06:33 PT (9.0-12.0) sec INR (<1.2) Sodium (137-145) mmol/L BUN (7-17) mg/dL Creatinine (0.52-1.04) mg/dL Glucose (74-99) mg/dL POC Glucose (mg/dL) 156 H (75-99) mg/dL Hemoglobin A1c (4.0-6.0) % Assessment and Plan (1) Sick sinus syndrome Narrative/Plan: * Cardiology consulted appreciated recommendations * Planning for implantable dual-chamber pacemaker placement later today Current Visit: Yes Status: Acute Code(s): I49.5 - SICK SINUS SYNDROME SNOMED Code(s): 40094168 (2) Syncope Narrative/Plan: Secondary to sick sinus syndrome Current Visit: Yes Status: Resolved Code(s): R55 - SYNCOPE AND COLLAPSE SNOMED Code(s): 178963763 (3) Paroxysmal atrial fibrillation Narrative/Plan: * Beta romario held secondary to bradycardia/sick sinus syndrome * INR subtherapeutic * Pharmacy to dose Coumadin Current Visit: Yes Status: Acute Code(s): I48.0 - PAROXYSMAL ATRIAL FIBRILLATION SNOMED Code(s): 908012822 (4) Hyperkalemia Narrative/Plan: * Potassium 5.2 today * Nephrology following Current Visit: Yes Status: Acute Code(s): E87.5 - HYPERKALEMIA SNOMED Code(s): 33114396 (5) CKD (chronic kidney disease), stage IV Narrative/Plan: * Stable chronic kidney disease stage III with hyperkalemia * Nephrology consulted for further recommendations Current Visit: Yes Status: Acute Code(s): N18.4 - CHRONIC KIDNEY DISEASE, STAGE 4 (SEVERE) SNOMED Code(s): 188477087 (6) Hypomagnesemia Narrative/Plan: * Replace and recheck labs tomorrow Current Visit: Yes Status: Acute Code(s): E83.42 - HYPOMAGNESEMIA SNOMED Code(s): 455922761 Plan: Disposition * Anticipated discharge 2-3 days * Follow-up consultants recommendations * Continue to monitor closely
[2019-03-15 11:28] LABS: Glucose,Whole Blood 132 mg/dL (75-99)
[2019-03-15] MEDS ORDERED: IOPAMIDOL-250 50ML BTL IV ONE (11:53)
[2019-03-15] MEDS ORDERED: IV FLUID CONTINUATION 300 ML IV ONE (11:57)
[2019-03-15] MEDS ORDERED: MIDAZOLAM (PF) 2 MG/2 ML VIAL IV ONE (12:11)
[2019-03-15] MEDS ORDERED: fentaNYL (PF) 50 MCG/ML 2 ML AMP IV ONE (12:12)
[2019-03-15] MEDS ORDERED: LIDOCAINE 1% INJ 10MG/ML (20 ML MDV) SQ ONE ×2 (12:14→12:19)
[2019-03-15] MEDS: ceFAZolin 1,000 MG in SODIUM CHLORIDE 0.9% IRRIGATIO 250 ML IRRIGATION ONE ×2 (13:08→13:12)
--- NOTE | 2019-03-15 13:29 | P.PCN ---
Date of Procedure: 03/15/19 Preoperative Diagnosis: Sick sinus syndrome with bradycardia alternating with A. fib with RVR Postoperative Diagnosis: The same Procedure(s) Performed: Axillary venography and a dual-chamber permanent pacemaker insertion Description of Procedure: HISTORY: This is a 79-year-old female with history of paroxysmal atrial fibrillation alternating with bradycardia and dizziness and near syncope episodes. Patient is advised to have permanent pacemaker implantation. CONSENT:I have discussed the risks, benefits and alternative therapies for the above-mentioned procedure and for both sedation/analgesia as well as necessary blood product administration, if indicated, as they pertain to this patient. The patient has indicated understanding and acceptance of the risks and procedures discussed. PROCEDURE: Patient was brought to the lab in a fasting state. Patient was prepped and draped in the usual fashion. Patient was given IV sedation with fentanyl and Versed. The skin below the left clavicle was infiltrated with lido nilesh. An incision was made parallel to deltopectoral groove was deepened until the pectoral fascia was exposed. A pocket was created by blunt dissection and cautery. Axillary venography was performed to delineate the course of the axillary vein. 2 sticks were performed into extrathoracic portion of the axillary vein and 2 sheaths were advanced over the guidewires and left in subclavian vein. Conscious Sedation: Versed 1mg Fentanyl 50 g Duration 68minutes LEADS: ATRIAL: This is manufactured by [employer]. Model number is 5076-45. And the serial number is [id number] VENTRICULAR: This is manufactured by [employer]. Model number is 5076-52. The serial number is [id number] The ventricular lead is maneuvered l with help of a straight and curved stylets into the left ventricle apical region. Satisfactory position was obtained and threshold measurements were made. The atrial lead was then maneuvered into the right atrial appendage. And thresholds were obtained. THRESHOLDS: ATRIUM: The minimum patient threshold was 1.75 at pulse width of 0.4 with impedance of 8 and 36 ohms and P-wave is 1.5 VENTRICLE: The minimum patient threshold is 0.5 at pulse width of 0.4 with impedance of 855 ohms. The R-wave is 13.25 The leads and pulse generator remained in the pocket after it was washed with antibiotics. Pocket was closed in the usual fashion. The fascia was closed with 2-0 Prolene ,the subcutaneous tissue was closed with 3-0 Prolene and the skin was closed with 4-0 Prolene. PROGRAMMING: MODE: AAIR with mode switch to DDDR RATE: 60-130 OUTPUT: Atrium: 3.5 Ventricle: 3.5 FINAL IMPRESSION: #1. Axillary venography #2. Dual-chamber permanent pacemaker implantation COMPLICATIONS: Done PLAN:. Patient will be monitored on telemetry unit. Prophylactic antibiotics will be continued. Chest x-ray in the morning. Possible discharge in 24 hours
[2019-03-15] MEDS: FUROSEMIDE 40 MG TAB PO SCH (16:28)
[2019-03-15] MEDS: TIMOLOL 0.5% OPHTH DROPS 5 ML BTL BOTH EYES SCH (16:29)
[2019-03-15 16:37] LABS: Glucose,Whole Blood 367 mg/dL (75-99)
[2019-03-15] MEDS: WARFARIN 2.5 MG TAB PO SCH (16:41)
--- NOTE | 2019-03-15 20:17 | PN ---
PROGRESS NOTE Patient was seen this morning for followup for acute kidney injury and chronic kidney disease. She is currently comfortable. Patient denies any significant complaints. Patient is maintained on oral Lasix. She is on IV fluids in the form of normal saline. She denies any nausea, vomiting or abdominal pain. On examination, blood pressure was 173/81 this morning, heart rate 57 per minute. Patient is afebrile. EXAMINATION OF THE HEART: S1 and S2. EXAMINATION OF LUNGS: Bilateral breath sounds are heard. ABDOMEN: Soft, non-tender, obese. Examination of lower extremities shows no significant edema. [employer] exam is grossly intact. Labs show sodium 136, potassium 5.1, BUN 60, serum creatinine 1.6, magnesium 2.1. ASSESSMENT: 1. Chronic kidney disease, stage III, secondary to diabetic nephropathy and nephrosclerosis. Baseline creatinine about 1.7 to 1.6 mg/dL. Her creatinine had gone down to about 1.47. Patient is maintained on IV fluids. I will continue with the saline for now. Patient is not on any nephrotoxic medications. 2. Bradycardia, status post pacemaker placement, which was done this afternoon. 3. Hypomagnesemia, status post replacement. 4. 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 PLAN: Maintain saline at about 50 mL/hour. I will hold off on the Lasix for now. Repeat labs in a.m. MMODL / IJN: [id number] /
[2019-03-15 20:26] LABS: Glucose,Whole Blood 186 mg/dL (75-99)
[2019-03-15] MEDS: LORazepam 0.5 MG TAB PO PRN (21:29)
[2019-03-16 06:02] LABS: Glucose,Whole Blood 151 mg/dL (75-99)
[2019-03-16] MEDS: PANTOPRAZOLE 40 MG TABLET PO SCH ×2 (06:33→16:50)
[2019-03-16] MEDS: INSULIN ASPART (NovoLOG) 100 UNIT/ML VIAL SQ SCH ×2 (06:33→12:41)
[2019-03-16 06:34] LABS: INR 1.2 (<1.2); Prothrombin Time 12.6 sec (9.0-12.0)
[2019-03-16] MEDS: SODIUM CHLORIDE 0.9% 1,000 ML IV SCH (06:35)
--- NOTE | 2019-03-16 09:01 | XR ---
EXAMINATION TYPE: XR chest 2V DATE OF EXAM: 03/16/2019 COMPARISON: 03/13/2019 TECHNIQUE: PA and lateral views submitted. HISTORY: Lead placement check FINDINGS: The lungs are clear and there is no pneumothorax, pleural effusion, or focal pneumonia. Heart is en larged and there is a double lead pacemaker. No sizable pneumothorax. Linear change left upper lobe m ost typical scar or atelectasis. Hypertrophic and degenerative changes spine. Atherosclerotic change aorta. Arthropathy of the shoulders with chronic right humeral deformity. IMPRESSION: 1. Pacemaker placement with no sizable pneumothorax.
[2019-03-16] MEDS: MAGNESIUM OXIDE 400 MG TAB PO SCH (09:02)
[2019-03-16] MEDS: ASPIRIN 325 MG TAB PO SCH (09:02)
[2019-03-16] MEDS: INSULN ASP PRT/INSULIN ASPART 100 UNIT/ML 10 ML VIAL SQ SCH (09:02)
[2019-03-16] MEDS: ATORVASTATIN 20 MG TAB PO SCH (09:03)
[2019-03-16] MEDS: TIMOLOL 0.5% OPHTH DROPS 5 ML BTL BOTH EYES SCH (09:03)
[2019-03-16] MEDS: SODIUM BICARBONATE TAB 650 MG TAB PO SCH ×2 (09:03→16:50)
[2019-03-16 09:07] VITALS: RESP 16; TEMP 98.3
[2019-03-16 11:02] LABS: Calcium 9.2 mg/dL (8.4-10.2); Potassium 4.7 mmol/L (3.5-5.1)
[2019-03-16 11:53] LABS: Glucose,Whole Blood 243 mg/dL (75-99)
--- NOTE | 2019-03-16 12:11 | PN ---
PROGRESS NOTE The patient is seen for followup for chronic kidney disease and acute kidney injury. Her renal function is fairly stable. Creatinine is actually improved to 1.26 today. The patient is maintained on IV fluids which were decreased yesterday. She wants to go home today. She did have a pacemaker placed this admission. PHYSICAL EXAMINATION: On examination, blood pressure was 133/72, heart rate 71 per minute. Patient is afebrile. EXAMINATION OF THE HEART: S1, S2. EXAMINATION OF THE LUNGS: Bilateral breath sounds are heard. Abdomen is soft, nontender. Examination of the lower extremities shows no significant edema. LABS: Labs show sodium 136, potassium 4.7, BUN 46, serum creatinine 1.26. ASSESSMENT: 1. Chronic kidney disease secondary to diabetic nephropathy, nephrosclerosis, renal function close to baseline. 2. Bradycardia, status post pacemaker placement. 3. Hypomagnesemia, currently replaced. 4. Mild hyperkalemia associated with type 4 RTA with diabetes, maintained on oral sodium bicarb. 5. Acute kidney injury, most likely prerenal, currently improved. PLAN: Patient can be discharged from nephrology standpoint. Follow up as outpatient in 1 to 2 weeks. MMODL / IJN: [id number] /
--- NOTE | 2019-03-16 12:39 | P.DS ---
Providers Date of admission: 03/13/19 15:30 Expected date of discharge: 03/16/19 Attending physician: Meri Meyers, Consults: 03/13/19 15:30 Consult Physician Urgent Consulting Provider: Rishi Lu Consult Reason/Comments: christal Do you want consulting provider notified?: Yes 03/13/19 17:05 Consult Physician Routine Consulting Provider: Naun Boswell Consult Reason/Comments: Hyperkalemia, type IV RTA Do you want consulting provider notified?: Yes, Notify in am Primary care physician: Carlos Hall - Discharge Diagnosis(es) (1) Sick sinus syndrome Current Visit: Yes Status: Acute (2) Syncope Current Visit: Yes Status: Resolved (3) Paroxysmal atrial fibrillation Current Visit: Yes Status: Acute (4) Hyperkalemia Current Visit: Yes Status: Acute (5) CKD (chronic kidney disease), stage IV Current Visit: Yes Status: Acute (6) Hypomagnesemia Current Visit: Yes Status: Acute Hospital Course: The patient is a 79-year-old female that was admitted for sick sinus syndrome after presenting with presyncope and was found to have several episodes of bradycardia with heart rate in the 40s. The patient was also on Cardizem for paroxysmal A. fib and this was held, she was also noted to be hyper [place] make the potassium of 5.9 she was given Kayexalate other temporizing measures to bring her potassium down, her Aldactone was held. Cardiology was consulted and proceeded with placement of a dual-chamber pacemaker. The patient was noted to have a subtherapeutic INR at 1.2. Cardiology recommended increasing Coumadin dose to 5 mg by mouth daily at bedtime with rechecking PT/INR on Thursday. The patient did well post- pacemaker placement and was discharged back to [facility] in stable condition. The patient instructed to follow-up with her PCP and cardiology. This discharge process took approximately 35 minutes Patient Condition at Discharge: Good Plan - Discharge Summary Discharge Rx Participant: Yes New Discharge Prescriptions: New Warfarin [Coumadin] 5 mg PO HS #30 tab Continue Simvastatin [Zocor] 40 mg PO DAILY LORazepam [Ativan] 0.5 mg PO HS PRN PRN Reason: Anxiety Timolol [Betimol 0.5% Ophth Soln] 1 drop BOTH EYES DAILY Magnesium 200 mg PO DAILY Pioglitazone HCl [Actos] 15 mg PO DAILY Pantoprazole [Protonix] 40 mg PO BID Methimazole [Tapazole] 5 mg PO DAILY #30 tab Sodium Bicarbonate Tab 650 mg PO QID #120 tab Insulin NPH Hum/Reg Insulin Hm [NovoLIN 70-30 100 UNIT/ML VIAL] 10 unit SQ BID Diltiazem HCl [Diltiazem 24Hr ER] 240 mg PO DAILY Furosemide [Lasix] 40 mg PO DAILY Discontinued Spironolactone 25 mg PO DAILY Warfarin [Coumadin] 2.5 mg PO HS Discharge Medication List Simvastatin [Zocor] 40 mg PO DAILY 11/18/13 [History] LORazepam [Ativan] 0.5 mg PO HS PRN 08/12/16 [History] Timolol [Betimol 0.5% Oph Soln] 1 drop BOTH EYES DAILY 09/01/16 [History] Magnesium 200 mg PO DAILY 12/06/18 [History] Pantoprazole [Protonix] 40 mg PO BID 12/06/18 [History] Pioglitazone HCl [Actos] 15 mg PO DAILY 12/06/18 [History] Methimazole [Tapazole] 5 mg PO DAILY #30 tab 12/08/18 [Rx] Sodium Bicarbonate Tab 650 mg PO QID #120 tab 01/04/19 [Rx] Diltiazem HCl [Diltiazem 24Hr ER] 240 mg PO DAILY 03/13/19 [History] Furosemide [Lasix] 40 mg PO DAILY 03/13/19 [History] Insulin NPH Hum/Reg Insulin Hm [NovoLIN 70-30 100 UNIT/ML VIAL] 10 unit SQ BID 03/13/19 [History] Warfarin [Coumadin] 5 mg PO HS #30 tab 03/16/19 [Rx] Follow up Appointment(s)/Referral(s): [facility] [Provider Group] - 03/24/19 10:00 am ( Device check only. Follow up with doctor will be discussed at this time.) Carlos Hall MD [Primary Care Provider] - 03/22/19 10:00 am (Thursday) Kaycee Simmons MD [STAFF PHYSICIAN] - 1 Week (Unable to get through at this time. Please call to schedule appointment) Ambulatory/Diagnostic Orders: Prothrombin Time INR [LAB.AMB] Time Frame: 03/18/19, Facility: [facility], Location: [facility] Patient Instructions/Handouts: Pacemaker (DC) Discharge Disposition: HOME WITH HOME HEALTH SERVICES
[2019-03-16 12:48] VITALS: BP 128/68; PULSE 67
--- NOTE | 2019-03-16 14:01 | P.PN ---
Subjective Progress Note Date: 03/16/19 This 79-year-old female was admitted to the hospital with dizziness and evidence of severe bradycardia. She was also hyperkalemic. 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 Patient had a permanent pacemaker yesterday which is a dual-chamber. Patient tolerated the procedure well. Pacemaker is functioning normally. Chest x-ray shows no evidence of any complications. Patient is being discharged home. She is advised not to take Aldactone. She is back on Coumadin 5 mg. She will have PT and INR done on Thursday and we'll further adjust the dose of Coumadin. Patient is advised to call us if she develops any swelling, fever or chills. She is advised to avoid any heavy lifting, pushing or pulling with the left arm. Follow-up in the office in one week. Objective - Vital Signs Vital signs: Vital Signs Temp 98.3 F 03/16/19 08:00 Pulse 67 03/16/19 12:00 Resp 16 03/16/19 12:00 BP 128/68 03/16/19 12:00 Pulse Ox 100 03/16/19 12:00 Intake & Output 03/15/19 03/16/19 03/16/19 18:59 06:59 18:59 Intake Total 272 Output Total 500 200 100 Balance -228 -200 -100 Weight 75.7 kg Intake: IV 50 Oral 222 Output: Urine 500 200 100 Other: Voiding Method Toilet Toilet Toilet # Voids 1 1 1 # Bowel Movements 0 0 - Exam GENERAL EXAM: Patient is alert and oriented and doesn't appear to be in any acute distress HEENT: Normocephalic. Normal reaction of pupils, equal size, normal range of extraocular motion. No erythema or exudates in the throat. NECK: No masses, no nuchal rigidity. CHEST: No chest wall deformity. LUNGS: Equal air entry with no crackles or wheeze. HEART: S1 and S2 normal with no audible mumurs or gallops. Regular rhythm, fe morals equal on both sides.. ABDOMEN: No hepatosplenomegaly, normal bowel sounds, no guarding or rigidity. SKIN: No rashes CENTRAL NERVOUS SYSTEM: No focal deficits. EXTREMITIES: No cyanosis, clubbing or edema. PROCEDURE SITE: Soft without any hematoma - Labs CBC & Chem 7: 03/14/19 02:40 03/16/19 05:42 Labs: Abnormal Lab Results - Last 24 Hours (Table) 03/15/19 03/15/19 03/16/19 Range/Units 16:35 20:24 05:42 PT 12.6 H (9.0-12.0) sec INR 1.2 H (<1.2) Sodium (137-145) mmol/L Carbon Dioxide (22-30) mmol/L BUN (7-17) mg/dL Creatinine (0.52-1.04) mg/dL Glucose (74-99) mg/dL POC Glucose (mg/dL) 367 H 186 H (75-99) mg/dL 03/16/19 03/16/19 03/16/19 Range/Units 05:42 06:01 11:52 PT (9.0-12.0) sec INR (<1.2) Sodium 136 L (137-145) mmol/L Carbon Dioxide 21 L (22-30) mmol/L BUN 46 H (7-17) mg/dL Creatinine 1.26 H (0.52-1.04) mg/dL Glucose 130 H (74-99) mg/dL POC Glucose (mg/dL) 151 H 243 H (75-99) mg/dL Assessment and Plan (1) Sick sinus syndrome Current Visit: Yes Status: Acute Code(s): I49.5 - SICK SINUS SYNDROME SNOMED Code(s): 26790784 (2) Paroxysmal atrial fibrillation Current Visit: Yes Status: Acute Code(s): I48.0 - PAROXYSMAL ATRIAL FIBRILLATION SNOMED Code(s): 212270371 (3) Near syncope Current Visit: Yes Status: Acute Code(s): R55 - SYNCOPE AND COLLAPSE SNOMED Code(s): 283299556 (4) Chronic renal failure Current Visit: Yes Status: Acute Code(s): N18.9 - CHRONIC KIDNEY DISEASE, UNSPECIFIED SNOMED Code(s): 95663353 (5) Hyperthyroidism Current Visit: No Status: Acute Code(s): E05.90 - THYROTOXICOSIS, UNSP WITHOUT THYROTOXIC CRISIS OR STORM SNOMED Code(s): 73443191 (6) Presence of permanent cardiac pacemaker Current Visit: Yes Status: Acute Code(s): Z95.0 - PRESENCE OF CARDIAC PACEMAKER SNOMED Code(s): 288165646 Plan: Patient is critically stable. Being discharged home. Follow-up in the office in one week
[2019-03-16] MEDS ORDERED: WARFARIN 5 MG TAB PO ONE (18:00)
== END 2019-03-16 17:20 | disposition home or self-care (01) | DRG 243 ==
LOC: EC 14:08 → 3SCARD 15:30
PROVIDERS: ADMIT Internal Medicine; ATTEND Internal Medicine
PROC: 02HL3JZ Insertion of Pacemaker Lead into Left Ventricle, Percutaneous Approach (ICD-10-PCS; principal; 2019-03-15 11:45)
PROC: 0JH606Z Insertion of Pacemaker, Dual Chamber into Chest Subcutaneous Tissue and Fascia, Open Approach (ICD-10-PCS; principal; 2019-03-15 11:45)
PROC: 02H63JZ Insertion of Pacemaker Lead into Right Atrium, Percutaneous Approach (ICD-10-PCS; principal; 2019-03-15 11:45)
DX: I49.5 Sick sinus syndrome (principal); E87.2 Acidosis; I13.0 Hypertensive heart and chronic kidney disease with heart failure and stage 1 through stage 4 chronic kidney disease, or unspecified chronic kidney disease; I50.32 Chronic diastolic (congestive) heart failure; N17.9 Acute kidney failure, unspecified; N18.4 Chronic kidney disease, stage 4 (severe); D64.9 Anemia, unspecified; D72.829 Elevated white blood cell count, unspecified; E03.9 Hypothyroidism, unspecified; E05.90 Thyrotoxicosis, unspecified without thyrotoxic crisis or storm; E11.21 Type 2 diabetes mellitus with diabetic nephropathy; E11.22 Type 2 diabetes mellitus with diabetic chronic kidney disease; E11.65 Type 2 diabetes mellitus with hyperglycemia; E66.9 Obesity, unspecified; Z68.30 Body mass index [BMI] 30.0-30.9, adult; E78.5 Hyperlipidemia, unspecified; E83.42 Hypomagnesemia; E87.5 Hyperkalemia; F32.9 Major depressive disorder, single episode, unspecified; F41.9 Anxiety disorder, unspecified; Z98.42 Cataract extraction status, left eye; Z98.41 Cataract extraction status, right eye; H40.9 Unspecified glaucoma; I27.20 Pulmonary hypertension, unspecified; I48.0 Paroxysmal atrial fibrillation; K21.0 Gastro-esophageal reflux disease with esophagitis; N25.89 Other disorders resulting from impaired renal tubular function; R79.1 Abnormal coagulation profile; T45.515A Adverse effect of anticoagulants, initial encounter; Z79.01 Long term (current) use of anticoagulants; Z79.4 Long term (current) use of insulin; Z79.899 Other long term (current) drug therapy; Z80.1 Family history of malignant neoplasm of trachea, bronchus and lung; Z80.49 Family history of malignant neoplasm of other genital organs; Z87.440 Personal history of urinary (tract) infections; Z87.891 Personal history of nicotine dependence
CPT/HCPCS: 33208; 36415; 71046; 80048; 80053; 80061; 81001; 82550; 83036; 83605; 83735; 83880; 84100; 84443; 84484; 85025; 85027; 85610; 85730; 93005; 94760; 96361; 96374; 99291

== ENCOUNTER 2019-04-24 16:50 | Inpatient (IN) | payer MEDICARE ==
[2019-04-24] MEDS ORDERED: DILTIAZEM 5 MG/ML 5 ML VIAL IVP STA ×2 (17:33→18:55)
--- NOTE | 2019-04-24 17:34 | ED ---
General Adult HPI - General Chief complaint: Altered Mental Status Stated complaint: Altered Mental Status Time Seen by Provider: 04/24/19 16:58 Source: patient, EMS Mode of arrival: EMS Limitations: no limitations - History of Present Illness Initial comments: Patient presents to the ED by ambulance from her residence for evaluation. Per EMS report, they were called secondary to the patient falling and for lift assistance. Per EMS report, the patient had a brief syncopal episode as they were assisting her back into her bed. Patient states that she recalls falling while attempting to get out of bed just prior to arrival to the ED today, but she does not recall having a syncopal episode. Patient states that she has just felt generally weak since falling. Patient denies sustaining any injury from her fall. Patient denies having any pain, fever or chills, headache, focal numbness/weakness/neuro deficit, neck/back/extremity pain, chest pain, dyspnea, cough or cold symptoms, palpitations, abdominal pain, nausea/vomiting/diarrhea, bloody or melanotic stool, dysuria or urinary symptoms, or any other symptoms or complaints. - Related Data Home Medications Medication Instructions Recorded Confirmed Simvastatin [Zocor] 40 mg PO DAILY 11/18/13 03/13/19 LORazepam [Ativan] 0.5 mg PO HS PRN 08/12/16 03/13/19 Timolol [Betimol 0.5% Ophth Soln] 1 drop BOTH EYES DAILY 09/01/16 03/13/19 Magnesium 200 mg PO DAILY 12/06/18 03/13/19 Pantoprazole [Protonix] 40 mg PO BID 12/06/18 03/13/19 Pioglitazone HCl [Actos] 15 mg PO DAILY 12/06/18 03/13/19 Diltiazem HCl [Diltiazem 24Hr ER] 240 mg PO DAILY 03/13/19 03/13/19 Furosemide [Lasix] 40 mg PO DAILY 03/13/19 03/13/19 Insulin NPH Hum/Reg Insulin Hm 10 unit SQ BID 03/13/19 03/13/19 [NovoLIN 70-30 100 UNIT/ML VIAL] Previous Rx's Medication Instructions Recorded Methimazole [Tapazole] 5 mg PO DAILY #30 tab 12/08/18 Sodium Bicarbonate Tab 650 mg PO QID #120 tab 01/04/19 Warfarin [Coumadin] 5 mg PO HS #30 tab 03/16/19 Allergies Allergy/AdvReac Type Severity Reaction Status Date / Time latex Allergy Rash/Hives Verified 04/24/19 18:28 Review of Systems ROS Statement: Those systems with pertinent positive or pertinent negative responses have been documented in the HPI. ROS Other: All systems not noted in ROS Statement are negative. Past Medical History Past Medical History: Atrial Fibrillation, Diabetes Mellitus, Eye Disorder, GERD/Reflux, Hyperlipidemia, Hypertension, Osteoarthritis (OA), Renal Disease, Thyroid Disorder Additional Past Medical History / Comment(s): afib/hyperthyroidism/echo was 55- 60%. Idiopathic pancreatitis, esophagitis, gastritis, hiatal hernia, IDDM type II, CKD stage III, possible vasospastic angina, sinus problems, arthritis in back, chronic R shoulder pain since fall/fracture, prone to UTIs, bilateral glaucoma with surgery. Severe pulmonary hypertension, hyperthyroidism. Type IV renal tubular acidosis. Chronic anemia. History of Any Multi-Drug Resistant Organisms: None Reported Past Surgical History: Cholecystectomy, Heart Catheterization, Tonsillectomy, Tubal Ligation Additional Past Surgical History / Comment(s): EGD with bx 08/15/16, 10/2009 cardiac cath-normal, bilateral cataract removal, bilateral eye surgery for glaucoma, colonoscopy. Past Anesthesia/Blood Transfusion Reactions: No Reported Reaction Additional Past Anesthesia/Blood Transfusion Reaction / Comment(s): Pt has clausterphobia. Past Psychological History: Anxiety, Depression Smoking Status: Former smoker Past Alcohol Use History: None Reported Past Drug Use History: None Reported - Past Family History Father Family Medical History: Cancer Additional Family Medical History / Comment(s): Father at the age of 81 yrs of lung cancer. He was a smoker. Mother Family Medical History: Cancer Additional Family Medical History / Comment(s): Mother had cervical cancer. She at the age of 53 from her lupus. General Exam Limitations: no limitations General appearance: alert, in no apparent distress Head exam: Present: atraumatic, normocephalic Eye exam: Present: normal appearance, PERRL, EOMI ENT exam: Present: mucous membranes moist Neck exam: Present: full ROM, other (Trachea is in midline). Absent: tenderness Respiratory exam: Present: normal lung sounds bilaterally. Absent: respiratory distress, wheezes, rales, rhonchi Cardiovascular Exam: Present: tachycardia, irregular rhythm, normal heart sounds, other (Normal radial pulses bilaterally) GI/Abdominal exam: Present: soft. Absent: distended, tenderness, guarding Extremities exam: Present: full ROM, other (Pelvis is stable and nontender). Absent: tenderness, pedal edema, calf tenderness Back exam: Absent: tenderness, paraspinal tenderness, vertebral tenderness Neurological exam: Present: alert, other (Patient is oriented to person and place, but not to time.). Absent: CN II-XII intact, motor sensory deficit Psychiatric exam: Present: normal affect, normal mood Skin exam: Present: warm, dry, intact, normal color Course Vital Signs 04/24/19 17:02 Temperature 99.0 F Pulse Rate 96 Respiratory 16 Rate Blood Pressure 129/96 O2 Sat by Pulse 97 Oximetry - Reevaluation(s) Reevaluation #1: 04/24/19 18:28 Case, H&P, test results and ED management were discussed with Dr. Parrish. He accepts hospital floor admission. He has no further recommendations at this time. 04/24/19 18:57 Patient remains in atrial fibrillation, and her heart rate is currently in the high 90s/low 100s. Patient denies development of any new symptoms while in the ED. Patient remains alert and breathing comfortably. Patient is aware of her test results, and she agrees with hospital admission at this time. EKG Findings - EKG Comments: EKG Findings:: Atrial fibrillation with RVR, ventricular rate of 114 bpm, normal QRS interval, normal QT interval, lateral ST and T-wave abnormality Medical Decision Making - Medical Decision Making Given the patient's reported syncope, borderline rapid atrial fibrillation and mildly elevated troponin, will admit the patient to the hospital for observation and further treatment as needed. Patient denies having any chest pain or any pain whatsoever. Patient was given a dose of aspirin in the ED. - Lab Data Result diagrams: 04/24/19 17:33 04/24/19 17:33 Lab Results 04/24/19 04/24/19 04/24/19 Range/Units 16:30 17:33 17:33 WBC 12.5 H (3.8-10.6) k/uL RBC 6.31 H (3.80-5.40) m/uL Hgb 13.1 (11.4-16.0) gm/dL Hct 43.2 (34.0-46.0) % MCV 68.4 L (80.0-100.0) fL MCH 20.8 L (25.0-35.0) pg MCHC 30.5 L (31.0-37.0) g/dL RDW 15.3 (11.5-15.5) % Plt Count 317 (150-450) k/uL Neutrophils % 69 % Lymphocytes % 22 % Monocytes % 6 % Eosinophils % 1 % Basophils % 1 % Neutrophils # 8.6 H (1.3-7.7) k/uL Lymphocytes # 2.7 (1.0-4.8) k/uL Monocytes # 0.8 (0-1.0) k/uL Eosinophils # 0.1 (0-0.7) k/uL Basophils # 0.1 (0-0.2) k/uL Hypochromasia Marked Microcytosis Marked PT 26.4 H (9.0-12.0) sec INR 2.7 H (<1.2) APTT 32.4 H (22.0-30.0) sec Sodium 138 (137-145) mmol/L Potassium 5.2 H (3.5-5.1) mmol/L Chloride 105 (98-107) mmol/L Carbon Dioxide 23 (22-30) mmol/L Anion Gap 10 mmol/L BUN 32 H (7-17) mg/dL Creatinine 1.64 H (0.52-1.04) mg/dL Est GFR (CKD-EPI)AfAm 34 (>60 ml/min/1.73 sqM) Est GFR (CKD-EPI)NonAf 29 (>60 ml/min/1.73 sqM) Glucose 167 H (74-99) mg/dL Calcium 9.4 (8.4-10.2) mg/dL Magnesium 1.7 (1.6-2.3) mg/dL Total Bilirubin 0.7 (0.2-1.3) mg/dL AST 40 H (14-36) U/L ALT 26 (9-52) U/L Alkaline Phosphatase 131 H (38-126) U/L Creatine Kinase 43 (30-135) U/L Troponin I (0.000-0.034) ng/mL NT-Pro-B Natriuret Pep pg/mL Total Protein 7.2 (6.3-8.2) g/dL Albumin 3.9 (3.5-5.0) g/dL 04/24/19 04/24/19 Range/Units 17:33 17:33 WBC (3.8-10.6) k/uL RBC (3.80-5.40) m/uL Hgb (11.4-16.0) gm/dL Hct (34.0-46.0) % MCV (80.0-100.0) fL MCH (25.0-35.0) pg MCHC (31.0-37.0) g/dL RDW (11.5-15.5) % Plt Count (150-450) k/uL Neutrophils % % Lymphocytes % % Monocytes % % Eosinophils % % Basophils % % Neutrophils # (1.3-7.7) k/uL Lymphocytes # (1.0-4.8) k/uL Monocytes # (0-1.0) k/uL Eosinophils # (0-0.7) k/uL Basophils # (0-0.2) k/uL Hypochromasia Microcytosis PT (9.0-12.0) sec INR (<1.2) APTT (22.0-30.0) sec Sodium (137-145) mmol/L Potassium (3.5-5.1) mmol/L Chloride (98-107) mmol/L Carbon Dioxide (22-30) mmol/L Anion Gap mmol/L BUN (7-17) mg/dL Creatinine (0.52-1.04) mg/dL Est GFR (CKD-EPI)AfAm (>60 ml/min/1.73 sqM) Est GFR (CKD-EPI)NonAf (>60 ml/min/1.73 sqM) Glucose (74-99) mg/dL Calcium (8.4-10.2) mg/dL Magnesium (1.6-2.3) mg/dL Total Bilirubin (0.2-1.3) mg/dL AST (14-36) U/L ALT (9-52) U/L Alkaline Phosphatase (38-126) U/L Creatine Kinase (30-135) U/L Troponin I 0.043 H* (0.000-0.034) ng/mL NT-Pro-B Natriuret Pep 1130 pg/mL Total Protein (6.3-8.2) g/dL Albumin (3.5-5.0) g/dL - Radiology Data Radiology results: report reviewed (CT head shows no acute abnormality), image reviewed (Chest x-ray shows left basilar atelectasis versus scarring) Disposition Clinical Impression: Fall, Syncope, Atrial fibrillation, Elevated troponin Disposition: ADMITTED IP TO THIS [facility] Condition: Stable Is patient prescribed a controlled substance at d/c from ED?: No Referrals: Carlos Hall MD [Primary Care Provider] - 1-2 days Time of Disposition: 18:28
[2019-04-24 17:44] LABS: Basophils # (A) 0.1 k/uL (0-0.2); Basophils % (A) 1 %; Eosinophils # (A) 0.1 k/uL (0-0.7); Eosinophils % (A) 1 %; HCT 43.2 % (34.0-46.0); HGB 13.1 gm/dL (11.4-16.0); Hypochromasia Marked; Lymphocytes # (A) 2.7 k/uL (1.0-4.8); Lymphocytes % (A) 22 %; MCH 20.8 pg (25.0-35.0); MCHC 30.5 g/dL (31.0-37.0); MCV 68.4 fL (80.0-100.0); Mean Platelet Volume 5.6; Microcytosis Marked; Monocytes # (A) 0.8 k/uL (0-1.0); Monocytes % (A) 6 %; Neutrophils # (A) 8.6 k/uL (1.3-7.7); Neutrophils % (A) 69 %; Platelet Count 317 k/uL (150-450); RBC 6.31 m/uL (3.80-5.40); RDW 15.3 % (11.5-15.5); WBC 12.5 k/uL (3.8-10.6)
[2019-04-24 17:55] LABS: Albumin 3.9 g/dL (3.5-5.0); Calcium 9.4 mg/dL (8.4-10.2); Magnesium 1.7 mg/dL (1.6-2.3); Potassium 5.2 mmol/L (3.5-5.1); Total Bilirubin 0.7 mg/dL (0.2-1.3); Total Protein 7.2 g/dL (6.3-8.2)
[2019-04-24 18:08] LABS: INR 2.7 (<1.2); Partial Thromboplastin Time 32.4 sec (22.0-30.0); Prothrombin Time 26.4 sec (9.0-12.0)
--- NOTE | 2019-04-24 18:14 | XR ---
EXAMINATION TYPE: XR chest 2V DATE OF EXAM: 04/24/2019 COMPARISON: 03/16/2019 HISTORY: Syncope TECHNIQUE: Frontal and lateral views of the chest are obtained. FINDINGS: There is small linear density left lower lobe. The other lung alford are clear. Heart is s lightly enlarged. There is no heart failure. There is a left axillary pacemaker. There is no pleural effusion. IMPRESSION: Scarring or subsegmental atelectasis left lower lobe unchanged.
--- NOTE | 2019-04-24 18:34 | CT ---
EXAMINATION TYPE: CT brain wo con DATE OF EXAM: 04/24/2019 COMPARISON: 03/06/2018 HISTORY: Syncope CT DLP: mGycm Automated exposure control for dose reduction was used. FINDINGS: There is cerebral cortical atrophy. There is no mass effect nor midline shift. There is no sign of in tracranial hemorrhage. The labrum is intact. There is no evidence of cerebral edema. IMPRESSION: CEREBRAL ATROPHY AND MILD CHRONIC SMALL VESSEL ISCHEMIA. NO CHANGE. NO ACUTE ABNORMALITY.
[2019-04-24] MEDS ORDERED: ASPIRIN 81 MG PO STA (18:55)
[2019-04-24] MEDS ORDERED: CALCIUM GLUCONATE 1 GM in SODIUM CHLORIDE 0.9% 100 ML IVPB ONE (19:59)
[2019-04-24] MEDS ORDERED: SODIUM POLYSTYRENE SULFONATE 15 GM/60 ML BOTTLE PO STA (20:00)
--- NOTE | 2019-04-24 20:03 | P.HPIM ---
History of Present Illness H&P Date: 04/24/19 Patient is an 79-year-old female resident of [facility] living with a PMH of Johanne. 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 The patient does not recall the episode and states that over the past few days, she had been feeling more tired than usual and had been spending more time in bed daily. Today, as per usual, she had gone to the cafeteria to have some dinner, after which she was in bed and the next thing she remembers is that she was on the ground at the bedside, unable to get up. She activated her emergency bracelet and was found on the ground by the staff. EMS was activated and upon arrival, they were assisting her into bed when she was noted to have a brief episode of unrespsonsiveness, as per the documentation. The patient denies having suffered any loss of consciousness and states that she recalls being helped into bed and then being brought to the ED for evaluation. She denied having any trauma from the fall. Denied any additional symptoms prior to or immediately after the event. Denied noticing chest discomfort, SOB, palpitations. Denied nausea, vomiting, abdominal pain, fever, or chills. Denied urinary complaints, headache, or visual disturbances. She underwent an extensive evaluation in the ED w/ initial presenting vital signs wnl. EKG revealed A fib w/ RVR @ 114 bpm w/ biphasic t-waves in leads V4- V6 and T-wave flattening in lead I. Head CT revealed chronic small vessel ischemia with no acute changes and CXR revealed a slightly enlarged heart w/ LLL atelectasis unchanged from prior. Laboratory evaluation revealed a WBC of 125, INR 2.7, Troponin of 0.043, BNP of 1130, BUN 32, and Cr 1.64 (similar to baseline), w/ K 5.2. She is admitted to the medicine service for further management of A-fib w/ RVR w/ ?syncope. Review of Systems Pertinent positives and negatives as discussed in HPI, a complete review of systems was performed and all other systems are negative. Past Medical History Past Medical History: Atrial Fibrillation, Diabetes Mellitus, Eye Disorder, GERD/Reflux, Hyperlipidemia, Hypertension, Osteoarthritis (OA), Renal Disease, Thyroid Disorder Additional Past Medical History / Comment(s): afib/hyperthyroidism/echo was 55- 60%. Idiopathic pancreatitis, esophagitis, gastritis, hiatal hernia, IDDM type II, CKD stage III, possible vasospastic angina, sinus problems, arthritis in back, chronic R shoulder pain since fall/fracture, prone to UTIs, bilateral glaucoma with surgery. Severe pulmonary hypertension, hyperthyroidism. Type IV renal tubular acidosis. Chronic anemia. History of Any Multi-Drug Resistant Organisms: None Reported Past Surgical History: Cholecystectomy, Heart Catheterization, Tonsillectomy, Tubal Ligation Additional Past Surgical History / Comment(s): EGD with bx 08/15/16, 10/2009 cardiac cath-normal, bilateral cataract removal, bilateral eye surgery for glaucoma, colonoscopy. Past Anesthesia/Blood Transfusion Reactions: No Reported Reaction Additional Past Anesthesia/Blood Transfusion Reaction / Comment(s): Pt has clausterphobia. Past Psychological History: Anxiety, Depression Smoking Status: Former smoker Past Alcohol Use History: None Reported Past Drug Use History: None Reported - Past Family History Father Family Medical History: Cancer Additional Family Medical History / Comment(s): Father at the age of 81 yrs of lung cancer. He was a smoker. Mother Family Medical History: Cancer Additional Family Medical History / Comment(s): Mother had cervical cancer. She at the age of 53 from her lupus. Medications and Allergies Home Medications Medication Instructions Recorded Confirmed Type Simvastatin [Zocor] 40 mg PO DAILY 11/18/13 03/13/19 History LORazepam [Ativan] 0.5 mg PO HS PRN 08/12/16 03/13/19 History Timolol [Betimol 0.5% Ophth Soln] 1 drop BOTH EYES DAILY 09/01/16 03/13/19 History Magnesium 200 mg PO DAILY 12/06/18 03/13/19 History Pantoprazole [Protonix] 40 mg PO BID 12/06/18 03/13/19 History Pioglitazone HCl [Actos] 15 mg PO DAILY 12/06/18 03/13/19 History Methimazole [Tapazole] 5 mg PO DAILY #30 tab 12/08/18 03/13/19 Rx Sodium Bicarbonate Tab 650 mg PO QID #120 tab 01/04/19 03/13/19 Rx Diltiazem HCl [Diltiazem 24Hr ER] 240 mg PO DAILY 03/13/19 03/13/19 History Furosemide [Lasix] 40 mg PO DAILY 03/13/19 03/13/19 History Insulin NPH Hum/Reg Insulin Hm 10 unit SQ BID 03/13/19 03/13/19 History [NovoLIN 70-30 100 UNIT/ML VIAL] Warfarin [Coumadin] 5 mg PO HS #30 tab 03/16/19 Rx Allergies Allergy/AdvReac Type Severity Reaction Status Date / Time latex Allergy Rash/Hives Verified 04/24/19 18:28 Physical Exam Vitals: Vital Signs Temp Pulse Resp BP Pulse Ox 04/24/19 19:03 101 H 18 136/87 95 04/24/19 17:02 99.0 F 96 16 129/96 97 Intake and Output 04/24/19 04/24/19 04/24/19 06:59 14:59 22:59 Other: Weight 79.379 kg General: non toxic, no distress, appears at stated age, obese Derm: no unusual rashes/lesions no unusual ecchymoses, warm, dry Head: atraumatic, normocephalic, symmetric Eyes: EOMI, no lid lag, anicteric sclera, pupils equal round reactive to light ENT: Nose and ears atraumatic, no thrush, no pharyngeal erythema Neck: No thyromegaly, no cervical lymphadenopathy, trachea midline, supple Mouth: no lip lesion, mucus membranes moist Cardiovascular: Irregularly irregular, tachycardic, no murmur, positive posterior tibial pulse bilateral, no edema, capillary refill less than 2 seconds Lungs: CTA bilateral, no rhonchi, no rales , no accessory muscle use Abdominal: soft, nontender to palpation, no guarding, no appreciable organomegaly, normal bowel sounds Ext: no gross muscle atrophy, muscle strength 5 out of 5 in all 4 extremities grossly, no contractures, Neuro: CN II-XI grossly intact, light touch intact all 4 extremities, finger to nose within normal limits, Psych: Alert, oriented, appropriate affect Results CBC & Chem 7: 04/24/19 17:33 04/24/19 17:33 Labs: Abnormal Lab Results - Last 24 Hours (Table) 04/24/19 04/24/19 04/24/19 Range/Units 16:30 17:33 17:33 WBC 12.5 H (3.8-10.6) k/uL RBC 6.31 H (3.80-5.40) m/uL MCV 68.4 L (80.0-100.0) fL MCH 20.8 L (25.0-35.0) pg MCHC 30.5 L (31.0-37.0) g/dL Neutrophils # 8.6 H (1.3-7.7) k/uL PT 26.4 H (9.0-12.0) sec INR 2.7 H (<1.2) APTT 32.4 H (22.0-30.0) sec Potassium 5.2 H (3.5-5.1) mmol/L BUN 32 H (7-17) mg/dL Creatinine 1.64 H (0.52-1.04) mg/dL Glucose 167 H (74-99) mg/dL AST 40 H (14-36) U/L Alkaline Phosphatase 131 H (38-126) U/L Troponin I (0.000-0.034) ng/mL 04/24/19 Range/Units 17:33 WBC (3.8-10.6) k/uL RBC (3.80-5.40) m/uL MCV (80.0-100.0) fL MCH (25.0-35.0) pg MCHC (31.0-37.0) g/dL Neutrophils # (1.3-7.7) k/uL PT (9.0-12.0) sec INR (<1.2) APTT (22.0-30.0) sec Potassium (3.5-5.1) mmol/L BUN (7-17) mg/dL Creatinine (0.52-1.04) mg/dL Glucose (74-99) mg/dL AST (14-36) U/L Alkaline Phosphatase (38-126) U/L Troponin I 0.043 H* (0.000-0.034) ng/mL Assessment and Plan Plan: Afib w/ RVR -Chronic monitoring -Cardiology consult -Continue with Coumadin and Cardizem home dose for now -Check TSH levels (hx of hyperthyroidism -- on methimazole) Brief episode of unresponsiveness -Likely due to orthostatic changes once patient being lifted up vs Afib -No seizure-like activity noted, no post-ictal confusion/tongue bites -C/w cardiac monitoring for now -Obtain orthostatic vitals Troponin elevation -Likely due to Afib w/ RVR -Trend troponin -Cardiac monitoring, cardiology consulted Hyperkalemia -Treat w/ Calcium gluconate -Will give Kayexalate and monitor Leukocytosis -No active signs of infection at this time -Monitor for now CKD stage III -At baseline Diastolic CHF, not in acute exacerbation -C/w home dose of lasix Hyperthyroidism -C/w home dose of Methimazole Type 2 DM -C/w home insulin doses -Hold oral hypoglycemics DVT prophylaxis -Coumadin The patient is admitted with an anticipated greater than 2 midnight stay for evaluation of Afib w/ RVR CODE STATUS: Full Code Discussed with: Patient Anticipated discharge date: 2-[address]: Assisted living facility A total of 40 minutes was spent on the care of this complex patient more than 50% of the time was spent in counseling and care coordination.
[2019-04-24 20:19] LABS: Appearance,Urine Clear (Clear); Bilirubin,Urine Negative (Negative); Blood,Urine Small (Negative); Color,Urine Yellow; Glucose,Urine (UA) Trace (Negative); Hyaline Casts,Urine 6 /lpf (0-2); Ketones,Urine Negative (Negative); Leukocyte Esterase,Urine Negative (Negative); Mucus,Urine Rare /hpf; Nitrite,Urine Negative (Negative); PH, Urine 6.5 (5.0-8.0); Protein,Urine 1+ (Negative); RBC,Urine 33 /hpf (0-5); Specific Gravity,Urine 1.015 (1.001-1.035); Squamous Epithelial Cell,Urine <1 /hpf (0-4); Urobilinogen,Urine <2.0 mg/dL (<2.0)
[2019-04-24 20:47] VITALS: BMI 31.3
[2019-04-24] MEDS ORDERED: WARFARIN 5 MG TAB PO SCH (21:00)
[2019-04-24 21:23] LABS: Glucose,Whole Blood 235 mg/dL (75-99)
[2019-04-24] MEDS ORDERED: LORazepam 0.5 MG TAB PO PRN (21:47)
[2019-04-24] MEDS ORDERED: WARFARIN 2.5 MG TAB PO SCH (23:00)
[2019-04-24] MEDS: SODIUM BICARBONATE TAB 650 MG TAB PO SCH (23:32)
[2019-04-25 05:08] LABS: Basophils # (A) 0.1 k/uL (0-0.2); Basophils % (A) 1 %; Eosinophils # (A) 0.1 k/uL (0-0.7); Eosinophils % (A) 1 %; HCT 39.3 % (34.0-46.0); HGB 11.8 gm/dL (11.4-16.0); Hypochromasia Marked; Lymphocytes # (A) 4.1 k/uL (1.0-4.8); Lymphocytes % (A) 41 %; MCH 20.6 pg (25.0-35.0); MCHC 29.9 g/dL (31.0-37.0); MCV 68.9 fL (80.0-100.0); Mean Platelet Volume 5.9; Microcytosis Marked; Monocytes # (A) 0.7 k/uL (0-1.0); Monocytes % (A) 7 %; Neutrophils # (A) 4.7 k/uL (1.3-7.7); Neutrophils % (A) 47 %; Platelet Count 255 k/uL (150-450); RDW 15.3 % (11.5-15.5)
[2019-04-25 05:13] LABS: INR 2.5 (<1.2); Prothrombin Time 24.1 sec (9.0-12.0)
[2019-04-25 05:41] LABS: Albumin 3.6 g/dL (3.5-5.0); Calcium 9.2 mg/dL (8.4-10.2); Potassium 4.5 mmol/L (3.5-5.1); Total Bilirubin 0.7 mg/dL (0.2-1.3); Total Protein 6.6 g/dL (6.3-8.2)
[2019-04-25 07:04] LABS: Glucose,Whole Blood 204 mg/dL (75-99)
[2019-04-25] MEDS: INSULIN ASPART (NovoLOG) 100 UNIT/ML VIAL SQ SCH ×3 (07:12→17:11)
[2019-04-25] MEDS: INSULN ASP PRT/INSULIN ASPART 100 UNIT/ML 10 ML VIAL SQ SCH ×2 (07:13→17:21)
[2019-04-25] MEDS ORDERED: AMINOPHYLLINE 500 MG/20 ML VIAL IV PRN (11:30)
[2019-04-25] MEDS ORDERED: CAFFEINE CITRATE 60 MG/3 ML VIAL IV PRN (11:30)
[2019-04-25] MEDS ORDERED: REGADENOSON 0.4 MG/5 ML SYRINGE IV ONE (11:30)
[2019-04-25] MEDS ORDERED: DIPYRIDAMOLE IV ONE (11:45)
[2019-04-25] MEDS ORDERED: SODIUM CHLORIDE 0.9% IV ONE (11:45)
[2019-04-25 11:47] LABS: Glucose,Whole Blood 72 mg/dL (75-99)
[2019-04-25] MEDS ORDERED: AMINOPHYLLINE 500 MG/20 ML VIAL IV ONE (13:20)
--- NOTE | 2019-04-25 13:55 | NM ---
EXAMINATION TYPE: NM stress persantine cardiolit DATE OF EXAM: 04/25/2019 COMPARISON: NONE HISTORY: Chest pain TECHNIQUE: After the intravenous administration of 9.03 mCi Tc 99m Sestamibi - Cardiolite resting SP ECT images acquired 45 minutes post injection. The patient received 44 mg Persantine, 25.3 mCi Tc 99m Sestamibi - Stress images obtained 30 minutes post injection FINDINGS: Review of stress and rest SPECT images demonstrates no distinct perfusion abnormality. Gated analysi s shows normal wall motion with an estimated left ventricular ejection fraction of 48 %. IMPRESSION: No scintigraphic evidence for reversible ischemia.
[2019-04-25] MEDS: METHIMAZOLE 5 MG TAB PO SCH (14:02)
[2019-04-25] MEDS: SODIUM BICARBONATE TAB 650 MG TAB PO SCH ×4 (14:02→21:42)
[2019-04-25] MEDS: ATORVASTATIN 20 MG TAB PO SCH (14:02)
[2019-04-25] MEDS: DILTIAZEM CD 240 MG CAP.ER.24H PO SCH (14:02)
[2019-04-25] MEDS: FUROSEMIDE 40 MG TAB PO SCH (14:02)
[2019-04-25] MEDS: PANTOPRAZOLE 40 MG TABLET PO SCH (14:02)
[2019-04-25] MEDS: TIMOLOL 0.5% OPHTH DROPS 5 ML BTL BOTH EYES SCH (14:03)
[2019-04-25] MEDS: METOPROLOL SUCCINATE (ER) 50 MG TAB.ER.24H PO SCH (14:06)
[2019-04-25 16:49] LABS: Glucose,Whole Blood 214 mg/dL (75-99)
[2019-04-25] MEDS ORDERED: WARFARIN 2.5 MG TAB PO SCH (18:00)
--- NOTE | 2019-04-25 18:44 | P.PN ---
Subjective Progress Note Date: 04/25/19 Principal diagnosis: A. fib with RVR, syncope Patient was seen and examined. No acute events overnight. Patient reports slight improvement in her breathing but continues to complain of shortness of breath especially with exertion. She denies any dizziness, chest pain or palpi tations. No nausea or vomiting. No fever or chills. Objective - Vital Signs Vital signs: Vital Signs Temp 97.0 F L 04/25/19 15:36 Pulse 89 04/25/19 15:38 Resp 18 04/25/19 15:38 BP 135/96 04/25/19 15:36 Pulse Ox 94 L 04/25/19 15:36 Intake & Output 04/24/19 04/25/19 04/25/19 18:59 06:59 18:59 Intake Total 500 260 Output Total 300 950 Balance 200 -690 Weight 79.379 kg 77.5 kg 77.111 kg Intake: Intake, IV Titration 100 Amount Calcium Gluconate 1 gm In 100 Sodium Chloride 0.9% 100 ml @ 100 mls/hr IVPB ONCE ONE Rx#:[id number] Oral 400 260 Output: Urine 300 950 Other: Voiding Method Toilet Toilet # Voids 1 - Exam General: [non toxic], [no distress], [appears at stated age] Derm: [warm], [dry] Head: [atraumatic], [normocephalic], [symmetric] Eyes: [EOMI], [no lid lag], [anicteric sclera] Mouth: [no lip lesion], [mucus membranes moist] Cardiovascular: [S1S2 reg], [irregularly regular], [positive DP pulse bilateral], Lungs: [CTA bilateral], [no rhonchi, no rales] , [no accessory muscle use] Abdominal: [soft], [ nontender to palpation], [no guarding], [no appreciable organomegaly] Ext: [no gross muscle atrophy], [no edema], [no contractures] Neuro: [no focal neuro deficits] Psych: [Alert], [oriented], [appropriate affect] - Labs CBC & Chem 7: 04/25/19 04:56 04/25/19 04:56 Labs: Abnormal Lab Results - Last 24 Hours (Table) 04/24/19 04/24/19 04/24/19 Range/Units 16:30 17:33 17:33 WBC 12.5 H (3.8-10.6) k/uL RBC 6.31 H (3.80-5.40) m/uL MCV 68.4 L (80.0-100.0) fL MCH 20.8 L (25.0-35.0) pg MCHC 30.5 L (31.0-37.0) g/dL Neutrophils # 8.6 H (1.3-7.7) k/uL PT 26.4 H (9.0-12.0) sec INR 2.7 H (<1.2) APTT 32.4 H (22.0-30.0) sec Sodium (137-145) mmol/L Potassium 5.2 H (3.5-5.1) mmol/L Carbon Dioxide (22-30) mmol/L BUN 32 H (7-17) mg/dL Creatinine 1.64 H (0.52-1.04) mg/dL Glucose 167 H (74-99) mg/dL POC Glucose (mg/dL) (75-99) mg/dL AST 40 H (14-36) U/L Alkaline Phosphatase 131 H (38-126) U/L Troponin I (0.000-0.034) ng/mL Urine Protein (Negative) Urine Glucose (UA) (Negative) Urine Blood (Negative) Urine RBC (0-5) /hpf Urine WBC (0-5) /hpf Hyaline Casts (0-2) /lpf Urine Mucus (None) /hpf 04/24/19 04/24/19 04/24/19 Range/Units 17:33 19:40 21:21 WBC (3.8-10.6) k/uL RBC (3.80-5.40) m/uL MCV (80.0-100.0) fL MCH (25.0-35.0) pg MCHC (31.0-37.0) g/dL Neutrophils # (1.3-7.7) k/uL PT (9.0-12.0) sec INR (<1.2) APTT (22.0-30.0) sec Sodium (137-145) mmol/L Potassium (3.5-5.1) mmol/L Carbon Dioxide (22-30) mmol/L BUN (7-17) mg/dL Creatinine (0.52-1.04) mg/dL Glucose (74-99) mg/dL POC Glucose (mg/dL) 235 H (75-99) mg/dL AST (14-36) U/L Alkaline Phosphatase (38-126) U/L Troponin I 0.043 H* (0.000-0.034) ng/mL Urine Protein 1+ H (Negative) Urine Glucose (UA) Trace H (Negative) Urine Blood Small H (Negative) Urine RBC 33 H (0-5) /hpf Urine WBC 8 H (0-5) /hpf Hyaline Casts 6 H (0-2) /lpf Urine Mucus Rare H (None) /hpf 04/24/19 04/25/19 04/25/19 Range/Units 22:59 04:56 04:56 WBC (3.8-10.6) k/uL RBC 5.70 H (3.80-5.40) m/uL MCV 68.9 L (80.0-100.0) fL MCH 20.6 L (25.0-35.0) pg MCHC 29.9 L (31.0-37.0) g/dL Neutrophils # (1.3-7.7) k/uL PT (9.0-12.0) sec INR (<1.2) APTT (22.0-30.0) sec Sodium 135 L (137-145) mmol/L Potassium (3.5-5.1) mmol/L Carbon Dioxide 21 L (22-30) mmol/L BUN 39 H (7-17) mg/dL Creatinine 1.59 H (0.52-1.04) mg/dL Glucose 200 H (74-99) mg/dL POC Glucose (mg/dL) (75-99) mg/dL AST 43 H (14-36) U/L Alkaline Phosphatase (38-126) U/L Troponin I 0.052 H* (0.000-0.034) ng/mL Urine Protein (Negative) Urine Glucose (UA) (Negative) Urine Blood (Negative) Urine RBC (0-5) /hpf Urine WBC (0-5) /hpf Hyaline Casts (0-2) /lpf Urine Mucus (None) /hpf 04/25/19 04/25/19 04/25/19 Range/Units 04:56 04:56 07:01 WBC (3.8-10.6) k/uL RBC (3.80-5.40) m/uL MCV (80.0-100.0) fL MCH (25.0-35.0) pg MCHC (31.0-37.0) g/dL Neutrophils # (1.3-7.7) k/uL PT 24.1 H (9.0-12.0) sec INR 2.5 H (<1.2) APTT (22.0-30.0) sec Sodium (137-145) mmol/L Potassium (3.5-5.1) mmol/L Carbon Dioxide (22-30) mmol/L BUN (7-17) mg/dL Creatinine (0.52-1.04) mg/dL Glucose (74-99) mg/dL POC Glucose (mg/dL) 204 H (75-99) mg/dL AST (14-36) U/L Alkaline Phosphatase (38-126) U/L Troponin I 0.049 H* (0.000-0.034) ng/mL Urine Protein (Negative) Urine Glucose (UA) (Negative) Urine Blood (Negative) Urine RBC (0-5) /hpf Urine WBC (0-5) /hpf Hyaline Casts (0-2) /lpf Urine Mucus (None) /hpf 04/25/19 Range/Units 11:45 WBC (3.8-10.6) k/uL RBC (3.80-5.40) m/uL MCV (80.0-100.0) fL MCH (25.0-35.0) pg MCHC (31.0-37.0) g/dL Neutrophils # (1.3-7.7) k/uL PT (9.0-12.0) sec INR (<1.2) APTT (22.0-30.0) sec Sodium (137-145) mmol/L Potassium (3.5-5.1) mmol/L Carbon Dioxide (22-30) mmol/L BUN (7-17) mg/dL Creatinine (0.52-1.04) mg/dL Glucose (74-99) mg/dL POC Glucose (mg/dL) 72 L (75-99) mg/dL AST (14-36) U/L Alkaline Phosphatase (38-126) U/L Troponin I (0.000-0.034) ng/mL Urine Protein (Negative) Urine Glucose (UA) (Negative) Urine Blood (Negative) Urine RBC (0-5) /hpf Urine WBC (0-5) /hpf Hyaline Casts (0-2) /lpf Urine Mucus (None) /hpf Assessment and Plan Assessment: Afib w/ RVR - Telemetry monitoring - Stress test negative - Continue diltiazem, home dose and metoprolol added by cardiology. - Follow cardiology recommendations - TSH within normal limits Brief episode of unresponsiveness - Likely due to orthostatic changes once patient being lifted up vs Afib - No seizure-like activity noted, no post-ictal confusion/tongue bites - C/w telemetry monitoring for now - Obtain orthostatic vitals Troponin elevation - Likely due to Afib w/ RVR - Troponin 0.043, 0.052, 0.049 - Stress test negative - Follow cardiology recommendations CKD stage III - At baseline Diastolic CHF, not in acute exacerbation -C/w home dose of lasix Hyperthyroidism - C/w home dose of Methimazole Type 2 DM - C/w home insulin doses - Hold oral hypoglycemics DVT prophylaxis -Coumadin
[2019-04-25 21:08] LABS: Glucose,Whole Blood 287 mg/dL (75-99)
[2019-04-26 02:03] VITALS: RESP 16
[2019-04-26 06:32] LABS: HCT 38.3 % (34.0-46.0); HGB 11.7 gm/dL (11.4-16.0); Hypochromasia Moderate; MCH 20.6 pg (25.0-35.0); MCHC 30.5 g/dL (31.0-37.0); MCV 67.6 fL (80.0-100.0); Mean Platelet Volume 5.5; Microcytosis Marked; Platelet Count 274 k/uL (150-450); RBC 5.67 m/uL (3.80-5.40); RDW 15.1 % (11.5-15.5); WBC 9.4 k/uL (3.8-10.6)
[2019-04-26 07:00] LABS: Glucose,Whole Blood 158 mg/dL (75-99)
[2019-04-26] MEDS: INSULN ASP PRT/INSULIN ASPART 100 UNIT/ML 10 ML VIAL SQ SCH (07:05)
[2019-04-26] MEDS: INSULIN ASPART (NovoLOG) 100 UNIT/ML VIAL SQ SCH ×2 (07:05→12:15)
[2019-04-26 07:07] LABS: Calcium 9.2 mg/dL (8.4-10.2); Magnesium 1.5 mg/dL (1.6-2.3); Potassium 3.7 mmol/L (3.5-5.1)
[2019-04-26 07:31] LABS: INR 2.2 (<1.2); Prothrombin Time 21.2 sec (9.0-12.0)
[2019-04-26] MEDS: FUROSEMIDE 40 MG TAB PO SCH (08:59)
[2019-04-26] MEDS: ATORVASTATIN 20 MG TAB PO SCH (08:59)
[2019-04-26] MEDS: METHIMAZOLE 5 MG TAB PO SCH (08:59)
[2019-04-26] MEDS: SODIUM BICARBONATE TAB 650 MG TAB PO SCH ×2 (08:59→12:15)
[2019-04-26] MEDS: DILTIAZEM CD 240 MG CAP.ER.24H PO SCH (08:59)
[2019-04-26] MEDS: PANTOPRAZOLE 40 MG TABLET PO SCH (08:59)
[2019-04-26] MEDS: TIMOLOL 0.5% OPHTH DROPS 5 ML BTL BOTH EYES SCH (08:59)
[2019-04-26] MEDS: METOPROLOL SUCCINATE (ER) 50 MG TAB.ER.24H PO SCH (08:59)
[2019-04-26] MEDS: MAGNESIUM SULFATE-D5W PMX 1 GM in DEXTROSE/WATER 1 100ML.BAG IVPB SCH ×2 (09:00→10:45)
--- NOTE | 2019-04-26 10:22 | P.PN ---
Subjective Progress Note Date: 04/26/19 This is an 79-year-old female, who resides at [facility] assisted living, history of persistent atrial fibrillation, hyperthyroidism, chronic kidney disease, diabetes, hyperlipidemia. Resented to the hospital with brief episode of unresponsiveness, patient was seen in consultation yesterday by Dr. Davis, she was noted to have mild troponin abnormality. Patient underwent a Persantine stress test that was negative for any reversible ischemia. She also had an echocardiogram with Doppler study performed which is yet pending. Blood pressure 114/60 with a heart rate in the 80s, 95% on room air. White blood cell count 9.4, hemoglobin 11.7, platelet count 274. Sodium 139, potassium 3.7, BUN 35 and creatinine 1.5, magnesium 1.5 today. Still has some mild shortness of breath with exertion. Objective - Vital Signs Vital signs: Vital Signs Temp 97.9 F 04/26/19 09:00 Pulse 80 04/26/19 09:00 Resp 16 04/26/19 09:00 BP 114/62 04/26/19 09:00 Pulse Ox 95 04/26/19 09:00 Intake & Output 04/25/19 04/26/19 04/26/19 18:59 06:59 18:59 Intake Total 1120 400 480 Output Total 950 350 Balance 170 50 480 Weight 77.111 kg 78.6 kg Intake: Oral 1120 400 480 Output: Urine 950 350 Other: Voiding Method Toilet Toilet Toilet # Voids 1 - Exam PHYSICAL EXAMINATION: GENERAL: 79-year-old female in no acute distress at the time of my examination HEENT: Head is atraumatic, normocephalic. Pupils equal, round. Sclera anict saranya. Conjunctiva are clear. Mucous membranes of the mouth are moist. Neck is supple. There is no elevated jugular venous pressure. No carotid bruit is heard. HEART EXAMINATION: Heart S1 and S2 irregularly irregular CHEST EXAMINATION: Lungs are clear to auscultation and precussion. No chest wall tenderness is noted on palpation or with deep breathing. ABDOMEN: Soft, nontender. Bowel sounds are heard. No organomegaly noted. EXTREMITIES: 2+ peripheral pulses with no evidence of peripheral edema and no calf tenderness noted. NEUROLOGIC patient is awake, alert and oriented X3. . - Labs CBC & Chem 7: 04/26/19 05:54 04/26/19 05:54 Labs: Abnormal Lab Results - Last 24 Hours (Table) 04/25/19 04/25/19 04/25/19 Range/Units 11:45 16:47 21:07 RBC (3.80-5.40) m/uL MCV (80.0-100.0) fL MCH (25.0-35.0) pg MCHC (31.0-37.0) g/dL PT (9.0-12.0) sec INR (<1.2) BUN (7-17) mg/dL Creatinine (0.52-1.04) mg/dL Glucose (74-99) mg/dL POC Glucose (mg/dL) 72 L 214 H 287 H (75-99) mg/dL Magnesium (1.6-2.3) mg/dL 04/26/19 04/26/19 04/26/19 Range/Units 05:54 05:54 05:54 RBC 5.67 H (3.80-5.40) m/uL MCV 67.6 L (80.0-100.0) fL MCH 20.6 L (25.0-35.0) pg MCHC 30.5 L (31.0-37.0) g/dL PT 21.2 H (9.0-12.0) sec INR 2.2 H (<1.2) BUN 35 H (7-17) mg/dL Creatinine 1.55 H (0.52-1.04) mg/dL Glucose 165 H (74-99) mg/dL POC Glucose (mg/dL) (75-99) mg/dL Magnesium 1.5 L (1.6-2.3) mg/dL 04/26/19 Range/Units 06:58 RBC (3.80-5.40) m/uL MCV (80.0-100.0) fL MCH (25.0-35.0) pg MCHC (31.0-37.0) g/dL PT (9.0-12.0) sec INR (<1.2) BUN (7-17) mg/dL Creatinine (0.52-1.04) mg/dL Glucose (74-99) mg/dL POC Glucose (mg/dL) 158 H (75-99) mg/dL Magnesium (1.6-2.3) mg/dL Assessment and Plan Plan: Assessment and plan #1 brief episode of unresponsiveness. We will check orthostatics on the patient. #2 chronic persistent atrial fibrillation #3 mild troponin abnormality, not consistent with acute coronary syndrome, likely secondary to atrial fibrillation with a rapid ventricular response #4 chronic kidney disease, stage III #5 diabetes #6 hyperlipidemia Plan Patient had an echocardiogram with Doppler study performed which is yet pending. She underwent a Persantine Cardiolite stress test yesterday that did not reveal any evidence of reversible ischemia. We will check orthostatics today, continue current medications including Coumadin for anticoagulation. DNP note has been reviewed, I agree with a documented findings and plan of care. Patient was seen and examined.
--- NOTE | 2019-04-26 10:34 | ECHOF ---
Referral Reason:AFib Trop elevation MEASUREMENTS -------- HEIGHT: 157.5 cm WEIGHT: 77.1 kg BP: 146/88 RVIDd: 2.5 cm (< 3.3) IVSd: 1.2 cm (0.6 - 1.1) LVIDd: 3.8 cm (3.9 - 5.3) LVPWd: 1.4 cm (0.6 - 1.1) IVSs: 1.5 cm LVIDs: 3.3 cm LVPWs: 1.9 cm LAESV Index (A-L): 31.85 ml/m Ao Diam: 2.7 cm (2.0 - 3.7) AV Cusp: 1.0 cm (1.5 - 2.6) RAP: 5.00 mmHg RVSP: 38.66 mmHg FINDINGS -------- Atrial fibrillation. This was a technically adequate study. The left ventricular size is normal. There is mild concentric left ventricular hypertrophy. Overa ll left ventricular systolic function is moderate-severely impaired with, an EF between 30 - 35 %. Left ventricular fillimg pressure cannot be estimated due to Atrial fibrillation. The right ventricle is normal in size. LA is midly dilated 29-33ml/m2. The right atrial size is normal. Electronic pacemaker lead seen in the right atrial cavity. Interatrial and interventricular septum intact. The aortic valve is trileaflet and appears structurally normal. There is no evidence of aortic regu rgitation. There is no evidence of aortic stenosis. Mild mitral regurgitation is present. Mild tricuspid regurgitation present. There is mild pulmonary hypertension. The right ventricular systolic pressure, as measured by Doppler, is 38.66mmHg. There is no pulmonic regurgitation present. The aortic root size is normal. The inferior vena cava is mildly dilated. There is no pericardial effusion. CONCLUSIONS -------- 1. Atrial fibrillation. 2. This was a technically adequate study. 3. The left ventricular size is normal. 4. There is mild concentric left ventricular hypertrophy. 5. Overall left ventricular systolic function is moderate-severely impaired with, an EF between 30 - 35 %. 6. Left ventricular fillimg pressure cannot be estimated due to Atrial fibrillation. 7. The right ventricle is normal in size. 8. LA is midly dilated 29-33ml/m2. 9. The right atrial size is normal. 10. Electronic pacemaker lead seen in the right atrial cavity. 11. Interatrial and interventricular septum intact. 12. The aortic valve is trileaflet and appears structurally normal. 13. There is no evidence of aortic regurgitation. 14. There is no evidence of aortic stenosis. 15. Mild mitral regurgitation is present. 16. Mild tricuspid regurgitation present. 17. There is mild pulmonary hypertension. 18. The right ventricular systolic pressure, as measured by Doppler, is 38.66mmHg. 19. There is no pulmonic regurgitation present. 20. The aortic root size is normal. 21. The inferior vena cava is mildly dilated. 22. There is no pericardial effusion. BARREL COOPER: Linda Crisostomo RDCS
[2019-04-26 12:08] LABS: Glucose,Whole Blood 182 mg/dL (75-99)
[2019-04-26 12:10] VITALS: BP 116/56; PULSE 72; TEMP 98.2
--- NOTE | 2019-04-26 13:20 | EST ---
EXERCISE STRESS AGE: 79 SEX: Female HT: 62" WT: 170 pounds PROTOCOL: Persantine Cardiolite STAGE: DURATION OF EXERCISE: HEART RATE REST: 120 BLOOD PRESSURE REST: 96/86 MAXIMUM HEART RATE ACHIEVED: 111 MAXIMUM BLOOD PRESSURE: 97/75 85% MPHR: 119 100% MPHR: 140 METS: INDICATIONS: Chest pain. CLINICAL INFORMATION: This is a Persantine stress test. Baseline EKG revealed atrial fib with moderate ventricular rate. With administration, heart rate changed from 120 to 111 beats per minute. Blood pressure changed from 96/60 and remained about the same. Nonspecific ST changes were seen throughout. By EKG criteria, this is an inconclusive stress test with resting EKG changes. The nuclear scan results which are more pertinent will be reported by the radiologist. Blood pressure recordings were inaccurate. By EKG criteria, this is an inconclusive stress test. The nuclear scan results which are more pertinent will be reported by the radiologist. JONA / ZBIGNIWEN: [id number] /
--- NOTE | 2019-04-26 16:12 | P.DS ---
Providers Date of admission: 04/24/19 18:32 Expected date of discharge: 04/26/19 Attending physician: Aldo Parrish MD Consults: 04/24/19 19:57 Consult Physician Urgent Consulting Provider: Ken Martin Consult Reason/Comments: syncope, afib w/ rvr, troponin elevation Do you want consulting provider notified?: Yes Primary care physician: [facility] Course: SUBJECTIVE:- Patient is an 79-year-old female resident of [facility] assisted living with a PMH of A. 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 The patient does not recall the episode and states that over the past few days, she had been feeling more tired than usual and had been spending more time in bed daily. Today, as per usual, she had gone to the cafeteria to have some dinner, after which she was in bed and the next thing she remembers is that she was on the ground at the bedside, unable to get up. She activated her emergency bracelet and was found on the ground by the staff. EMS was activated and upon arrival, they were assisting her into bed when she was noted to have a brief episode of unrespsonsiveness, as per the documentation. The patient denies having suffered any loss of consciousness and states that she recalls being helped into bed and then being brought to the ED for evaluation. She denied having any trauma from the fall. Denied any additional symptoms prior to or immediately after the event. Denied noticing chest discomfort, SOB, palpitations. Denied nausea, vomiting, abdominal pain, fever, or chills. Denied urinary complaints, headache, or visual disturbances. She underwent an extensive evaluation in the ED w/ initial presenting vital signs wnl. EKG revealed A fib w/ RVR @ 114 bpm w/ biphasic t-waves in leads V4- V6 and T-wave flattening in lead I. Head CT revealed chronic small vessel ischemia with no acute changes and CXR revealed a slightly enlarged heart w/ LLL atelectasis unchanged from prior. Laboratory evaluation revealed a WBC of 125, INR 2.7, Troponin of 0.043, BNP of 1130, BUN 32, and Cr 1.64 (similar to baseline), w/ K 5.2. She is admitted to the medicine service for further management of A-fib w/ RVR w/ ?syncope. OBJECTIVE:- Patient vital signs stable currently she is afebrile. Lungs semination showed decreased breath sound at the bases with few basal by bilateral crackles no rhonchi or wheezes heard. Cardiovascular exam revealed irregularly irregular heart rate with rate controlled. Abdomen is soft bowel sound positive. I personally pulses positive bilaterally lower exudate pulses decrease this chronic trace to 1+ bilateral lower extremity edema noted. ASSESSMENT:- Syncope A. Fib w/RVR Troponemia-mild Hyperkalemia-resolved Leukocytosis CKD-III HFrEF 30-35% Hyperthyroidism DM-II PLAN:- Patient has a a stress test done that was negative and she had 2-D echocardiogram done which showed pacer leads in place and ejection fraction of 30-35%. Patient troponins were borderline elevated which was considered to be due to see daily by the cardiology team. Patient's orthostatic vitals were checked and there was no orthostatic that pressure drop of pulse rise or symptoms present. Cardiology team cleared patient for discharge home today. Patient did requested to have some physical therapy at her apartment as she reports some difficulty with ambulation (at times she don't use walker) and had few falls lately. Home care services were consulted for PT/OT/RN visits. Patient was given follow-up with her primary care provider in one week and licensed prosthetist/orthotist in 2 weeks and she will be following with Coumadin clinic for PT/INR follow-up and management. Patient was given all her home medication along with that new medication metoprolol succinate 50 mg every 24 hours was initiated and prescription was sent to her pharmacy. Assessment: SEE ABOVE. Health Concerns: Patient was advised and counseled to always use walker for ambulation while in side the apartment or outside. Continue diet and fluid restrictions as before, you need to f/u with your PCP and licensed prosthetist/orthotist in 1-2 weeks. Home care services were initiated as per your request for home PT/OT and RN visits PRN. Patient need to f/u with ANTICOAGULATION clinic in 2 days for warfarin management and PT/INR monitoring. Patient Condition at Discharge: Fair Plan - Discharge Summary Discharge Rx Participant: No New Discharge Prescriptions: New Metoprolol Succinate (ER) [Toprol XL] 50 mg PO DAILY 30 Days #30 tab.er.24h Continue Simvastatin [Zocor] 40 mg PO DAILY LORazepam [Ativan] 0.5 mg PO HS PRN PRN Reason: Anxiety Timolol [Betimol 0.5% Ophth Soln] 1 drop BOTH EYES DAILY Magnesium 200 mg PO DAILY Pioglitazone HCl [Actos] 15 mg PO DAILY Pantoprazole [Protonix] 40 mg PO DAILY Methimazole [Tapazole] 5 mg PO DAILY #30 tab Sodium Bicarbonate Tab 650 mg PO QID #120 tab Insulin NPH Hum/Reg Insulin Hm [NovoLIN 70-30 100 UNIT/ML VIAL] 10 unit SQ BID Diltiazem HCl [Diltiazem 24Hr ER] 240 mg PO DAILY Furosemide [Lasix] 40 mg PO DAILY Warfarin [Coumadin] 2.5 mg PO SUTUTHSA Warfarin Sodium [Coumadin] 3.75 mg PO MOWEFR Discharge Medication List Simvastatin [Zocor] 40 mg PO DAILY 11/18/13 [History] LORazepam [Ativan] 0.5 mg PO HS PRN 08/12/16 [History] Timolol [Betimol 0.5% Ophth Soln] 1 drop BOTH EYES DAILY 09/01/16 [History] Magnesium 200 mg PO DAILY 12/06/18 [History] Pantoprazole [Protonix] 40 mg PO DAILY 12/06/18 [History] Pioglitazone HCl [Actos] 15 mg PO DAILY 12/06/18 [History] Methimazole [Tapazole] 5 mg PO DAILY #30 tab 12/08/18 [Rx] Sodium Bicarbonate Tab 650 mg PO QID #120 tab 01/04/19 [Rx] Diltiazem HCl [Diltiazem 24Hr ER] 240 mg PO DAILY 03/13/19 [History] Furosemide [Lasix] 40 mg PO DAILY 03/13/19 [History] Insulin NPH Hum/Reg Insulin Hm [NovoLIN 70-30 100 UNIT/ML VIAL] 10 unit SQ BID 03/13/19 [History] Warfarin Sodium [Coumadin] 3.75 mg PO MOWEFR 04/24/19 [History] Warfarin [Coumadin] 2.5 mg PO SUTUTHSA 04/24/19 [History] Metoprolol Succinate (ER) [Toprol XL] 50 mg PO DAILY 30 Days #30 tab.er.24h 04/26/19 [Rx] Follow up Appointment(s)/Referral(s): [facility], [NON-STAFF] - As Needed Carlos Hall MD [Primary Care Provider] - 05/03/19 10:15 am (Thursday) María Amato MD [STAFF PHYSICIAN] - 05/10/19 3:45 pm (Thursday) Patient Instructions/Handouts: Warfarin (By mouth) Activity/Diet/Wound Care/Special Instructions: Always use walker for ambulation while in side the apartment or outside. Continue diet and fluid restrictions as before, you need to f/u with your PCP and licensed prosthetist/orthotist in 1-2 weeks. Home care services were initiated as per your request for home PT/OT and RN visits PRN. Discharge Disposition: HOME WITH HOME HEALTH SERVICES Plan of Treatment: Patient need to f/u with ANTICOAGULATION clinic in 2 days for warfarin management and PT/INR monitoring.
[2019-04-26 16:42] LABS: Glucose,Whole Blood 268 mg/dL (75-99)
== END 2019-04-26 17:14 | disposition home health service (06) | DRG 309 ==
LOC: EC 16:50 → 3SCARD 18:32
PROVIDERS: ADMIT Family Medicine; ATTEND Family Medicine
DX: I48.19 Other persistent atrial fibrillation (principal); I13.0 Hypertensive heart and chronic kidney disease with heart failure and stage 1 through stage 4 chronic kidney disease, or unspecified chronic kidney disease; I50.32 Chronic diastolic (congestive) heart failure; D72.829 Elevated white blood cell count, unspecified; E05.90 Thyrotoxicosis, unspecified without thyrotoxic crisis or storm; E11.22 Type 2 diabetes mellitus with diabetic chronic kidney disease; E78.5 Hyperlipidemia, unspecified; E87.5 Hyperkalemia; F32.9 Major depressive disorder, single episode, unspecified; F41.9 Anxiety disorder, unspecified; I27.20 Pulmonary hypertension, unspecified; N18.3 Chronic kidney disease, stage 3 (moderate); R29.6 Repeated falls; Z79.01 Long term (current) use of anticoagulants; Z79.4 Long term (current) use of insulin; Z79.899 Other long term (current) drug therapy; Z80.1 Family history of malignant neoplasm of trachea, bronchus and lung; Z80.49 Family history of malignant neoplasm of other genital organs; Z87.891 Personal history of nicotine dependence; Z91.040 Latex allergy status; Z90.49 Acquired absence of other specified parts of digestive tract; Z98.51 Tubal ligation status; Z98.42 Cataract extraction status, left eye; Z98.41 Cataract extraction status, right eye; R79.89 Other specified abnormal findings of blood chemistry
CPT/HCPCS: 36415; 70450; 71046; 78452; 80048; 80053; 81001; 82550; 83735; 83880; 84443; 84484; 85025; 85027; 85610; 85730; 93005; 93017; 93306; 96374; 96376; 99285